=== PATIENT | male | born 1985 | race Caucasian/White ===

== ENCOUNTER 2017-03-02 14:23 | Emergency (ER) | payer OTHER ==
[~2017-03-02] VITALS: Ht 157.5 cm; Wt 44.7 kg
[~2017-03-02 14:23] MED LIST: ALBU1AER9 INH; ALL180 PO; AZIT-60 PO; BENZ5GEL TOP; CALC-452 PO; CHOL1CAP85 PO; DORN1SOL NEB; FERR1TAB62 PO; FLUT0.15 NAE; IPRASOL4 NEB; LACT1CHW PO; LORA-741 PO; MIRT30TA3 PO; MONT1TAB3 PO; MRN5 PO; MULTCAP PO; NUTRLIQ14 GT; NYSS/ PO; OMEP40CA PO; ONDA4TAB10 SL; OXGN; PANC1CAP PEG; PANC1CAP PO; PROT1POW GT; SKINCRE34 TOP; SODI3NEB2 NEB; SYMIN160 INH; TIZA4CAP PO; TOBRAMYCIN INH; TRMCR130WC TOP
[2017-03-02 14:37] VITALS: TEMP 36.8; Ht 157.5 cm; Wt 44.7 kg
[2017-03-02] MEDS ORDERED: SODIUM CHLORIDE 0.9% 1000ML 1,000 ML IV STA (14:46)
[2017-03-02] MEDS ORDERED: ONDANSETRON INJ 2 MG/ML 2 ML VIAL IV STA (14:46)
[2017-03-02] MEDS: FENTANYL CITRATE INJ 50 MCG/1 ML 2 ML VIAL IV PRN ×2 (14:58→16:28)
[2017-03-02 14:59] LABS: BASO % 0.2 %; BASO ABS # 0.03 K/uL (0-0.2); COMPLETE YES; HEMATOCRIT 37.1 % (42-52); IG% 0.3 %; LYMPH % 13.1 %; LYMPH ABS # 1.99 K/uL (1.2-3.4); MEAN CELL VOLUME 79.8 fL (80-100); MEAN CORPUSCULAR HEMOGLOBIN 25.8 pg (25-34); MEAN CORPUSCULAR HGB CONC 32.3 g/dl (32-36); MEAN PLATELET VOLUME 10.1 fL (7.4-10.4); MONO % 7.3 %; NEUT % 75.1 %; PLATELET COUNT 345 K/uL (130-400); RED BLOOD COUNT 4.65 M/uL (4.7-6.1)
[2017-03-02 15:01] LABS: ALT/SGPT 19 U/L (12-78); AST/SGOT 9 U/L (15-37); BLOOD UREA NITROGEN 16 mg/dl (7-18); BUN/CREATININE RATIO 36.3 (10-20); CALCIUM 8.7 mg/dl (8.5-10.1); CARBON DIOXIDE 33 mmol/L (21-32); CHLORIDE 104 mmol/L (98-107); CREATININE 0.45 mg/dl (0.60-1.40); GLUCOSE 97 mg/dl (70-99); POTASSIUM 3.7 mmol/L (3.5-5.1); SODIUM 142 mmol/L (136-145)
[2017-03-02 15:04] LABS: ALKALINE PHOSPHATASE 94 U/L (45-117)
[2017-03-02 15:21] LABS: URINE APPEARANCE TURBID (CLEAR); URINE BILIRUBIN NEG (NEG); URINE COLOR YELLOW; URINE EPITHELIAL CELL AUTO >30 /lpf (0-5); URINE NITRITE NEG (NEG); URINE PH 8.5 (4.5-7.5); URINE SPECIFIC GRAVITY 1.017 (1.000-1.030); UROBILINOGEN NEG (NEG)
[2017-03-02 15:36] LABS: MANUAL MICROSCOPIC REQUIRED? NO; REVIEW REQ? YES
--- NOTE | 2017-03-02 15:59 | DIAGNOSTIC IMAGING REPORT ---
CT SCAN OF THE ABDOMEN AND PELVIS WITHOUT CONTRAST CLINICAL HISTORY: left flank pain COMPARISON STUDY: 07/12/2016 TECHNIQUE: CT scan of the abdomen and pelvis was performed from the lung bases to the proximal femurs. Images are reviewed in the axial, sagittal, and coronal planes. IV contrast was not administered for this examination. CT DOSE: 248.18 mGy.cm FINDINGS: Lower chest: There are left lower lobe bronchiectatic changes. There is dilatation of the distal esophagus. There is a possible Gilmar fundoplication present. There is a right pleural effusion. There is right-sided volume loss with cardiac shift to the right. The electronic system engineer radiograph reveals possible right lower lobe collapse. Liver: The unenhanced liver is normal in size, contour, and attenuation. There is no intrahepatic biliary ductal dilatation. Gallbladder: Surgically absent Spleen: Normal in size and attenuation. Pancreas: Unremarkable. Adrenal glands: Unremarkable. Kidneys: There are bilateral nonobstructing renal calculi. There is no significant hydronephrosis. No ureteral calculi are visualized Bowel: There are no transition zones indicate bowel obstruction. A gastrostomy tube is visualized. Evaluation the bowel is limited given the lack of intravenous and oral contrast. The appendix is not visualized with certainty. There is no acute diverticulitis. Peritoneum: There is no intraperitoneal free air or abdominal ascites. Vasculature: The abdominal aorta is normal in course and caliber. Adenopathy: None. Pelvic viscera: The bladder, and pelvic viscera are unremarkable. Skeletal structures: No destructive osseous lesions are seen. IMPRESSION: 1. Lower lobe bronchiectatic changes consistent with the clinical history of cystic fibrosis 2. Right pleural effusion, and right lung volume loss with cardiac shift to the right. The electronic system engineer radiograph suggests right lower lobe collapse 3. Bilateral nephrolithiasis. No ureteral or bladder calculi identified 4. No evidence of bowel obstruction. No evidence of free air. Electronically signed by: Dex Avila M.D. 03/02/2017 3:57 PM Dictated Date/Time: 03/02/2017 3:51 PM
[2017-03-02] MEDS ORDERED: DOCU-94 PO (16:34)
[2017-03-02] MEDS ORDERED: MULTCHW22 PO (16:34)
[2017-03-02] MEDS ORDERED: ALBU18002 PO (16:34)
[2017-03-02] MEDS ORDERED: OMEP40CA41 PO (16:34)
[2017-03-02] MEDS ORDERED: ALBU18002 INH (16:34)
[2017-03-02] MEDS ORDERED: CALC500C70 PO (16:34)
[2017-03-02] MEDS ORDERED: CHOL1TAB46 PO (16:34)
[2017-03-02] MEDS ORDERED: VORI1TAB9 PO (16:34)
[2017-03-02] MEDS ORDERED: QUET1TAB30 PO (16:34)
[2017-03-02] MEDS ORDERED: PANC1CAP (16:34)
[2017-03-02] MEDS ORDERED: PANCCAP4 PO (16:34)
[2017-03-02] MEDS ORDERED: ALEN70TA4 PO (16:34)
[2017-03-02] MEDS ORDERED: OXYC1TAB3 PO (16:54)
[2017-03-02 17:13] VITALS: BP 122/75; PULSE 100; O2SAT 98
--- NOTE | 2017-03-02 17:34 | EMERGENCY ROOM VISIT NOTE ---
History Report prepared by Omer: Mimi Preciado Under the Supervision of: Neil VallejoO. First contact with patient: 14:39 Chief Complaint: FLANK PAIN Stated Complaint: BACK PAIN History of Present Illness The patient is a 31 year old male who presents to the Emergency Room with complaints of worsening left-sided flank pain for the past couple of days. His pain radiates into the right side of his back. He has been taking Tylenol for his pain at home, but this morning his pain became significantly worse. He notes some intermittent nausea, as well as dark and foul-smelling urine. The patient has a personal history of kidney stones and states that his current symptoms feel similar to his previous kidney stones. He has always been able to pass his kidney stones on his own. He has never followed-up with a urologist. The patient denies fever and vomiting. He is eating and drinking normally. The patient was brought to the ED by ambulance. He was given 50 mcg of fentanyl en route to the ED and states that helped to alleviate some of his pain. He rates his current pain as a 4/10 in severity Source of History: patient Onset: a couple of days ago Position: other (left flank) Symptom Intensity: 4/10 Quality: other (radiating) Timing: worsening Modifying Factors (Relieving): narcotics Associated Symptoms: + nausea, + urinary symptoms, No fevers, No vomiting Review of Systems See HPI for pertinent positives & negatives. A total of 10 systems reviewed and were otherwise negative. Past Medical & Surgical Medical Problems: (1) Cystic fibrosis Family History No pertinent history stated. Social History Smoking Status: Never Smoker Housing Status: lives with family Occupation Status: employed Current/Historical Medications Scheduled Alendronate Sodium (Fosamax), 70 MG PO WK Budesonide/Formoterol Fumarate (Symbicort 160/4.5 Inhaler ), 2 PUFFS INH BID Calcium/Vitamin D (Os-Min 500 Plus D), 1 TAB PO DAILY Cholecalciferol (Vitamin D3), 5,000 MG PO DAILY Docusate Sodium (Colace), 1 CAP PO BID Dornase Bob (Pulmozyme), 2.5 ML NEB BID Dronabinol (Marinol), 5 MG PO TID Ferrous Sulfate (Ferrous Sulfate), 325 MG PO BID Fexofenadine HCl (Fexofenadine HCl), 180 MG PO QPM Fluticasone Propionate (Nasal) (Flonase Allergy Relief), 2 SPRAYS MARTITA QAM Home O2 Therapy (Oxygen), 3 LITERS NA CONT Mirtazapine (Remeron), 30 MG PO HS Multiple Vitamins W/ Minerals (Aquadeks), 2 CAP PO DAILY Nutritional Supplements (Nutren 2.0), 110 ML GT UD Omeprazole (Prilosec), 40 MG PO BID Pancrelipase (Lipase-Protease- (Pertzye), 6 CAP PO TIDM Pancrelipase (Lipase-Protease- (Pertzye), 6 CAP PO TUBE FEED/UD Pancrelipase (Lipase-Protease- (Pancreaze), 3 CAP PO TID Protein (Beneprotein), 42 GM GT DAILY Sodium Chloride (Inhalant) (Sodium Chloride), 4 ML NEB BID Tizanidine (Zanaflex), 4 MG PO HS Triamcinolone Acet (Aristocort 0.1%), 1 APPLN TOP BID Voriconazole (Vfend), 1.5 TAB PO BID Scheduled PRN Albuterol Sulfate (Proair Respiclick), 2 PUFFS INH Q4 PRN for SOB/Wheezing Benzoyl Peroxide (Acne Medication 10), 1 APPLN TOP DAILY PRN for Acne Irritation Lactobacillus Rhamnosus (Gg) (Kinjal Kids), 1 CAP PO BID PRN for When On Antibiotics Ondasetron Odt (Zofran Odt), 4 MG SL Q8 PRN for Nausea Oxycodone Immediate Rel Tab (Roxicodone Ir), 1 TAB PO Q4H PRN for Severe Pain Quetiapine Fumarate (Seroquel), 12.5 MG PO Q6 PRN for Anxiety Allergies Coded Allergies: Cephalexin (Verified Allergy, Unknown, Hives, 08/01/16) Naproxen (Verified Allergy, Unknown, Stomach bleeding, 08/01/16) Tetracycline (Verified Adverse Reaction, Unknown, vomiting, 08/01/16) Physical Exam Vital Signs Date Time Temp Pulse Resp B/P (MAP) Pulse Ox O2 Delivery O2 Flow Rate FiO2 03/02/17 17:13 100 20 122/75 98 03/02/17 16:28 101 20 130/86 97 Nasal Cannula 4.0 03/02/17 15:57 103 03/02/17 15:48 104 16 117/78 98 Nasal Cannula 4.0 03/02/17 14:37 36.8 108 19 133/108 96 Nasal Cannula 4.0 Physical Exam GENERAL: Patient is awake, alert, somewhat anxious appearing and uncomfortable. EYES: The conjunctivae are clear. The pupils are round and reactive. EARS, NOSE, MOUTH AND THROAT: The nose is without any evidence of any deformity. Mucous membranes are moist tongue is midline NECK: The neck is nontender and supple. RESPIRATORY: Lung sounds were diminished throughout with scattered rhonchi, no tachypnea or conversational dyspnea. CARDIOVASCULAR: Tachycardic rate and regular rhythm noted there no murmurs rubs or gallops normal S1 normal S2 GASTROINTESTINAL: The abdomen is soft. Bowel sounds are present in all quadrants. Abdomen is nontender BACK: There was significant left CVA tenderness to percussion. No midline tenderness or or step-off noted range of motion in flexion extension as well as rotation no signs of muscle spasm noted MUSCULOSKELETAL/EXTREMITIES: There is no evidence of gross deformity full range of motion is noted in the hips and shoulders SKIN: There is no obvious evidence of any rash. There are no petechiae, pallor or cyanosis noted. NEUROLOGIC: Patient is awake alert and oriented x3 Medical Decision & Procedures ER Provider Diagnostic Interpretation: Radiology results as stated below per my review and radiologist interpretation: CT SCAN OF THE ABDOMEN AND PELVIS WITHOUT CONTRAST CLINICAL HISTORY: left flank pain COMPARISON STUDY: 07/12/2016 TECHNIQUE: CT scan of the abdomen and pelvis was performed from the lung bases to the proximal femurs. Images are reviewed in the axial, sagittal, and coronal planes. IV contrast was not administered for this examination. CT DOSE: 248.18 mGy.cm FINDINGS: Lower chest: There are left lower lobe bronchiectatic changes. There is dilatation of the distal esophagus. There is a possible Gilmar fundoplication present. There is a right pleural effusion. There is right-sided volume loss with cardiac shift to the right. The cafeteria monitor radiograph reveals possible right lower lobe collapse. Liver: The unenhanced liver is normal in size, contour, and attenuation. There is no intrahepatic biliary ductal dilatation. Gallbladder: Surgically absent Spleen: Normal in size and attenuation. Pancreas: Unremarkable. Adrenal glands: Unremarkable. Kidneys: There are bilateral nonobstructing renal calculi. There is no significant hydronephrosis. No ureteral calculi are visualized Bowel: There are no transition zones indicate bowel obstruction. A gastrostomy tube is visualized. Evaluation the bowel is limited given the lack of intravenous and oral contrast. The appendix is not visualized with certainty. There is no acute diverticulitis. Peritoneum: There is no intraperitoneal free air or abdominal ascites. Vasculature: The abdominal aorta is normal in course and caliber. Adenopathy: None. Pelvic viscera: The bladder, and pelvic viscera are unremarkable. Skeletal structures: No destructive osseous lesions are seen. IMPRESSION: 1. Lower lobe bronchiectatic changes consistent with the clinical history of cystic fibrosis 2. Right pleural effusion, and right lung volume loss with cardiac shift to the right. The cafeteria monitor radiograph suggests right lower lobe collapse 3. Bilateral nephrolithiasis. No ureteral or bladder calculi identified 4. No evidence of bowel obstruction. No evidence of free air. Electronically signed by: Dex Avila M.D. 03/02/2017 3:57 PM Dictated Date/Time: 03/02/2017 3:51 PM Laboratory Results 03/02/17 14:30 Red Blood Count 4.65, Mean Corpuscular Volume 79.8, Mean Corpuscular Hemoglobin 25.8, Mean Corpuscular Hemoglobin Concent 32.3, Mean Platelet Volume 10.1, Neutrophils (%) (Auto) 75.1, Lymphocytes (%) (Auto) 13.1, Monocytes (%) (Auto) 7.3, Eosinophils (%) (Auto) 4.0, Basophils (%) (Auto) 0.2, Neutrophils # (Auto) 11.42, Lymphocytes # (Auto) 1.99, Monocytes # (Auto) 1.11, Eosinophils # (Auto) 0.61, Basophils # (Auto) 0.03 03/02/17 14:30 Test 03/02/17 14:30 03/02/17 15:05 White Blood Count 15.20 K/uL (4.8-10.8) Red Blood Count 4.65 M/uL (4.7-6.1) Hemoglobin 12.0 g/dL (14.0-18.0) Hematocrit 37.1 % (42-52) Mean Corpuscular Volume 79.8 fL (80-100) Mean Corpuscular Hemoglobin 25.8 pg (25-34) Mean Corpuscular Hemoglobin Concent 32.3 g/dl (32-36) Platelet Count 345 K/uL (130-400) Mean Platelet Volume 10.1 fL (7.4-10.4) Neutrophils (%) (Auto) 75.1 % Lymphocytes (%) (Auto) 13.1 % Monocytes (%) (Auto) 7.3 % Eosinophils (%) (Auto) 4.0 % Basophils (%) (Auto) 0.2 % Neutrophils # (Auto) 11.42 K/uL (1.4-6.5) Lymphocytes # (Auto) 1.99 K/uL (1.2-3.4) Monocytes # (Auto) 1.11 K/uL (0.11-0.59) Eosinophils # (Auto) 0.61 K/uL (0-0.5) Basophils # (Auto) 0.03 K/uL (0-0.2) RDW Standard Deviation 47.0 fL (36.4-46.3) RDW Coefficient of Variation 16.2 % (11.5-14.5) Immature Granulocyte % (Auto) 0.3 % Immature Granulocyte # (Auto) 0.04 K/uL (0.00-0.02) Anion Gap 5.0 mmol/L (3-11) Est Creatinine Clear Calc Drug Dose 150.4 ml/min Estimated GFR () > 150.0 Estimated GFR (Non- > 150.0 BUN/Creatinine Ratio 36.3 (10-20) Calcium Level 8.7 mg/dl (8.5-10.1) Total Bilirubin 0.2 mg/dl (0.2-1) Direct Bilirubin 0.1 mg/dl (0-0.2) Aspartate Amino Transf (AST/SGOT) 9 U/L (15-37) Alanine Aminotransferase (ALT/SGPT) 19 U/L (12-78) Alkaline Phosphatase 94 U/L (45-117) Total Protein 8.1 gm/dl (6.4-8.2) Albumin 3.6 gm/dl (3.4-5.0) Lipase 35 U/L (73-393) Urine Color YELLOW Urine Appearance TURBID (CLEAR) Urine pH 8.5 (4.5-7.5) Urine Specific Cook 1.017 (1.000-1.030) Urine Protein NEG (NEG) Urine Glucose (UA) NEG (NEG) Urine Ketones NEG (NEG) Urine Occult Blood NEG (NEG) Urine Nitrite NEG (NEG) Urine Bilirubin NEG (NEG) Urine Urobilinogen NEG (NEG) Urine Leukocyte Esterase NEG (NEG) Urine WBC (Auto) 1-5 /hpf (0-5) Urine RBC (Auto) 0-4 /hpf (0-4) Urine Hyaline Casts (Auto) 5-10 /lpf (0-5) Urine Epithelial Cells (Auto) >30 /lpf (0-5) Urine Bacteria (Auto) NEG (NEG) Urine Renal Epithelial Cells /lpf (0-5) Urine Crystals AMORPHOUS SEDIMENT (NONE Laboratory results per my review. Medications Administered Medications (Trade) Dose Ordered Sig/William Route Start Time Stop Time Status Last Admin Dose Admin Fentanyl Citrate (Fentanyl Inj) 50 mcg Q20M PRN IV 03/02/17 15:00 03/02/17 18:46 DC 03/02/17 16:28 50 MCG Sodium Chloride 1,000 ml @ 999 mls/hr Q1H1M STAT IV 03/02/17 14:46 03/02/17 15:46 DC 03/02/17 14:58 999 MLS/HR Ondansetron HCl (Zofran Inj) 4 mg NOW STAT IV 03/02/17 14:46 03/02/17 14:47 DC 03/02/17 14:58 4 MG ED Course 1439: Prior to the patient's arrival in the ED I took medical command for fentanyl for the patient. Upon arrival the patient was evaluated in room B12B. A complete history and physical examination were performed. 1446: Zofran 4 mg IV, NSS 1000 ml @ 999 mls/hr IV 1500: Fentanyl 50 mcg IV - PRN 1556: I reassessed the patient at this time. He is feeling better and resting comfortably. I discussed the results and treatment plan with the patient. I answered all pertaining questions that he had. He expressed understanding and verbalized agreement The patient will be discharged home. Medical Decision Differential diagnosis: Etiologies such as renal colic, appendicitis, diverticulitis, mesenteric ischemia, aortic pathology, infections, inflammatory bowel disease, PUD, biliary pathology, UTI, as well as others were entertained. Medication Reconciliation: I attest that I have personally reviewed the patient' s current medications list. Blood pressure screening: Patient was found to have a slightly elevated blood pressure due to circumstances. I do not believe that the patient requires hypertension monitoring. The patient is a 31-year-old male who presented to the emergency department for an evaluation of flank pain and dark urine. The patient states that he's had similar episodes in the past whenever he has had kidney stones. He was given IV pain medication prior to arrival. He was treated with IV fluids IV pain medicine and IV antiemetics in the emergency department. I discussed the patient 's laboratory and radiographic studies with him. At this time he was not found to have any ureteral calculi or hydronephrosis. I do feel the patient may have had a recently passed kidney stone given the hematuria that was noted previously. He was encouraged to rest and avoid any strenuous activity. He was also encouraged to follow-up with his primary care physician as soon as possible for further management. I also discussed the patient's CT report with him which showed some atelectatic changes in the lung base. He is not have any worsening symptoms at this time but does have a history of underlying cystic fibrosis. He was encouraged to return if he develop any worsening pulmonary symptoms such as fever shortness of breath increased sputum production or if need arises. Impression Primary Impression: Kidney stone Additional Impression: Left flank pain Scribe Attestation The scribe's documentation has been prepared under my direction and personally reviewed by me in its entirety. I confirm that the note above accurately reflects all work, treatment, procedures, and medical decision making performed by me. Departure Information Dispostion Home / Self-Care Prescriptions Oxycodone Immediate Rel Tab (ROXICODONE IR) 5 Mg Tab 1 TAB PO Q4H Y for Severe Pain, #24 TAB Prov: Dominic Lucero, 03/02/17 Referrals Amador Sandy M.D. (PCP) Forms HOME CARE DOCUMENTATION FORM, IMPORTANT VISIT INFORMATION Patient Instructions Kidney Stones [place], [facility] [place] [facility] Additional Instructions Continue all medications as prescribed. Drink plenty clear liquids. Follow-up with your family tomorrow regarding the findings on CT of the chest were noted in the lungs. Return to the emergency department immediately symptoms change worsen or the need arises. Problem Qualifiers
== END 2017-03-02 15:10 | disposition home or self-care (01) ==
LOC: EDBD 14:23 → C.EDB 14:24
DX: N20.0 Calculus of kidney (principal); R10.84 Generalized abdominal pain; E84.9 Cystic fibrosis, unspecified

== ENCOUNTER 2017-03-27 15:08 | Emergency (ER) | payer OTHER ==
[~2017-03-27] VITALS: Ht 160 cm; Wt 45.5 kg
[~2017-03-27 15:08] MED LIST changes: +ALBU18002 INH; -ALBU1AER9 INH; +ALEN70TA4 PO; -AZIT-60 PO; -CALC-452 PO; +CALC500C70 PO; -CHOL1CAP85 PO; +CHOL1TAB46 PO; +DOCU-94 PO; -FERR1TAB62 PO; +FERR325T PO; -IPRASOL4 NEB; -LORA-741 PO; -MONT1TAB3 PO; -MULTCAP PO; +MULTCHW22 PO; -NYSS/ PO; -OMEP40CA PO; +OMEP40CA41 PO; +OXYC1TAB3 PO; -PANC1CAP PEG; +PANCCAP4 PO; +QUET1TAB30 PO; -SKINCRE34 TOP; -TOBRAMYCIN INH; +VORI1TAB9 PO
[2017-03-27 15:14] VITALS: TEMP 36.8; Ht 160 cm; Wt 45.5 kg
--- NOTE | 2017-03-27 15:23 | EMERGENCY ROOM VISIT NOTE ---
History Report prepared by Omer: Flavia Ojeda Under the Supervision of: Dr. Fredy Elias M.D. First contact with patient: 15:12 Chief Complaint: RESPIRATORY DISTRESS Stated Complaint: RESP. DISTRESS History of Present Illness The patient is a 32 year old male who presents to the Emergency Room with complaints of worsening shortness of breath over the last several days. The patient's mother reports that the patient has a history of cystic fibrosis and is very close to being placed on a lung transplant list. She states that the patient follows with pulmonologists in [place]. The patient's mother states that the patient has been told that if his symptoms become severe he should come to the nearest emergency department and then transferred to [facility]. The patient reports that he was recently changed from Duoneb treatments to Xopenex treatments. He states that he has been taking back to back breathing treatments since 1130 this morning. The patient states that he is typically on three liters of supplemental nasal cannula oxygen at all times, but states that today he bumped it up to five liters. He states that he is currently on Prednisone. Nursing staff reports that the patient was given 125 of Solu Medrol and 3 Duonebs en-route to the emergency department. The patient denies any fever, chills, or diarrhea. Source of History: patient, parent (mother), nursing staff Onset: last several days Position: other (global) Quality: other (shortness of breath) Timing: worsening Associated Symptoms: No fevers, No chills, No diarrhea Review of Systems All systems have been listed, reviewed, and are negative other than those previously mentioned. Please see Additional Medical History Sheet. Past Medical & Surgical Medical Problems: (1) Asthma (2) Cystic fibrosis (3) Pneumonia Surgical Problems: (1) S/P cholecystectomy (2) S/P lobectomy of lung Family History Cancer Diabetes mellitus Hypertension Kidney disease Kidney stones Social History Smoking Status: Never Smoker Smokeless Tobacco Use: No Alcohol Use: none Marital Status: single Housing Status: lives with family Occupation Status: disabled Current/Historical Medications Scheduled Alendronate Sodium (Fosamax), 70 MG PO WK Budesonide/Formoterol Fumarate (Symbicort 160/4.5 Inhaler ), 2 PUFFS INH BID Calcium/Vitamin D (Os-Min 500 Plus D), 1 TAB PO DAILY Cholecalciferol (Vitamin D3), 5,000 MG PO DAILY Dornase Bob (Pulmozyme), 2.5 ML NEB BID Dronabinol (Marinol), 5 MG PO TID Ferrous Sulfate (Ferrous Sulfate), 325 MG PO BID Fexofenadine HCl (Fexofenadine HCl), 180 MG PO QPM Fluticasone Propionate (Nasal) (Flonase Allergy Relief), 2 SPRAYS MARTITA QAM Home O2 Therapy (Oxygen), 3 LITERS NA CONT Levalbuterol (Levalbuterol HCl), 3 ML NEB QID Mirtazapine (Remeron), 30 MG PO HS Multiple Vitamins W/ Minerals (Aquadeks), 2 CAP PO DAILY Nutritional Supplements (Nutren 2.0), 110 ML GT UD Omeprazole (Prilosec), 40 MG PO BID Pancrelipase (Lipase-Protease- (Pertzye), 6 CAP PO TIDM Pancrelipase (Lipase-Protease- (Pancreaze), 3 CAP PO TID Protein (Beneprotein), 42 GM GT BID Sodium Chloride (Inhalant) (Sodium Chloride), 4 ML NEB BID Tizanidine (Zanaflex), 4 MG PO HS Triamcinolone Acet (Aristocort 0.1%), 1 APPLN TOP BID Voriconazole (Vfend), 1.5 TAB PO BID Scheduled PRN Albuterol Sulfate (Proair Respiclick), 2 PUFFS INH Q4 PRN for SOB/Wheezing Benzoyl Peroxide (Acne Medication 10), 1 APPLN TOP DAILY PRN for Acne Irritation Lactobacillus Rhamnosus (Gg) (Maurie Kids), 1 CAP PO BID PRN for When On Antibiotics Ondasetron Odt (Zofran Odt), 4 MG SL Q8 PRN for Nausea Quetiapine Fumarate (Seroquel), 12.5 MG PO Q6 PRN for Anxiety Allergies Coded Allergies: Cephalexin (Verified Allergy, Unknown, Hives, 03/27/17) SPOKE W PATIENT - HAS TOLERATED MEROPENEM IN THE PAST Naproxen (Verified Allergy, Unknown, Stomach bleeding, 03/27/17) Tetracycline (Verified Adverse Reaction, Unknown, vomiting, 03/27/17) Physical Exam Vital Signs Date Time Temp Pulse Resp B/P (MAP) Pulse Ox O2 Delivery O2 Flow Rate FiO2 03/27/17 21:33 112 25 124/72 94 Mask 6.0 03/27/17 20:20 113 23 119/70 95 Mask 6.0 03/27/17 19:22 116 23 109/69 95 Mask 6.0 03/27/17 19:00 112 24 116/68 93 Mask 6.0 03/27/17 17:43 127 24 109/63 93 Mask 10.0 03/27/17 16:45 129 25 107/66 94 10.0 03/27/17 16:00 92 Oxymask 10.0 03/27/17 15:25 90 Oxymask 10.0 03/27/17 15:19 156 03/27/17 15:14 36.8 150 30 141/86 86 Nasal Cannula 6.0 Physical Exam GENERAL: Patient awake, alert, oriented x 3. Patient follows commands. Patient does not appear toxic. Patient is adequately hydrated and well- nourished. SKIN: No erythema, pallor, cyanosis or rash HEENT: Normal head, pupils equal, reactive to light and accommodation. Neck: Without adenopathy, no neck vein distention. LUNGS:Wheezes in all navarrete, tachypneic. HEART: Tachycardic, no murmurs. ABDOMEN: Feeding tube in left mid abdomen. Soft, nontender, no peritonitis or other signs of acute abdomen. No masses, no rebound, no hepatomegaly or splenomegaly. EXTREMITIES: No signs of trauma. No pedal or pretibial edema. No calf or thigh tenderness. NEUROLOGIC: Cranial nerves II-XII within normal limits. No gross motor sensory function deficits. Medical Decision & Procedures ER Provider Diagnostic Interpretation: X ray results are stated below per my interpretation and the radiologist's interpretation. CHEST ONE VIEW PORTABLE CLINICAL HISTORY: 32 years-old Male presenting with SOB Cystic Fibrosis. TECHNIQUE: Portable upright AP view of the chest was obtained. COMPARISON: 07/12/2016. FINDINGS: Left-sided Mediport in place, likely left subclavian venous access, terminating in the superior cavoatrial junction. Surgical material noted in the expected region of the right upper lobe bronchus and bronchus intermedius. Cardiomediastinal silhouette shifted to the extensive right lung volume loss. Marked cystic change in the right lung likely with apical bullous disease. Perihilar consolidation in the right lung has significantly progressed from prior exam. Rounded lucency projecting over the cardiac silhouette may represent a right lung base bleb. Diffuse reticulonodular lung markings throughout the left lung with a mid to basilar predominance are increased from prior. Left apical lucency as on prior exam. No pneumothorax. Blunting of the right costophrenic angle may indicate small effusion or pleural thickening. Osseous structures normal. Cholecystectomy clips noted. IMPRESSION: 1. Decreased right lung aeration with increased perihilar consolidation. This may represent a combination of mucus plugging and atelectasis, although underlying infection cannot be excluded. 2. Diffuse reticulonodular lung opacities in the mid to basilar left lung also raises concern for infection. 3. Small right effusion. Electronically signed by: Amador Pérez 03/27/2017 3:39 PM Dictated Date/Time: 03/27/2017 3:32 PM Laboratory Results 03/27/17 16:55 Red Blood Count 4.14, Mean Corpuscular Volume 79.0, Mean Corpuscular Hemoglobin 25.1, Mean Corpuscular Hemoglobin Concent 31.8, Mean Platelet Volume 03/27/17 15:45 Test 03/27/17 15:45 03/27/17 16:55 Anion Gap 5.0 mmol/L (3-11) Est Creatinine Clear Calc Drug Dose 111.9 ml/min Estimated GFR () > 150.0 Estimated GFR (Non- 132.1 BUN/Creatinine Ratio 30.2 (10-20) Calcium Level 8.5 mg/dl (8.5-10.1) Total Bilirubin 0.1 mg/dl (0.2-1) Aspartate Amino Transf (AST/SGOT) 25 U/L (15-37) Alanine Aminotransferase (ALT/SGPT) 39 U/L (12-78) Alkaline Phosphatase 106 U/L (45-117) Troponin I < 0.015 ng/ml (0-0.045) Total Protein 7.7 gm/dl (6.4-8.2) Albumin 2.7 gm/dl (3.4-5.0) Globulin 5.0 gm/dl (2.5-4.0) Albumin/Globulin Ratio 0.5 (0.9-2) White Blood Count 39.22 K/uL (4.8-10.8) Red Blood Count 4.14 M/uL (4.7-6.1) Hemoglobin 10.4 g/dL (14.0-18.0) Hematocrit 32.7 % (42-52) Mean Corpuscular Volume 79.0 fL (80-100) Mean Corpuscular Hemoglobin 25.1 pg (25-34) Mean Corpuscular Hemoglobin Concent 31.8 g/dl (32-36) Platelet Count K/uL (130-400) Mean Platelet Volume fL (7.4-10.4) RDW Standard Deviation 45.6 fL (36.4-46.3) RDW Coefficient of Variation 15.7 % (11.5-14.5) Neutrophils % (Manual) 100.0 % Lymphocytes % (Manual) 0.0 % Neutrophils # (Manual) 39.22 K/uL (1.4-6.5) Total Absolute Neutrophils 39.22 K/uL (1.4-6.5) Total Absolute Lymphocytes 0.00 K/uL (1.2-3.4) Platelet Estimate INCREASED Microcytosis PRESENT Laboratory results as stated above per my review. Medications Administered Medications (Trade) Dose Ordered Sig/William Route Start Time Stop Time Status Last Admin Dose Admin Imipenem/ Cilastatin Sodium 1000 mg/Dextrose 270 ml @ 250 mls/hr NOW ONCE IV 03/27/17 19:00 03/27/17 20:04 DC 03/27/17 19:21 250 MLS/HR Sodium Chloride 1,000 ml @ 500 mls/hr Q2H STAT IV 03/27/17 19:35 03/27/17 21:34 DC 03/27/17 19:35 500 MLS/HR ECG Indication: SOB/dyspnea Rate (beats per minute): 155 Rhythm: sinus tachycardia Findings: no acute ischemic change, no ectopy Change: Repeat EKG: Sinus Tachycardia 144 beats per minute, no ectopy, no acute ischemic change ED Course 151: Past medical records reviewed. The patient was evaluated in room B12B. A complete history and physical examination was performed. 1745: I reevaluated the patient and he is resting comfortably. I updated him at this time on his exam findings. 1835: I discussed the patients case with [facility]. He states that the hospitalist service will call back to accept the patient as a transfer to their facility. 1851: I discussed the patients case with Dr. Conner, Hospitalist at [facility]. He accepted the patient as a transfer to their facility for further work up and care. 1854: I reevaluated the patient and he is resting comfortably. I discussed the exam findings with him and I discussed the treatment plan. He verbalized complete understanding and agreement. He is going to be transferred to [facility] for further evaluation and care. 1899: Ordered Imipenem/Cilastatin Sodium 1000 mg/Dextrose 270 ml @ 250 mls/hr Protocol IV. 1934: Ordered Sodium Chloride 1000 ml @ 500 mls/hr IV. Medical Decision Nurses notes reviewed. Medical history sheet reviewed. Differential diagnosis includes but is not limited to: respiratory failure, bronchitis, cystic fibrosis , pneumonia, pulmonary embolus. The patient here with respiratory distress. The patient has a history of cystic fibrosis. Multiple labs, EKG and imaging were obtained. The patient has not had fever or chills at home. Chest x-ray reveals some consolidation on the right side. In light of his history I believe he requires IV antibiotics which were preceded by blood cultures. White count was markedly elevated. Solu-Medrol was administered prior to arrival in the ambulance The patient has been followed at [facility]. I discussed care with them this evening. They have accepted him and he was transported there via ambulance. Medication Reconciliation: I attest that I have personally reviewed the patient' s current medication list. Blood pressure Screening: Patient was found to have normal blood pressure on screening and does not require follow up. Consults Time Called: 1829 Consulting Physician: Dr. Conner Hospitalist at [facility] Returned Call: 1851 I discussed the patients case with Dr. Conner, Hospitalist at [facility]. He accepted the patient as a transfer to their facility for further work up and care. Impression Primary Impression: Cystic fibrosis Additional Impression: Pneumonia Critical Care I have personally spent greater than 35 minutes of critical care time in the direct management of this patient. This includes bedside care, interpretation of diagnostic studies, and testing, discussion with consultants, patient, and family members, and other required patient management activities. This 35 minutes is in excess of all separately billable procedures. Scribe Attestation The scribe's documentation has been prepared under my direction and personally reviewed by me in its entirety. I confirm that the note above accurately reflects all work, treatment, procedures, and medical decision making performed by me. Departure Information Dispostion Transfer Acute Care Facility Referrals Amador Sandy M.D. (PCP) Problem Qualifiers
[2017-03-27 15:25] VITALS: O2SAT 90
--- NOTE | 2017-03-27 15:41 | DIAGNOSTIC IMAGING REPORT ---
CHEST ONE VIEW PORTABLE CLINICAL HISTORY: 32 years-old Male presenting with SOB Cystic Fibrosis. TECHNIQUE: Portable upright AP view of the chest was obtained. COMPARISON: 07/12/2016. FINDINGS: Left-sided Mediport in place, likely left subclavian venous access, terminating in the superior cavoatrial junction. Surgical material noted in the expected region of the right upper lobe bronchus and bronchus intermedius. Cardiomediastinal silhouette shifted to the extensive right lung volume loss. Marked cystic change in the right lung likely with apical bullous disease. Perihilar consolidation in the right lung has significantly progressed from prior exam. Rounded lucency projecting over the cardiac silhouette may represent a right lung base bleb. Diffuse reticulonodular lung markings throughout the left lung with a mid to basilar predominance are increased from prior. Left apical lucency as on prior exam. No pneumothorax. Blunting of the right costophrenic angle may indicate small effusion or pleural thickening. Osseous structures normal. Cholecystectomy clips noted. IMPRESSION: 1. Decreased right lung aeration with increased perihilar consolidation. This may represent a combination of mucus plugging and atelectasis, although underlying infection cannot be excluded. 2. Diffuse reticulonodular lung opacities in the mid to basilar left lung also raises concern for infection. 3. Small right effusion. Electronically signed by: Amador Pérez 03/27/2017 3:39 PM Dictated Date/Time: 03/27/2017 3:32 PM
[2017-03-27] MEDS ORDERED: XPNINS NEB (16:05)
[2017-03-27 16:24] LABS: ALT/SGPT 39 U/L (12-78); BLOOD UREA NITROGEN 18 mg/dl (7-18); BUN/CREATININE RATIO 30.2 (10-20); CALCIUM 8.5 mg/dl (8.5-10.1); CARBON DIOXIDE 35 mmol/L (21-32); CHLORIDE 96 mmol/L (98-107); CREATININE 0.61 mg/dl (0.60-1.40); GLUCOSE 187 mg/dl (70-99); POTASSIUM 3.9 mmol/L (3.5-5.1); SODIUM 136 mmol/L (136-145)
[2017-03-27 16:28] LABS: ALB/GLOB RATIO 0.5 (0.9-2); ALKALINE PHOSPHATASE 106 U/L (45-117); AST/SGOT 25 U/L (15-37)
[2017-03-27 18:42] LABS: HEMATOCRIT 32.7 % (42-52); MEAN CORPUSCULAR HEMOGLOBIN 25.1 pg (25-34); MEAN CORPUSCULAR HGB CONC 31.8 g/dl (32-36); RED BLOOD COUNT 4.14 M/uL (4.7-6.1); WHITE BLOOD COUNT 39.22 K/uL (4.8-10.8)
[2017-03-27 18:43] LABS: COMPLETE YES; MICROCYTOSIS PRESENT; PLT ESTIMATE INCREASED
[2017-03-27] MEDS ORDERED: IMIPENEM/CILASTATIN IV 1,000 MG in DEXTROSE 5% 250ML 250 ML IV ONE (19:00)
[2017-03-27] MEDS ORDERED: SODIUM CHLORIDE 0.9% 1000ML 1,000 ML IV STA (19:35)
[2017-03-27 21:33] VITALS: BP 124/72; PULSE 112; O2SAT 94
== END 2017-03-27 21:35 | disposition short-term general hospital (02) ==
LOC: EDBD 15:08 → C.EDB 15:09
DX: E84.0 Cystic fibrosis with pulmonary manifestations (principal); J18.9 Pneumonia, unspecified organism; J45.909 Unspecified asthma, uncomplicated; Z87.01 Personal history of pneumonia (recurrent); Z99.81 Dependence on supplemental oxygen; Z90.2 Acquired absence of lung [part of]; Z90.49 Acquired absence of other specified parts of digestive tract; Z83.3 Family history of diabetes mellitus; Z82.49 Family history of ischemic heart disease and other diseases of the circulatory system; Z84.1 Family history of disorders of kidney and ureter

== ENCOUNTER 2020-06-11 12:45 | Inpatient (IN) ==
[2020-06-11] MEDS ORDERED: KETOROLAC TROMETHAMINE 15 MG/ML VIAL IV ONE (13:01)
[2020-06-11] MEDS ORDERED: SODIUM CHLORIDE 0.9% 1000ML 1,000 ML IV ONE (13:01)
[2020-06-11] MEDS ORDERED: MoRPHine SULFATE 4 MG/ML 1 ML CARP\\VIAL IV STA (13:01)
--- NOTE | 2020-06-11 13:05 | Emergency Department Note ---
History of Present Illness General Chief complaint: Kidney Stone Stated complaint: KIDNEY STONES Time Seen by Provider: 06/11/20 12:49 Source: patient Mode of arrival: ambulatory Limitations: no limitations History of Present Illness Maximum Pain Intensity: 8 This patient is a 35-year-old male who presents to the emergency department for evaluation of left flank pain. Patient reports that his symptoms started domonique denly about 6 hours prior to arrival. He states that his pain is primarily in the left flank. He has noticed some hematuria and slight dysuria. Symptoms are consistent with prior kidney stones he has had. Patient states pain is worse with certain movements. He took Tylenol without relief. He rates his discomfort an 8/10. Patient states [facility] u[facility]. He does note some chills but has not taken his temperature. Patient has a history of cystic fibrosis and double lung transplant in 2017. He denies cough or shortness of breath. He denies nausea or vomiting. Home Medications Home Medications Medication Instructions Recorded Confirmed Type mycophenolate sodium 720 mg PO BID 10/12/18 06/11/20 History tacrolimus 5 mg PO Q12 10/12/18 06/11/20 History acetaminophen [Tylenol] 325 mg PO QID PRN 06/11/20 06/11/20 History ascorbic acid (vitamin C) [Vitamin 500 mg PO HS 06/11/20 06/11/20 History C] azithromycin 250 mg PO .MOWEFR@QAM 06/11/20 06/11/20 History fluconazole 100 mg PO QAM 06/11/20 06/11/20 History fluticasone propionate 2 spray INTRANASAL DAILY PRN 06/11/20 06/11/20 History wcdrhk-yrfmckzd-xutmlih [Zenpep] 3 cap PO .SNACKS 06/11/20 06/11/20 History kzayqa-szxhxkwv-yjxtyog [Zenpep] 6 cap PO TIDM 06/11/20 06/11/20 History metoprolol succinate 25 mg PO DAILY 06/11/20 06/11/20 History pantoprazole 40 mg PO QAM 06/11/20 06/11/20 History prednisone 5 mg PO QAM 06/11/20 06/11/20 History vitamin E (dl, acetate) 400 unit PO DAILY 06/11/20 06/11/20 History Allergies Allergy/AdvReac Type Severity Reaction Status Date / Time cephalexin Allergy Severe Hives Verified 09/20/20 15:20 tetracycline AdvReac Severe vomiting Verified 06/11/20 14:38 naproxen AdvReac Mild Stomach Verified 06/11/20 14:38 bleeding Past Med/Surg History Medical History Asthma Chronic anemia Cystic fibrosis s/p b/l lung transplant 2016 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 Exocrine pancreatic insufficiency G tube feedings OUT IN OCT 2018 WAS DUE TO MALNUTRITION FROM CYSTIC FIBROSIS GERD (gastroesophageal reflux disease) History of Clostridioides difficile colitis History of gastrostomy tube placement History of renal calculi Kidney stones Vitamin D deficiency Surgical History History of cholecystectomy History of Sandoval fundoplication Hx of lithotripsy Lung transplant status, bilateral 06-23- Family History Mother Lung cancer Sister Lung cancer Social History Smoking Status: Never smoker Second Hand Exposure: No; Hx Alcohol Use: No Hx Substance Use: No Preferred Language: Divehi Communication Ability: Effective 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: No Beliefs That Will Affect Care: None marital status: single Current Living Situation: Family current occupational status: unemployed and disabled Feels Safe at Home: Yes Review of Systems A total of 10 systems reviewed and were otherwise negative Physical Exam Vital Signs Vital Signs - 24 hr 06/11/20 12:48 06/11/20 13:51 06/11/20 14:00 Temperature 38.1 C H Temperature Source Oral Pulse Rate 89 117 H 113 H Pulse Rate from SpO2 Sensor 156 H Respiratory Rate 20 20 16 Respiratory Effort / Characteristics Non-Labored Spontaneous Respiratory Depth Normal Blood Pressure 134/80 131/83 123/71 Blood Pressure Mean 98 96 80 Pulse Oximetry 98 96 Oxygen Delivery Method Room Air Room Air Sepsis Recent Fever Within 48 Hours Yes Sepsis New/Unexplained Change in Mental Status N/A Sepsis Action Taken by Nursing No Action Required 06/11/20 14:30 06/11/20 15:31 06/11/20 16:00 Temperature Temperature Source Pulse Rate 107 H 110 H 112 H Pulse Rate from SpO2 Sensor 107 H 112 H Respiratory Rate 18 15 15 Respiratory Effort / Characteristics Respiratory Depth Blood Pressure 126/75 120/70 117/73 Blood Pressure Mean 92 78 80 Pulse Oximetry 100 95 Oxygen Delivery Method Room Air Sepsis Recent Fever Within 48 Hours Sepsis New/Unexplained Change in Mental Status Sepsis Action Taken by Nursing VITALS: Vitals are noted on the nurse's note and reviewed by myself. Febrile with temperature 38.1 C. GENERAL: This is a 35-year-old male, uncomfortable appearing, cachectic. SKIN: The skin was without rashes. EARS: External auditory canals clear, tympanic membranes pearly echavarria without erythema or effusion bilaterally. EYES: Pupils equal round and reactive to light and accommodation. MOUTH: Mucous membranes moist. Tonsils are not enlarged. Pharynx without erythema or exudate. NECK: Supple without nuchal rigidity. No lymphadenopathy. HEART: Regular rate and rhythm without murmurs gallops or rubs. LUNGS: Clear to auscultation bilaterally without wheezes, rales or rhonchi. No retractions or accessory muscle use. ABDOMEN: Positive bowel sounds x 4. Soft, nontender to palpation. Positive left CVA tenderness. EXTREMITIES: No edema of the lower extremities. NEURO: Patient was alert and oriented to person place and time. No focal neurological deficits. Course Reevaluation(s) Reevaluation #1: Findings were discussed with the patient. I recommended admi ssion to the hospital and patient was initially very hesitant about this. He initially stated that he was going to leave but eventually did agree to stay overnight. Consultations Consultation #1: Charley Flood PA-C - [facility] hospitalist Administered Medications Vancomycin HCl 750 mg/ Sodium (Chloride) 515 mls @ 200 mls/hr IV NOW ONE Stop: 06/11/20 17:25 Last Admin: 06/11/20 15:37 Dose: 200 mls/hr Documented by: [id number] Discontinued Medications Sodium Chloride (Nss 1000ml) 1,000 mls @ 999 mls/hr IV .Q1H1M ONE Stop: 06/11/20 14:01 Last Infusion: 06/11/20 14:33 Dose: 0 mls/hr Documented by: [id number] Admin: 06/11/20 13:26 Dose: 999 mls/hr Documented by: [id number] Levofloxacin/Dextrose (Levaquin/D5w) 750 mg in 150 mls @ 100 mls/hr IV NOW STA Stop: 06/11/20 16:20 Last Infusion: 06/11/20 15:37 Dose: 0 mls/hr Documented by: [id number] Admin: 06/11/20 15:09 Dose: 100 mls/hr Documented by: [id number] Sodium Chloride (Nss) 250 mls @ 999 mls/hr IV .Q16M ONE Stop: 06/11/20 15:06 Last Infusion: 06/11/20 15:30 Dose: 0 mls/hr Documented by: [id number] Admin: 06/11/20 15:09 Dose: 999 mls/hr Documented by: [id number] Piperacillin Sod/Tazobactam Sod (Zosyn) 4.5 gm in 120 mls @ 240 mls/hr IV NOW ONE Stop: 06/11/20 15:37 Last Admin: 06/11/20 15:37 Dose: 240 mls/hr Documented by: [id number] Ketorolac Tromethamine (Ketorolac Tromethamine 15 Mg/Ml Vial) 10 mg IV NOW ONE Stop: 06/11/20 13:02 Last Admin: 06/11/20 13:27 Dose: 10 mg Documented by: [id number] Morphine Sulfate (Morphine Sulfate 4 Mg/Ml 1 Ml Carp\Vial) 4 mg IV NOW STA Stop: 06/11/20 13:02 Last Admin: 06/11/20 13:27 Dose: 4 mg Documented by: [id number] Medical Decision Making Differential Diagnosis Differential diagnosis includes renal calculus, pyelonephritis, musculoskeletal pain, ruptured AAA, aortic dissection, diverticulitis, perforated viscus, bowel obstruction, biliary pathology, pancreatitis, PE, pneumonia, pneumothorax, trauma, herpes zoster, malignancy, among others. Medical Records Attestation: I reviewed the patient's medical records. Home Medications Current Medication List: was personally reviewed by me Laboratory Data Attestation: I reviewed the patient's lab results. Result diagrams: 06/11/20 13:37 06/11/20 13:37 Lab Results 06/11/20 06/11/20 06/11/20 Range/Units 13:37 13:37 13:37 WBC 5.84 (4.8-10.8) K/uL RBC 3.09 L (4.7-6.1) M/uL Hgb 8.1 L (14.0-18.0) g/dL Hct 25.9 L (42-52) % MCV 83.8 (80-100) fL MCH 26.2 (25-34) pg MCHC 31.3 L (32-36) g/dL RDW Std Deviation 51.4 H (36.4-46.3) fL RDW Coeff of Crissy 16.7 H (11.5-14.5) % Plt Count 246 (130-400) K/uL MPV 10.3 (7.4-10.4) fL Immature Gran % (Auto) 8.0 % Neut % (Auto) 68.8 % Lymph % (Auto) 6.3 % [place] % (Auto) 16.4 % Eos % (Auto) 0.5 % Baso % (Auto) 0.0 % Neut # (Auto) 4.01 (1.4-6.5) K/uL Lymph # (Auto) 0.37 L (1.2-3.4) K/uL [place] # (Auto) 0.96 H (0.11-0.59) K/uL Eos # (Auto) 0.03 (0-0.5) K/uL Baso # (Auto) 0.00 (0-0.2) K/uL Immature Gran # (Auto) 0.47 H (0.00-0.02) K/uL Ovalocytes 1+ Sodium 136 (136-145) mmol/L Potassium 4.8 (3.5-5.1) mmol/L Chloride 107 (98-107) mmol/L Carbon Dioxide 17 L (21-32) mmol/L Anion Gap 12.0 H (3-11) BUN 27 H (7-18) mg/dl Creatinine 2.24 H (0.6-1.4) mg/dl Est Cr Clr Drug Dosing 26.8 ml/min Est GFR ( Amer) 42.4 Est GFR (Non-Af Amer) 36.6 BUN/Creatinine Ratio 12.0 (10-20) Glucose 114 H (70-99) mg/dl Lactate 1.6 (0.4-2.0) mmol/L Calcium 8.0 L (8.5-10.1) mg/dl Total Bilirubin 0.3 (0.2-1) mg/dl AST 12 L (15-37) U/L ALT 17 (12-78) U/L Alkaline Phosphatase 89 (45-117) U/L Total Protein 6.8 (6.4-8.2) gm/dl Albumin 3.4 (3.4-5.0) gm/dl Globulin 3.4 (2.5-4.0) gm/dl Albumin/Globulin Ratio 1.0 (0.9-2) COVID-19 Eval Order 06/11/20 Range/Units Unknown WBC (4.8-10.8) K/uL RBC (4.7-6.1) M/uL Hgb (14.0-18.0) g/dL Hct (42-52) % MCV (80-100) fL MCH (25-34) pg MCHC (32-36) g/dL RDW Std Deviation (36.4-46.3) fL RDW Coeff of Crissy (11.5-14.5) % Plt Count (130-400) K/uL MPV (7.4-10.4) fL Immature Gran % (Auto) % Neut % (Auto) % Lymph % (Auto) % [place] % (Auto) % Eos % (Auto) % Baso % (Auto) % Neut # (Auto) (1.4-6.5) K/uL Lymph # (Auto) (1.2-3.4) K/uL [place] # (Auto) (0.11-0.59) K/uL Eos # (Auto) (0-0.5) K/uL Baso # (Auto) (0-0.2) K/uL Immature Gran # (Auto) (0.00-0.02) K/uL Ovalocytes Sodium (136-145) mmol/L Potassium (3.5-5.1) mmol/L Chloride (98-107) mmol/L Carbon Dioxide (21-32) mmol/L Anion Gap (3-11) BUN (7-18) mg/dl Creatinine (0.6-1.4) mg/dl Est Cr Clr Drug Dosing ml/min Est GFR ( Amer) Est GFR (Non-Af Amer) BUN/Creatinine Ratio (10-20) Glucose (70-99) mg/dl Lactate (0.4-2.0) mmol/L Calcium (8.5-10.1) mg/dl Total Bilirubin (0.2-1) mg/dl AST (15-37) U/L ALT (12-78) U/L Alkaline Phosphatase (45-117) U/L Total Protein (6.4-8.2) gm/dl Albumin (3.4-5.0) gm/dl Globulin (2.5-4.0) gm/dl Albumin/Globulin Ratio (0.9-2) COVID-19 Eval Order Dup asRespPanOrdered Imaging Data Attestation: I personally reviewed and interpreted this imaging study as follows: Radiologist's Impression: ABDOMEN AND PELVIS CT WITHOUT CONTRAST FINDINGS: Focal consolidation within the base of the right lower lobe. This is new from the prior study and likely represents a pneumonia. The left lung base is clear. No pneumoperitoneum. No pneumatosis. No fractures within the visualized osseous structures. Poststernotomy changes. Large hiatus hernia. Surgical clips within the lower chest and upper abdomen are again noted. Prior cholecystectomy. Multiple bilateral renal calculi. Dominant stone within the upper pole the left kidney measures 1.4 cm. No ureteral stones. No hydronephrosis. The bladder appears unremarkable. Suboptimal evaluation for bowel pathology due to the lack of intravenous and oral contrast. However, there is no definite bowel wall thickening or obstruction. Probable visualization the appendix within the right lower quadrant. No inflammatory change to suggest acute appendicitis. Moderate to large amount of well-formed stool seen within the colon. This results in mild distention of the colon. No definite bowel wall thickening or obstruction. No retroperitoneal lymphadenopathy. Normal caliber abdominal aorta. No hepatic or splenic masses. Fatty atrophy of the pancreas is again noted. IMPRESSION: 1. Focal consolidation within the base of the right lower lobe consistent with a pneumonia. 2. No definite bowel wall thickening or obstruction. 3. Moderate to large amount of well-formed stool within the colon consistent with constipation. There is also distention of the colon likely due to the constipation. XR chest 1V portable FINDINGS: Postoperative changes consistent with prior bilateral lung transplant. The left lung is essentially clear. Small focal density within the base of the right lower lobe is better appreciated on the same day abdomen and pelvis CT. The heart is normal in size. Left Port-A-Cath terminates in the distal SVC. No pleural effusions. No pneumothorax. IMPRESSION: Focal right lower lobe airspace opacity is better appreciated on the same day chest CT. This is consistent with a pneumonia. Blood Pressure Blood Pressure Findings: Normal blood pressure Blood Pressure Disposition: did not require urgent referral MDM Narrative Continuous quality assurance monitor body: Order was placed for continuous quality assurance monitor body. Patient was placed on the quality assurance monitor body. Patient was noted to be in normal sinus rhythm at an initial rate of 89 bpm. The patient is a 35-year-old male who presents today complaining of left flank pain. Patient is febrile on arrival. Labs revealed no leukocytosis. Patient is anemic with hemoglobin of 8.1 which appears to be baseline patient has acute kidney injury with a creatinine of 2.24. Patient reports he has had an elevated creatinine recently and his PCP feels it is due to recent diarrhea. CT of the abdomen/pelvis shows no kidney stone, but does show a right lower lobe pneumonia. This was confirmed with chest x-ray. Patient received 30 mL/kg of normal saline IV. Blood cultures are pending. Lactic acid was not elevated. Patient was given broad-spectrum antibiotics after consultation with the admitting hospitalist and ED pharmacist. Levaquin initially ordered, however after discussion with the patient and it was confirmed that he has received both cefepime and amoxicillin in the past without any issues. Zosyn was then ordered and Levaquin stopped. Patient also given vancomycin. COVID testing and respiratory panel were ordered. The case was discussed with the [facility] Hospitalist service, who agreed to evaluate the patient for further care. The patient was independently evaluated by Dr. Lucio, who agreed with my assessment and treatment plan. Impression & Plan Right lower lobe pneumonia, HEIDY (acute kidney injury) Discharge Plan Visit Data Chief Complaint: Kidney Stone Stated Complaint: KIDNEY STONES ED Provider: Maricruz Lucio ED Midlevel Provider: Sherri Corley Discharge Problem: Right lower lobe pneumonia, HEIDY (acute kidney injury) Forms Stand Alone Forms: My [facility] Prescriptions Prescriptions: No Action tacrolimus 5 mg capsule 5 mg PO Q12 RF: 0 mycophenolate sodium 360 mg tablet,delayed release (DR/EC) 720 mg PO BID RF: 0 fluconazole 100 mg tablet 100 mg PO QAM RF: 0 acetaminophen [Tylenol] 325 mg Tablet 325 mg PO QID PRN (Reason: Pain) RF: 0 azithromycin 250 mg tablet 250 mg PO .MOWEFR@QAM RF: 0 prednisone 5 mg Tablet 5 mg PO QAM RF: 0 ascorbic acid (vitamin C) [Vitamin C] 500 mg Tablet 500 mg PO HS RF: 0 pantoprazole 40 mg Tablet,Delayed Release (Dr/Ec) 40 mg PO QAM RF: 0 metoprolol succinate 25 mg Tablet Extended Release 24 Hr 25 mg PO DAILY RF: 0 fluticasone propionate 50 mcg/actuation spray,suspension 2 spray INTRANASAL DAILY PRN (Reason: Congestion) RF: 0 vitamin E (dl, acetate) 400 unit capsule 400 unit PO DAILY RF: 0 Zenpep 25,000-79,000- 105,000 unit capsule,delayed release(DR/EC) 6 cap PO TIDM RF: 0 Zenpep 25,000-79,000- 105,000 unit capsule,delayed release(DR/EC) 3 cap PO .SNACKS RF: 0 Discharge Problem: Right lower lobe pneumonia Qualifiers: Pneumonia type: due to unspecified organism Qualified Code(s): J18.9 - Pneumonia, unspecified organism
[2020-06-11 13:57] LABS: Hematocrit (blood only) 25.9 % (42-52); Hemoglobin 8.1 g/dL (14.0-18.0); Mean Corpuscular Hemoglobin 26.2 pg (25-34); Mean Corpuscular Hgb Conc 31.3 g/dL (32-36); Mean Corpuscular Volume 83.8 fL (80-100); Mean Platelet Volume 10.3 fL (7.4-10.4); Platelet Count 246 K/uL (130-400); RDW Coefficient of Variation 16.7 % (11.5-14.5); RDW Standard Deviation 51.4 fL (36.4-46.3); Red Blood Count 3.09 M/uL (4.7-6.1); White Blood Count 5.84 K/uL (4.8-10.8)
--- NOTE | 2020-06-11 14:15 | CT Scan Report ---
ABDOMEN AND PELVIS CT WITHOUT CONTRAST CT DOSE: 241.96 mGy.cm HISTORY: left flank pain, hx stones, fever TECHNIQUE: Multiaxial CT images of the abdomen and pelvis were performed without contrast. A dose lo wering technique was utilized adhering to the principles of ALARA. COMPARISON STUDY: Abdomen and pelvis CT 02/14/2020. FINDINGS: Focal consolidation within the base of the right lower lobe. This is new from the prior chip dy and likely represents a pneumonia. The left lung base is clear. No pneumoperitoneum. No pneumatosi s. No fractures within the visualized osseous structures. Poststernotomy changes. Large hiatus hernia . Surgical clips within the lower chest and upper abdomen are again noted. Prior cholecystectomy. Mul tiple bilateral renal calculi. Dominant stone within the upper pole the left kidney measures 1.4 cm. No ureteral stones. No hydronephrosis. The bladder appears unremarkable. Suboptimal evaluation for brandon wel pathology due to the lack of intravenous and oral contrast. However, there is no definite bowel w all thickening or obstruction. Probable visualization the appendix within the right lower quadrant. N o inflammatory change to suggest acute appendicitis. Moderate to large amount of well-formed stool se en within the colon. This results in mild distention of the colon. No definite bowel wall thickening or obstruction. No retroperitoneal lymphadenopathy. Normal caliber abdominal aorta. No hepatic or spl enic masses. Fatty atrophy of the pancreas is again noted. IMPRESSION: 1. Focal consolidation within the base of the right lower lobe consistent with a pneumonia. 2. No definite bowel wall thickening or obstruction. 3. Moderate to large amount of well-formed stool within the colon consistent with constipation. There is also distention of the colon likely due to the constipation. ACT 112: Negative or not required by law. Electronically signed by: David Weber M.D. 06/11/2020 2:14 PM
[2020-06-11 14:20] LABS: Albumin Level 3.4 gm/dl (3.4-5.0); Creatinine Clr Calc Pharmacy 26.8 ml/min; Est GFR (African American) 42.4; Est GFR (Non-African American) 36.6; Potassium 4.8 mmol/L (3.5-5.1)
[2020-06-11 14:23] LABS: Bilirubin,Total 0.3 mg/dl (0.2-1); Globulin 3.4 gm/dl (2.5-4.0); Total Protein 6.8 gm/dl (6.4-8.2)
[2020-06-11 14:36] LABS: Eosinophils # (auto) 0.03 K/uL (0-0.5); Eosinophils % (auto) 0.5 %; Immature Granulocytes # (auto) 0.47 K/uL (0.00-0.02); Lymphocytes # (auto) 0.37 K/uL (1.2-3.4); Lymphocytes % (auto) 6.3 %; Monocytes # (auto) 0.96 K/uL (0.11-0.59); Monocytes % (auto) 16.4 %; Neutrophils # (auto) 4.01 K/uL (1.4-6.5); Neutrophils % (auto) 68.8 %; Ovalocytes 1+
--- NOTE | 2020-06-11 14:39 | XRay Report ---
XR chest 1V portable HISTORY: fever, lung transplant pt COMPARISON: Chest 03/27/2017. FINDINGS: Postoperative changes consistent with prior bilateral lung transplant. The left lung is ess entially clear. Small focal density within the base of the right lower lobe is better appreciated on the same day abdomen and pelvis CT. The heart is normal in size. Left Port-A-Cath terminates in the d istal SVC. No pleural effusions. No pneumothorax. IMPRESSION: Focal right lower lobe airspace opacity is better appreciated on the same day chest CT. This is consi stent with a pneumonia. ACT 112: Negative or not required by law. Electronically signed by: David Weber M.D. 06/11/2020 2:37 PM
[2020-06-11] MEDS ORDERED: VANCOMYCIN HCL 750 MG in SODIUM CHLORIDE 0.9% 500 ML IV ONE (14:51)
[2020-06-11] MEDS ORDERED: VANCOMYCIN CONSULT ACTIVE PRN (14:51)
[2020-06-11] MEDS ORDERED: levoFLOXacin/D5W 750 MG/150 ML BAG IV STA (14:51)
[2020-06-11] MEDS ORDERED: SODIUM CHLORIDE 0.9% 250 ML IV ONE (14:51)
[2020-06-11] MEDS ORDERED: CEFEPIME 2,000 MG/20 ML VIAL IV STA (15:04)
[2020-06-11] MEDS ORDERED: PIPERACILLIN/TAZOBACTAM 4.5 GM/120 ML BAG IV ONE (15:08)
[2020-06-11] MEDS ORDERED: PIPERACILL/TAZOBAC CONSULT ACTIVE PRN (15:08)
--- NOTE | 2020-06-11 16:04 | Emergency Department Note ---
ED Visit Note I have personally seen and evaluated the patient with the PA. I agree with the diagnosis and management decisions and have been personally involved in the case. Patient was resistant to admission initially however after reviewing the complications of untreated pneumonia, acute kidney injury in a transplant patient with cystic fibrosis, he agreed to IV antibiotics and inpatient stay. Please see Sherri Corley PA-C's notes for further details of the history, physical and visit. .
[2020-06-11 16:09] LABS: Adenovirus PCR Not Detected (NotDetected); Bordetella parapertussis PCR Not Detected (NotDetected); Bordetella pertussis PCR Not Detected (NotDetected); Chlamydia pneumoniae PCR Not Detected (NotDetected); Coronavirus 229E PCR Not Detected (NotDetected); Coronavirus CoV-2 (COVID19)PCR Not Detected (NotDetected); Coronavirus HKU1 PCR Not Detected (NotDetected); Coronavirus NL63 PCR Not Detected (NotDetected); Coronavirus OC43PCR Not Detected (NotDetected); Human Metapneumovirus PCR Not Detected (NotDetected); Influenza A PCR Not Detected (NotDetected); Influenza B PCR Not Detected (NotDetected); Mycoplasma pneumoniae PCR Not Detected (NotDetected); Parainfluenza Virus 1 PCR Not Detected (NotDetected); Parainfluenza Virus 2 PCR Not Detected (NotDetected); Parainfluenza Virus 3 PCR Not Detected (NotDetected); Parainfluenza Virus 4 PCR Not Detected (NotDetected); Respiratory Syncytial VirusPCR Not Detected (NotDetected); Rhinovirus/Enterovirus PCR Not Detected (NotDetected)
--- NOTE | 2020-06-11 16:51 | History & Physical Report ---
Date of Service June 11, 2020 Assessment & Plan (1) Right lower lobe pneumonia: Patient with left flank pain upon presentation but no sign of renal stone on CT of Abd/Pelvis. He does have constipation on scan that could be contributing to his flank pain. The patient did however have RLL pneumonia noted on both CT of Abd/Pelvis and also on follow up CXR. Because the patient has history of B/L lung transplant and is chronically immunosuppressed, potential for opportunistic infections. He was started on broad spectrum abx. Patient has not been taking his prophylactic abx appropriately other than Azithromycin. COVID testing and Respiratory panel were done as well & were negative. Admit to telemetry for further monitoring and workup. Continue Zosyn/Vancomycin pending improvement of symptoms. ID Consultation placed. Consider consulting with [facility] Cardiothoracic surgery (Dr. Gurmeet Pal) pending improvement. Monitor vitals closely- O2 supplementation if needed to maintain SaO2 >92% (2) HEIDY (acute kidney injury): (3) Left flank pain: (4) History of renal calculi: Patient has had ongoing decrease in renal function since the end of March per outpatient records. Initially appeared to be secondary to diarrhea. Uncertain if this was recurrence of C Diff or not because patient never completed the testing outpatient. He was treated with PO Vancomycin at the time. Creatinine has not returned to baseline. Patient admits to poor PO intake of water- drinks only soda. Nephro consultation Renal US NSS 125 cc/hr x 24 hr Repeat BMP in AM Waiting on Urine studies. Avoid NSAIDs (5) Constipation: Constipation noted on CT of abd/pelvis. Could be contributing to flank pain as well. Miralax PRN. Consider enema if needed. (6) Cystic fibrosis: (7) Lung transplant status, bilateral: (8) Asthma: Patient with history of CF and b/l lung transplant. Continue antirejection meds. Monitor labs. Consider consultation with [facility] if needed. 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 Will hold insulin at this time (10) Chronic anemia: Patient is supposed to be on Ferrous sulfate 325 mg BID, but does not take this. Will recheck iron studies in the AM Anemia is stable compared to outpatient. (11) History of Clostridioides difficile colitis: While on IV abx, monitor for recurrent symptoms of C Diff. Test if needed. (12) Exocrine pancreatic insufficiency: Continue ZenPep while inpatient. 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 He also has history of nephrolithiasis, so he thought that he may have another kidney stone. Upon further evaluation, patient was found to be febrile, tachycardic, and CT of the Abd/Pelvis did not show renal stone, but it did show RLL Pneumonia. CXR confirmed RLL pneumonia. Patient is chronically immunosuppressed on tacrolimus and prednisone. He currently has a mild cough. No further abdominal pain. He had chills this morning. Labs upon presentation revealed: Hgb 8.1 stable from baseline Creatinine 2.2. Patient has had ongoing/worsening renal function since the end of March/beginning of April per outpatient records Creatinine trend has been: 03/29/20- 1.4 04/17/20- 1.9 05/02/20- 3.1 06/09/20- 1.8 He had touched base with his [facility] Cardiothoracic surgeon about diarrhea in April which is likely reason for HEIDY at that time. He was started on PO Vancomycin at the time due to history of C Diff. Patient never completed stool sample as recommended. Per notes, diarrhea improved some on Vanco. Patient admits that he does not drink any water. He drinks only soda at home. His diarrhea subsided about 2 days ago. He stopped his PO Vancomycin about 2 weeks ago. Of note, patient was recently placed on Amoxicillin for prophylaxis of dental surgery. He is scheduled to have his teeth extracted. He has listed Keflex allergy but tolerates Amoxicillin. Patient is also supposed to be taking Acyclovir, Vitamin C, Calcium+D, Vitmain D 50,000 Units, Slow-Mag, Ferrous Sulfate 325 mg BID, Bactrim MWF, and Vitmain E but he does not routinely take these medications, though he "knows he should". He was started on IV Zosyn & Vancomycin in the ED. Blood cultures are pending. Urine samples pending. COVID and respiratory panel negative. Allergies Allergy/AdvReac Type Severity Reaction Status Date / Time cephalexin Allergy Severe Hives Verified 06/11/20 15:20 tetracycline AdvReac Severe vomiting Verified 06/11/20 14:38 naproxen AdvReac Mild Stomach Verified 06/11/20 14:38 bleeding Home Medications Home Medications Medication Instructions Recorded Confirmed Type mycophenolate sodium 720 mg PO BID 10/12/18 06/11/20 History tacrolimus 5 mg PO Q12 10/12/18 06/11/20 History acetaminophen [Tylenol] 325 mg PO QID PRN 06/11/20 06/11/20 History azithromycin 250 mg PO .MOWEFR@QAM 06/11/20 06/11/20 History fluconazole 100 mg PO QAM 06/11/20 06/11/20 History fluticasone propionate 2 spray INTRANASAL DAILY PRN 06/11/20 06/11/20 History olrpaw-yfuigukx-hdeahyn [Zenpep] 3 cap PO .SNACKS 06/11/20 06/11/20 History dmgogb-igmvtwom-iziapap [Zenpep] 6 cap PO TIDM 06/11/20 06/11/20 History metoprolol succinate 25 mg PO DAILY 06/11/20 06/11/20 History pantoprazole 40 mg PO QAM 06/11/20 06/11/20 History prednisone 5 mg PO QAM 06/11/20 06/11/20 History testosterone cypionate 200 mg IM USEASDIRECTD 06/11/20 06/11/20 History Past Med/Surg History Medical History (Updated 06/11/20 @ 16:56 by Charley Flood PA-C) Abdominal pain Asthma Biliary sludge determined by ultrasound Chronic anemia Cystic fibrosis s/p b/l lung transplant 2017 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 Encounter for pre-operative examination Exocrine pancreatic insufficiency G tube feedings OUT IN OCT 2018 WAS DUE TO MALNUTRITION FROM CYSTIC FIBROSIS GERD (gastroesophageal reflux disease) History of Clostridioides difficile colitis History of gastrostomy tube placement History of renal calculi Kidney stones Vitamin D deficiency Surgical History History of cholecystectomy History of Sandoval fundoplication Hx of lithotripsy Lung transplant status, bilateral 10-2-17 Family History Mother Lung cancer Sister Lung cancer Social History Smoking Status: Never smoker Second Hand Exposure: No; Do You Dip or Chew Tobacco: No; Tobacco Cessation Education Requested by Patient: No Hx Alcohol Use: No Hx Substance Use: No Preferred Language: Tuvaluan Communication Ability: Effective Hand Picker Required: No Beliefs That Will Affect Care: None marital status: single Current Living Situation: Parent and Family current occupational status: unemployed and disabled Other Information That Helps Us Care for You: No Feels Safe at Home: Yes Safety Concerns: Feels Safe At This Time Review of Systems Review of Systems: All systems reviewed & are unremarkable except as noted in HPI & below Physical Exam Constitutional: + thin; no acute distress, not ill appearing and + not appropriately hydrated Eyes: PERRL, conjunctivae normal, anicteric sclerae ENMT: external ear and nose normal, oropharynx normal Neck: trachea midline, no thyromegaly Respiratory: + cough; no respiratory distress, no labored breathing and does not use accessory muscles Auscultation: + crackles (RLL) and + rhonchi Cardiovascular: Rate/Rhythm: + tachycardic Heart Sounds: no gallop and no murmur Extremities: no edema Gastrointestinal (Abdomen): normal bowel sounds, soft, nontender, no hepatosplenomegaly Musculoskeletal: Head/Neck/Chest: normocephalic and head atraumatic Skin: no rashes, warm and dry Psychiatric: A+Ox3, euthymic affect Results & Data Results & Data ([facility]) Vital Signs (Past 12 Hours) Vital Signs Temp Pulse Resp BP Pulse Ox 06/11/20 16:30 120 H 21 129/75 100 06/11/20 16:00 112 H 15 117/73 06/11/20 15:31 110 H 15 120/70 95 06/11/20 14:30 107 H 18 126/75 100 06/11/20 14:00 113 H 16 123/71 96 06/11/20 13:51 117 H 20 131/83 06/11/20 12:48 38.1 C H 89 20 134/80 98 Laboratory Results Laboratory Results - last 24 hr 06/11/20 06/11/20 06/11/20 13:37 13:37 13:37 WBC 5.84 RBC 3.09 L Hgb 8.1 L Hct 25.9 L MCV 83.8 MCH 26.2 MCHC 31.3 L RDW Std Deviation 51.4 H RDW Coeff of Crissy 16.7 H Plt Count 246 MPV 10.3 Immature Gran % (Auto) 8.0 Neut % (Auto) 68.8 Lymph % (Auto) 6.3 Grimes % (Auto) 16.4 Eos % (Auto) 0.5 Baso % (Auto) 0.0 Neut # (Auto) 4.01 Lymph # (Auto) 0.37 L Grimes # (Auto) 0.96 H Eos # (Auto) 0.03 Baso # (Auto) 0.00 Immature Gran # (Auto) 0.47 H Ovalocytes 1+ Sodium 136 Potassium 4.8 Chloride 107 Carbon Dioxide 17 L Anion Gap 12.0 H BUN 27 H Creatinine 2.24 H Est Cr Clr Drug Dosing 26.8 Est GFR ( Amer) 42.4 Est GFR (Non-Af Amer) 36.6 BUN/Creatinine Ratio 12.0 Glucose 114 H Lactate 1.6 Calcium 8.0 L Total Bilirubin 0.3 AST 12 L ALT 17 Alkaline Phosphatase 89 Total Protein 6.8 Albumin 3.4 Globulin 3.4 Albumin/Globulin Ratio 1.0 Adenovirus (PCR) B. pertussis DNA (PCR) B.parapertussis DNA PCR C. pneumoniae DNA (PCR) Coronavirus OC43 (PCR) Coronavirus HKU1 (PCR) Coronavirus 229E (PCR) COVID-19 Eval Order COVID-19 PCR Coronavirus NL63 (PCR) Human Metapneumovir PCR Influenza Type A (PCR) Influenza Type B (PCR) M. pneumoniae (PCR) Parainfluenza 1 (PCR) Parainfluenza 2 (PCR) Parainfluenza 3 (PCR) Parainfluenza 4 (PCR) RSV (PCR) Entero/Rhino (PCR) 06/11/20 06/11/20 15:00 Unknown WBC RBC Hgb Hct MCV MCH MCHC RDW Std Deviation RDW Coeff of Crissy Plt Count MPV Immature Gran % (Auto) Neut % (Auto) Lymph % (Auto) Grimes % (Auto) Eos % (Auto) Baso % (Auto) Neut # (Auto) Lymph # (Auto) Grimes # (Auto) Eos # (Auto) Baso # (Auto) Immature Gran # (Auto) Ovalocytes Sodium Potassium Chloride Carbon Dioxide Anion Gap BUN Creatinine Est Cr Clr Drug Dosing Est GFR ( Amer) Est GFR (Non-Af Amer) BUN/Creatinine Ratio Glucose Lactate Calcium Total Bilirubin AST ALT Alkaline Phosphatase Total Protein Albumin Globulin Albumin/Globulin Ratio Adenovirus (PCR) Not Detected B. pertussis DNA (PCR) Not Detected B.parapertussis DNA PCR Not Detected C. pneumoniae DNA (PCR) Not Detected Coronavirus OC43 (PCR) Not Detected Coronavirus HKU1 (PCR) Not Detected Coronavirus 229E (PCR) Not Detected COVID-19 Eval Order Dup asRespPanOrdered COVID-19 PCR Not Detected Coronavirus NL63 (PCR) Not Detected Human Metapneumovir PCR Not Detected Influenza Type A (PCR) Not Detected Influenza Type B (PCR) Not Detected M. pneumoniae (PCR) Not Detected Parainfluenza 1 (PCR) Not Detected Parainfluenza 2 (PCR) Not Detected Parainfluenza 3 (PCR) Not Detected Parainfluenza 4 (PCR) Not Detected RSV (PCR) Not Detected Entero/Rhino (PCR) Not Detected Diagnostic Findings CT Abd/Pelvis: IMPRESSION: 1. Focal consolidation within the base of the right lower lobe consistent with a pneumonia. 2. No definite bowel wall thickening or obstruction. 3. Moderate to large amount of well-formed stool within the colon consistent with constipation. There is also distention of the colon likely due to the constipation. CXR: IMPRESSION: Focal right lower lobe airspace opacity is better appreciated on the same day chest CT. This is consistent with a pneumonia. Code Status & VTE Plan VTE Prophylaxis Plan VTE Prophylaxis will be ordered: Yes Supervising Physician Co-Signing Physician Notes I saw this patient with the physician legal assistant, I participated in the history, physical, review of systems, and physical exam. I reviewed the medications with the patient and the physician legal assistant and helped reconcile the medications. I helped take a detailed family and social history as well. I formulated the assessment and plan personally with the physician legal assistant and went over it with the patient. Physical Exam Gen-AAO x 3, NAD, Afebrile, cachectic Head-NCAT, EOMI, PERRLA, Anicteric Sclera, No Posterior Pharyngeal Erythema Neck-Supple, No JVD, No Thyromegaly, No Masses, No LAD, No Bruits Lungs-R Basilar Rales, No Rhonchi, No Wheezing, No Crepitus Chest-No S4, +S1, +S2, No S3, No Murmurs, No Rubs, No Gallops, No Ectopy Abdomen-Soft, Bowel Sounds Present, Non Tender, Non Distended, No Hepatomegaly, No Splenomegaly, No Palpable Masses, No Rebound, No Rigidity, No Guarding Musculoskeletal-Full Range of Motion Bilaterally, No CVAT Extremities-No Cyanosis, No Clubbing, No Edema Nuero-Cranial Nerves II-XII grossly intact, Motor WNL, DTRs WNL, Strength WNL, Non Focal Psych-Normal Mood (1) Right lower lobe pneumonia Pneumonia type: due to unspecified organism Qualified Code(s): J18.9 - Pneumonia, unspecified organism
[2020-06-11] MEDS ORDERED: ACETAMINOPHEN 325 MG TAB PO PRN (17:26)
[2020-06-11] MEDS ORDERED: POLYETHYLENE (MIRALAX) 17 GM PACK PO PRN (17:26)
[2020-06-11 17:50] LABS: Magnesium 1.3 mg/dl (1.8-2.4); Phosphorus 3.1 mg/dl (2.5-4.9)
--- NOTE | 2020-06-11 18:23 | Pharmacy Report ---
Pharmacy Abx Dose Short Note - Date of Service June 11, 2020 - Assessment & Plan Assessment 35 year old M receiving VANCOMYCIN/ZOSYN for treatment of PNEUMONIA IN THE SETTING OF BILATERAL LUNG TRANSPLANT ON IMMUNOSUPPRESSIVES SECONDARY TO CYSTIC FIBROSIS Day # 1 of antimicrobial therapy. Plan Vancomycin * VANCOMYCIN 750 MG IV (18 MG/KG) X 1 GIVEN IN ER * DUE TO KIDNEY FUNCTION, ORDERED RANDOM LEVEL FOR TOMORROW AM ZOSYN * ZOSYN 4.5 GM IV X 1 THEN 4.5 GM IV Q8 HOURS * HIGHER DOSE CHOSEN DUE TO HISTORY OF CYSTIC FIBROSIS Pharmacy will continue to follow and will adjust dose/frequency as necessary. Thank you.
[2020-06-11] MEDS: SODIUM CHLORIDE 0.9% 1000ML 1,000 ML IV SCH (18:33)
[2020-06-11] MEDS: MAGNESIUM SULFATE / D5W 1 GM/100 ML BAG IV SCH ×2 (19:00→21:46)
[2020-06-11] MEDS ORDERED: LIPASE/PROTEASE/AMYLASE PO PRN (19:30)
[2020-06-11] MEDS: PIPERACILLIN/TAZOBACTAM 4.5 GM in DEXTROSE 5% 100 ML IV SCH (19:34)
[2020-06-11 19:55] LABS: Appearance Urine Clear (Clear); Bacteria Urine Automated Negative (Negative); Bilirubin Urine Negative (Negative); Blood Urine 1+ (Negative); Color Urine Yellow; Epithelial Cell Urine Auto >30 /lpf (0-5); Glucose Urine UA Negative (Negative); Ketones Urine Negative (Negative); Leukocyte Esterase Urine Trace (Negative); Nitrite Urine Negative (Negative); Protein Urine Negative (Negative); RBC Urine Automated 0-4 /hpf (0-4); Specific Gravity Urine 1.012 (1.000-1.030); Urobilinogen Urine Negative (Negative)
[2020-06-11] MEDS: MYCOPHENOLATE SODIUM 180 MG TAB PO SCH (21:21)
[2020-06-11] MEDS: TACROLIMUS 1 MG CAP PO SCH (21:21)
[2020-06-11] MEDS: HEPARIN SOD 5,000 UNIT/0.5 ML VIAL SQ SCH (21:22)
[2020-06-11] MEDS: MAGNESIUM OXIDE 400 MG TAB PO SCH (21:46)
[2020-06-12] MEDS: PIPERACILLIN/TAZOBACTAM 4.5 GM in DEXTROSE 5% 100 ML IV SCH ×2 (03:20→11:06)
[2020-06-12 06:21] LABS: Hematocrit (blood only) 23.9 % (42-52); Hemoglobin 7.5 g/dL (14.0-18.0); Mean Corpuscular Hgb Conc 31.4 g/dL (32-36); Mean Corpuscular Volume 82.7 fL (80-100); Mean Platelet Volume 11.1 fL (7.4-10.4); Platelet Count 199 K/uL (130-400); RDW Coefficient of Variation 16.9 % (11.5-14.5); RDW Standard Deviation 51.9 fL (36.4-46.3); Red Blood Count 2.89 M/uL (4.7-6.1); White Blood Count 6.39 K/uL (4.8-10.8)
[2020-06-12] MEDS: SODIUM CHLORIDE 0.9% 1000ML 1,000 ML IV SCH ×2 (06:28→09:44)
[2020-06-12 06:40] LABS: Basophils # (auto) 0.01 K/uL (0-0.2); Basophils % (auto) 0.2 %; Echinocytes 1+; Eosinophils # (auto) 0.07 K/uL (0-0.5); Eosinophils % (auto) 1.1 %; Immature Granulocytes # (auto) 0.46 K/uL (0.00-0.02); Immature Granulocytes % (auto) 7.2 %; Lymphocytes # (auto) 0.93 K/uL (1.2-3.4); Lymphocytes % (auto) 14.6 %; Monocytes # (auto) 1.06 K/uL (0.11-0.59); Monocytes % (auto) 16.6 %; Neutrophils # (auto) 3.86 K/uL (1.4-6.5); Neutrophils % (auto) 60.3 %; Ovalocytes 1+
[2020-06-12 06:48] LABS: Estimated Average Glucose 114 mg/dl; Hemoglobin A1C 5.6 % (4.5-5.6)
[2020-06-12 06:54] LABS: BUN Creatinine Ratio 13.1 (10-20); Calcium 7.2 mg/dl (8.5-10.1); Creatinine Clr Calc Pharmacy 34.8 ml/min; Est GFR (African American) 54.2; Est GFR (Non-African American) 46.8; Magnesium 1.9 mg/dl (1.8-2.4); Potassium 4.8 mmol/L (3.5-5.1)
[2020-06-12 06:59] LABS: Ferritin 51.9 ng/ml (8-388)
[2020-06-12] MEDS ORDERED: VANCOMYCIN HCL 750 MG in SODIUM CHLORIDE 0.9% 250 ML IV STA (07:17)
[2020-06-12] MEDS ORDERED: LIPASE/PROTEASE/AMYLASE PO SCH (08:00)
[2020-06-12] MEDS: predniSONE 5 MG TAB PO SCH (08:30)
[2020-06-12] MEDS: MAGNESIUM OXIDE 400 MG TAB PO SCH ×2 (08:30→20:54)
[2020-06-12] MEDS: HEPARIN SOD 5,000 UNIT/0.5 ML VIAL SQ SCH ×2 (08:30→20:55)
[2020-06-12] MEDS: TACROLIMUS 1 MG CAP PO SCH ×2 (08:30→20:54)
[2020-06-12] MEDS: FLUCONAZOLE 100 MG TAB PO SCH (08:30)
[2020-06-12] MEDS: PANTOprazole 40 MG TAB PO SCH (08:31)
[2020-06-12] MEDS: MYCOPHENOLATE SODIUM 180 MG TAB PO SCH ×2 (08:31→20:54)
[2020-06-12] MEDS: LIPASE/PROTEASE/AMYLASE PO SCH ×3 (08:33→16:10)
--- NOTE | 2020-06-12 08:56 | Ultrasound Report ---
US duplex renal artery CLINICAL HISTORY: Acute renal insufficiency. Possible renal artery stenosis. COMPARISON STUDY: Noncontrast CT scan dated 06/11/2020 FINDINGS: The peak systolic velocity within the aorta is 192 cm/s. The peak systolic velocity within the right renal artery was 89 cm/s. The peak systolic velocity within the left renal artery was 96 cm/s. Both renal veins were patent. There are bilateral echogenic shadowing foci consistent with calculi. IMPRESSION: 1. No evidence of renal artery stenosis 2. Bilateral nephrolithiasis ACT 112: Negative or not required by law. Electronically signed by: Dex Avila M.D. 06/12/2020 8:55 AM
[2020-06-12] MEDS ORDERED: AZITHROMYCIN 250 MG TAB PO SCH (09:00)
[2020-06-12] MEDS ORDERED: METOPROLOL SUCC 25MG EXT REL TAB PO SCH (09:00)
[2020-06-12] MEDS: LACTATED RINGER'S 1,000 ML IV SCH ×2 (10:33→18:46)
--- NOTE | 2020-06-12 10:33 | Nephrology Consultation ---
Date of Consultation June 12, 2020 Assessment & Plan (1) HEIDY (acute kidney injury): Patient with acute kidney injury likely due to ischemic ATN in setting of pneumonia and calcineurin inhibitor toxicity. Patient also just recovering from diarrhea for the past 1 month. His electrolytes are stable. He does have metabolic acidosis. Management of ATN is supportive. No indication for dialysis. -will change fluids to Ringer's lactate at 125 mL/hour. Stop normal saline. -will hold the metoprolol. We can always resume if systolic blood pressures above 140. -monitor renal function with daily BMP. -avoid contrast unless life saving. (2) Right lower lobe pneumonia: Patient is on vancomycin and Zosyn per primary team. In monitor vancomy juan levels and avoid supratherapeutic levels above 25 which can be nephrotoxic. (3) Lung transplant status, bilateral: Continue Prograf 5 mg twice daily, CellCept and prednisone. Target Prograf level transplant note in December 2019 was 10-12. -will check Prograf level in the morning although the results take a while to come back. (4) History of renal calculi: Patient found have bilateral renal stones with the largest measuring 1.4 cm on the left side. Patient will need the outpatient renal workup for stone e tiology and management. No hydronephrosis which is good. History of Present Illness Reason for Consultation: Acute kidney injury Requesting Physician: Bonita Marks MD Attending Physician: Bonita Marks MD History of Present Illness This is a 35-year-old male with history of renal stones and cystic fibrosis status post double lung transplant in June 2017 at [facility] on Prograf, CellCept and prednisone who was admitted on 06/11/2020 with the left flank pain found have right lower lobe pneumonia. Patient now has CKD stage 3 with baseline creatinine around 1.4 since 2018 but creatinine has fluctuated a lot and most recently in April peaked at 3.1 and in May had improved to 1.8. Patient has also been having diarrhea for about a month. Was treated with the p.o. vancomycin. Diarrhea only subsided few days ago. On admission he had a creatinine of 2.2 and has improved to 1.8 today. He does not drink a lot of water as he should. No urinary symptoms. He has history of renal stones but no hematuria lately. He denied NSAID use. CT abdomen showed right lower lobe pneumonia, left renal stone the largest measuring 1.4 cm and other smaller stones on the right side as well. No hydronephrosis. Patient feels well denies shortness of breath no fever today. No vomiting or diarrhea. He is eating and drinking well. Blood pressures on the lower side. Allergies Allergy/AdvReac Type Severity Reaction Status Date / Time cephalexin Allergy Severe Hives Verified 06/11/20 15:20 tetracycline AdvReac Severe vomiting Verified 06/11/20 14:38 naproxen AdvReac Mild Stomach Verified 06/11/20 14:38 bleeding Home Medications Home Medications Medication Instructions Recorded Confirmed Type mycophenolate sodium 720 mg PO BID 10/12/18 06/11/20 History tacrolimus 5 mg PO Q12 10/12/18 06/11/20 History acetaminophen [Tylenol] 325 mg PO QID PRN 06/11/20 06/11/20 History azithromycin 250 mg PO .MOWEFR@QAM 06/11/20 06/11/20 History fluconazole 100 mg PO QAM 06/11/20 06/11/20 History fluticasone propionate 2 spray INTRANASAL DAILY PRN 06/11/20 06/11/20 History ebttry-fjhrsili-nlyrvux [Zenpep] 3 cap PO .SNACKS 06/11/20 06/11/20 History vcbyfm-jwtgosqk-blerrie [Zenpep] 6 cap PO TIDM 06/11/20 06/11/20 History metoprolol succinate 25 mg PO DAILY 06/11/20 06/11/20 History pantoprazole 40 mg PO QAM 06/11/20 06/11/20 History prednisone 5 mg PO QAM 06/11/20 06/11/20 History testosterone cypionate 200 mg IM USEASDIRECTD 06/11/20 06/11/20 History Patient History Medical History (Updated 06/11/20 @ 16:56 by Charley Flood PA-C) Abdominal pain Asthma Biliary sludge determined by ultrasound Chronic anemia Cystic fibrosis s/p b/l lung transplant 2016 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 Encounter for pre-operative examination Exocrine pancreatic insufficiency G tube feedings OUT IN OCT 2018 WAS DUE TO MALNUTRITION FROM CYSTIC FIBROSIS GERD (gastroesophageal reflux disease) History of Clostridioides difficile colitis History of gastrostomy tube placement History of renal calculi Kidney stones Vitamin D deficiency Surgical History History of cholecystectomy History of Sandoval fundoplication Hx of lithotripsy Lung transplant status, bilateral 10--17 Family History Mother Lung cancer Sister Lung cancer Social History Smoking Status: Never smoker Second Hand Exposure: No; Do You Dip or Chew Tobacco: No; Tobacco Cessation Education Requested by Patient: No Hx Alcohol Use: No Hx Substance Use: No Preferred Language: Azeri Communication Ability: Effective Relationship Specialist Required: No Beliefs That Will Affect Care: None marital status: single Current Living Situation: Parent and Family current occupational status: unemployed and disabled Other Information That Helps Us Care for You: No Feels Safe at Home: Yes Safety Concerns: Feels Safe At This Time Assistive Devices: None Review of Systems Review of Systems: All systems reviewed & are unremarkable except as noted in HPI & below Physical Exam Physical Exam: General exam: Appears comfortable, no acute distress HEENT: Pupils are equal and reactive to light Neck: No JVD, neck is supple trachea is midline Respiratory system: Clear breath sounds bilaterally. Gastrointestinal: Abdomen is soft, non distended, non tender, bowel sounds are present CVS: Regular rate and rhythm. No murmurs, rubs or gallops Musculoskeletal: No joint or muscle tenderness Extremities: Non tender, no edema, peripheral pulses are present Neuro: Oriented, no tremors, no focal neurological deficits Skin: No rashes Results & Data ([facility]) Vital Signs (Past 12 Hours) Vital Signs Temp Pulse Pulse Resp BP Pulse Ox 06/12/20 07:30 36.6 C 85 18 93/60 L 100 06/12/20 04:13 36.6 C 88 18 92/54 L 98 06/11/20 23:18 37.4 C 93 H 20 114/62 98 06/11/20 23:02 96 H Laboratory Results 06/12/20 05:56 06/11/20 06/11/20 06/11/20 13:37 13:37 13:37 WBC 5.84 RBC 3.09 L MCV 83.8 MCH 26.2 MCHC 31.3 L RDW Std Deviation 51.4 H RDW Coeff of Crissy 16.7 H Plt Count 246 MPV 10.3 Phosphorus 3.1 Albumin 3.4 06/12/20 05:56 WBC 6.39 RBC 2.89 L MCV 82.7 MCH 26.0 MCHC 31.4 L RDW Std Deviation 51.9 H RDW Coeff of Crissy 16.9 H Plt Count 199 MPV 11.1 H Phosphorus Albumin (1) Right lower lobe pneumonia Pneumonia type: due to unspecified organism Qualified Code(s): J18.9 - Pneumonia, unspecified organism
--- NOTE | 2020-06-12 11:08 | Pharmacy Report ---
Pharmacy Abx Dose Short Note - Date of Service June 12, 2020 - Assessment & Plan Assessment * 35 year old M receiving Zosyn and vancomycin for treatment of RLL PNA. Continues on home azithromycin and fluconazole for prophylaxis. PMH significant for CF s/p b/l lung txp in 2017 and therefore on immunosuppressive therapy * HEIDY noted with SCr up to 2.24 mg/dL on admission, now trending down to 1.83 mg/dL. Baseline ~1.0 mg/dL Vancomycin * Target trough 15-20 mcg/mL - higher end of range likely desired * Vancomycin 750 mg IV x1 received in ED produced a subtherapeutic level of 11.3 mcg/mL which was obtained ~14 hours after the dose. Clearance may be improving given trend down in renal function. * Will repeat same dose and obtain a random level ~12 hours later * Will continue to dose by level given significant change in renal function Plan * Vancomycin 750 mg IV x1 * Random level today @ 1999 * Obtain MRSA nasal swab Pharmacy will continue to follow and will adjust dose/frequency as necessary. Thank you.
--- NOTE | 2020-06-12 11:49 | Hospitalist Progress Note ---
Date of Service June 12, 2020 Assessment & Plan (1) Right lower lobe pneumonia: Patient with left flank pain and noted to have 1.4 cm left upper pole renal stone on CT of Abd/Pelvis CT scan of the abdomen and pelvis also showed p right lower lobe infiltration and there is documented in chest x-ray as well Because the patient has history of B/L lung transplant and is chronically immunosuppressed, potential for opportunistic infections. He was started on broad spectrum abx. Patient has not been taking his prophylactic abx appropriately other than Azithromycin. He supposed to be taking Bactrim and azithromycin COVID testing and Respiratory panel were done as well & were negative. Continue Zosyn/Vancomycin pending improvement of symptoms. ID Consultation placed. He has been feeling much better and denies any abdominal pain and/or chest pain Case discussed with Dr. Pal at [facility] (#[phone]) and will decide about antibiotics and how long that has to be continued ID consult has been placed (2) HEIDY (acute kidney injury): Likely secondary to ischemic ATN in the setting of pneumonia and drug toxicity Complicated by dehydration secondary to recent ongoing diarrhea Appreciate nephrology input and recommendation Has been getting LR infusion and the creatinine has been improving (3) Left flank pain: Could be secondary to 1.4 cm left upper pole renal stone No ureteric stone and no hydronephrosis (4) History of renal calculi: Patient has had ongoing decrease in renal function since the end of March per outpatient records. Initially appeared to be secondary to diarrhea. Uncertain if this was recurrence of C Diff or not because patient never completed the testing outpatient. He was treated with PO Vancomycin at the time. Creatinine has not returned to baseline. Patient admits to poor PO intake of water- drinks only soda. Nephro consultation Renal US-no evidence of renal artery stenosis but ultrasound did show bilateral nephrolithiasis NSS 125 cc/hr x 24 hr has been changed to LR Repeat BMP in AM Waiting on Urine studies. Avoid NSAIDs (5) Constipation: Constipation noted on CT of abd/pelvis. Could be contributing to flank pain as well. Miralax PRN. Consider enema if needed. (6) Cystic fibrosis: (7) Lung transplant status, bilateral: (8) Asthma: Patient with history of CF and b/l lung transplant. Continue antirejection meds. Monitor labs. Consider consultation with [facility], [place], operated by [facility] if needed. 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 Will hold insulin at this time (10) Chronic anemia: Patient is supposed to be on Ferrous sulfate 325 mg BID, but does not take this. Will recheck iron studies in the AM Anemia is stable compared to outpatient. (11) History of Clostridioides difficile colitis: While on IV abx, monitor for recurrent symptoms of C Diff. Test if needed. (12) Exocrine pancreatic insufficiency: Continue ZenPep while inpatient. (13) DVT prophylaxis: Heparin Q12h due to HEIDY Admission and Anticipated Discharge Date Admission Date: June 11, 2020 Subjective 06/12/2020 The patient was seen and examined in telemetry unit 35-year-old male status post bilateral lung transplant on immunosuppressive medications was intubated asymptomatic right lower lobe infiltration He presented to ER with left flank pain He has been feeling lot better today and denies any abdominal pain No cough and/or shortness of breath at rest Review of Systems Review of Systems: All systems reviewed and are unremarkable except as noted below Constitutional: + weakness and + anorexia Respiratory: + cough; no dyspnea Physical Exam Physical Exam: Lying in bed comfortably Constitutional: + ill appearing and + thin; no acute distress Eyes: PERRL, conjunctivae normal, anicteric sclerae ENMT: external ear and nose normal, oropharynx normal Neck: trachea midline, no thyromegaly Respiratory: no respiratory distress Auscultation: + diminished lung sounds (Right base with minimal crackles) Cardiovascular: Rate/Rhythm: regular rate and regular rhythm Heart Sounds: no murmur Gastrointestinal (Abdomen): Inspection/Auscultation: abdomen normal to inspection and normal bowel sounds; abdomen not distended Percussion/Palpat ion: abdomen soft; abdomen nontender Musculoskeletal: No acute arthritis involving any joints Neurologic: moves all extremities; no focal motor deficits Alert, awake and oriented x3 Lymphatic: no cervical or axillary lymphadenopathy Results & Data Results & Data ([facility]) Vital Signs (Past 12 Hours) Vital Signs Temp Pulse Resp BP Pulse Ox 06/12/20 07:30 36.6 C 85 18 93/60 L 100 06/12/20 04:13 36.6 C 88 18 92/54 L 98 Laboratory Results Short CBC 06/11/20 06/12/20 Range/Units 13:37 05:56 WBC 5.84 6.39 (4.8-10.8) K/uL Hgb 8.1 L 7.5 L (14.0-18.0) g/dL Hct 25.9 L 23.9 L (42-52) % Plt Count 246 199 (130-400) K/uL BMP 06/11/20 06/12/20 13:37 05:56 Sodium 136 140 Potassium 4.8 4.8 Chloride 107 112 H Carbon Dioxide 17 L 19 L BUN 27 H 24 H Creatinine 2.24 H 1.83 H D Glucose 114 H 96 Calcium 8.0 L 7.2 L Liver Function 06/11/20 Range/Units 13:37 Total Bilirubin 0.3 (0.2-1) mg/dl AST 12 L (15-37) U/L ALT 17 (12-78) U/L Alkaline Phosphatase 89 (45-117) U/L Albumin 3.4 (3.4-5.0) gm/dl Urine 06/11/20 Range/Units 19:40 Urine Color Yellow Urine Appearance Clear (Clear) Urine pH 5.0 (4.5-7.5) Ur Specific Mead 1.012 (1.000-1.030) Urine Protein Negative (Negative) Urine Glucose (UA) Negative (Negative) Medications Administered Current Inpatient Medications Acetaminophen (Acetaminophen 325 Mg Tab) 650 mg PO Q4H PRN PRN Reason: Pain or Fever Stop: 07/11/20 17:25 Last Admin: 06/12/20 08:38 Dose: 650 mg Documented by: Lipase/Protease/Amylase (Lipase/Protease/Amylase) 3 ea PO DAILY PRN PRN Reason: SNACKS Stop: 07/11/20 19:29 Lipase/Protease/Amylase (Lipase/Protease/Amylase) 6 ea PO TIDM [facility] Stop: 07/12/20 07:59 Last Admin: 06/12/20 11:06 Dose: 6 ea Documented by: Azithromycin (Azithromycin 250 Mg Tab) 250 mg PO MoWeFr@0900 [facility] Stop: 07/12/20 08:59 Last Admin: 06/12/20 08:30 Dose: 250 mg Documented by: Fluconazole (Fluconazole 100 Mg Tab) 100 mg PO QAM [facility] Stop: 07/12/20 08:59 Last Admin: 06/12/20 08:30 Dose: 100 mg Documented by: Heparin Sodium (Porcine) (Heparin Sod 5,000 Unit/0.5 Ml Vial) 5,000 units SQ Q12 [facility] Stop: 07/11/20 20:59 Last Admin: 06/12/20 08:30 Dose: 5,000 units Documented by: Piperacillin Sod/Tazobactam (Sod 4.5 gm/ Dextrose) 120 mls @ 30 mls/hr IV Q8H [facility]; Protocol Stop: 06/18/20 19:59 Last Admin: 06/12/20 11:06 Dose: 30 mls/hr Documented by: Lactated Ringer's (Lr) 1,000 mls @ 125 mls/hr IV .Q8H [facility] Stop: 07/12/20 10:29 Last Admin: 06/12/20 10:33 Dose: 125 mls/hr Documented by: Magnesium Oxide (Magnesium Oxide 400 Mg Tab) 400 mg PO BID [facility] Stop: 07/11/20 20:59 Last Admin: 06/12/20 08:30 Dose: 400 mg Documented by: Miscellaneous Information (Vancomycin Consult Active) 1 ea N/A UD PRN PRN Reason: Consult Stop: 07/11/20 14:50 Miscellaneous Information (Piperacill/Tazobac Consult Active) 1 ea N/A UD PRN PRN Reason: Consult Stop: 07/11/20 15:07 Mycophenolate Sodium (Mycophenolate Sodium 180 Mg Tab) 720 mg PO BID [facility] Stop: 07/11/20 20:59 Last Admin: 06/12/20 08:31 Dose: 720 mg Documented by: Pantoprazole Sodium (Pantoprazole 40 Mg Tab) 40 mg PO QAM [facility] Stop: 07/12/20 08:59 Last Admin: 06/12/20 08:31 Dose: 40 mg Documented by: Polyethylene Glycol (Polyethylene (Miralax) 17 Gm Pack) 17 gm PO DAILY PRN PRN Reason: Constipation Stop: 07/11/20 17:25 Prednisone (Prednisone 5 Mg Tab) 5 mg PO QAM [facility] Stop: 07/12/20 08:59 Last Admin: 06/12/20 08:30 Dose: 5 mg Documented by: Tacrolimus (Tacrolimus 1 Mg Cap) 5 mg PO Q12 [facility] Stop: 07/11/20 20:59 Last Admin: 06/12/20 08:30 Dose: 5 mg Documented by: (1) Right lower lobe pneumonia Pneumonia type: due to unspecified organism Qualified Code(s): J18.9 - Pneumonia, unspecified organism
[2020-06-12] MEDS ORDERED: CEFEPIME CONSULT ACTIVE PRN (13:22)
[2020-06-12] MEDS: CEFEPIME 2,000 MG in SYRINGE 0 ML IV SCH (19:47)
[2020-06-12] MEDS ORDERED: VANCOMYCIN HCL 750 MG in SODIUM CHLORIDE 0.9% 250 ML IV SCH (22:00)
--- NOTE | 2020-06-12 22:18 | Pharmacy Report ---
Pharmacy Abx Dose Short Note - Date of Service June 12, 2020 - Assessment & Plan Assessment 35 year old M receiving IV Vancomycin and Cefepime for treatment of RLL pneumonia Day # 2 of antimicrobial therapy. * Last Vancomycin 750mg was given earlier this AM at 0829 - estimate this dose incr' Vancomycin level by ~24.52 mg/dL * Last Vancomycin level was 11.3 mg/dL on 06/12 @ 0556 * Estimate last dose produced a "peak" level ~35.82 mg/dL * Using patient specific levels, calculated Ke ~0.081/hr with estimated half- life ~8.5 hrs - patient is clearing Vancomycin more rapidly than anticipated based on renal function, which is improving. sCr was 2.24 mg/dL upon admi ssion, now 1.83 mg/dL. Anticipate renal function will continue to improve. * Of note, MRSA nasal swab was negative Plan Vancomycin * Trough level of 15.9 mcg/mL is therapeutic, within the lower end of therapeutic range. * Given above calculated pharmacokinetics, will initiate maintenance regimen of Vancomycin 750 mg (~18 mg/kg) IV every 12 hours * Goal trough level for pneumonia : 15 to 20 mcg/mL * Trough level ordered for: 06/13/20 @ 2130 (prior to 3rd dose and therefore not reflective of steady state, but would like to assess dosing regimen early) Pharmacy will continue to follow and will adjust dose/frequency as necessary. Thank you.
[2020-06-13] MEDS: LACTATED RINGER'S 1,000 ML IV SCH ×2 (02:09→10:42)
[2020-06-13 06:27] LABS: Hematocrit (blood only) 23.4 % (42-52); Hemoglobin 7.4 g/dL (14.0-18.0); Mean Corpuscular Hemoglobin 26.3 pg (25-34); Mean Corpuscular Hgb Conc 31.6 g/dL (32-36); Mean Corpuscular Volume 83.3 fL (80-100); Mean Platelet Volume 10.4 fL (7.4-10.4); Platelet Count 217 K/uL (130-400); RDW Coefficient of Variation 17.3 % (11.5-14.5); RDW Standard Deviation 53.3 fL (36.4-46.3); Red Blood Count 2.81 M/uL (4.7-6.1); White Blood Count 8.39 K/uL (4.8-10.8)
[2020-06-13 07:01] LABS: BUN Creatinine Ratio 14.7 (10-20); Calcium 7.6 mg/dl (8.5-10.1); Creatinine Clr Calc Pharmacy 49.7 ml/min; Est GFR (African American) 74.9; Est GFR (Non-African American) 64.6; Phosphorus 2.6 mg/dl (2.5-4.9); Potassium 4.3 mmol/L (3.5-5.1)
[2020-06-13 07:15] LABS: Basophils # (auto) 0.01 K/uL (0-0.2); Basophils % (auto) 0.1 %; Echinocytes 1+; Eosinophils # (auto) 0.33 K/uL (0-0.5); Eosinophils % (auto) 3.9 %; Immature Granulocytes # (auto) 0.58 K/uL (0.00-0.02); Immature Granulocytes % (auto) 6.9 %; Lymphocytes # (auto) 1.15 K/uL (1.2-3.4); Lymphocytes % (auto) 13.7 %; Monocytes # (auto) 1.14 K/uL (0.11-0.59); Monocytes % (auto) 13.6 %; Neutrophils # (auto) 5.18 K/uL (1.4-6.5); Neutrophils % (auto) 61.8 %
[2020-06-13] MEDS: LIPASE/PROTEASE/AMYLASE PO SCH ×3 (07:39→11:46)
[2020-06-13] MEDS: CEFEPIME 2,000 MG in SYRINGE 0 ML IV SCH (07:39)
[2020-06-13] MEDS: MYCOPHENOLATE SODIUM 180 MG TAB PO SCH (09:52)
[2020-06-13] MEDS: FLUCONAZOLE 100 MG TAB PO SCH (09:52)
[2020-06-13] MEDS: TACROLIMUS 1 MG CAP PO SCH (09:53)
[2020-06-13] MEDS: PANTOprazole 40 MG TAB PO SCH (09:53)
[2020-06-13] MEDS: predniSONE 5 MG TAB PO SCH (09:53)
[2020-06-13] MEDS: MAGNESIUM OXIDE 400 MG TAB PO SCH (09:53)
[2020-06-13] MEDS: HEPARIN SOD 5,000 UNIT/0.5 ML VIAL SQ SCH (09:54)
--- NOTE | 2020-06-13 10:22 | Nephrology Progress Note ---
Date of Service June 13, 2020 Assessment & Plan (1) BEN (acute kidney injury): Patient with acute kidney injury likely due to ischemic ATN in setting of pneumonia and calcineurin inhibitor toxicity. Patient also just recovering from diarrhea for the past 1 month. His electrolytes are stable. He does have metabolic acidosis. Management of ATN is supportive. No indication for dialy sis. -will continue Ringer's lactate at 125 mL/hour. Fluid can be stopped later before patient goes home. -will continue to hold the metoprolol. This can be resumed as an outpatient. -patient will need a repeat BMP on Friday. BMP to be forwarded to PCP and myself.. Nephrology follow-up in 1-2 weeks for Ben and the renal stones. Discuss case with Dr. Marks (2) Right lower lobe pneumonia: Patient is on vancomycin and Zosyn per primary team. Patient will be discharged on oral antibiotics (3) Lung transplant status, bilateral: Continue Prograf 5 mg twice daily, CellCept and prednisone. Target Prograf level transplant note in December 2019 was 10-12. -will follow up with the transplant center (4) History of renal calculi: Patient found have bilateral renal stones with the largest measuring 1.4 cm on the left side. Patient will need the outpatient renal workup for stone etiology and management. No hydronephrosis which is good. Admission and Anticipated Discharge Date Admission Date: June 11, 2020 Subjective He feels better this morning. He is making lots of urine. No shortness of breath. Creatinine has improved to 1.4 this morning. Review of Systems Review of Systems: All systems reviewed & are unremarkable except as noted in HPI & below Physical Exam Physical Exam: General exam: Appears comfortable, no acute distress HEENT: Pupils are equal and reactive to light Neck: No JVD, neck is supple trachea is midline Respiratory system: Clear breath sounds bilaterally. Gastrointestinal: Abdomen is soft, non distended, non tender, bowel sounds are present CVS: Regular rate and rhythm. No murmurs, rubs or gallops Musculoskeletal: No joint or muscle tenderness Extremities: Non tender, no edema, peripheral pulses are present Neuro: Oriented, no tremors, no focal neurological deficits Skin: No rashes Results & Data ([facility]) Vital Signs (Past 12 Hours) Vital Signs Temp Pulse Pulse Resp BP Pulse Ox 06/13/20 07:53 36.8 C 60 18 110/69 97 06/13/20 04:16 36.6 C 69 18 105/62 99 06/13/20 00:08 84 06/12/20 23:52 36.6 C 84 18 117/70 99 Laboratory Results 06/13/20 06:15 06/13/20 06/13/20 06:15 06:15 WBC 8.39 RBC 2.81 L MCV 83.3 MCH 26.3 MCHC 31.6 L RDW Std Deviation 53.3 H RDW Coeff of Crissy 17.3 H Plt Count 217 MPV 10.4 Phosphorus 2.6 (1) Right lower lobe pneumonia Pneumonia type: due to unspecified organism Qualified Code(s): J18.9 - Pneumonia, unspecified organism
[2020-06-13] MEDS ORDERED: levoFLOXacin 500 MG TAB PO SCH (11:00)
--- NOTE | 2020-06-13 11:59 | Hospitalist Progress Note ---
Date of Service June 13, 2020 Assessment & Plan (1) Right lower lobe pneumonia: Patient with left flank pain and noted to have 1.4 cm left upper pole renal stone on CT of Abd/Pelvis CT scan of the abdomen and pelvis also showed p right lower lobe infiltration and there is documented in chest x-ray as well Because the patient has history of B/L lung transplant and is chronically immunosuppressed, potential for opportunistic infections. He was started on broad spectrum abx. Patient has not been taking his prophylactic abx appropriately other than Azithromycin. He supposed to be taking Bactrim and azithromycin COVID testing and Respiratory panel were done as well & were negative. Continue Zosyn/Vancomycin pending improvement of symptoms. ID Consultation placed. He has been feeling much better and denies any abdominal pain and/or chest pain Case discussed with Dr. Pal at [facility] (#[phone]) and will decide about antibiotics and how long that has to be continued ID consult has been placed-appreciate input and recommendation Will discontinue current antibiotics and put him on oral Levaquin for 7 more days He was strongly advised to keep follow-up appointment with his transplant surgeon in [facility] He does not want to see his primary care physician for now (2) HEIDY (acute kidney injury): Likely secondary to ischemic ATN in the setting of pneumonia and drug toxicity Complicated by dehydration secondary to recent ongoing diarrhea Appreciate nephrology input and recommendation Has been getting LR infusion and the creatinine has been improving Reverted to normal Was advised to drink plenty of fluid (3) Left flank pain: Could be secondary to 1.4 cm left upper pole renal stone No ureteric stone and no hydronephrosis (4) History of renal calculi: Patient has had ongoing decrease in renal function since the end of March per outpatient records. Initially appeared to be secondary to diarrhea. Uncertain if this was recurrence of C Diff or not because patient never completed the testing outpatient. He was treated with PO Vancomycin at the time. Creatinine has not returned to baseline. Patient admits to poor PO intake of water- drinks only soda. Nephro consultation Renal US-no evidence of renal artery stenosis but ultrasound did show bilateral nephrolithiasis NSS 125 cc/hr x 24 hr has been changed to LR Repeat BMP in AM Waiting on Urine studies. Avoid NSAID-advised more fluid (5) Constipation: Constipation noted on CT of abd/pelvis. Could be contributing to flank pain as well. Miralax PRN. Consider enema if needed. (6) Cystic fibrosis: (7) Lung transplant status, bilateral: (8) Asthma: Patient with history of CF and b/l lung transplant. Continue antirejection meds. Monitor labs. Consider consultation with [facility] if needed. 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 Will hold insulin at this time (10) Chronic anemia: Patient is supposed to be on Ferrous sulfate 325 mg BID, but does not take this. Will recheck iron studies in the AM Anemia is stable compared to outpatient. (11) History of Clostridioides difficile colitis: While on IV abx, monitor for recurrent symptoms of C Diff. Test if needed. (12) Exocrine pancreatic insufficiency: Continue ZenPep while inpatient. (13) DVT prophylaxis: Heparin Q12h due to HEIDY Admission and Anticipated Discharge Date Admission Date: June 11, 2020 Anticipated date of discharge: 06/13/20 Subjective 06/12/2020 The patient was seen and examined in telemetry unit 35-year-old male status post bilateral lung transplant on immunosuppressive medications was intubated asymptomatic right lower lobe infiltration He presented to ER with left flank pain He has been feeling lot better today and denies any abdominal pain No cough and/or shortness of breath at rest 06/13/2020 The patient was seen and examined in telemetry unit He has been doing much better today and denies any shortness of breath, chest pain, palpitation No fever no chills and he has been passing urine adequately Review of Systems Review of Systems: All systems reviewed and are unremarkable except as noted below Constitutional: + weakness and + anorexia Respiratory: + cough; no dyspnea Physical Exam Physical Exam: Lying in bed comfortably Constitutional: + thin (BMI 19.2/underweight); no acute distress and not ill appearing Eyes: PERRL, conjunctivae normal, anicteric sclerae ENMT: external ear and nose normal, oropharynx normal Neck: trachea midline, no thyromegaly Respiratory: no respiratory distress Auscultation: + diminished lung sounds (Right base with minimal crackles) Cardiovascular: Rate/Rhythm: regular rate and regular rhythm Heart Sounds: no murmur Gastrointestinal (Abdomen): Inspection/Auscultation: abdomen normal to inspection and normal bowel sounds; abdomen not distended Percussion/Palpation: abdomen soft; abdomen nontender Musculoskeletal: No acute arthritis involving any joints Neurologic: moves all extremities; no focal motor deficits Lymphatic: no cervical or axillary lymphadenopathy Results & Data Results & Data ([facility]) Vital Signs (Past 12 Hours) Vital Signs Temp Pulse Pulse Resp BP Pulse Ox 06/13/20 07:53 36.8 C 60 18 110/69 97 06/13/20 04:16 36.6 C 69 18 105/62 99 06/13/20 00:08 84 06/12/20 23:52 36.6 C 84 18 117/70 99 Laboratory Results Short CBC 06/13/20 Range/Units 06:15 WBC 8.39 (4.8-10.8) K/uL Hgb 7.4 L (14.0-18.0) g/dL Hct 23.4 L (42-52) % Plt Count 217 (130-400) K/uL BMP 06/13/20 06:15 Sodium 140 Potassium 4.3 Chloride 113 H Carbon Dioxide 20 L BUN 21 H Creatinine 1.40 D Glucose 93 Calcium 7.6 L Medications Administered Current Inpatient Medications Acetaminophen (Acetaminophen 325 Mg Tab) 650 mg PO Q4H PRN PRN Reason: Pain or Fever Stop: 07/11/20 17:25 Last Admin: 06/12/20 08:38 Dose: 650 mg Documented by: Lipase/Protease/Amylase (Lipase/Protease/Amylase) 3 ea PO DAILY PRN PRN Reason: SNACKS Stop: 07/11/20 19:29 Lipase/Protease/Amylase (Lipase/Protease/Amylase) 6 ea PO TIDM [facility] Stop: 07/12/20 07:59 Last Admin: 06/13/20 11:46 Dose: 6 ea Documented by: Azithromycin (Azithromycin 250 Mg Tab) 250 mg PO MoWeFr@0900 [facility] Stop: 07/12/20 08:59 Last Admin: 06/12/20 08:30 Dose: 250 mg Documented by: Fluconazole (Fluconazole 100 Mg Tab) 100 mg PO QAM [facility] Stop: 07/12/20 08:59 Last Admin: 06/13/20 09:52 Dose: 100 mg Documented by: Heparin Sodium (Porcine) (Heparin Sod 5,000 Unit/0.5 Ml Vial) 5,000 units SQ Q12 [facility] Stop: 07/11/20 20:59 Last Admin: 06/13/20 09:54 Dose: Not Given Documented by: Lactated Ringer's (Lr) 1,000 mls @ 125 mls/hr IV .Q8H [facility] Stop: 07/12/20 10:29 Last Admin: 06/13/20 10:42 Dose: 125 mls/hr Documented by: Levofloxacin (Levofloxacin 500 Mg Tab) 500 mg PO DAILY@1100 [facility] Stop: 06/20/20 10:59 Last Admin: 06/13/20 10:55 Dose: 500 mg Documented by: Magnesium Oxide (Magnesium Oxide 400 Mg Tab) 400 mg PO BID [facility] Stop: 07/11/20 20:59 Last Admin: 06/13/20 09:53 Dose: 400 mg Documented by: Miscellaneous Information (Cefepime Consult Active) 1 ea N/A UD PRN PRN Reason: Consult Stop: 07/12/20 13:21 Mycophenolate Sodium (Mycophenolate Sodium 180 Mg Tab) 720 mg PO BID [facility] Stop: 07/11/20 20:59 Last Admin: 06/13/20 09:52 Dose: 720 mg Documented by: Pantoprazole Sodium (Pantoprazole 40 Mg Tab) 40 mg PO QAM [facility] Stop: 07/12/20 08:59 Last Admin: 06/13/20 09:53 Dose: 40 mg Documented by: Polyethylene Glycol (Polyethylene (Miralax) 17 Gm Pack) 17 gm PO DAILY PRN PRN Reason: Constipation Stop: 07/11/20 17:25 Prednisone (Prednisone 5 Mg Tab) 5 mg PO QAM [facility] Stop: 07/12/20 08:59 Last Admin: 06/13/20 09:53 Dose: 5 mg Documented by: Tacrolimus (Tacrolimus 1 Mg Cap) 5 mg PO Q12 [facility] Stop: 07/11/20 20:59 Last Admin: 06/13/20 09:53 Dose: 5 mg Documented by: (1) Right lower lobe pneumonia Pneumonia type: due to unspecified organism Qualified Code(s): J18.9 - Pneumonia, unspecified organism
[2020-06-13] MEDS ORDERED: levoFLOXacin 250 MG TABLET PO ONE (13:53)
--- NOTE | 2020-06-13 17:22 | Discharge Summary ---
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 He also has history of nephrolithiasis, so he thought that he may have another kidney stone. Upon further evaluation, patient was found to be febrile, tachycardic, and CT of the Abd/Pelvis did not show renal stone, but it did show RLL Pneumonia. CXR conf irmed RLL pneumonia. Patient is chronically immunosuppressed on tacrolimus and prednisone. He currently has a mild cough. No further abdominal pain. He had chills this morning. Labs upon presentation revealed: Hgb 8.1 stable from baseline Creatinine 2.2. Patient has had ongoing/worsening renal function since the end of March/beginning of April per outpatient records Creatinine trend has been: 03/29/20- 1.4 04/17/20- 1.9 05/02/20- 3.1 06/09/20- 1.8 He had touched base with his [facility] Cardiothoracic surgeon about diarrhea in April which is likely reason for HEIDY at that time. He was started on PO V ancomycin at the time due to history of C Diff. Patient never completed stool sample as recommended. Per notes, diarrhea improved some on Vanco. Patient admits that he does not drink any water. He drinks only soda at home. His diarrhea subsided about 2 days ago. He stopped his PO Vancomycin about 2 weeks ago. Of note, patient was recently placed on Amoxicillin for prophylaxis of dental surgery. He is scheduled to have his teeth extracted. He has listed Keflex allergy but tolerates Amoxicillin. Patient is also supposed to be taking Acyclovir, Vitamin C, Calcium+D, Vitmain D 50,000 Units, Slow-Mag, Ferrous Sulfate 325 mg BID, Bactrim MWF, and Vitmain E but he does not routinely take these medications, though he "knows he should". He was started on IV Zosyn & Vancomycin in the ED. Blood cultures are pending. Urine samples pending. COVID and respiratory panel negative. Admission Exam Per Admitting Provider Constitutional: + thin; no acute distress, not ill appearing and + not appropriately hydrated Eyes: PERRL, conjunctivae normal, anicteric sclerae ENMT: external ear and nose normal, oropharynx normal Neck: trachea midline, no thyromegaly Respiratory: + cough; no respiratory distress, no labored breathing and does not use accessory muscles Auscultation: + crackles (RLL) and + rhonchi Cardiovascular: Rate/Rhythm: + tachycardic Heart Sounds: no gallop and no murmur Extremities: no edema Gastrointestinal (Abdomen): normal bowel sounds, soft, nontender, no hepatosplenomegaly Musculoskeletal: Head/Neck/Chest: normocephalic and head atraumatic Skin: no rashes, warm and dry Psychiatric: A+Ox3, euthymic affect Principal Diagnosis Right lower lobe pneumonia, status post bilateral lung transplant, acute kidney injury-resolved, nephrolithiasis Discharge Exam Constitutional + thin (BMI 19.2/underweight); no acute distress and not ill appearing Eyes PERRL, conjunctivae normal, anicteric sclerae ENMT external ear and nose normal, oropharynx normal Neck trachea midline, no thyromegaly Respiratory no respiratory distress Auscultation: + diminished lung sounds (Right base with minimal crackles) Cardiovascular Rate/Rhythm: regular rate and regular rhythm Heart Sounds: no murmur Gastrointestinal (Abdomen) Inspection/Auscultation: abdomen normal to inspection and normal bowel sounds; abdomen not distended Percussion/Palpation: abdomen soft; abdomen nontender Neurologic moves all extremities; no focal motor deficits Lymphatic no cervical or axillary lymphadenopathy Discharge Data Allergies Allergy/AdvReac Type Severity Reaction Status Date / Time cephalexin Allergy Severe Hives Verified 06/11/20 15:20 tetracycline AdvReac Severe vomiting Verified 06/11/20 14:38 naproxen AdvReac Mild Stomach Verified 06/11/20 14:38 bleeding Consultations 06/11/20 15:05 ED Decision to Admit Stat 06/11/20 17:26 Consult Case Management - Discharge Planning Routine Consult Infectious Diseases Routine Consult Nephrology Routine Ordered Studies 06/11/20 13:01 CT abd pelvis wo con Stat 06/12/20 08:00 US duplex renal artery Routine Hospital Course (1) Right lower lobe pneumonia: Patient with left flank pain and noted to have 1.4 cm left upper pole renal stone on CT of Abd/Pelvis CT scan of the abdomen and pelvis also showed p right lower lobe infiltration and there is documented in chest x-ray as well Because the patient has history of B/L lung transplant and is chronically immunosuppressed, potential for opportunistic infections. He was started on broad spectrum abx. Patient has not been taking his prophylactic abx appropriately other than Azithromycin. He supposed to be taking Bactrim and azithromycin COVID testing and Respiratory panel were done as well & were negative. Continue Zosyn/Vancomycin pending improvement of symptoms. ID Consultation placed. He has been feeling much better and denies any abdominal pain and/or chest pain Case discussed with Dr. Pal at [facility] (#[phone]) and will decide about antibiotics and how long that has to be continued ID consult has been placed-appreciate input and recommendation Will discontinue current antibiotics and put him on oral Levaquin for 7 more days He was strongly advised to keep follow-up appointment with his transplant surgeon in [facility] He does not want to see his primary care physician for now (2) HEIDY (acute kidney injury): Likely secondary to ischemic ATN in the setting of pneumonia and drug toxicity Complicated by dehydration secondary to recent ongoing diarrhea Appreciate nephrology input and recommendation Has been getting LR infusion and the creatinine has been improving Reverted to normal Was advised to drink plenty of fluid (3) Left flank pain: Could be secondary to 1.4 cm left upper pole renal stone No ureteric stone and no hydronephrosis (4) History of renal calculi: Patient has had ongoing decrease in renal function since the end of March per outpatient records. Initially appeared to be secondary to diarrhea. Uncertain if this was recurrence of C Diff or not because patient never completed the testing outpatient. He was treated with PO Vancomycin at the time. Creatinine has not returned to baseline. Patient admits to poor PO intake of water- drinks only soda. Nephro consultation Renal US-no evidence of renal artery stenosis but ultrasound did show bilateral nephrolithiasis NSS 125 cc/hr x 24 hr has been changed to LR Repeat BMP in AM Waiting on Urine studies. Avoid NSAID-advised more fluid (5) Constipation: Constipation noted on CT of abd/pelvis. Could be contributing to flank pain as well. Miralax PRN. Consider enema if needed. (6) Cystic fibrosis: (7) Lung transplant status, bilateral: (8) Asthma: Patient with history of CF and b/l lung transplant. Continue antirejection meds. Monitor labs. Consider consultation with [facility] if needed. 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 Will hold insulin at this time (10) Chronic anemia: Patient is supposed to be on Ferrous sulfate 325 mg BID, but does not take this. Will recheck iron studies in the AM Anemia is stable compared to outpatient. (11) History of Clostridioides difficile colitis: While on IV abx, monitor for recurrent symptoms of C Diff. Test if needed. (12) Exocrine pancreatic insufficiency: Continue ZenPep while inpatient. (13) DVT prophylaxis: Heparin Q12h due to HEIDY Total Time Total Time Spent Total Time Spent (In Minutes): 40 minutes Total Time Includes: Examination of the Patient, Discharge Planning, Medication Reconciliation and Communication With Other Providers Discharge Plan Discharge Items Patient Disposition: Home - Self-Care Reason For Visit: RLL PNEUMONIA Discharge Diagnosis: Right lower lobe pneumonia, status post bilateral lung transplant, acute kidney injury-resolved, nephrolithiasis Condition on Discharge: Good Activity: Resume your previous activity Non-emergency contact: Primary Care Provider Call non-emergency contact if: you have any medication questions and your symptoms worsen Follow-up/Referrals: Amador Sandy MD [Primary Care Provider] - 06/19/20 10:00 am (Date & Time 06/19/2020 10:00 AM Provider Amador Sandy MD Department [facility] ) Diet: Regular Ambulatory Orders: Complete Blood Count with Diff (Routine) Timeframe: 1 Week Location: Determined by Patient Ordered By: Bonita Marks Comprehensive Metabolic Panel (Routine) Timeframe: 1 Week Location: Determined by Patient Ordered By: Bonita Marks Reference [facility] Test 1 (Routine) Timeframe: 1 Week Location: None Selected Ordered By: Bonita Marks Addtl Attending Provider Instructions: Please take precaution to avoid falls Advised to have the blood test as recommended by his transplant physician Strongly advised to keep appointment with his transplant doctor at [facility] Pending Studies at Discharge: No Stand-Alone Forms: My DashThis, Smoking Cessation Medications and DC Order Prescriptions: New Lactinex 1 million cell tablet,chewable 1 tab PO BID Qty: 30 RF: 0 levofloxacin 750 mg tablet 750 mg PO DAILY 7 Days Qty: 7 RF: 0 Continued tacrolimus 5 mg capsule 5 mg PO Q12 RF: 0 mycophenolate sodium 360 mg tablet,delayed release (DR/EC) 720 mg PO BID RF: 0 fluconazole 100 mg tablet 100 mg PO QAM RF: 0 acetaminophen [Tylenol] 325 mg Tablet 325 mg PO QID PRN (Reason: Pain) RF: 0 azithromycin 250 mg tablet 250 mg PO .MOWEFR@QAM RF: 0 prednisone 5 mg Tablet 5 mg PO QAM RF: 0 pantoprazole 40 mg Tablet,Delayed Release (Dr/Ec) 40 mg PO QAM RF: 0 metoprolol succinate 25 mg Tablet Extended Release 24 Hr 25 mg PO DAILY RF: 0 fluticasone propionate 50 mcg/actuation spray,suspension 2 spray INTRANASAL DAILY PRN (Reason: Congestion) RF: 0 Zenpep 25,000-79,000- 105,000 unit capsule,delayed release(DR/EC) 6 cap PO TIDM RF: 0 Zenpep 25,000-79,000- 105,000 unit capsule,delayed release(DR/EC) 3 cap PO .SNACKS RF: 0 testosterone cypionate 200 mg/mL oil 200 mg IM [id number] RF: 0 Discharge Orders: Discharge Order (Routine); Ordered 06/13/20 Ordered By: Bonita Aguero/Other Patient Handouts: When You Have Pneumonia Admission Data Admit Date/Time: 06/11/20 15:26 Attending Provider: Bonita Marks Admit Provider: Doug Hunt Primary Care Provider: Amador Sandy Other Providers: Doug Hunt ; Dar Morrison ; John Giron ; Costa Soni I. ; Juan J Lyle II ; Lauren Farley ; Carson Farris ; Kiarra Unger Other Interventions: Discharge Summary Assessment (RN) Last Done: 06/13/20 13:30
[2020-06-13] MEDS ORDERED: VANCOMYCIN TROUGH ONE (21:30)
--- NOTE | 2020-06-14 14:12 | Electrocardiogram Report ---
Test Reason : Blood Pressure : / mmHG Vent. Rate : 081 BPM Atrial Rate : 081 BPM P-R Int : 120 ms QRS Dur : 088 ms QT Int : 356 ms P-R-T Axes : 041 051 079 degrees QTc Int : 413 ms Poor data quality, interpretation may be adversely affected Sinus rhythm with frequent Premature atrial complexes Nonspecific T wave abnormality Abnormal ECG When compared with ECG of 27-MAR-2017 19:31, Borderline criteria for Lateral infarct are no longer Present Non-specific change in ST segment in Anterior leads Nonspecific T wave abnormality now evident in Anterior leads Confirmed by Juan Morris ([id number]) on 06/14/2020 2:11:54 PM Referred By: REFERRED SELF Confirmed By:Juan Morris
== END 2020-06-13 14:33 | disposition home or self-care (01) | DRG 177 ==
LOC: ED 12:45 → SUATTDRO 15:26 → 2E 15:26

== ENCOUNTER 2020-09-19 16:52 | Inpatient (IN) ==
[2020-09-19 17:35] LABS: Basophils # (auto) 0.02 K/uL (0-0.2); Basophils % (auto) 0.4 %; Eosinophils # (auto) 0.12 K/uL (0-0.5); Eosinophils % (auto) 2.6 %; Hematocrit (blood only) 35.8 % (42-52); Hemoglobin 11.7 g/dL (14.0-18.0); Immature Granulocytes # (auto) 0.03 K/uL (0.00-0.02); Immature Granulocytes % (auto) 0.7 %; Lymphocytes # (auto) 1.36 K/uL (1.2-3.4); Lymphocytes % (auto) 29.7 %; Mean Corpuscular Hemoglobin 27.1 pg (25-34); Mean Corpuscular Hgb Conc 32.7 g/dL (32-36); Mean Corpuscular Volume 82.9 fL (80-100); Mean Platelet Volume 10.2 fL (7.4-10.4); Monocytes # (auto) 0.54 K/uL (0.11-0.59); Monocytes % (auto) 11.8 %; Neutrophils # (auto) 2.51 K/uL (1.4-6.5); Neutrophils % (auto) 54.8 %; Platelet Count 247 K/uL (130-400); RDW Coefficient of Variation 15.2 % (11.5-14.5); Red Blood Count 4.32 M/uL (4.7-6.1); White Blood Count 4.58 K/uL (4.8-10.8)
[2020-09-19 17:51] LABS: Albumin Level 4.9 gm/dl (3.4-5.0); Calcium 7.6 mg/dl (8.5-10.1); Creatinine Clr Calc Pharmacy 20.2 ml/min; Est GFR (African American) 29.8; Est GFR (Non-African American) 25.7; Potassium 2.7 mmol/L (3.5-5.1)
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
--- NOTE | 2020-09-19 17:52 | XRay Report ---
XR chest 1V portable CLINICAL HISTORY: lung transplant ATYPICAL CHEST PAIN COMPARISON STUDY: 06/11/2020 FINDINGS: Postsurgical changes are present. There are multiple bilateral surgical clips present. Ther e is a left-sided A-Port catheter. There is a calcified granuloma within the left mid to upper lung z one. There is no acute parenchymal consolidation. There is no failure. There are no pleural effusions .[There is been interval resolution of the previously identified right lower lobe pneumonia. IMPRESSION: 1. Postsurgical changes 2. No active disease in the chest. ACT 112: Negative or not required by law. Electronically signed by: Dex Avila M.D. 09/19/2020 5:51 PM
[2020-09-19 17:57] LABS: Acetaminophen < 2 ug/ml (10-30); Salicylate < 1.7 mg/dl (2.8-20)
[2020-09-19 18:02] LABS: Albumin Globulin Ratio 1.6 (0.9-2); Bilirubin,Total 0.3 mg/dl (0.2-1); Globulin 3.1 gm/dl (2.5-4.0); Thyroid Stimulating Hormone 0.795 uIu/ml (0.300-4.500)
[2020-09-19 18:19] LABS: Appearance Urine Clear (Clear); Bacteria Urine Automated Negative (Negative); Bilirubin Urine Negative (Negative); Blood Urine 1+ (Negative); Color Urine Yellow; Epithelial Cell Urine Auto >30 /lpf (0-5); Glucose Urine UA Negative (Negative); Ketones Urine Negative (Negative); Leukocyte Esterase Urine Negative (Negative); Nitrite Urine Negative (Negative); Protein Urine 1+ (Negative); Specific Gravity Urine 1.019 (1.000-1.030); Urobilinogen Urine Negative (Negative)
[2020-09-19] MEDS ORDERED: SODIUM CHLORIDE 0.9% 1000ML 500 ML IV ONE (18:20)
[2020-09-19] MEDS ORDERED: POTASSIUM CHLORIDE CRTAB 20 MEQ TABCR PO STA (18:20)
[2020-09-19] MEDS ORDERED: SODIUM CHLORIDE 0.9% 1000ML 1,000 ML IV SCH (18:30)
[2020-09-19 18:32] LABS: Amphetamines+Metham, Urine Pos (Neg); Barbiturates, Urine Neg (Neg); Benzodiazepine, Urine Neg (Neg); Cocaine, Urine Neg (Neg); MDMA (Ecstacy), Urine Neg (Neg); Methadone, Urine Neg (Neg); Opiate, Urine Neg (Neg); Phencyclidine, Urine Neg (Neg)
[2020-09-19] MEDS ORDERED: LORazepam 1 MG TAB SL STA ×2 (19:15→19:58)
[2020-09-19] MEDS ORDERED: FLUTICASONE PROPIONATE NA SPR 16 GM BTL PRN (22:12)
[2020-09-19] MEDS ORDERED: PANCREAZE (LIPASE 10,500U) CAP PO PRN (22:12)
[2020-09-19] MEDS ORDERED: ACETAMINOPHEN 325 MG TAB PO PRN ×2 (22:12)
[2020-09-19] MEDS ORDERED: NITROGLYCERIN SL 0.4 MG/TAB TAB SL PRN (22:12)
[2020-09-19] MEDS ORDERED: MYCOPHENOLATE SODIUM 180 MG TAB PO ONE (22:45)
[2020-09-19] MEDS ORDERED: POTASSIUM CHLORIDE CRTAB 20 MEQ TABCR PO ONE (22:45)
[2020-09-19] MEDS ORDERED: LORazepam 0.5 MG/1 ML VIAL IV STA (22:51)
[2020-09-19] MEDS: NSS + 20MEQ KCL 20 MEQ/1,000 ML BAG IV SCH (23:10)
[2020-09-19] MEDS: TACROLIMUS 1 MG CAP PO SCH (23:11)
[2020-09-20] MEDS ORDERED: LORazepam 0.5 MG/1 ML VIAL IV STA (00:45)
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
[2020-09-20] MEDS ORDERED: LORazepam 1.5 MG/3 ML VIAL IV STA (03:19)
[2020-09-20 05:58] LABS: Basophils # (auto) 0.02 K/uL (0-0.2); Basophils % (auto) 0.5 %; Eosinophils # (auto) 0.18 K/uL (0-0.5); Eosinophils % (auto) 4.2 %; Hematocrit (blood only) 28.8 % (42-52); Hemoglobin 9.3 g/dL (14.0-18.0); Immature Granulocytes # (auto) 0.08 K/uL (0.00-0.02); Immature Granulocytes % (auto) 1.9 %; Lymphocytes # (auto) 1.52 K/uL (1.2-3.4); Lymphocytes % (auto) 35.7 %; Mean Corpuscular Hemoglobin 26.7 pg (25-34); Mean Corpuscular Hgb Conc 32.3 g/dL (32-36); Mean Corpuscular Volume 82.8 fL (80-100); Mean Platelet Volume 10.3 fL (7.4-10.4); Monocytes # (auto) 0.46 K/uL (0.11-0.59); Monocytes % (auto) 10.8 %; Neutrophils % (auto) 46.9 %; Platelet Count 203 K/uL (130-400); RDW Coefficient of Variation 15.3 % (11.5-14.5); RDW Standard Deviation 46.4 fL (36.4-46.3); Red Blood Count 3.48 M/uL (4.7-6.1); White Blood Count 4.26 K/uL (4.8-10.8)
[2020-09-20 06:28] LABS: BUN Creatinine Ratio 11.8 (10-20); Blood Urea Nitrogen 25 mg/dl (7-18); Calcium 6.7 mg/dl (8.5-10.1); Carbon Dioxide 26 mmol/L (21-32); Chloride 112 mmol/L (98-107); Est GFR (African American) 46.1; Est GFR (Non-African American) 39.8; Glucose 91 mg/dl (70-99); Magnesium 1.3 mg/dl (1.8-2.4); Potassium 4.2 mmol/L (3.5-5.1)
[2020-09-20 06:30] LABS: Troponin I < 0.015 ng/ml (0-0.045)
[2020-09-20 06:32] LABS: Sodium 144 mmol/L (136-145)
[2020-09-20] MEDS: NSS + 20MEQ KCL 20 MEQ/1,000 ML BAG IV SCH (07:41)
[2020-09-20] MEDS: TACROLIMUS 1 MG CAP PO SCH (07:44)
[2020-09-20] MEDS: PANCREAZE (LIPASE 10,500U) CAP PO SCH ×3 (07:44→17:45)
[2020-09-20] MEDS: ADVANCED PROBIOTIC 1250 MG CAPSULE PO SCH (07:44)
[2020-09-20] MEDS: METOPROLOL SUCC 25MG EXT REL TAB PO SCH (07:45)
[2020-09-20] MEDS: predniSONE 5 MG TAB PO SCH (07:45)
[2020-09-20] MEDS: PANTOprazole 40 MG TAB PO SCH (07:45)
[2020-09-20] MEDS: MYCOPHENOLATE SODIUM 180 MG TAB PO SCH ×2 (07:47→20:34)
[2020-09-20] MEDS ORDERED: AZITHROMYCIN 250 MG TAB PO SCH (09:00)
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
[2020-09-20] MEDS: LACTATED RINGER'S 1,000 ML IV SCH ×2 (10:40→19:21)
[2020-09-20] MEDS ORDERED: Nursing to Pharmacy Communication SCH (10:45)
[2020-09-20] MEDS: LORazepam 1 MG/2 ML VIAL IV PRN ×2 (11:20→16:35)
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
--- NOTE | 2020-09-20 14:37 | Electrocardiogram Report ---
Test Reason : Blood Pressure : / mmHG Vent. Rate : 068 BPM Atrial Rate : 068 BPM P-R Int : 126 ms QRS Dur : 098 ms QT Int : 454 ms P-R-T Axes : 058 047 083 degrees QTc Int : 482 ms Poor data quality, interpretation may be adversely affected Normal sinus rhythm Incomplete right bundle branch block Prolonged QT Abnormal ECG When compared with ECG of 21-JUN-2020 11:27, Incomplete right bundle branch block is now Present ST now depressed in Anterior leads T wave inversion now evident in Anterolateral leads Confirmed by Bijan Maguire ([id number]) on 09/20/2020 2:37:15 PM Referred By: REFERRED SELF Confirmed By:Rock Maguire
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
[2020-09-21] MEDS: LACTATED RINGER'S 1,000 ML IV SCH ×2 (03:26→09:42)
[2020-09-21 05:58] LABS: BUN Creatinine Ratio 14.9 (10-20); Calcium 7.4 mg/dl (8.5-10.1); Creatinine Clr Calc Pharmacy 43.4 ml/min; Est GFR (African American) 69.5; Est GFR (Non-African American) 59.9
[2020-09-21 07:01] LABS: Estimated Average Glucose 114 mg/dl; Hemoglobin A1C 5.6 % (4.5-5.6)
[2020-09-21] MEDS: METOPROLOL SUCC 25MG EXT REL TAB PO SCH (08:02)
[2020-09-21] MEDS: predniSONE 5 MG TAB PO SCH (08:02)
[2020-09-21] MEDS: MYCOPHENOLATE SODIUM 180 MG TAB PO SCH (08:02)
[2020-09-21] MEDS: PANTOprazole 40 MG TAB PO SCH (08:02)
[2020-09-21] MEDS: ADVANCED PROBIOTIC 1250 MG CAPSULE PO SCH (08:02)
[2020-09-21] MEDS: PANCREAZE (LIPASE 10,500U) CAP PO SCH ×2 (08:02→11:36)
[2020-09-21] MEDS: LORazepam 1 MG/2 ML VIAL IV PRN ×2 (09:41→15:33)
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
[2020-09-22 02:32] LABS: Amphetamine Urine, Confirm 787 ng/mL (<250); Marijuana Quant, GCMS Urine 34 ng/mL (<5); Methamphetamine, Ur Confirm 8430 ng/mL (<250)
--- NOTE | 2020-09-27 10:25 | Coding Query ---
CODING QUERY To promote full compliance with coding requirements relating to patient care, provider participation is requested in all cases of nursing services manager uncertainty. Please assist us with the question(s) below: Coding Question(s): The H&P has the following documentation in an addendum, " Addendum: On the floor patient is very restless though he was answering questions. His drug screen was positive for marijuana and amphetamines. He agrees to taking many drugs. Says he takes in pill form and also snorts them Could not tell when was the last time he took drugs. Most likely withdrawing from drugs After few doses of iv Ativan patient is sleeping comfortably.Close monitor", and there is documentation of polysubstance abuse on the Psychiatric Consultation. There is no further mention of the possible withdrawal. Please specify below, in your clinical opinion. ( ) Abuse of marijuana and amphetamines most likely with withdrawal ( x ) Abuse of marijuana and amphetamines with No withdrawal ( ) NO drug abuse and No withdrawal ( ) Other: Please Specify Physician's Response(s): Thank you Jana Wick Principal Diagnosis: "that condition established after study, to be chiefly responsible for occasioning the admission of the patient to the hospital for care." Co-Existing Principal Diagnosis: "when two or more diagnoses equally meet the criteria for principal diagnosis as determined by the circumstances of admission, diagnostic work up, and/or therapy provided, and the Alphabetic Index, Tabular List, or another coding guideline does not provide sequencing direction, any one of the diagnoses may be sequenced first." "When the physician has documented what appears to be a current diagnosis in the body of the record, but has not included the diagnosis in the final diagnostic statement, the physician should be asked whether the diagnosis should be added." (Source Coding Clinic 2 QTR90. p3-4) FLETCHER
== END 2020-09-21 17:25 | DRG 683 ==
LOC: ED 16:52 → 2N 20:21

== ENCOUNTER 2020-09-21 14:50 | Inpatient (IN) ==
[2020-09-21] MEDS ORDERED: BISMUTH SUBSALICYLATE LIQD 236 ML PO PRN (17:47)
[2020-09-21] MEDS ORDERED: SODIUM CHLORIDE 0.65% NA SOLN 45 ML (OCEAN) PRN (17:47)
[2020-09-21] MEDS ORDERED: MAGNESIUM HYDROXIDE SUSP 30 ML UDC PO PRN (17:47)
[2020-09-21] MEDS ORDERED: FLUTICASONE PROPIONATE NA SPR 16 GM BTL PRN (17:48)
[2020-09-21] MEDS ORDERED: PATIENT'S HEIGHT AND/OR WEIGHT NEEDED SCH (18:15)
[2020-09-21] MEDS: hydrOXYzine HCl 25 MG TAB PO PRN (19:20)
[2020-09-21] MEDS ORDERED: PANCREAZE (LIPASE 16,800U) CAP PO PRN (19:30)
[2020-09-21] MEDS: MYCOPHENOLATE SODIUM 180 MG TAB PO SCH (21:00)
[2020-09-21] MEDS: TACROLIMUS 1 MG CAP PO SCH (21:02)
[2020-09-22] MEDS ORDERED: PANCREAZE (LIPASE 16,800U) CAP PO SCH (09:00)
[2020-09-22] MEDS: FLUCONAZOLE 100 MG TAB PO SCH (10:24)
[2020-09-22] MEDS: MYCOPHENOLATE SODIUM 180 MG TAB PO SCH ×2 (10:24→20:51)
[2020-09-22] MEDS: ADVANCED PROBIOTIC 1250 MG CAPSULE PO SCH (10:26)
[2020-09-22] MEDS: predniSONE 5 MG TAB PO SCH (10:26)
[2020-09-22] MEDS: TACROLIMUS 1 MG CAP PO SCH ×2 (10:26→20:52)
[2020-09-22] MEDS: PANTOprazole 40 MG TAB PO SCH (10:27)
[2020-09-22] MEDS: METOPROLOL SUCC 25MG EXT REL TAB PO SCH (10:27)
[2020-09-22] MEDS: AZITHROMYCIN 250 MG TAB PO SCH (10:27)
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
[2020-09-22] MEDS ORDERED: cloNIDine HCL 0.1 MG TAB PO SCH (12:00)
[2020-09-22] MEDS: PANCREAZE (LIPASE 16,800U) CAP PO SCH ×2 (12:42→17:11)
[2020-09-22] MEDS: hydrOXYzine HCl 25 MG TAB PO PRN ×2 (13:39→20:52)
[2020-09-22] MEDS: cloNIDine HCL 0.1 MG TAB PO SCH ×3 (14:22→19:54)
[2020-09-23] MEDS: ALUMINUM/MAGNESIUM SUSP 30 ML UDC PO PRN (01:19)
[2020-09-23] MEDS: hydrOXYzine HCl 25 MG TAB PO PRN ×6 (05:51→23:23)
[2020-09-23] MEDS: cloNIDine HCL 0.1 MG TAB PO SCH ×4 (07:21→19:51)
[2020-09-23] MEDS: predniSONE 5 MG TAB PO SCH (10:02)
[2020-09-23] MEDS: METOPROLOL SUCC 25MG EXT REL TAB PO SCH (10:03)
[2020-09-23] MEDS: TACROLIMUS 1 MG CAP PO SCH ×2 (10:03→20:51)
[2020-09-23] MEDS: PANTOprazole 40 MG TAB PO SCH (10:03)
[2020-09-23] MEDS: FLUCONAZOLE 100 MG TAB PO SCH (10:03)
[2020-09-23] MEDS: PANCREAZE (LIPASE 16,800U) CAP PO SCH ×3 (10:05→17:19)
[2020-09-23] MEDS: MYCOPHENOLATE SODIUM 180 MG TAB PO SCH ×2 (10:05→20:50)
[2020-09-23] MEDS: ADVANCED PROBIOTIC 1250 MG CAPSULE PO SCH (10:06)
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
[2020-09-23] MEDS: ACETAMINOPHEN 325 MG TAB PO PRN (17:25)
--- NOTE | 2020-09-23 19:30 | XRay Report ---
SINGLE VIEW CHEST CLINICAL HISTORY: Choking incident. FINDINGS: An AP, portable, upright chest radiograph is compared to study dated 09/19/2020. A left sub clavian central venous infusion port is unchanged in position. There are midline sternotomy wires. Nu merous surgical clips project over the chest. A hiatal hernia is noted. The heart is top normal for p rojection. The pulmonary vasculature is noncongested. There is mild bibasilar scarring/atelectasis. N o airspace consolidation or pleural effusion is identified. No pneumothorax is seen. The skeletal str uctures appear osteopenic. The bony thorax is grossly intact. IMPRESSION: No acute cardiopulmonary abnormality. ACT 112: Negative or not required by law. Electronically signed by: Walter Ga M.D. 09/23/2020 7:29 PM
[2020-09-23] MEDS: MIRTAZAPINE TAB 15 MG TAB PO SCH (20:52)
[2020-09-24] MEDS: hydrOXYzine HCl 25 MG TAB PO PRN ×2 (00:08→04:26)
[2020-09-24] MEDS: ACETAMINOPHEN 325 MG TAB PO PRN ×3 (00:10→15:57)
[2020-09-24] MEDS: cloNIDine HCL 0.1 MG TAB PO SCH ×5 (00:36→20:39)
[2020-09-24] MEDS ORDERED: cloNIDine HCL 0.1 MG TAB PO ONE (06:04)
[2020-09-24] MEDS: FLUCONAZOLE 100 MG TAB PO SCH (09:57)
[2020-09-24] MEDS: predniSONE 5 MG TAB PO SCH (09:58)
[2020-09-24] MEDS: PANCREAZE (LIPASE 16,800U) CAP PO SCH ×3 (09:58→17:03)
[2020-09-24] MEDS: ADVANCED PROBIOTIC 1250 MG CAPSULE PO SCH (09:58)
[2020-09-24] MEDS: MYCOPHENOLATE SODIUM 180 MG TAB PO SCH ×2 (09:58→20:39)
[2020-09-24] MEDS: TACROLIMUS 1 MG CAP PO SCH ×2 (09:58→20:40)
[2020-09-24] MEDS: METOPROLOL SUCC 25MG EXT REL TAB PO SCH (10:00)
[2020-09-24] MEDS: PANTOprazole 40 MG TAB PO SCH (10:01)
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
[2020-09-24] MEDS: busPIRone 5 MG TAB PO PRN ×2 (13:15→16:50)
[2020-09-24] MEDS: MIRTAZAPINE TAB 15 MG TAB PO SCH (20:41)
[2020-09-24] MEDS: traZODone HCL 50 MG TAB PO PRN (23:04)
[2020-09-25] MEDS: busPIRone 5 MG TAB PO PRN ×4 (00:41→23:04)
[2020-09-25] MEDS: MYCOPHENOLATE SODIUM 180 MG TAB PO SCH ×2 (08:59→20:07)
[2020-09-25] MEDS: predniSONE 5 MG TAB PO SCH (09:01)
[2020-09-25] MEDS: PANTOprazole 40 MG TAB PO SCH (09:01)
[2020-09-25] MEDS: FLUCONAZOLE 100 MG TAB PO SCH (09:01)
[2020-09-25] MEDS: TACROLIMUS 1 MG CAP PO SCH ×2 (09:01→20:08)
[2020-09-25] MEDS: METOPROLOL SUCC 25MG EXT REL TAB PO SCH (09:01)
[2020-09-25] MEDS: AZITHROMYCIN 250 MG TAB PO SCH (09:01)
[2020-09-25] MEDS: PANCREAZE (LIPASE 16,800U) CAP PO SCH ×3 (09:02→20:06)
[2020-09-25] MEDS: ADVANCED PROBIOTIC 1250 MG CAPSULE PO SCH (09:02)
[2020-09-25] MEDS: cloNIDine HCL 0.1 MG TAB PO SCH ×3 (09:03→20:07)
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
[2020-09-25] MEDS: ALUMINUM/MAGNESIUM SUSP 30 ML UDC PO PRN (12:13)
[2020-09-25] MEDS: ACETAMINOPHEN 325 MG TAB PO PRN ×2 (12:59→23:39)
[2020-09-25 19:39] VITALS: TEMP 98.2
[2020-09-25 20:15] VITALS: O2SAT 100
[2020-09-25] MEDS: MIRTAZAPINE TAB 15 MG TAB PO SCH (20:36)
[2020-09-25] MEDS: traZODone HCL 50 MG TAB PO PRN (22:26)
[2020-09-26] MEDS: busPIRone 5 MG TAB PO PRN ×3 (00:14→09:58)
[2020-09-26] MEDS: cloNIDine HCL 0.1 MG TAB PO SCH (08:09)
[2020-09-26] MEDS: FLUCONAZOLE 100 MG TAB PO SCH (08:10)
[2020-09-26] MEDS: predniSONE 5 MG TAB PO SCH (08:12)
[2020-09-26] MEDS: MYCOPHENOLATE SODIUM 180 MG TAB PO SCH (08:12)
[2020-09-26] MEDS: PANTOprazole 40 MG TAB PO SCH (08:13)
[2020-09-26] MEDS: TACROLIMUS 1 MG CAP PO SCH (08:13)
[2020-09-26] MEDS: ADVANCED PROBIOTIC 1250 MG CAPSULE PO SCH (08:13)
[2020-09-26] MEDS: ACETAMINOPHEN 325 MG TAB PO PRN (08:14)
[2020-09-26] MEDS: METOPROLOL SUCC 25MG EXT REL TAB PO SCH (08:14)
[2020-09-26] MEDS: PANCREAZE (LIPASE 16,800U) CAP PO SCH (09:13)
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
[2020-09-26 09:59] VITALS: BP 157/91; PULSE 66
== END 2020-09-26 11:06 | disposition home or self-care (01) | DRG 881 ==
LOC: 3S 17:38

== ENCOUNTER 2021-04-05 13:16 | Inpatient (IN) ==
[2021-04-05] MEDS ORDERED: SODIUM CHLORIDE 0.9% 1000ML 1,000 ML IV STA (13:44)
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
--- NOTE | 2021-04-05 14:48 | CT Scan Report ---
CT OF THE ABDOMEN AND PELVIS WITHOUT CONTRAST CLINICAL HISTORY: Elevated creatine, ureteral stent. COMPARISON STUDY: CT of the abdomen and pelvis June 11, 2020. KUB April 04, 2021. TECHNIQUE: Axial images of the abdomen and pelvis were obtained without IV contrast. Images were revi ewed in the axial, sagittal, and coronal planes. Automated exposure control was utilized for the chip dy. A dose lowering technique was utilized adhering to the principles of ALARA. FINDINGS: Imaged portions of the lower chest demonstrate a hiatal hernia. There may be a previous Nis sen fundoplication. Left ureteral stent is appropriately positioned. There is mild left hydronephrosi s. There is infiltration adjacent to the left renal pelvis and left ureter. Several tiny distal left ureteral calculi/fragments measure up to 2 mm. A few small calculi within the lower pole of the left kidney measure up to 2 mm. A 7 mm distal right ureteral calculus results in moderate right hydrourete ronephrosis. Punctate calculus within lower pole the right kidney is noted. Water attenuation 1.4 cm lesion within the midpole of the right kidney is suboptimally assessed on this unenhanced exam but fa vors a cyst. The liver, spleen, adrenal glands are unremarkable on this unenhanced exam. There is mar ked fatty atrophy of the pancreas. There is no evidence for a bowel obstruction. No ascites is presen t. There is no lymphadenopathy. The appendix is not visualized but there is no right lower quadrant i nflammation. No acute fracture or suspicious lesion is identified within the visualized skeletal stru ctures. IMPRESSION: 1. 7 mm distal right ureteral calculus which results in moderate right hydroureteronephrosis. 2. Appropriately positioned left ureteral stent. Mild left hydronephrosis. Several punctate distal le ft ureteral calculi/fragments which measure up to 2 mm. 3. A few small calculi within lower pole of the left kidney. Punctate right renal calculus. ACT 112: Negative or not required by law. Electronically signed by: Vinod Winters M.D. 04/05/2021 2:47 PM
[2021-04-05 14:57] LABS: Basophils # (auto) 0.02 K/uL (0-0.2); Basophils % (auto) 0.2 %; Eosinophils # (auto) 0.27 K/uL (0-0.5); Eosinophils % (auto) 2.8 %; Hematocrit (blood only) 30.5 % (42-52); Hemoglobin 10.2 g/dL (14.0-18.0); Immature Granulocytes # (auto) 0.04 K/uL (0.00-0.02); Immature Granulocytes % (auto) 0.4 %; Lymphocytes # (auto) 2.14 K/uL (1.2-3.4); Lymphocytes % (auto) 22.6 %; Mean Corpuscular Hemoglobin 27.5 pg (25-34); Mean Corpuscular Hgb Conc 33.4 g/dL (32-36); Mean Corpuscular Volume 82.2 fL (80-100); Mean Platelet Volume 9.9 fL (7.4-10.4); Monocytes # (auto) 0.74 K/uL (0.11-0.59); Monocytes % (auto) 7.8 %; Neutrophils # (auto) 6.28 K/uL (1.4-6.5); Neutrophils % (auto) 66.2 %; Platelet Count 301 K/uL (130-400); RDW Coefficient of Variation 14.7 % (11.5-14.5); RDW Standard Deviation 43.8 fL (36.4-46.3); Red Blood Count 3.71 M/uL (4.7-6.1); White Blood Count 9.49 K/uL (4.8-10.8)
--- NOTE | 2021-04-05 14:58 | XRay Report ---
XR chest 1V portable HISTORY: 36 years-old Male h/o double lung transplant acute shortness of breath COMPARISON: CT abdomen and pelvis of same day, chest radiograph 12/19/2020 TECHNIQUE: Portable AP view of the chest FINDINGS: Chronic postoperative changes of the chest with numerous surgical clips. The cardiac mediastinal and hilar silhouettes are unchanged. Linear medial left lung base opacity suggestive of scarring/atelecta sis. There is no pneumothorax, pleural effusion, airspace consolidation or overt pulmonary edema. Res olution of the wedge-shaped opacity of the right lung base seen on the study from 12/19/2020. Left sub clavian Ihhtiu-m-Qlkn catheter distal tip projects over the superior cavoatrial junction. The bones o f the chest appear grossly intact. Hiatal hernia. Partially imaged left ureteral stent. Cholecystecto my. IMPRESSION: 1. No acute process. 2. Chronic findings as above. ACT 112: Negative or not required by law. The above report was generated using voice recognition software. It may contain grammatical, syntax o r spelling errors. Electronically signed by: Junior Franco M.D. 04/05/2021 2:57 PM
[2021-04-05 15:14] LABS: INR 1.1 (0.9-1.1); Prothrombin Time 11.5 Seconds (9.0-12.0)
[2021-04-05 15:29] LABS: Alanine Aminotransferase 14 U/L (12-78); Albumin Globulin Ratio 1.1 (0.9-2); Albumin Level 3.6 gm/dl (3.4-5.0); Alkaline Phosphatase 95 U/L (45-117); Aspartate Aminotransferase < 3 U/L (15-37); BUN Creatinine Ratio 7.8 (10-20); Bilirubin,Total 0.2 mg/dl (0.2-1); Blood Urea Nitrogen 38 mg/dl (7-18); Calcium 8.1 mg/dl (8.5-10.1); Carbon Dioxide 14 mmol/L (21-32); Chloride 116 mmol/L (98-107); Creatinine Clr Calc Pharmacy 14.3 ml/min; Est GFR (African American) 16.3 ml/min; Globulin 3.3 gm/dl (2.5-4.0); Glucose 111 mg/dl (70-99); Lipase 24 U/L (73-393); Potassium 4.7 mmol/L (3.5-5.1); Sodium 139 mmol/L (136-145); Total Protein 6.9 gm/dl (6.4-8.2); Troponin I < 0.015 ng/ml (0-0.045)
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
--- NOTE | 2021-04-05 16:52 | Electrocardiogram Report ---
Test Reason : Blood Pressure : / mmHG Vent. Rate : 071 BPM Atrial Rate : 071 BPM P-R Int : 130 ms QRS Dur : 094 ms QT Int : 400 ms P-R-T Axes : 024 058 076 degrees QTc Int : 434 ms Normal sinus rhythm Normal ECG When compared with ECG of 19-DEC-2020 19:17, T wave inversion no longer evident in Anterior leads Confirmed by Bijan Maguire ([id number]) on 04/05/2021 4:52:02 PM Referred By: REFERRED SELF Confirmed By:Rock Maguire
[2021-04-05] MEDS ORDERED: MoRPHine SULFATE 2 MG/ML CARP IV STA (17:47)
[2021-04-05] MEDS ORDERED: hydrOXYzine HCl 25 MG TAB PO PRN (19:59)
[2021-04-05] MEDS: SODIUM CHLORIDE 0.9% 1000ML 1,000 ML IV SCH (20:09)
[2021-04-05 20:27] LABS: BUN Creatinine Ratio 8.1 (10-20); Calcium 8.2 mg/dl (8.5-10.1); Creatinine Clr Calc Pharmacy 15.5 ml/min; Est GFR (African American) 17.8 ml/min; Est GFR (Non-African American) 15.4 ml/min; Potassium 4.8 mmol/L (3.5-5.1)
[2021-04-05] MEDS ORDERED: PANCREAZE (LIPASE 10,500U) CAP PO PRN (20:29)
[2021-04-05] MEDS ORDERED: TACROLIMUS 1 MG CAP PO SCH (21:00)
--- NOTE | 2021-04-05 21:17 | Communication Note ---
Date of Service: April 05, 2021 This is a 36-year-old male who was admitted secondary to rising creatinine and an obstructing right-sided kidney stone along with right-sided hydronephrosis. At time of admission patient was noted to have a normal white blood cell count. Patient sodium and potassium were also noted to be normal. He was noted to have an elevated creatinine of 4.92. Patient has had repeat labs which reveal his sodium and potassium remain normal. There is been a slight improvement of his creatinine to 4.5. Visited with the patient at bedside and he denies any fevers, rigors, shakes, chills. He also denies any dysuria. Patient says he has not voided since 9:00 AM this morning. He does note that he only had a few bites of cereal for breakfast and has not had anything else to eat or drink all day. He has had intravenous fluids running at 100 cc/h he estimates for approximately 6 to 8 hours. At the time of visit the patient said he did have the urge to void. He was able to void approximately 350 cc. This was his urine output for the past 12 hours which averages out to about 30 cc/h. I discussed with Dr. Mas the on-call urologist and for the present time the plan will continue as follows: Patient will be allowed to eat up until midnight at which time he will be made n.p.o. after midnight Continue IV fluid for hydration We will continue to record patient's urine output. The next time patient has to void I have instructed him to inform his nurse so a clean-catch urine specimen can be obtained for urinalysis and culture Patient is tentatively scheduled for cystoscopy tomorrow I have informed the patient and his RN that if he does not have any urine output or if he develops any fevers, rigors, shakes, or chills or worsening flank pain the urology service is to be notified as more urgent cystoscopy may need to be considered
[2021-04-05] MEDS: METOPROLOL SUCC 25MG EXT REL TAB PO SCH (21:34)
[2021-04-05] MEDS: FERROUS SULFATE 325 MG TAB PO SCH (21:34)
[2021-04-05] MEDS: TAMSULOSIN HCL 0.4 MG CAP PO SCH (21:34)
[2021-04-05] MEDS: TACROLIMUS 1 MG CAP PO SCH (21:35)
[2021-04-05] MEDS: MYCOPHENOLATE SODIUM 180 MG TAB PO SCH (21:35)
[2021-04-05] MEDS: MoRPHine SULFATE 2 MG/ML CARP IV PRN (22:54)
[2021-04-06 01:41] LABS: Appearance Urine Clear (Clear); Bacteria Urine Automated Negative (Negative); Bilirubin Urine Negative (Negative); Blood Urine 3+ (Negative); Color Urine Yellow; Glucose Urine UA Negative (Negative); Ketones Urine Negative (Negative); Leukocyte Esterase Urine Trace (Negative); Nitrite Urine Negative (Negative); Protein Urine 1+ (Negative); RBC Urine Automated >30 /hpf (0-4); Specific Gravity Urine 1.007 (1.000-1.030); Urobilinogen Urine Negative (Negative); pH Urine 5.5 (4.5-7.5)
[2021-04-06] MEDS: MoRPHine SULFATE 2 MG/ML CARP IV PRN ×3 (04:57→22:51)
[2021-04-06] MEDS: SODIUM CHLORIDE 0.9% 1000ML 1,000 ML IV SCH (05:37)
[2021-04-06 06:33] LABS: Hematocrit (blood only) 27.4 % (42-52); Hemoglobin 9.3 g/dL (14.0-18.0); Mean Corpuscular Hemoglobin 27.8 pg (25-34); Mean Corpuscular Hgb Conc 33.9 g/dL (32-36); Mean Corpuscular Volume 81.8 fL (80-100); Mean Platelet Volume 9.8 fL (7.4-10.4); Platelet Count 277 K/uL (130-400); RDW Coefficient of Variation 14.8 % (11.5-14.5); RDW Standard Deviation 44.1 fL (36.4-46.3); Red Blood Count 3.35 M/uL (4.7-6.1); White Blood Count 10.57 K/uL (4.8-10.8)
[2021-04-06 07:02] LABS: BUN Creatinine Ratio 8.2 (10-20); Calcium 7.5 mg/dl (8.5-10.1); Creatinine Clr Calc Pharmacy 17.3 ml/min; Est GFR (African American) 20.5 ml/min; Est GFR (Non-African American) 17.7 ml/min; Potassium 4.6 mmol/L (3.5-5.1)
--- NOTE | 2021-04-06 08:13 | Urology Progress Note ---
Date of Service April 06, 2021 Assessment & Plan (1) Calculus of distal right ureter: (2) Hydronephrosis of right kidney: (3) HEIDY (acute kidney injury): Plan: 36yo M admitted with HEIDY and obstructing 7mm distal right ureteral stone with hydronephrosis - Afebrile, VSS, non-toxic appearing. - Labs reviewed, Wbc remains stable and creatinine 4.06 (4.92 on admission). - Urinalysis yesterday not suggestive of infection. - Voiding without difficulty with good urine output. - Plan of care reviewed with Dr. Her. - Given his HEIDY in the context of an obstructing 7mm distal right ureteral stone with hydronephrosis, will proceed with OR for cystoscopy and possible bilateral ureteral stent placement depending on findings. Risks and benefits to be reviewed with patient by Dr. Her. OR notified. Preoperative CXR and EKG in chart. Will cover with antibiotics preoperatively. - Keep NPO. - Strain all urine. - Expected clinical course reviewed with patient, he is agreeable to plan and all questions were answered. ATTENDING NOTE: Patient independently assessed and interviewed. Examined. Risks and benefits discussed at length for procedure. These include bleeding, infection, injury to surrounding tissues or organs, and risks associated with anesthesia. Patient states understanding and agrees to proceed. Will sign consent and proceed. Plan to proceed Cystoscopy with possible bilateral stent and stone treatment. Admission and Anticipated Discharge Date Admission Date: April 05, 2021 Subjective Pt examined at bedside this AM. Awake, resting in bed on arrival. He reports intermittent right flank pain and nausea, managing with IV medication. No fevers or chills. No vomiting. Voiding without difficulty. Urine output overnight -1200ml He denies hematuria and dysuria. Has been NPO since midnight for procedure later today. Review of Systems Constitutional: as per Subjective / HPI Gastrointestinal: as per Subjective / HPI Genitourinary: + as per Subjective / HPI Physical Exam Constitutional: cooperative; no acute distress Respiratory: normal respiratory effort; no labored breathing and no audible wheezes Gastrointestinal (Abdomen): Inspection/Auscultation: abdomen normal to ins pection Musculoskeletal: Head/Neck/Chest: normocephalic Skin: No visible rashes or lesions. Neurologic: awake Psychiatric: Orientation: alert, oriented x 3 and cooperative Genitourinary: + CVA tenderness (Mild right-sided tenderness) Results & Data ([facility]) Vital Signs (Past 12 Hours) Vital Signs Temp Pulse Pulse Resp BP BP Pulse Ox 04/06/21 07:46 72 04/06/21 03:42 36.6 C 72 18 118/75 98 04/06/21 00:02 36.6 C 83 18 132/83 99 04/05/21 22:22 77 04/05/21 20:41 72 PG Care Time/CCT Total # of Minutes Spent Total Time Spent with Patient: Total time spent is greater than 50% in coordination of care (as documented) at patient's floor/unit and/or counseling patient: Coding Level of Care Code 84069 Subseq Hosp Care Lvl 2 Diagnoses Calculus of distal right ureter N20.1 Hydronephrosis of right kidney N13.30 HEIDY (acute kidney injury) N17.9
[2021-04-06] MEDS: PANCREAZE (LIPASE 10,500U) CAP PO SCH ×3 (08:38→19:32)
[2021-04-06] MEDS: TACROLIMUS 1 MG CAP PO SCH ×2 (08:39→20:09)
[2021-04-06] MEDS: CALCIUM 600MG + VIT D 400 IU TAB PO SCH (08:39)
[2021-04-06] MEDS: FERROUS SULFATE 325 MG TAB PO SCH ×2 (08:39→20:07)
[2021-04-06] MEDS: MYCOPHENOLATE SODIUM 180 MG TAB PO SCH ×2 (08:39→20:09)
[2021-04-06] MEDS: predniSONE 5 MG TAB PO SCH (08:39)
[2021-04-06] MEDS: METOPROLOL SUCC 25MG EXT REL TAB PO SCH ×2 (08:39→20:08)
[2021-04-06] MEDS ORDERED: STAT IV STA (10:16)
[2021-04-06] MEDS: SODIUM BICARBONATE 8.4% 75 MEQ in SODIUM CHLORIDE 0.45 % 1,000 ML IV SCH ×2 (10:41→22:52)
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
[2021-04-06] MEDS ORDERED: MIDAZOLAM HCL 1 MG/ML 2ML VIAL ONE (13:14)
[2021-04-06] MEDS ORDERED: ONDANSETRON INJ 2 MG/ML 2 ML VIAL IV PRN (13:14)
[2021-04-06] MEDS ORDERED: ATROPINE SULFATE 0.1 MG/ML 10ML SYR IV PRN (13:14)
[2021-04-06] MEDS ORDERED: fentaNYL citrate 100 MCG/2 ML VIAL ONE (13:14)
[2021-04-06] MEDS ORDERED: CEFEPIME 500 MG in SYRINGE 0 ML IV ONE (13:30)
[2021-04-06] MEDS ORDERED: ONDANSETRON INJ 2 MG/ML 2 ML VIAL ONE (13:42)
[2021-04-06] MEDS ORDERED: LIDOCAINE 2% 2 ML VIAL/AMP(20MG/ML) INFIL ONE (13:42)
[2021-04-06] MEDS ORDERED: DEXAMETHASONE SOD INJ 4 MG/ML VIAL ONE (13:42)
[2021-04-06] MEDS ORDERED: PROPOFOL IV EMULSION 10 MG/ML 20 ML VIAL IV ONE (13:42)
[2021-04-06] MEDS ORDERED: DIATRIZOATE MEGLUMINE 30% 100ML VIAL INSTIL ONE (13:55)
--- NOTE | 2021-04-06 14:11 | Operative Report ---
PG Post Operative Report Pre & Post Diagnosis Operation Date: 04/06/21 11:00 Pre-Op Diagnosis: (1) Calculus of distal right ureter (2) Hydronephrosis of right kidney (3) Acute Kidney Injury Post-Op Diagnosis: (1) Calculus of distal right ureter (2) Hydronephrosis of right kidney (3) Acute Kidney Injury I identified the patient and participated in the time-out.: Yes Procedure Operation Date: 04/06/21 11:00 Actual Procedures 1. Cystoscopy and meatal dilation 2. Left Retrograde Pyelogram, Left Stent Exchange 3. Right Ureteroscopy, Laser Lithotripsy, Stone Basket Retrieval, Retrograde Pyelogram, Right Stent Insertion, urine aspiration - Joel Her DO Surgeon Joel Her, II, DO Administrator Of Home Health None Estimated Blood Loss 1 Findings Consistent with Post-Op Diagnosis Stone destroyed to dust and small fragments and larger fragments removed. Large amount of debris drained once stone was fractured. Urine collected and sent for culture. Left stent with severe encrustation. Exchanged. Specimens Stone Fragments Right ureter Urine Right ureter for culture. Drains 6 Fr x 24 bilateral Anesthesia Type General Complications none Disposition Disposition: Recovery Room Indications Patient with bothersome stones. Risks and benefits discussed at length. Description of Procedure Patient was consented and brought back to the operating room. Patient was placed under anesthesia in the supine position and moved to the dorsal lithotomy position. Patient was prepped and draped in the regular sterile fashion. A time out was completed. The meatus was dilated due to narrowing/stricture. A 30degree Cystoscope was placed into the bladder and the entire bladder was examined. The UO's were identified. The left stent was found to be severely encrusted. The stent was grasped and removed. A retrograde pyelogram was completed. Hydronephrosis was noted. A wire was placed. A 6 x 24 fr stent was then placed. It was confirmed with fluoroscopy. The right UO was cannulized with a catheter and a retrograde pyelogram was completed. A wire was then placed. The Rigid ureteroscope was taken into the ureter. The stone was identified. A laser fiber was selected and the stones were pulverized to dust and small fragments. Larger fragments were grasped and removed and sent for analysis. A large amount of debris and cloudy appearing urine was found draining after the stone was treated. Urine was collected in order to send culture. The entire area was once again examined. No residual large fragments or areas of concern were noted. The scope was slowly removed with the wire left in place. Contrast was placed through the scope for a pyelogram to assist in stent placement. The entire ureter was examined as the scope was slowly removed. No obstructions or other areas of concern were noted. With the wire in place, a 6 Fr Double J stent was placed. It was confirmed with fluoroscopy. With the stent in place, the bladder was emptied. Debris and fragments were irrigated out of the bladder. The scope was removed. A 20 Fr Rodriguez was placed. Good drainage was appreciated. The patient was cleaned, aroused from anesthesia, and transferred to the pacu in stable condition having tolerated the procedure well with no complications. I was present and participated in all aspects of the procedure. The patient will be monitored in the PACU until transferred. Can try rodriguez removal in next 1-2 days. Keep scheduled procedure in 2 weeks but change to bilateral stent removal. Will await culture from right ureteral urine. I attest to the content of the Intraoperative Record and any orders documented therein. Any exceptions are noted below.
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
[2021-04-06] MEDS: fentaNYL citrate 100 MCG/2 ML VIAL IV PRN ×4 (14:26→14:41)
[2021-04-06] MEDS ORDERED: CEFEPIME CONSULT ACTIVE SCH (14:36)
--- NOTE | 2021-04-06 14:43 | Fluoroscopy Report ---
FL retrograde includes kub CLINICAL HISTORY: Retrograde study with laser lithotripsy and stent placement COMPARISON STUDY: KUB dated 04/04/2021 FLUOROSCOPY TIME: 9 7 seconds. NUMBER OF FLUOROSCOPIC IMAGES: FINDINGS: An intraoperative fluoroscopic spot images are provided for interpretation. These demonstra te bilateral retrograde catheterization with placement of bilateral nephroureteral stents. There is m ild dilatation of both renal collecting systems. IMPRESSION: Fluoroscopic spot images obtained during a retrograde study with bilateral nephrouretera l stent placement ACT 112: Negative or not required by law. Electronically signed by: Dex Avila M.D. 04/06/2021 2:42 PM
--- NOTE | 2021-04-06 14:55 | Anesthesiology Progress Note ---
Date of Service April 06, 2021 Anesthesia Post Procedure Vital Signs Vital Signs: Temp Pulse Pulse Pulse Resp BP BP 04/06/21 14:45 36.7 C 70 17 114/77 04/06/21 14:35 69 20 120/76 04/06/21 14:25 68 18 114/78 04/06/21 14:17 36.3 C L 68 16 115/71 04/06/21 13:15 36.7 C 68 20 125/84 04/06/21 11:17 36.3 C L 63 20 104/62 04/06/21 08:07 36.5 C 71 18 96/58 L 04/06/21 07:46 72 04/06/21 03:42 36.6 C 72 18 04/06/21 00:02 36.6 C 83 18 132/83 04/05/21 22:22 77 04/05/21 20:41 72 04/05/21 20:00 36.7 C 78 18 137/79 04/05/21 19:34 71 16 130/75 04/05/21 17:30 70 18 04/05/21 15:32 20 04/05/21 15:30 71 19 130/88 04/05/21 15:20 67 18 04/05/21 15:10 69 14 04/05/21 15:00 70 14 BP Pulse Ox 04/06/21 14:45 100 04/06/21 14:35 95 04/06/21 14:25 100 04/06/21 14:17 100 04/06/21 13:15 100 04/06/21 11:17 98 04/06/21 08:07 97 04/06/21 07:46 04/06/21 03:42 118/75 98 04/06/21 00:02 99 04/05/21 22:22 04/05/21 20:41 04/05/21 20:00 94 04/05/21 19:34 98 04/05/21 17:30 122/88 98 04/05/21 15:32 126/78 99 04/05/21 15:30 04/05/21 15:20 04/05/21 15:10 04/05/21 15:00 Pain Intensity Right Flank: Pain Intensity: 3 Transfer of Care Handoff Completed per policy Notes Mental Status: alert / awake / arousable Patient Amnestic to Procedure: Yes Nausea / Vomiting: adequately controlled Pain: adequately controlled Airway Patency, RR, SpO2: stable & adequate BP & HR: stable & adequate Hydration State: stable & adequate Anesthetic Complications: no major complications apparent
--- NOTE | 2021-04-06 17:54 | Hospitalist Progress Note ---
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 Per NALLELY Soni's notes: CT abd/pelvis with 7 mm distal right ureteral calculus which results in moderate right hydroureteronephrosis. Appropriately positioned left ureteral stent. Mild left hydro. Several punctate distal left ureteral calculi/fragments Well known to urology service, follows with Dr. Her - plan for OR in AM with Dr. Her for R ureteral stent placement but Dr. Mas manufacturing automation engineer should patient require sooner intervention Instructed to call urology service urgently if patient develops fever >101F, intractable pain or nausea, as this will necessitate urgent surgical inte rvention Afebrile, non toxic appearance in ER Repeat BMP pending for 1899 Keep NPO, strain urine, gentle IV fluids --Creatinine slightly improved from 4.9-4.0 Patient for urologic intervention today possible stent Continue pain control --Cefepime IV started Continue IV fluids (3) HEIDY (acute kidney injury): Plan: Per NALLELY Soni's notes: Cr elevated at 4.92 (baseline high 1s) in setting of obstructing renal calculus and dehydration Urology consulted, planning intervention either later this evening or in AM Gentle fluids --Nephrology service consulted --Management per above (4) Cystic fibrosis: (5) S/P lung transplant: Plan: S/p lung transplant in 2017 - follows closely with Dr. 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 Seen sitting up in bed, nondistressed, comfortable Still has right lower back pain, no problems voiding, no hematuria Denies fevers or chills, headache, dizziness, chest pain, shortness of breath No other symptoms Review of Systems Review of Systems: All noted negative except for above Physical Exam Physical Exam: General- oriented x 3, not in distress, speaks in sentences with no effort or accessory muscle use Eyes- anicteric Neck- no JVD Lungs- clear breath sounds bilaterally, no rales/wheezes Heart- normal rate, regular rhythm; no murmurs Abdomen- normal bowel sounds, nondistended, soft, mild right CVA tenderness Extremities- no pretibial edema, no calf tenderness Neuro- alert, oriented x 3; no gross focal neurologic deficits Skin- warm & dry Results & Data Results & Data ([facility]) Vital Signs (Past 12 Hours) Vital Signs Temp Pulse Pulse Pulse Resp BP Pulse Ox 04/06/21 17:33 36.4 C L 75 20 122/75 100 04/06/21 17:22 71 04/06/21 16:24 36.5 C 75 16 129/79 04/06/21 15:54 36.2 C L 66 18 117/76 100 04/06/21 14:55 36.7 C 67 12 117/67 100 04/06/21 14:45 36.7 C 70 17 114/77 100 04/06/21 14:35 69 20 120/76 95 04/06/21 14:25 68 18 114/78 100 04/06/21 14:17 36.3 C L 68 16 115/71 100 04/06/21 13:15 36.7 C 68 20 125/84 100 04/06/21 11:17 36.3 C L 63 20 104/62 98 04/06/21 08:07 36.5 C 71 18 96/58 L 97 04/06/21 07:46 72 all noted and reviewed including below
[2021-04-06] MEDS: TAMSULOSIN HCL 0.4 MG CAP PO SCH (20:08)
--- NOTE | 2021-04-07 01:10 | Urology Progress Note ---
Date of Service April 07, 2021 Assessment & Plan (1) Calculus of distal right ureter: Plan: s/p emergent intervention - given immunosuppressed status, continued antibiotic coverage is appropriate - plan for voiding trial on Friday - he prefers to stay in house until this occurs - now has b/l stents - arrangements have been made for stent removal as an outpt Admission and Anticipated Discharge Date Admission Date: April 05, 2021 Subjective s/p meatal dilation, cysto, left stent exchange, and right URS with stone treatment and stent placement rodriguez catheter in place now appropriate levels of discomfort uncomfortable with the catheter and stents, but tolerating them Cr still pending this AM Physical Exam Constitutional: well developed and well nourished urine clearing appropriately Respiratory: no respiratory distress Cardiovascular: Extremities: no pedal edema Gastrointestinal (Abdomen): Inspection/Auscultation: abdomen normal to inspection Results & Data ([facility]) Vital Signs (Past 12 Hours) Vital Signs Temp Pulse Pulse Pulse Resp BP Pulse Ox 04/06/21 22:58 36.5 C 83 18 114/70 99 04/06/21 22:19 88 04/06/21 19:25 36.6 C 90 18 107/66 99 04/06/21 18:21 36.7 C 78 20 116/74 100 04/06/21 17:33 36.4 C L 75 20 122/75 100 04/06/21 17:22 71 04/06/21 16:24 36.5 C 75 16 129/79 04/06/21 15:54 36.2 C L 66 18 117/76 100 04/06/21 14:55 36.7 C 67 12 117/67 100 04/06/21 14:45 36.7 C 70 17 114/77 100 04/06/21 14:35 69 20 120/76 95 04/06/21 14:25 68 18 114/78 100 04/06/21 14:17 36.3 C L 68 16 115/71 100 04/06/21 13:15 36.7 C 68 20 125/84 100 PG Care Time/CCT Total # of Minutes Spent Total Time Spent with Patient: Total time spent is greater than 50% in coordination of care (as documented) at patient's floor/unit and/or counseling patient: Coding Level of Care Code 54090 Subseq Hosp Care Lvl 3 Diagnoses Calculus of distal right ureter N20.1
[2021-04-07 07:20] LABS: Hematocrit (blood only) 27.6 % (42-52); Hemoglobin 9.1 g/dL (14.0-18.0); Mean Corpuscular Hemoglobin 26.9 pg (25-34); Mean Corpuscular Volume 81.7 fL (80-100); Mean Platelet Volume 9.7 fL (7.4-10.4); Platelet Count 284 K/uL (130-400); RDW Coefficient of Variation 14.6 % (11.5-14.5); RDW Standard Deviation 43.6 fL (36.4-46.3); Red Blood Count 3.38 M/uL (4.7-6.1)
[2021-04-07] MEDS: ONDANSETRON INJ 2 MG/ML 2 ML VIAL IV PRN ×2 (07:44→11:55)
[2021-04-07] MEDS: MoRPHine SULFATE 2 MG/ML CARP IV PRN ×2 (07:49→17:59)
[2021-04-07 07:59] LABS: BUN Creatinine Ratio 10.2 (10-20); Calcium 7.4 mg/dl (8.5-10.1); Creatinine Clr Calc Pharmacy 22.6 ml/min; Est GFR (African American) 27.1 ml/min; Est GFR (Non-African American) 23.4 ml/min; Potassium 4.4 mmol/L (3.5-5.1)
[2021-04-07] MEDS: TACROLIMUS 1 MG CAP PO SCH ×2 (09:00→20:58)
[2021-04-07] MEDS: PANCREAZE (LIPASE 10,500U) CAP PO SCH ×3 (09:00→17:56)
[2021-04-07] MEDS: METOPROLOL SUCC 25MG EXT REL TAB PO SCH ×2 (09:00→20:59)
[2021-04-07] MEDS: CALCIUM 600MG + VIT D 400 IU TAB PO SCH (09:00)
[2021-04-07] MEDS: FERROUS SULFATE 325 MG TAB PO SCH ×2 (09:00→20:58)
[2021-04-07] MEDS: CHOLECALCIFEROL 1,000 UNITS 25 MCG TAB PO SCH (09:00)
[2021-04-07] MEDS: MYCOPHENOLATE SODIUM 180 MG TAB PO SCH ×2 (09:00→20:57)
[2021-04-07] MEDS: SODIUM BICARBONATE 8.4% 75 MEQ in SODIUM CHLORIDE 0.45 % 1,000 ML IV SCH ×2 (09:40→19:39)
--- NOTE | 2021-04-07 12:44 | Hospitalist Progress Note ---
Date of Service April 07, 2021 Assessment & Plan (1) Hydronephrosis: (2) Right ureteral calculus: Plan: This is a 36-year-old male with history of cystic fibrosis status post bilateral lung transplant in 2017, nephrolithiasis status post left ureteral stent 2 months ago, pancreatic enzyme insufficiency, anxiety and other medical problems as below who presents due to abnormal lab work and was found to have obstructing ureteral calculus and acute kidney injury. Per NALLELY Soni's notes: CT abd/pelvis with 7 mm distal right ureteral calculus which results in moderate right hydroureteronephrosis. Appropriately positioned left ureteral stent. Mild left hydro. Several punctate distal left ureteral calculi/fragments Well known to urology service, follows with Dr. Her - plan for OR in AM with Dr. Her for R ureteral stent placement but Dr. Mas electrical high tension tester should patient require sooner intervention Instructed to call urology service urgently if patient develops fever >101F, intractable pain or nausea, as this will necessitate urgent surgical inte rvention Afebrile, non toxic appearance in ER Repeat BMP pending for 1900 Keep NPO, strain urine, gentle IV fluids --April 06, 2021: S/p meatal dilation, cysto, left stent exchange, and right URS with stone treatment and stent placement by Dr. Joel Her --Creatinine is improving, 4.9, 4.0, 3.2 --UrineContinue sodium bicarbonate dripContinue sodium bicarbonate drip culture: Pending Continue cefepime IV Continue sodium bicarbonate drip --Flag Decorator service on board, appreciate the recommendations (3) HEIDY (acute kidney injury): Plan: Acute kidney injury on CKD stage III secondary to obstructive uropathy Per NALLELY Soni's notes: Cr elevated at 4.92 (baseline high 1s) in setting of obstructing renal calculus and dehydration Urology consulted, planning intervention either later this evening or in AM Gentle fluids --Nephrology service consulted --Management per above (4) Cystic fibrosis: (5) S/P lung transplant: Plan: S/p lung transplant in 2017 - follows closely with Dr. 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 Seen sleeping, but easily awakened Not in distress, but does admit to having nausea, patient just received IV Zofran Denies abdominal pain, fevers or chills, headache, dizziness, chest pain, shortness of breath Right-sided pain improving, well managed No other symptoms Review of Systems Review of Systems: All noted and negative, except for above Physical Exam Physical Exam: General- oriented x 3, not in distress, speaks in sentences with no effort or accessory muscle use Eyes- anicteric Neck- no JVD Lungs- clear breath sounds bilaterally, no wheezing, no crackles, no rhonchi Heart- normal rate, regular rhythm; no murmurs Abdomen- normal bowel sounds, nondistended, soft, very mild CVA tenderness, right side Extremities- no pretibial edema, no calf tenderness Neuro- alert, oriented x 3; no gross focal neurologic deficits Skin- warm & dry Results & Data Results & Data ([facility]) Vital Signs (Past 12 Hours) Vital Signs Temp Pulse Pulse Resp BP Pulse Ox 04/07/21 12:14 36.2 C L 65 20 140/72 96 04/07/21 08:15 36.4 C L 61 18 117/74 99 04/07/21 07:33 64 04/07/21 04:17 36.7 C 64 18 110/69 100 all noted and reviewed including below
--- NOTE | 2021-04-07 12:53 | Nephrology Progress Note ---
Date of Service April 07, 2021 Assessment & Plan Admission and Anticipated Discharge Date Admission Date: April 05, 2021 Subjective Has Some nausea and not eating well. Some pain at the tip of penis., PHYSICAL EXAMINATION: GENERAL: Young white male who appears to be somewhat chronically ill. He is awake, alert, oriented x3. HEENT: Mucous membranes moist. NECK: Supple. No jugular venous distention. CHEST: Bilateral occasional crackles at the bases. CARDIOVASCULAR: S1 and S2, regular. ABDOMEN: Soft, nontender. Costovertebral angle tenderness noted on the right side. EXTREMITIES: Show no edema. PSYCHIATRIC: Flat affect, spoke very little but followed the command. LABORATORY TEST: Improving creat now. ASSESSMENT AND PLAN: A 36-year-old male with extensive medical problems including cystic fibrosis, status post bilateral lung transplant and recurrent kidney stone problem admitted with acute renal failure and right-sided hydronephrosis with ureteral obstruction from a kidney stone. He has a longstanding history of recurrent kidney stone as well as multiple surgical interventions. Acute renal failure: At this time, this is predominantly related with kidney stone/Hydronephrosis both kidneys with some volume component. Continue IV hydration given ongoing nausea. Even at baseline, it appears the patient has some degree of chronic kidney disease with his extensive medical problem list. I expect the renal function to get somewhat better in the coming days, especially after urological intervention later today. We will continue to follow. At this point, please do laboratories once daily. Results & Data ([facility]) Vital Signs (Past 12 Hours) Vital Signs Temp Pulse Pulse Resp BP Pulse Ox 04/07/21 12:14 36.2 C L 65 20 140/72 96 04/07/21 08:15 36.4 C L 61 18 117/74 99 04/07/21 07:33 64 04/07/21 04:17 36.7 C 64 18 110/69 100
[2021-04-07] MEDS ORDERED: CEFEPIME 1,000 MG in SYRINGE 0 ML IV SCH (14:00)
[2021-04-07] MEDS ORDERED: CEFEPIME 2,000 MG in SYRINGE 0 ML IV SCH (14:00)
[2021-04-07] MEDS: predniSONE 5 MG TAB PO SCH (14:59)
[2021-04-07] MEDS: PANTOprazole 40 MG TAB PO SCH (16:57)
[2021-04-07] MEDS: TAMSULOSIN HCL 0.4 MG CAP PO SCH (20:58)
[2021-04-08] MEDS: MoRPHine SULFATE 2 MG/ML CARP IV PRN ×2 (01:57→21:29)
[2021-04-08] MEDS: SODIUM BICARBONATE 8.4% 75 MEQ in SODIUM CHLORIDE 0.45 % 1,000 ML IV SCH (06:00)
[2021-04-08] MEDS: ONDANSETRON INJ 2 MG/ML 2 ML VIAL IV PRN (08:20)
[2021-04-08] MEDS ORDERED: PROMETHAZINE HCL 12.5 MG in SODIUM CHLORIDE 0.9% 50 ML IV PRN (08:49)
--- NOTE | 2021-04-08 08:59 | Urology Progress Note ---
Date of Service April 08, 2021 Assessment & Plan (1) Calculus of distal right ureter: Plan: b/l ureteral stents plus rodriguez - offered voiding trial today, he would like to keep the catheter one more day - nausea is his biggest complaint - may simply be related to the stents/cath - plan for VT tomorrow AM, outpt removal of stents as previously scheduled - Cr improving (2) Hydronephrosis: Admission and Anticipated Discharge Date Admission Date: April 05, 2021 Subjective continues to complain of pain and nausea not interested in rodriguez removal today does not feel he is ready for d/c home at this stage Physical Exam Constitutional: well developed and well nourished Respiratory: no respiratory distress Cardiovascular: Extremities: no pedal edema Gastrointestinal (Abdomen): Inspection/Auscultation: abdomen normal to inspection Results & Data ([facility]) Vital Signs (Past 12 Hours) Vital Signs Temp Pulse Pulse Resp BP Pulse Ox 04/08/21 08:03 36.7 C 65 18 121/74 99 04/08/21 02:55 36.8 C 63 17 120/73 98 04/08/21 01:47 69 04/07/21 22:47 36.8 C 73 18 128/77 100 PG Care Time/CCT Total # of Minutes Spent Total Time Spent with Patient: Total time spent is greater than 50% in coordination of care (as documented) at patient's floor/unit and/or counseling patient: Coding Level of Care Code 67397 Subseq Hosp Care Lvl 2 Diagnoses Calculus of distal right ureter N20.1 Hydronephrosis N13.30
[2021-04-08] MEDS: PANCREAZE (LIPASE 10,500U) CAP PO SCH ×3 (09:01→16:30)
[2021-04-08 09:25] LABS: Basophils # (auto) 0.01 K/uL (0-0.2); Basophils % (auto) 0.1 %; Eosinophils # (auto) 0.19 K/uL (0-0.5); Eosinophils % (auto) 2.7 %; Hematocrit (blood only) 26.9 % (42-52); Hemoglobin 8.7 g/dL (14.0-18.0); Immature Granulocytes # (auto) 0.03 K/uL (0.00-0.02); Immature Granulocytes % (auto) 0.4 %; Lymphocytes # (auto) 1.74 K/uL (1.2-3.4); Lymphocytes % (auto) 24.4 %; Mean Corpuscular Hemoglobin 27.1 pg (25-34); Mean Corpuscular Hgb Conc 32.3 g/dL (32-36); Mean Corpuscular Volume 83.8 fL (80-100); Mean Platelet Volume 9.6 fL (7.4-10.4); Monocytes # (auto) 0.54 K/uL (0.11-0.59); Monocytes % (auto) 7.6 %; Neutrophils # (auto) 4.63 K/uL (1.4-6.5); Neutrophils % (auto) 64.8 %; Platelet Count 273 K/uL (130-400); RDW Coefficient of Variation 14.6 % (11.5-14.5); RDW Standard Deviation 45.2 fL (36.4-46.3); Red Blood Count 3.21 M/uL (4.7-6.1); White Blood Count 7.14 K/uL (4.8-10.8)
[2021-04-08 09:41] LABS: BUN Creatinine Ratio 11.2 (10-20); Calcium 7.1 mg/dl (8.5-10.1); Creatinine Clr Calc Pharmacy 31.9 ml/min; Est GFR (African American) 41.9 ml/min; Est GFR (Non-African American) 36.2 ml/min
[2021-04-08] MEDS: CALCIUM 600MG + VIT D 400 IU TAB PO SCH (09:45)
[2021-04-08] MEDS: FERROUS SULFATE 325 MG TAB PO SCH ×2 (09:45→21:11)
[2021-04-08] MEDS: MYCOPHENOLATE SODIUM 180 MG TAB PO SCH ×2 (09:45→21:13)
[2021-04-08] MEDS: predniSONE 5 MG TAB PO SCH (09:45)
[2021-04-08] MEDS: METOPROLOL SUCC 25MG EXT REL TAB PO SCH ×2 (09:45→21:12)
[2021-04-08] MEDS: CHOLECALCIFEROL 1,000 UNITS 25 MCG TAB PO SCH (09:45)
[2021-04-08] MEDS: TACROLIMUS 1 MG CAP PO SCH ×2 (09:45→21:15)
[2021-04-08] MEDS: PANTOprazole 40 MG TAB PO SCH (09:46)
[2021-04-08] MEDS: CEFEPIME 2,000 MG in SYRINGE 0 ML IV SCH ×2 (10:18→22:49)
--- NOTE | 2021-04-08 13:44 | Nephrology Progress Note ---
Date of Service April 08, 2021 Assessment & Plan Admission and Anticipated Discharge Date Admission Date: April 05, 2021 Subjective Has Some nausea and not eating well. Some pain at the tip of penis. PHYSICAL EXAMINATION: GENERAL: Young white male who appears to be somewhat chronically ill. He is awake, alert, oriented x3. HEENT: Mucous membranes moist. NECK: Supple. No jugular venous distention. CHEST: Bilateral occasional crackles at the bases. CARDIOVASCULAR: S1 and S2, regular. ABDOMEN: Soft, nontender. Costovertebral angle tenderness noted on the right side. EXTREMITIES: Show no edema. PSYCHIATRIC: Flat affect, spoke very little but followed the command. LABORATORY TEST: Improving creat now. ASSESSMENT AND PLAN: A 36-year-old male with extensive medical problems including cystic fibrosis, status post bilateral lung transplant and recurrent kidney stone problem admitted with acute renal failure and right-sided hydronephrosis with ureteral obstruction from a kidney stone. He has a longstanding history of recurrent kidney stone as well as multiple surgical interventions. Acute renal failure: At this time, this is predominantly related with kidney stone/Hydronephrosis both kidneys with some volume component. Continue IV hydration given ongoing nausea. Even at baseline, it appears the patient has some degree of chronic kidney disease with his extensive medical problem list. I expect the renal function to get somewhat better in the coming days. We will continue to follow. At this point, please do laboratories once daily. voiding trial tomorrow. Continue the Transplant Meds as it is--same dose Results & Data ([facility]) Vital Signs (Past 12 Hours) Vital Signs Temp Pulse Pulse Resp BP Pulse Ox 04/08/21 12:00 36.4 C L 69 18 115/74 99 04/08/21 08:03 36.7 C 65 18 121/74 99 04/08/21 02:55 36.8 C 63 17 120/73 98 04/08/21 01:47 69
[2021-04-08] MEDS: oxyCODONE/ACETAMINOPHEN 5mg/325mg TAB PO PRN (16:19)
[2021-04-08] MEDS: SODIUM CHLORIDE 0.9% 1000ML 1,000 ML IV SCH (16:38)
--- NOTE | 2021-04-08 16:57 | Hospitalist Progress Note ---
Date of Service April 08, 2021 Assessment & Plan (1) Hydronephrosis: (2) Right ureteral calculus: Plan: This is a 36-year-old male with history of cystic fibrosis status post bilateral lung transplant in 2017, nephrolithiasis status post left ureteral stent 2 months ago, pancreatic enzyme insufficiency, anxiety and other medical problems as below who presents due to abnormal lab work and was found to have obstructing ureteral calculus and acute kidney injury. Per NALLELY Soni's notes: CT abd/pelvis with 7 mm distal right ureteral calculus which results in moderate right hydroureteronephrosis. Appropriately positioned left ureteral stent. Mild left hydro. Several punctate distal left ureteral calculi/fragments Well known to urology service, follows with Dr. Her - plan for OR in AM with Dr. Her for R ureteral stent placement but Dr. Mas telephone order clerk should patient require sooner intervention Instructed to call urology service urgently if patient develops fever >101F, intractable pain or nausea, as this will necessitate urgent surgical inte rvention Afebrile, non toxic appearance in ER Repeat BMP pending for 190 Keep NPO, strain urine, gentle IV fluids --April 06, 2021: S/p meatal dilation, cysto, left stent exchange, and right URS with stone treatment and stent placement by Dr. Joel Her --Creatinine is improving, 4.9, 4.0, 3.2, 2.2 --Bicarb 25, DC bicarb drip --Urine culture: Negative DC cefepime IV --Marketing Reporting Analyst service on board, appreciate the recommendations (3) HEIDY (acute kidney injury): Plan: Acute kidney injury on CKD stage III secondary to obstructive uropathy Per NALLELY Soni's notes: Cr elevated at 4.92 (baseline high 1s) in setting of obstructing renal calculus and dehydration Urology consulted, planning intervention either later this evening or in AM Gentle fluids --Nephrology service consulted --Management per above (4) Cystic fibrosis: (5) S/P lung transplant: Plan: S/p lung transplant in 2017 - follows closely with Dr. 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 Seen sleeping in bed, comfortable, easily awakened Positive nausea this morning, no chills, shortness of breath, chest pain, headache Phenergan seems to be helping with the nausea No other symptoms Review of Systems Review of Systems: All noted, negative except for above Physical Exam Physical Exam: General- oriented x 3, not in distress, speaks in sentences with no effort or accessory muscle use Eyes- anicteric Neck- no JVD Lungs- clear breath sounds bilaterally, no crackles, no wheezing bilaterally Heart- normal rate, regular rhythm; no murmurs Abdomen- normal bowel sounds, nondistended, soft, nontender Extremities- no pretibial edema, no calf tenderness Neuro- alert, oriented x 3; no gross focal neurologic deficits Skin- warm & dry Results & Data Results & Data ([facility]) Vital Signs (Past 12 Hours) Vital Signs Temp Pulse Resp BP Pulse Ox 04/08/21 12:00 36.4 C L 69 18 115/74 99 04/08/21 08:03 36.7 C 65 18 121/74 99 all noted and reviewed including below
[2021-04-08] MEDS: TAMSULOSIN HCL 0.4 MG CAP PO SCH (21:14)
[2021-04-09] MEDS: SODIUM CHLORIDE 0.9% 1000ML 1,000 ML IV SCH (02:25)
[2021-04-09] MEDS: PANCREAZE (LIPASE 10,500U) CAP PO SCH ×2 (07:47→11:42)
[2021-04-09] MEDS: CALCIUM 600MG + VIT D 400 IU TAB PO SCH (07:49)
[2021-04-09] MEDS: CHOLECALCIFEROL 1,000 UNITS 25 MCG TAB PO SCH (07:49)
[2021-04-09] MEDS: FERROUS SULFATE 325 MG TAB PO SCH (07:50)
[2021-04-09] MEDS: MYCOPHENOLATE SODIUM 180 MG TAB PO SCH (07:51)
[2021-04-09] MEDS: METOPROLOL SUCC 25MG EXT REL TAB PO SCH (07:51)
[2021-04-09] MEDS: PANTOprazole 40 MG TAB PO SCH (07:52)
[2021-04-09] MEDS: TACROLIMUS 1 MG CAP PO SCH (07:53)
[2021-04-09] MEDS: predniSONE 5 MG TAB PO SCH (07:53)
[2021-04-09] MEDS: oxyCODONE/ACETAMINOPHEN 5mg/325mg TAB PO PRN (08:04)
[2021-04-09 08:12] LABS: Basophils # (auto) 0.01 K/uL (0-0.2); Basophils % (auto) 0.1 %; Eosinophils # (auto) 0.22 K/uL (0-0.5); Eosinophils % (auto) 2.5 %; Hematocrit (blood only) 27.6 % (42-52); Hemoglobin 8.9 g/dL (14.0-18.0); Immature Granulocytes # (auto) 0.04 K/uL (0.00-0.02); Immature Granulocytes % (auto) 0.5 %; Lymphocytes # (auto) 2.36 K/uL (1.2-3.4); Lymphocytes % (auto) 27.1 %; Mean Corpuscular Hgb Conc 32.2 g/dL (32-36); Mean Corpuscular Volume 83.6 fL (80-100); Mean Platelet Volume 9.8 fL (7.4-10.4); Monocytes # (auto) 0.73 K/uL (0.11-0.59); Monocytes % (auto) 8.4 %; Neutrophils # (auto) 5.34 K/uL (1.4-6.5); Neutrophils % (auto) 61.4 %; Platelet Count 255 K/uL (130-400); RDW Coefficient of Variation 14.5 % (11.5-14.5); RDW Standard Deviation 44.4 fL (36.4-46.3)
[2021-04-09 08:44] LABS: Calcium 6.7 mg/dl (8.5-10.1); Creatinine Clr Calc Pharmacy 40.5 ml/min; Est GFR (African American) 53.5 ml/min; Est GFR (Non-African American) 46.1 ml/min; Potassium 4.3 mmol/L (3.5-5.1)
--- NOTE | 2021-04-09 09:33 | Urology Progress Note ---
Date of Service April 09, 2021 Assessment & Plan (1) Calculus of distal right ureter: (2) S/P ureteral stent placement: Plan: 36 yo M POD #3 s/p Cystoscopy, Left Retrograde Pyelogram, Left Stent Exchange, Right Ureteroscopy, Laser Lithotripsy, Stone Basket Retrieval, Retrograde Pyelogram, Right Stent Insertion. - Plan of care reviewed with Dr. Her, urologist mason liner. - Cr improving. - Plan for Linda catheter removal this morning for voiding trial. - Urine aspirate from ureter showed no growth. - Recommend transition to short course of PO antibiotics upon discharge. - Recommend home with Tamsulosin, prn Pyridium and prn pain management when medically stable. - Expected clinical course reviewed, all questions answered. - Patient will continue with plan for stent removal on 04/16. - Will arrange outpatient follow-up with our service. Thank you for allowing us to participate in the acute care of Mr. Watkins. Please reconsult us with additional questions, concerns or changes in patient status. Admission and Anticipated Discharge Date Admission Date: April 05, 2021 Subjective Patient resting in bed, easily awakened. No acute issues overnight. No flank pain or abdominal pain. Nausea improved today. No vomiting. Tolerating diet. Notes some discomfort from catheter. He is ready to have it removed. Linda intact, patent and draining clear yellow with scant blood tinged sediment. No fever or chills. Chart review: Afebrile, creatinine 1.84, WBC 8.70, Hgb 8.9. Urine culture from ureter shows no growth. No additional concerns today. Review of Systems Constitutional: as per Subjective / HPI Gastrointestinal: as per Subjective / HPI Genitourinary: + as per Subjective / HPI Physical Exam Constitutional: + thin; no acute distress Respiratory: normal respiratory effort and able to speak in complete sentences; no respiratory distress and no labored breathing Cardiovascular: Extremities: no pedal edema Gastrointestinal (Abdomen): Inspection/Auscultation: abdomen normal to inspection; abdomen not distended Musculoskeletal: Head/Neck/Chest: normocephalic and head atraumatic Skin: no rashes, warm and dry Neurologic: moves all extremities and awake Psychiatric: Orientation: alert and oriented x 3 Genitourinary: Linda intact, patent and draining clear yellow urine with scant blood-timged sediment Results & Data ([facility]) Vital Signs (Past 12 Hours) Vital Signs Temp Pulse Pulse Resp BP Pulse Ox 04/09/21 09:17 72 04/09/21 07:50 36.4 C L 73 18 115/73 99 04/09/21 04:49 83 04/09/21 02:57 36.7 C 69 18 103/62 98 04/09/21 01:17 84 04/08/21 22:51 37.3 C 80 18 105/68 100 PG Care Time/CCT Total # of Minutes Spent Total Time Spent with Patient: Total time spent is greater than 50% in coordination of care (as documented) at patient's floor/unit and/or counseling patient: Coding Level of Care Code 40340 Subseq Hosp Care Lvl 2 Diagnoses Calculus of distal right ureter N20.1 S/P ureteral stent placement Z96.0
[2021-04-09] MEDS: CEFEPIME 2,000 MG in SYRINGE 0 ML IV SCH (09:50)
--- NOTE | 2021-04-09 11:51 | Nephrology Progress Note ---
Date of Service April 09, 2021 Assessment & Plan Admission and Anticipated Discharge Date Admission Date: April 05, 2021 Subjective No Symptoms now. Linda out PHYSICAL EXAMINATION: GENERAL: Young white male who appears to be somewhat chronically ill. He is awake, alert, oriented x3. HEENT: Mucous membranes moist. NECK: Supple. No jugular venous distention. CHEST: Bilateral occasional crackles at the bases. CARDIOVASCULAR: S1 and S2, regular. ABDOMEN: Soft, nontender. Costovertebral angle tenderness noted on the right side. EXTREMITIES: Show no edema. PSYCHIATRIC: Flat affect, spoke very little but followed the command. LABORATORY TEST: Improving creat now. ASSESSMENT AND PLAN: A 36-year-old male with extensive medical problems including cystic fibrosis, status post bilateral lung transplant and recurrent kidney stone problem admitted with acute renal failure and right-sided hydronephrosis with ureteral obstruction from a kidney stone. He has a longstanding history of recurrent kidney stone as well as multiple surgical interventions. Acute renal failure: At this time, this is predominantly related with kidney stone/Hydronephrosis both kidneys with some volume component. Continue IV hydration given ongoing nausea. Even at baseline, it appears the patient has some degree of chronic kidney disease with his extensive medical problem list. I expect the renal function to get somewhat better in the coming days. Can be discharged after voiding trial. . voiding trial tomorrow. Continue the Transplant Meds as it is--same dose Results & Data ([facility]) Vital Signs (Past 12 Hours) Vital Signs Temp Pulse Pulse Resp BP Pulse Ox 04/09/21 11:10 36.8 C 67 18 121/73 94 04/09/21 09:17 72 04/09/21 07:50 36.4 C L 73 18 115/73 99 04/09/21 04:49 83 04/09/21 02:57 36.7 C 69 18 103/62 98 04/09/21 01:17 84
--- NOTE | 2021-04-09 18:16 | Hospitalist Progress Note ---
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 Per NALLELY Soni's notes: CT abd/pelvis with 7 mm distal right ureteral calculus which results in moderate right hydroureteronephrosis. Appropriately positioned left ureteral stent. Mild left hydro. Several punctate distal left ureteral calculi/fragments Well known to urology service, follows with Dr. Her - plan for OR in AM with Dr. Her for R ureteral stent placement but Dr. Mas nurse transitional should patient require sooner intervention Instructed to call urology service urgently if patient develops fever >101F, intractable pain or nausea, as this will necessitate urgent surgical inte rvention Afebrile, non toxic appearance in ER Repeat BMP pending for 1900 Keep NPO, strain urine, gentle IV fluids --April 06, 2021: S/p meatal dilation, cysto, left stent exchange, and right URS with stone treatment and stent placement by Dr. Joel Her --Was also given bicarb drip per nephrology service recommendations --Creatinineimproved daily, 4.9, 4.0, 3.2, 2.2, 1.6 (baseline is 1.4) --Urine culture: Negative Received cefepime IV x3 days --Discharge plan: Ciprofloxacin 500 mg twice daily x7 days Percocet as needed for pain, PDMP queried, no issues Continue tamsulosin Follow-up with Dr. Her on Friday for stent removal Follow-up with PCP this coming Friday, April 13, 2021 for recheck, please repeat BMP to reevaluate renal function (3) HEIDY (acute kidney injury): Plan: Acute kidney injury on CKD stage III secondary to obstructive uropathy Resolved Per NALLELY Soni's notes: Cr elevated at 4.92 (baseline high 1s) in setting of obstructing renal calculus and dehydration --Nephrology service consulted --Management per above (4) Cystic fibrosis: (5) S/P lung transplant: Plan: S/p lung transplant in 2017 - follows closely with Dr. Pal,warp dresser from 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: Plan: Diet controlled (8) Exocrine pancreatic insufficiency: Plan: Continue Zenpep with snacks, meals DVT Ppx: SCDs Code status: FULL PCP: Du Dispo: Discharge to home, follow-up per above plan of care discussed with patient in detail and at length all questions answered He is understanding, agreeable, comfortable with the plan of care Plan: Anticipate discharge to home medically stable plan of care discussed with patient in detail and at length all questions answered He is understanding, agreeable, comfortable with the plan of care Admission and Anticipated Discharge Date Admission Date: April 05, 2021 Subjective Follow-up for right ureteral stone, etc. Sit up in bed, comfortable, in good spirits Denies back pain or abdominal pain No problems with urination No fevers or chills No shortness of breath, headache, nausea vomiting No other symptoms States that he is ready and would like to be discharged today Review of Systems Review of Systems: All noted are negative except for above Physical Exam Physical Exam: General- oriented x 3, not in distress, speaks in sentences with no effort or accessory muscle use Eyes- anicteric Neck- no JVD Lungs- clear breath sounds bilaterally, no rales/wheezes Heart- normal rate, regular rhythm; no murmurs Abdomen- normal bowel sounds, nondistended, soft, no CVA tenderness Extremities- no pretibial edema, no calf tenderness Neuro- alert, oriented x 3; no gross focal neurologic deficits Skin- warm & dry Results & Data Results & Data ([facility]) Vital Signs (Past 12 Hours) Vital Signs Temp Pulse Pulse Pulse Resp BP BP 04/09/21 15:52 36.6 C 67 82 18 131/77 115/75 04/09/21 15:25 36.6 C 82 18 131/77 04/09/21 11:10 36.8 C 67 18 121/73 04/09/21 09:17 72 04/09/21 07:50 36.4 C L 73 18 115/73 Pulse Ox 04/09/21 15:52 100 04/09/21 15:25 100 04/09/21 11:10 94 04/09/21 09:17 04/09/21 07:50 99 all noted and reviewed including below
--- NOTE | 2021-04-09 19:21 | Discharge Summary ---
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 Was notified by Dr. 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 Patient with history of left ureteral stent placement [address] Her of [facility] urology. Patient symptoms improved at that point but recently has noted presence of more blood in urine as well as some dysuria. Noticed some right-sided flank pain and back pain earlier today as well. Denies any fever or chills. No lightheadedness, visual changes, chest pain, shortness of breath, nausea, vomiting or abdominal pain. Does endorse recent gastroenteritis over March weekend and has not felt his appetite returned since. Admittedly drinking less fluids as well. Diarrhea has improved but still having loose stool. Taking all medications as scheduled. Admission Exam Per Admitting Provider General Appearance: WD/WN, vitals as above, NAD, sitting up in bed, pleasant, conversing easily Head: normocephalic, atraumatic Eyes: normal inspection, PERRL, conjunctivae normal, anicteric sclerae ENT: external ear and nose normal, oropharynx normal Neck: normal visual inspection, trachea midline, no thyromegaly Respiratory: normal respiratory effort, lungs clear to auscultation, no wheeze, rales, rhonchi. No accessory muscle use Cardiovascular: regular rate, rhythm, no murmur, normal peripheral pulses, no BLE edema. Vessels: no JVD Chest: normal inspection of chest Abdomen/GI: normal bowel sounds, soft, nontender, no hepatosplenomegaly : R CVA TTP extending to R flank Extremities/Musculoskeletal: no cyanosis or clubbing, extremities motor strength 5/5 Neurologic: PERRL, EOMI, accommodation nl, no face palsy, no dysarthria, CN's II-XI intact bilaterally and moves all extremities Psychiatric: A+Ox3, euthymic affect Skin: no rashes, normal color, warm/dry Principal Diagnosis Right-sided ureteral stone, status post stent placement Discharge Exam General- oriented x 3, not in distress, speaks in sentences with no effort or accessory muscle use Eyes- anicteric Neck- no JVD Lungs- clear breath sounds bilaterally, no rales/wheezes Heart- normal rate, regular rhythm; no murmurs Abdomen- normal bowel sounds, nondistended, soft, no CVA tenderness Extremities- no pretibial edema, no calf tenderness Neuro- alert, oriented x 3; no gross focal neurologic deficits Skin- warm & dry Discharge Data Allergies Allergy/AdvReac Type Severity Reaction Status Date / Time cephalexin Allergy Severe Hives Verified 04/05/21 14:50 tetracycline AdvReac Severe vomiting Verified 04/05/21 14:50 naproxen AdvReac Mild Stomach Verified 04/05/21 14:50 bleeding Consultations 04/05/21 15:53 ED Decision to Admit Stat 04/05/21 19:59 Consult Urology Routine 04/06/21 09:24 Consult Nephrology Routine Procedures Performed Operation Date: 04/06/21 11:00 Actual Procedures p Cystoscopy, Left Retrograde Pyelogram, Left Stent Exchange, Right Ureteroscopy, Laser Lithotripsy, Stone Basket Retrieval, Retrograde Pyelogram, Right Stent Insertion(Bilateral) - Joel Her, Ordered Studies 04/05/21 13:44 CT abd pelvis wo con Stat COMPARISON STUDY: CT of the abdomen and pelvis June 11, 2020. KUB April 04, 2021. TECHNIQUE: Axial images of the abdomen and pelvis were obtained without IV contrast. Images were reviewed in the axial, sagittal, and coronal planes. Automated exposure control was utilized for the study. A dose lowering technique was utilized adhering to the principles of ALARA. FINDINGS: Imaged portions of the lower chest demonstrate a hiatal hernia. There may be a previous Sandoval fundoplication. Left ureteral stent is appropriately positioned. There is mild left hydronephrosis. There is infiltration adjacent to the left renal pelvis and left ureter. Several tiny distal left ureteral calculi/fragments measure up to 2 mm. A few small calculi within the lower pole of the left kidney measure up to 2 mm. A 7 mm distal right ureteral calculus results in moderate right hydroureteronephrosis. Punctate calculus within lower pole the right kidney is noted. Water attenuation 1.4 cm lesion within the midpole of the right kidney is suboptimally assessed on this unenhanced exam but favors a cyst. The liver, spleen, adrenal glands are unremarkable on this unenhanced exam. There is marked fatty atrophy of the pancreas. There is no evidence for a bowel obstruction. No ascites is present. There is no lymphadenopathy. The appendix is not visualized but there is no right lower quadrant inflammation. No acute fracture or suspicious lesion is identified within the visualized skeletal structures. IMPRESSION: 1. 7 mm distal right ureteral calculus which results in moderate right hydroureteronephrosis. 2. Appropriately positioned left ureteral stent. Mild left hydronephrosis. Several punctate distal left ureteral calculi/fragments which measure up to 2 mm. 3. A few small calculi within lower pole of the left kidney. Punctate right renal calculus. 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 Per NALLELY Soni's notes: CT abd/pelvis with 7 mm distal right ureteral calculus which results in moderate right hydroureteronephrosis. Appropriately positioned left ureteral stent. Mild left hydro. Several punctate distal left ureteral calculi/fragments Well known to urology service, follows with Dr. Her - elaina for OR in AM with Dr. Her for R ureteral stent placement but Dr. Mas webmethods consultant should patient require sooner intervention Instructed to call urology service urgently if patient develops fever >101F, intractable pain or nausea, as this will necessitate urgent surgical intervention Afebrile, non toxic appearance in ER Repeat BMP pending for 1899 Keep NPO, strain urine, gentle IV fluids --April 06, 2021: S/p meatal dilation, cysto, left stent exchange, and right URS with stone treatment and stent placement by Dr. Joel Her --Was also given bicarb drip per nephrology service recommendations --Creatinineimproved daily, 4.9, 4.0, 3.2, 2.2, 1.6 (baseline is 1.4) --Urine culture: Negative Received cefepime IV x3 days --Discharge plan: Ciprofloxacin 500 mg twice daily x7 days Percocet as needed for pain, PDMP queried, no issues Continue tamsulosin Follow-up with Dr. Her on Friday for stent removal Follow-up with PCP this coming Friday, April 13, 2021 for recheck, please repeat BMP to reevaluate renal function (3) HEIDY (acute kidney injury): Acute kidney injury on CKD stage III secondary to obstructive uropathy Resolved Per NALLELY Soni's notes: Cr elevated at 4.92 (baseline high 1s) in setting of obstructing renal calculus and dehydration --Nephrology service consulted --Management per above (4) Cystic fibrosis: (5) S/P lung transplant: S/p lung transplant in 2017 - follows closely with Dr. 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: Diet controlled (8) Exocrine pancreatic insufficiency: Continue Zenpep with snacks, meals DVT Ppx: SCDs Code status: FULL PCP: Du Dispo: Discharge to home, follow-up per above plan of care discussed with patient in detail and at length all questions answered He is understanding, agreeable, comfortable with the plan of care Anticipate discharge to home medically stable plan of care discussed with patient in detail and at length all questions answered He is understanding, agreeable, comfortable with the plan of care Total Time Total Time Spent Total Time Spent (In Minutes): 45 minutes Discharge Plan Discharge Items Patient Disposition: Home - Self-Care Reason For Visit: OBSTRUCTING URETERAL STONE, HEIDY Discharge Diagnosis: Right ureteral stone, status post stent placement Activity: Resume your previous activity Driving/Machine Use: No driving while taking Percocet Non-emergency contact: Primary Care Provider and Urologist Call non-emergency contact if: you have any medication questions, your symptoms worsen, your pain is not controlled, your pain is worsening, your pain is unusual for you, your pain is concerning for you and you have a fever Follow-up/Referrals: Joel Her DO [Physician] - Amador Sandy MD [Primary Care Provider] - (Date & Time 04/13/2021 11:00 AM Provider Raysa Singh MD Department [facility] ) Diet: Regular Addtl Attending Provider Instructions: Please refer to your new medication list and follow instructions carefully. Your new medications include: Ciprofloxacin- antibiotic for urinary tract infection prevention Tamsulosin- to facilitate passage of stone Percocet- as needed for bladder pain Follow-up with [facility] primary care physician Dr. Li Singh on Fri04/13/21 at 11:00am at [facility]. Follow-up with urologist Dr. Joel Her in 1 week as scheduled. Pending Studies at Discharge: No Stand-Alone Forms: [facility], Opioid Pain Management, Smoking Cessation Medications and DC Order Prescriptions: New oxycodone-acetaminophen [Percocet] 5-325 mg Tablet 1 tab PO Q12H PRN (Reason: pain) Qty: 14 RF: 0 ciprofloxacin HCl 500 mg tablet 500 mg PO BID Qty: 14 RF: 0 tamsulosin 0.4 mg capsule 0.4 mg PO DAILY Qty: 10 RF: 0 Continued prednisone 5 mg Tablet 5 mg PO QAM RF: 0 pantoprazole [Protonix] 40 mg Tablet,Delayed Release (Dr/Ec) 40 mg PO QAM RF: 0 metoprolol succinate 25 mg Tablet Extended Release 24 Hr 25 mg PO BID RF: 0 Zenpep 25,000-79,000- 105,000 unit capsule,delayed release(DR/EC) 6 cap PO TIDM RF: 0 Zenpep 25,000-79,000- 105,000 unit capsule,delayed release(DR/EC) 3 cap PO .PRIOR TO SNACKS RF: 0 tacrolimus [Prograf] 5 mg capsule 5 mg PO BID RF: 0 hydroxyzine HCl 25 mg Tablet 25 mg PO Q6H PRN (Reason: Anxiety) RF: 0 tacrolimus 1 mg capsule 4 mg PO BID RF: 0 mycophenolate sodium [Myfortic] 360 mg Tablet,Delayed Release (Dr/Ec) 720 mg PO BID RF: 0 tamsulosin 0.4 mg capsule 0.4 mg PO HS Qty: 30 RF: 0 calcium carbonate-vitamin D3 600 mg(1,500mg) -200 unit Tablet 1 tab PO DAILY RF: 0 ferrous sulfate 325 mg (65 mg iron) Tablet 325 mg PO BID RF: 0 cholecalciferol (vitamin D3) [Vitamin D3] 125 mcg (5,000 unit) Tablet 125 mcg PO DAILY RF: 0 Discharge Orders: Discharge Order (Routine); Ordered 04/09/21 Ordered By: Sarkis Hudson Admission Data Admit Date/Time: 04/05/21 16:06 Attending Provider: Sarkis Hudson Admit Provider: Sarkis Hudson Primary Care Provider: Amador Sandy Other Providers: Sarkis Hudson ; Juan Mas ; Earle Theodore Other Interventions: Discharge Summary Assessment (RN) Last Done: 04/09/21 15:52
[2021-04-13 03:18] LABS: Component 2 DNR; Source RIGHT URETERAL STONE
== END 2021-04-09 16:53 | disposition home or self-care (01) | DRG 660 ==
LOC: ED 13:16 → 2N 16:06

== ENCOUNTER 2021-12-27 08:46 | Inpatient (IN) ==
[2021-12-27] MEDS ORDERED: SODIUM CHLORIDE 0.9% 1000ML 1,000 ML IV SCH (09:15)
[2021-12-27 09:43] LABS: Basophils # (auto) 0.02 K/uL (0-0.2); Basophils % (auto) 0.2 %; Eosinophils # (auto) 0.15 K/uL (0-0.5); Eosinophils % (auto) 1.7 %; Hematocrit (blood only) 40.5 % (42-52); Hemoglobin 13.6 g/dL (14.0-18.0); Immature Granulocytes # (auto) 0.03 K/uL (0.00-0.02); Immature Granulocytes % (auto) 0.3 %; Lymphocytes # (auto) 1.89 K/uL (1.2-3.4); Lymphocytes % (auto) 21.3 %; Mean Corpuscular Hemoglobin 28.9 pg (25-34); Mean Corpuscular Hgb Conc 33.6 g/dL (32-36); Mean Platelet Volume 10.6 fL (7.4-10.4); Monocytes # (auto) 0.62 K/uL (0.11-0.59); Neutrophils # (auto) 6.16 K/uL (1.4-6.5); Neutrophils % (auto) 69.5 %; Platelet Count 198 K/uL (130-400); RDW Coefficient of Variation 14.3 % (11.5-14.5); RDW Standard Deviation 44.5 fL (36.4-46.3); Red Blood Count 4.71 M/uL (4.7-6.1); White Blood Count 8.87 K/uL (4.8-10.8)
--- NOTE | 2021-12-27 09:45 | XRay Report ---
XR chest 1V portable CLINICAL HISTORY: weakness COMPARISON STUDY: Chest CT June 03, 2021 chest radiograph December 23, 2021. FINDINGS: Left subclavian [id number] is in noted as well as postoperative findings from double abiodun g transplant. There is no pneumothorax or pleural effusion. There is no evidence for pulmonary edema. Cardiac size is normal. Minimal left midlung opacity shown on prior exam has improved. IMPRESSION: 1. Interval improvement in mild left midlung opacity since chest radiograph of December 23, 2021. 2. Otherwise, no significant change in appearance of the chest. ACT 112: Negative or not required by law. Electronically signed by: Vinod Winters M.D. 12/27/2021 9:44 AM
[2021-12-27 10:11] LABS: Albumin Globulin Ratio 1.2 (0.9-2); Albumin Level 3.6 gm/dl (3.4-5.0); BUN Creatinine Ratio 6.9 (10-20); Bilirubin,Total 0.3 mg/dl (0.2-1.0); Calcium 8.1 mg/dl (8.5-10.1); Creatinine Clr Calc Pharmacy 26.6 ml/min; Est GFR (Non-African American) 30.2 ml/min; Globulin 3.1 gm/dl (2.5-4.0); Potassium 4.1 mmol/L (3.5-5.1); Total Protein 6.7 gm/dl (6.0-8.3)
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
--- NOTE | 2021-12-27 10:21 | Electrocardiogram Report ---
Test Reason : Blood Pressure : / mmHG Vent. Rate : 070 BPM Atrial Rate : 070 BPM P-R Int : 132 ms QRS Dur : 096 ms QT Int : 444 ms P-R-T Axes : 062 055 081 degrees QTc Int : 479 ms Normal sinus rhythm Diffuse Nonspecific T wave abnormality Abnormal ECG When compared with ECG of 23-DEC-2021 13:35, No significant change was found Confirmed by Homar Rodriguez ([id number]) on 12/27/2021 10:21:09 AM Referred By: REFERRED SELF Confirmed By:Homar Rodriguez
[2021-12-27] MEDS ORDERED: FOSFOMYCIN TROMETHAMINE 3 GM PACKET PO SCH (10:30)
[2021-12-27] MEDS ORDERED: fentaNYL citrate 100 MCG/2 ML VIAL IV ONE (10:45)
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
[2021-12-27] MEDS ORDERED: ONDANSETRON INJ 2 MG/ML 2 ML VIAL IV STA (11:49)
[2021-12-27] MEDS ORDERED: hydrOXYzine HCl 25 MG TAB PO PRN (12:01)
--- NOTE | 2021-12-27 12:08 | CT Scan Report ---
CT OF THE ABDOMEN AND PELVIS WITHOUT CONTRAST CLINICAL HISTORY: Acute kidney injury, right back pain, hx nephrolithiasis COMPARISON STUDY: CT of the abdomen and pelvis April 05, 2021. TECHNIQUE: Axial images of the abdomen and pelvis were obtained without IV contrast. Images were revi ewed in the axial, sagittal, and coronal planes. Automated exposure control was utilized for the chip dy. A dose lowering technique was utilized adhering to the principles of ALARA. FINDINGS: No significant abnormality identified within visualized portions of the transplanted lungs. A moderate sized hiatal hernia is noted. This was shown on prior exam. No pneumatosis, free air or p ortal venous gas is present. There is no hydronephrosis. Punctate left renal calculus is present. No ureteral calculi are present. A 1.1 cm hypodense lesion within the midpole the right kidney is subopt imally assessed on this unenhanced exam but likely reflects a cyst. Focal fat along the falciform lig ament is noted. There is no biliary ductal dilatation status post cholecystectomy. Fatty replacement of the pancreas is noted. The spleen and adrenal glands are unremarkable. No evidence for a bowel obs truction. The appendix is not visualized but there is no right lower quadrant inflammation. No enlarg ed abdominal or pelvic lymph nodes are present. Mild compression fracture of the superior endplate of L1 is unchanged since CT of April 05, 2021. No acute lumbar spine fracture is present. IMPRESSION: 1. Punctate left renal calculus. No ureteral calculi or hydronephrosis. 2. No acute process within the abdomen or pelvis on unenhanced exam. 3. No bowel obstruction. 4. No acute lumbar spine fracture. No change in a mild L1 compression deformity since prior CT. ACT 112: Negative or not required by law. Electronically signed by: Vinod Winters M.D. 12/27/2021 12:06 PM
[2021-12-27] MEDS: MAGNESIUM SULFATE / D5W 1 GM/100 ML BAG IV SCH ×2 (12:47→14:20)
[2021-12-27] MEDS: MoRPHine SULFATE 2 MG/ML CARP IV PRN ×2 (15:11→19:46)
[2021-12-27] MEDS ORDERED: ALBUTEROL 0.083% NEBU SOLN 3 ML VIAL NEB PRN (16:44)
[2021-12-27] MEDS: SODIUM CHLORIDE 0.9% 1000ML 1,000 ML IV SCH (17:20)
[2021-12-27] MEDS ORDERED: ERTAPENEM SODIUM 500 MG in SYRINGE 0 ML IV SCH (17:30)
[2021-12-27] MEDS: ONDANSETRON INJ 2 MG/ML 2 ML VIAL IV PRN (17:32)
[2021-12-27] MEDS ORDERED: METOCLOPRAMIDE HCL INJ 5 MG/ML 2 ML VIAL IV STA (20:09)
[2021-12-27 20:34] LABS: Appearance Urine Clear (Clear); Bacteria Urine Automated Negative (Negative); Bilirubin Urine Negative (Negative); Blood Urine Negative (Negative); Color Urine Yellow; Epithelial Cell Urine Auto >30 /lpf (0-5); Glucose Urine UA Negative (Negative); Ketones Urine Trace (Negative); Leukocyte Esterase Urine Negative (Negative); Nitrite Urine Negative (Negative); Protein Urine Trace (Negative); RBC Urine Automated 0-4 /hpf (0-4); Specific Gravity Urine 1.018 (1.000-1.030); Urobilinogen Urine Negative (Negative)
[2021-12-27] MEDS: TACROLIMUS 1 MG CAP PO SCH (20:35)
[2021-12-27] MEDS: MELATONIN 3 MG TAB PO SCH (20:35)
[2021-12-27] MEDS: MONTELUKAST SODIUM 10 MG TABLET PO SCH (20:36)
[2021-12-27] MEDS: MYCOPHENOLATE SODIUM 180 MG TAB PO SCH (20:36)
[2021-12-28] MEDS: ONDANSETRON INJ 2 MG/ML 2 ML VIAL IV PRN ×3 (00:12→16:45)
[2021-12-28] MEDS: MoRPHine SULFATE 2 MG/ML CARP IV PRN ×2 (00:17→08:56)
[2021-12-28] MEDS: SODIUM CHLORIDE 0.9% 1000ML 1,000 ML IV SCH ×3 (03:31→21:57)
[2021-12-28] MEDS: PROMETHAZINE HCL 6.25 MG in SODIUM CHLORIDE 0.9% 50 ML IV PRN ×3 (05:43→21:08)
[2021-12-28 07:57] LABS: Basophils # (auto) 0.01 K/uL (0-0.2); Basophils % (auto) 0.1 %; Eosinophils # (auto) 0.14 K/uL (0-0.5); Eosinophils % (auto) 1.4 %; Hematocrit (blood only) 41.3 % (42-52); Hemoglobin 13.9 g/dL (14.0-18.0); Immature Granulocytes # (auto) 0.05 K/uL (0.00-0.02); Immature Granulocytes % (auto) 0.5 %; Mean Corpuscular Hemoglobin 28.9 pg (25-34); Mean Corpuscular Hgb Conc 33.7 g/dL (32-36); Mean Corpuscular Volume 85.9 fL (80-100); Mean Platelet Volume 10.8 fL (7.4-10.4); Monocytes # (auto) 0.66 K/uL (0.11-0.59); Monocytes % (auto) 6.6 %; Neutrophils # (auto) 7.03 K/uL (1.4-6.5); Neutrophils % (auto) 70.4 %; Platelet Count 219 K/uL (130-400); RDW Coefficient of Variation 14.1 % (11.5-14.5); RDW Standard Deviation 44.1 fL (36.4-46.3); Red Blood Count 4.81 M/uL (4.7-6.1); White Blood Count 9.99 K/uL (4.8-10.8)
[2021-12-28 08:19] LABS: BUN Creatinine Ratio 8.6 (10-20); Calcium 7.5 mg/dl (8.5-10.1); Creatinine Clr Calc Pharmacy 32.8 ml/min; Est GFR (African American) 45.8 ml/min; Est GFR (Non-African American) 39.5 ml/min; Magnesium 1.9 mg/dl (1.7-2.4); Potassium 4.1 mmol/L (3.5-5.1)
[2021-12-28] MEDS: ENOXAPARIN INJ 30 MG/0.3 ML SYR SQ SCH (08:53)
[2021-12-28] MEDS: CALCIUM 600MG + VIT D 400 IU TAB PO SCH (08:58)
[2021-12-28] MEDS: CHOLECALCIFEROL 5,000 UNITS 125 MCG TAB PO SCH (08:58)
[2021-12-28] MEDS: MYCOPHENOLATE SODIUM 180 MG TAB PO SCH ×2 (08:58→21:52)
[2021-12-28] MEDS: predniSONE 5 MG TAB PO SCH (08:58)
[2021-12-28] MEDS: ESCITALOPRAM OXALATE 20 MG TAB PO SCH (08:58)
[2021-12-28] MEDS: PANTOprazole 40 MG TAB PO SCH (08:59)
[2021-12-28] MEDS: TACROLIMUS 1 MG CAP PO SCH ×2 (09:32→21:51)
[2021-12-28 10:44] LABS: Estimated Average Glucose 117 mg/dl; Hemoglobin A1C 5.7 % (4.5-5.6)
[2021-12-28] MEDS ORDERED: ERTAPENEM SODIUM 1,000 MG in SYRINGE 0 ML IV SCH (12:30)
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
[2021-12-28] MEDS ORDERED: ACETAMINOPHEN 1000 MG/100 ML IV IV PRN (15:28)
[2021-12-28] MEDS: oxyCODONE/ACETAMINOPHEN 5mg/325mg TAB PO PRN ×2 (15:42→21:50)
--- NOTE | 2021-12-28 15:53 | Hospitalist Progress Note ---
Date of Service December 28, 2021 Assessment & Plan (1) HEIDY (acute kidney injury): Plan: Acute Kidney Injury Likely Prerenal -CT ABD:Punctate left renal calculus. No ureteral calculi or hydronephrosis. No acute process within the abdomen or pelvis on unenhanced exam. No bowel obstruction. No acute lumbar spine fracture. No change in a mild L1 compression deformity since prior CT. -Cr: 2.6>2.0 Continue IV fluids Monitor renal function Avoid Nephrotoxic agents as able Appreciate Nephrology Input Hyponatremia Likely due to poor oral intake Sodium Levels: 131>>130 On IV fluids Monitor (2) UTI (urinary tract infection): Plan: Suspected Acute pyelonephritis Urine Culture: ESBL E coli on 12/23/21 Received Cipro, Fosfomycin prior to admission Continue Ertapenem day #2 (3) Pneumonia: Plan: Clinically improving Continue Ertapenem (4) 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: Plan: HbA1C: 5.7 Monitor (5) GERD (gastroesophageal reflux disease): Plan: Continue Pantoprazole (6) S/P lung transplant: Plan: Continue Tacrolimus, CellCept (7) Exocrine pancreatic insufficiency: Plan: Continue supplements (8) Chronic anemia: (9) Depressed mood: (10) Anxiety: (11) Asthma: Plan: No signs of Exacerbation (12) Cystic fibrosis: Plan: Code Status: Full Code DVT Px: Lovenox SQ Admission and Anticipated Discharge Date Admission Date: December 27, 2021 Subjective Patient is seen and examined at bedside States having nausea, vomiting Also reports right flank pain Poor appetite Offers no other complaints Review of Systems Review of Systems: All systems reviewed & are unremarkable except as noted in Subjective Physical Exam Physical Exam: Physical Exam: Vitals signs as noted above General Appearance:Thin, frail, no apparent distress Head: normocephalic, Atraumatic Eyes: normal inspection, EOMI Neck: supple, Trachea midline Respiratory/Chest: Normal breath sounds, CTA Cardiovascular: S1, S2, No murmur Abdomen/GI:Soft, Non tender, Bowel sounds present Extremities/Musculoskeletal:normal inspection, no edema Neurologic/Psych:AAOX3, grossly no focal neurological deficits Skin: normal color, warm Results & Data Results & Data ([facility]) Vital Signs (Past 12 Hours) Vital Signs Temp Pulse Resp BP Pulse Ox 12/28/21 15:25 36.7 C 76 16 125/72 95 12/28/21 07:57 36.7 C 76 16 122/71 95 Laboratory Results Short CBC 12/28/21 Range/Units 07:29 WBC 9.99 (4.8-10.8) K/uL Hgb 13.9 L (14.0-18.0) g/dL Hct 41.3 L (42-52) % Plt Count 219 (130-400) K/uL BMP 12/28/21 07:29 Sodium 130 L Potassium 4.1 Chloride 107 Carbon Dioxide 16 L BUN 18 Creatinine 2.09 H D Glucose 97 Calcium 7.5 L Urine 12/27/21 Range/Units 20:20 Urine Color Yellow Urine Appearance Clear (Clear) Urine pH 5.0 (4.5-7.5) Ur Specific [place] 1.018 (1.000-1.030) Urine Protein Trace H (Negative) Urine Glucose (UA) Negative (Negative) (1) Pneumonia Laterality: left Lung location: unspecified part of lung Pneumonia type: due to unspecified organism Qualified Code(s): J18.9 - Pneumonia, unspecified organism
[2021-12-28] MEDS: ERTAPENEM SODIUM 1,000 MG in SYRINGE 0 ML IV SCH (16:43)
[2021-12-28] MEDS: MONTELUKAST SODIUM 10 MG TABLET PO SCH (21:51)
[2021-12-28] MEDS: MELATONIN 3 MG TAB PO SCH (21:52)
[2021-12-29] MEDS ORDERED: HEPARIN 100 UNIT/ML 5ML FLUSH FLUSH PRN (01:04)
[2021-12-29] MEDS: MoRPHine SULFATE 2 MG/ML CARP IV PRN ×2 (07:43→20:21)
[2021-12-29 08:28] LABS: BUN Creatinine Ratio 12.1 (10-20); Calcium 7.5 mg/dl (8.5-10.1); Est GFR (African American) 51.4 ml/min; Est GFR (Non-African American) 44.4 ml/min; Magnesium 1.7 mg/dl (1.7-2.4); Potassium 4.5 mmol/L (3.5-5.1)
[2021-12-29] MEDS: CALCIUM 600MG + VIT D 400 IU TAB PO SCH (08:57)
[2021-12-29] MEDS: predniSONE 5 MG TAB PO SCH (08:57)
[2021-12-29] MEDS: PANTOprazole 40 MG TAB PO SCH (08:57)
[2021-12-29] MEDS: CHOLECALCIFEROL 5,000 UNITS 125 MCG TAB PO SCH (08:57)
[2021-12-29] MEDS: ESCITALOPRAM OXALATE 20 MG TAB PO SCH (08:58)
[2021-12-29] MEDS: MYCOPHENOLATE SODIUM 180 MG TAB PO SCH ×2 (08:58→20:32)
[2021-12-29] MEDS: TACROLIMUS 1 MG CAP PO SCH ×2 (08:58→20:33)
[2021-12-29] MEDS: ENOXAPARIN INJ 30 MG/0.3 ML SYR SQ SCH (08:59)
[2021-12-29] MEDS: ONDANSETRON INJ 2 MG/ML 2 ML VIAL IV PRN (11:20)
[2021-12-29] MEDS: oxyCODONE/ACETAMINOPHEN 5mg/325mg TAB PO PRN (15:06)
--- NOTE | 2021-12-29 15:29 | Hospitalist Progress Note ---
Date of Service December 29, 2021 Assessment & Plan (1) HEIDY (acute kidney injury): Plan: Acute Kidney Injury Likely Prerenal -CT ABD:Punctate left renal calculus. No ureteral calculi or hydronephrosis. No acute process within the abdomen or pelvis on unenhanced exam. No bowel obstruction. No acute lumbar spine fracture. No change in a mild L1 compression deformity since prior CT. -Cr: 2.6>2.0>1.9 Monitor renal function Avoid Nephrotoxic agents as able Appreciate Nephrology Input Continue IV fluids Advance diet as tolerated Hyponatremia Likely due to poor oral intake Sodium Levels: 131>>130 On IV fluids Monitor (2) UTI (urinary tract infection): Plan: Suspected Acute pyelonephritis Urine Culture: ESBL E coli on 12/23/21 Received Cipro, Fosfomycin prior to admission Continue Ertapenem day #3 (3) Pneumonia: Plan: Clinically improving Continue Ertapenem (4) 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: Plan: HbA1C: 5.7 Monitor (5) GERD (gastroesophageal reflux disease): Plan: Continue Pantoprazole (6) S/P lung transplant: Plan: Continue Tacrolimus, CellCept (7) Exocrine pancreatic insufficiency: Plan: Continue supplements (8) Chronic anemia: (9) Depressed mood: (10) Anxiety: (11) Asthma: Plan: No signs of Exacerbation (12) Cystic fibrosis: Plan: Code Status: Full Code DVT Px: Lovenox SQ Admission and Anticipated Discharge Date Admission Date: December 27, 2021 Subjective Patient is seen and examined at bedside Has nausea but no vomiting today Renal function slowly improving Prefers to continue clear liquid diet Right flank pain improving Denies chest pain, dyspnea, dizziness Review of Systems Review of Systems: All systems reviewed & are unremarkable except as noted in Subjective Physical Exam Physical Exam: Physical Exam: Vitals signs as noted above General Appearance:Thin, frail, no apparent distress Head: normocephalic, Atraumatic Eyes: normal inspection, EOMI Neck: supple, Trachea midline Respiratory/Chest: Normal breath sounds, CTA Cardiovascular: S1, S2, No murmur Abdomen/GI:Soft, Non tender, Bowel sounds present Extremities/Musculoskeletal:normal inspection, no edema Neurologic/Psych:AAOX3, grossly no focal neurological deficits Skin: normal color, warm Results & Data Results & Data ([facility]) Vital Signs (Past 12 Hours) Vital Signs Temp Pulse Resp BP Pulse Ox 04/09/22 15:20 36.3 C L 77 18 143/86 H 96 12/29/21 07:29 36.7 C 77 18 121/70 93 Laboratory Results BMP 12/29/21 07:43 Sodium 130 L Potassium 4.5 Chloride 107 Carbon Dioxide 15 L BUN 23 Creatinine 1.90 H Glucose 92 Calcium 7.5 L (1) Pneumonia Laterality: left Lung location: unspecified part of lung Pneumonia type: due to unspecified organism Qualified Code(s): J18.9 - Pneumonia, unspecified organism
[2021-12-29] MEDS: ERTAPENEM SODIUM 1,000 MG in SYRINGE 0 ML IV SCH (17:20)
[2021-12-29] MEDS: MONTELUKAST SODIUM 10 MG TABLET PO SCH (20:32)
[2021-12-29] MEDS: MELATONIN 3 MG TAB PO SCH (20:32)
[2021-12-30] MEDS: oxyCODONE/ACETAMINOPHEN 5mg/325mg TAB PO PRN ×3 (00:41→21:04)
[2021-12-30 07:55] LABS: Hematocrit (blood only) 38.4 % (42-52); Mean Corpuscular Hemoglobin 28.7 pg (25-34); Mean Corpuscular Hgb Conc 33.9 g/dL (32-36); Mean Corpuscular Volume 84.8 fL (80-100); Mean Platelet Volume 10.4 fL (7.4-10.4); Platelet Count 228 K/uL (130-400); RDW Coefficient of Variation 14.1 % (11.5-14.5); RDW Standard Deviation 43.8 fL (36.4-46.3); Red Blood Count 4.53 M/uL (4.7-6.1); White Blood Count 8.44 K/uL (4.8-10.8)
[2021-12-30 08:12] LABS: BUN Creatinine Ratio 15.6 (10-20); Est GFR (African American) 54.9 ml/min; Est GFR (Non-African American) 47.4 ml/min; Potassium 4.3 mmol/L (3.5-5.1)
[2021-12-30] MEDS: CHOLECALCIFEROL 5,000 UNITS 125 MCG TAB PO SCH (08:59)
[2021-12-30] MEDS: MYCOPHENOLATE SODIUM 180 MG TAB PO SCH ×2 (08:59→20:57)
[2021-12-30] MEDS: ESCITALOPRAM OXALATE 20 MG TAB PO SCH (08:59)
[2021-12-30] MEDS: PANTOprazole 40 MG TAB PO SCH (08:59)
[2021-12-30] MEDS: predniSONE 5 MG TAB PO SCH (08:59)
[2021-12-30] MEDS: CALCIUM 600MG + VIT D 400 IU TAB PO SCH (08:59)
[2021-12-30] MEDS: TACROLIMUS 1 MG CAP PO SCH ×2 (08:59→20:57)
[2021-12-30] MEDS: ENOXAPARIN INJ 30 MG/0.3 ML SYR SQ SCH (09:00)
[2021-12-30] MEDS: MoRPHine SULFATE 2 MG/ML CARP IV PRN (09:05)
--- NOTE | 2021-12-30 10:39 | Nephrology Progress Note ---
Date of Service December 30, 2021 Assessment & Plan Admission and Anticipated Discharge Date Admission Date: December 27, 2021 Subjective S---No new issues. Does not like to talk. PHYSICAL EXAMINATION: GENERAL: Thin white male who is not in any respiratory distress. He did not open his eyes for me. He appears awake and alert. HEENT: Mucous membrane is moist. CHEST: Bilaterally clear to auscultation. CARDIOVASCULAR: S1 and S2 regular. ABDOMEN: Soft, nontender. EXTREMITIES: Show no edema. Moving all 4 extremities. LABORATORY TEST: na 130. Creat 1.8 ASSESSMENT AND PLAN: A 36-year-old male who has cystic fibrosis and is status post lung transplant, on immunosuppressive regimen, now admitted with ESBL UTI/Pyelonephritis and HEIDY. 1. Acute renal failure: At baseline, he appears to have near normal kidney function, although he has had numerous episodes of acute renal failure related with infection, sepsis as well as hydronephrosis with kidney stone. At this point, he did have a creatinine, which peaked at 2.6, but fortunately creatinine is already coming down with the use of IV fluid. I will continue with IV fluid for the time being. He does not appear to be in any major volume overload or volume deficit. Sodium is somewhat low, likely a reflection of poor oral intake of food for the last few days. I will continue with the normal saline for the time being and encourage intake of oral food, especially high protein food. No further workup is needed for acute renal failure as it seems to be getting better on its own. Continue Current Transplant meds same as before. 2. ESBL urine--On ertapenem. h/o Recurrent kidney stone but no major one now. Results & Data ([facility]) Vital Signs (Past 12 Hours) Vital Signs Temp Pulse Resp BP Pulse Ox 12/30/21 07:36 36.5 C 67 16 123/68 96 12/29/21 22:51 36.6 C 67 18 124/72 96
[2021-12-30] MEDS: SODIUM CHLORIDE 0.9% 1000ML 1,000 ML IV SCH ×2 (11:07→17:50)
[2021-12-30] MEDS ORDERED: Nursing to Pharmacy Communication SCH (13:00)
--- NOTE | 2021-12-30 16:16 | Hospitalist Progress Note ---
Date of Service December 30, 2021 Assessment & Plan (1) HEIDY (acute kidney injury): Plan: Acute Kidney Injury Likely Prerenal -CT ABD:Punctate left renal calculus. No ureteral calculi or hydronephrosis. No acute process within the abdomen or pelvis on unenhanced exam. No bowel obstruction. No acute lumbar spine fracture. No change in a mild L1 compression deformity since prior CT. -Cr: 2.6>2.0>1.9> 1.8 Monitor renal function Avoid Nephrotoxic agents as able Appreciate Nephrology Input Continue IV fluids Advance to full liquid diet today Hyponatremia Likely due to poor oral intake Chronic Hyponatremia as per patient Sodium Levels: 131>>130 On IV fluids Monitor (2) UTI (urinary tract infection): Plan: Suspected Acute pyelonephritis Urine Culture: ESBL E coli on 12/23/21 Received Cipro, Fosfomycin prior to admission Continue Ertapenem day #4 (3) Pneumonia: Plan: Clinically improving Continue Ertapenem (4) 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: Plan: HbA1C: 5.7 Monitor (5) GERD (gastroesophageal reflux disease): Plan: Continue Pantoprazole (6) S/P lung transplant: Plan: Continue Tacrolimus, CellCept (7) Exocrine pancreatic insufficiency: Plan: Continue supplements (8) Chronic anemia: (9) Depressed mood: (10) Anxiety: (11) Asthma: Plan: No signs of Exacerbation (12) Cystic fibrosis: Plan: Code Status: Full Code DVT Px: Lovenox SQ Admission and Anticipated Discharge Date Admission Date: December 27, 2021 Subjective Patient is seen and examined at bedside States feeling better today Less nausea today Reports chronic right flank pain Denies chest pain, dyspnea, dizziness, vomiting Review of Systems Review of Systems: All systems reviewed & are unremarkable except as noted in Subjective Physical Exam Physical Exam: Physical Exam: Vitals signs as noted above General Appearance:Thin, frail, no apparent distress Head: normocephalic, Atraumatic Eyes: normal inspection, EOMI Neck: supple, Trachea midline Respiratory/Chest: Normal breath sounds, CTA Cardiovascular: S1, S2, No murmur Abdomen/GI:Soft, Non tender, Bowel sounds present Extremities/Musculoskeletal:normal inspection, no edema Neurologic/Psych:AAOX3, grossly no focal neurological deficits Skin: normal color, warm Results & Data Results & Data ([facility]) Vital Signs (Past 12 Hours) Vital Signs Temp Pulse Resp BP Pulse Ox 12/30/21 15:18 36.3 C L 74 18 149/85 H 98 12/30/21 07:36 36.5 C 67 16 123/68 96 Laboratory Results Short CBC 12/30/21 Range/Units 07:29 WBC 8.44 (4.8-10.8) K/uL Hgb 13.0 L (14.0-18.0) g/dL Hct 38.4 L (42-52) % Plt Count 228 (130-400) K/uL BMP 12/30/21 07:29 Sodium 130 L Potassium 4.3 Chloride 106 Carbon Dioxide 18 L BUN 28 H Creatinine 1.80 H Glucose 95 Calcium 8.0 L (1) Pneumonia Laterality: left Lung location: unspecified part of lung Pneumonia type: due to unspecified organism Qualified Code(s): J18.9 - Pneumonia, unspecified organism
[2021-12-30] MEDS: ERTAPENEM SODIUM 1,000 MG in SYRINGE 0 ML IV SCH (16:39)
[2021-12-30] MEDS: MELATONIN 3 MG TAB PO SCH (20:56)
[2021-12-30] MEDS: MONTELUKAST SODIUM 10 MG TABLET PO SCH (20:56)
[2021-12-31] MEDS: SODIUM CHLORIDE 0.9% 1000ML 1,000 ML IV SCH (01:19)
[2021-12-31] MEDS: ENOXAPARIN INJ 30 MG/0.3 ML SYR SQ SCH (08:19)
[2021-12-31] MEDS: PANTOprazole 40 MG TAB PO SCH (08:22)
[2021-12-31] MEDS: CHOLECALCIFEROL 5,000 UNITS 125 MCG TAB PO SCH (08:22)
[2021-12-31] MEDS: oxyCODONE/ACETAMINOPHEN 5mg/325mg TAB PO PRN ×2 (08:22→16:02)
[2021-12-31] MEDS: CALCIUM 600MG + VIT D 400 IU TAB PO SCH (08:22)
[2021-12-31] MEDS: MYCOPHENOLATE SODIUM 180 MG TAB PO SCH ×2 (08:22→20:45)
[2021-12-31] MEDS: ESCITALOPRAM OXALATE 20 MG TAB PO SCH (08:22)
[2021-12-31] MEDS: TACROLIMUS 1 MG CAP PO SCH ×2 (08:22→20:45)
[2021-12-31] MEDS: predniSONE 5 MG TAB PO SCH (08:22)
[2021-12-31 08:42] LABS: BUN Creatinine Ratio 16.6 (10-20); Calcium 7.8 mg/dl (8.5-10.1); Creatinine Clr Calc Pharmacy 43.6 ml/min; Est GFR (African American) 64.8 ml/min; Est GFR (Non-African American) 55.9 ml/min; Magnesium 1.5 mg/dl (1.7-2.4); Potassium 4.2 mmol/L (3.5-5.1)
[2021-12-31] MEDS ORDERED: MAGNESIUM SULFATE / D5W 1 GM/100 ML BAG IV ONE (09:30)
[2021-12-31] MEDS: MoRPHine SULFATE 2 MG/ML CARP IV PRN ×2 (12:21→20:44)
--- NOTE | 2021-12-31 15:53 | Hospitalist Progress Note ---
Date of Service December 31, 2021 Assessment & Plan (1) HEIDY (acute kidney injury): Plan: Acute Kidney Injury Likely Prerenal -CT ABD:Punctate left renal calculus. No ureteral calculi or hydronephrosis. No acute process within the abdomen or pelvis on unenhanced exam. No bowel obstruction. No acute lumbar spine fracture. No change in a mild L1 compression deformity since prior CT. -Cr: 2.6>2.0>1.9> 1.8>1.5 Monitor renal function Avoid Nephrotoxic agents as able Appreciate Nephrology Input Received IV fluids Advanced to regular diet today Hyponatremia Likely due to poor oral intake Chronic Hyponatremia as per patient Sodium Levels: 131>>130>134 Received IV fluids Monitor (2) UTI (urinary tract infection): Plan: Suspected Acute pyelonephritis Urine Culture: ESBL E coli on 12/23/21 Received Cipro, Fosfomycin prior to admission Continue Ertapenem day #5 (3) Pneumonia: Plan: Clinically improving Continue Ertapenem (4) 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: Plan: HbA1C: 5.7 Monitor (5) GERD (gastroesophageal reflux disease): Plan: Continue Pantoprazole (6) S/P lung transplant: Plan: Continue Tacrolimus, CellCept (7) Exocrine pancreatic insufficiency: Plan: Continue supplements (8) Chronic anemia: (9) Depressed mood: (10) Anxiety: (11) Asthma: Plan: No signs of Exacerbation (12) Cystic fibrosis: Plan: Code Status: Full Code DVT Px: Lovenox SQ Admission and Anticipated Discharge Date Admission Date: December 27, 2021 Subjective Patient is seen and examined at bedside Doing well today No new complaints Renal function improving Nausea much improved Reports chronic right flank pain Denies chest pain, dyspnea, dizziness, vomiting Review of Systems Review of Systems: All systems reviewed & are unremarkable except as noted in Subjective Physical Exam Physical Exam: Physical Exam: Vitals signs as noted above General Appearance:Thin, frail, no apparent distress Head: normocephalic, Atraumatic Eyes: normal inspection, EOMI Neck: supple, Trachea midline Respiratory/Chest: Normal breath sounds, CTA Cardiovascular: S1, S2, No murmur Abdomen/GI:Soft, Non tender, Bowel sounds present Extremities/Musculoskeletal:normal inspection, no edema Neurologic/Psych:AAOX3, grossly no focal neurological deficits Skin: normal color, warm Results & Data Results & Data ([place]) Vital Signs (Past 12 Hours) Vital Signs Temp Pulse Resp BP Pulse Ox 12/31/21 15:04 36.7 C 69 16 145/86 H 95 12/31/21 08:05 69 16 118/63 96 Laboratory Results [facility] 12/31/21 07:43 Sodium 134 L Potassium 4.2 Chloride 108 H Carbon Dioxide 21 BUN 26 H Creatinine 1.57 H Glucose 96 Calcium 7.8 L (1) Pneumonia Laterality: left Lung location: unspecified part of lung Pneumonia type: due to unspecified organism Qualified Code(s): J18.9 - Pneumonia, unspecified organism
[2021-12-31] MEDS: ERTAPENEM SODIUM 1,000 MG in SYRINGE 0 ML IV SCH (17:18)
[2021-12-31] MEDS: MELATONIN 3 MG TAB PO SCH (20:46)
[2021-12-31] MEDS: MONTELUKAST SODIUM 10 MG TABLET PO SCH (20:46)
--- NOTE | 2021-12-31 21:05 | Nephrology Progress Note ---
Date of Service December 31, 2021 Assessment & Plan (1) HEIDY (acute kidney injury): Plan: At baseline, he appears to have near normal kidney function (though w/ his minimal muscle mass creatinine may look better than actual renal function); has also had numerous episodes of acute renal failure related with infection, sepsis as well as hydronephrosis with kidney stone. for this admission his creatinine peaked at 2.6, but fortunately continues to improve w/ IV fluid (now stopped). He does not appear to be in any major volume overload or volume deficit > now should tolerate maintaining po intake Sodium is minimally low but ok, likely a reflection of poor oral intake > cont to encourage intake of food, especially high protein food. other chemistries ok No further workup is needed for acute renal failure as it seems to be getting better on its own. (2) S/P lung transplant: Plan: >>>his tacro dose is exceptionally high > would recommend verifying w/ his txplt center if not already done -for now cont current txplt meds (3) UTI (urinary tract infection): Plan: On ertapenem. h/o Recurrent kidney stone but no major one now. (4) Bilateral nephrolithiasis: Plan: recommend OP metabolic w/u for this w/ nephro; fluid intake targets discussed > minimum 2L/day Admission and Anticipated Discharge Date Admission Date: December 27, 2021 Subjective seen on rounds at 1700 today; no c/o; tolerating advance to full liquid diet; denies voiding concerns; no n/v; no sob Review of Systems Review of Systems: All systems reviewed & are unremarkable except as noted in Subjective Physical Exam Constitutional: well developed, + thin, + frail appearing and cooperative Eyes: EOM intact bilaterally ENMT: Ears: no external ear abnormality Nose: no external nose abnormality Mouth: + dry oral mucous membranes Neck: no nuchal rigidity Respiratory: normal respiratory effort Auscultation: + diminished lung sounds, + crackles and + bronchovesicular breath sounds Cardiovascular: Rate/Rhythm: regular rate and regular rhythm Extremities: no edema Gastrointestinal (Abdomen): Inspection/Auscultation: normal bowel sounds Percussion/Palpation: abdomen soft; abdomen nontender Musculoskeletal: Extremities: strength 5/5 throughout Skin: no rashes, warm and dry Neurologic: wilson, fluent speech, no tremor Psychiatric: Orientation: oriented x 3 Results & Data ([facility]) Vital Signs (Past 12 Hours) Vital Signs Temp Pulse Resp BP Pulse Ox 12/31/21 15:04 36.7 C 69 16 145/86 H 95 Laboratory Results 12/30/21 07:29 12/31/21 07:43
[2022-01-01 07:03] LABS: BUN Creatinine Ratio 15.4 (10-20); Calcium 8.3 mg/dl (8.5-10.1); Est GFR (Non-African American) 59.5 ml/min; Magnesium 1.6 mg/dl (1.7-2.4); Potassium 3.7 mmol/L (3.5-5.1)
[2022-01-01] MEDS: oxyCODONE/ACETAMINOPHEN 5mg/325mg TAB PO PRN ×2 (07:56→17:36)
[2022-01-01] MEDS: TACROLIMUS 1 MG CAP PO SCH ×2 (07:57→21:31)
[2022-01-01] MEDS: MYCOPHENOLATE SODIUM 180 MG TAB PO SCH ×2 (07:58→21:30)
[2022-01-01] MEDS: CHOLECALCIFEROL 5,000 UNITS 125 MCG TAB PO SCH (07:58)
[2022-01-01] MEDS: predniSONE 5 MG TAB PO SCH (07:58)
[2022-01-01] MEDS: PANTOprazole 40 MG TAB PO SCH (07:58)
[2022-01-01] MEDS: ESCITALOPRAM OXALATE 20 MG TAB PO SCH (07:58)
[2022-01-01] MEDS: ENOXAPARIN INJ 30 MG/0.3 ML SYR SQ SCH (07:58)
[2022-01-01] MEDS: CALCIUM 600MG + VIT D 400 IU TAB PO SCH (07:58)
[2022-01-01] MEDS: MAGNESIUM CHLORIDE 64MG DELAYED REL TAB PO SCH ×2 (10:32→21:30)
[2022-01-01] MEDS: MoRPHine SULFATE 2 MG/ML CARP IV PRN ×2 (12:39→21:33)
--- NOTE | 2022-01-01 13:45 | Nephrology Progress Note ---
Date of Service January 01, 2022 Assessment & Plan (1) HEIDY (acute kidney injury): Plan: improving HEIDY. Baseline creatinine mid ones, though w/ his minimal muscle mass creatinine may look better than actual renal function; has also had numerous episodes of acute renal failure related with infection, sepsis as well as hydronephrosis with kidney stone. for this admission his creatinine peaked at 2.6, but fortunately continues to improve w/ IV fluid (now stopped). He does not appear to be in any major volume overload or volume deficit > now should tolerate maintaining po intake Sodium is minimally low but ok, likely a reflection of poor oral intake > cont to encourage intake of food, especially high protein food. other chemistries ok No further workup is needed for acute renal failure as it seems to be getting better on its own. Will sign off NEPHRO DISCHARGE RECS -hospital discharge follow up appt with me in [place] about 4-6 wks after d/c for metabolic w/u of stone disease -minimum of 2L fluid intake daily recommended, avoiding sugary beverages (2) S/P lung transplant: Plan: >>>his tacro dose is exceptionally high > verified w/ pt and txplt center [facility] [place] r -for now cont current txplt meds (3) UTI (urinary tract infection): Plan: On ertapenem. h/o Recurrent kidney stone but no major one now. (4) Bilateral nephrolithiasis: Plan: recommend OP metabolic w/u for this w/ nephro; fluid intake targets discussed > minimum 2L/day Admission and Anticipated Discharge Date Admission Date: December 27, 2021 Subjective no interval events; still struggling to take po reliably he tells me; denies n/v. Review of Systems Review of Systems: All systems reviewed & are unremarkable except as noted in Subjective Physical Exam Constitutional: well developed, + thin, + frail appearing and cooperative Eyes: EOM intact bilaterally ENMT: Ears: no external ear abnormality Nose: no external nose abnormality Mouth: + dry oral mucous membranes Neck: no nuchal rigidity Respiratory: normal respiratory effort Auscultation: + diminished lung sounds, + crackles and + bronchovesicular breath sounds Cardiovascular: Rate/Rhythm: regular rate and regular rhythm Extremities: no edema Gastrointestinal (Abdomen): Inspection/Auscultation: normal bowel sounds Percussion/Palpation: abdomen soft; abdomen nontender Musculoskeletal: Extremities: strength 5/5 throughout Skin: no rashes, warm and dry Neurologic: wilson, fluent speech, no tremor Psychiatric: Orientation: oriented x 3 Results & Data ([facility]) Vital Signs (Past 12 Hours) Vital Signs Temp Pulse Resp BP Pulse Ox 01/01/22 07:43 36.7 C 70 16 136/77 97 Laboratory Results 12/30/21 07:29 01/01/22 05:25
--- NOTE | 2022-01-01 15:46 | Hospitalist Progress Note ---
Date of Service January 01, 2022 Assessment & Plan (1) HEIDY (acute kidney injury): Plan: Acute Kidney Injury Likely Prerenal -CT ABD:Punctate left renal calculus. No ureteral calculi or hydronephrosis. No acute process within the abdomen or pelvis on unenhanced exam. No bowel obstruction. No acute lumbar spine fracture. No change in a mild L1 compression deformity since prior CT. 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: Plan: HbA1C: 5.7 Monitor (5) GERD (gastroesophageal reflux disease): Plan: Continue Pantoprazole (6) S/P lung transplant: Plan: Continue Tacrolimus, CellCept (7) Exocrine pancreatic insufficiency: Plan: Continue supplements (8) Chronic anemia: (9) Depressed mood: (10) Anxiety: (11) Asthma: Plan: No signs of Exacerbation (12) Cystic fibrosis: Plan: Code Status: Full Code DVT Px: Lovenox SQ Admission and Anticipated Discharge Date Admission Date: December 27, 2021 Subjective Patient is seen and examined at bedside States feeling tired Discussed with Nephrology today Renal function continues to improve Nausea resolved Reports chronic right flank pain--unchanged Denies chest pain, dyspnea, dizziness, vomiting Review of Systems Review of Systems: All systems reviewed & are unremarkable except as noted in Subjective Physical Exam Physical Exam: Physical Exam: Vitals signs as noted above General Appearance:Thin, frail, no apparent distress Head: normocephalic, Atraumatic Eyes: normal inspection, EOMI Neck: supple, Trachea midline Respiratory/Chest: Normal breath sounds, CTA Cardiovascular: S1, S2, No murmur Abdomen/GI:Soft, Non tender, Bowel sounds present Extremities/Musculoskeletal:normal inspection, no edema Neurologic/Psych:AAOX3, grossly no focal neurological deficits Skin: normal color, warm Results & Data Results & Data ([facility]) Vital Signs (Past 12 Hours) Vital Signs Temp Pulse Resp BP BP Pulse Ox 01/01/22 15:25 36.6 C 70 16 128/85 94 01/01/22 07:43 36.7 C 70 16 136/77 97 Laboratory Results [facility] 01/01/22 05:25 Sodium 134 L Potassium 3.7 Chloride 106 Carbon Dioxide 22 BUN 23 Creatinine 1.49 H Glucose 167 H Calcium 8.3 L (1) Pneumonia Laterality: left Lung location: unspecified part of lung Pneumonia type: due to unspecified organism Qualified Code(s): J18.9 - Pneumonia, unspecified organism
[2022-01-01] MEDS: ERTAPENEM SODIUM 1,000 MG in SYRINGE 0 ML IV SCH (17:36)
[2022-01-01] MEDS: MELATONIN 3 MG TAB PO SCH (21:30)
[2022-01-01] MEDS: MONTELUKAST SODIUM 10 MG TABLET PO SCH (21:31)
[2022-01-02 06:28] LABS: Hematocrit (blood only) 37.1 % (42-52); Hemoglobin 12.7 g/dL (14.0-18.0); Mean Corpuscular Hemoglobin 28.6 pg (25-34); Mean Corpuscular Hgb Conc 34.2 g/dL (32-36); Mean Corpuscular Volume 83.6 fL (80-100); Mean Platelet Volume 10.1 fL (7.4-10.4); Platelet Count 239 K/uL (130-400); RDW Coefficient of Variation 14.1 % (11.5-14.5); RDW Standard Deviation 43.4 fL (36.4-46.3); Red Blood Count 4.44 M/uL (4.7-6.1); White Blood Count 9.48 K/uL (4.8-10.8)
[2022-01-02 07:00] LABS: BUN Creatinine Ratio 12.3 (10-20); Calcium 8.4 mg/dl (8.5-10.1); Creatinine Clr Calc Pharmacy 44.2 ml/min; Est GFR (African American) 65.8 ml/min; Est GFR (Non-African American) 56.8 ml/min; Magnesium 1.4 mg/dl (1.7-2.4); Potassium 3.9 mmol/L (3.5-5.1)
[2022-01-02] MEDS: ENOXAPARIN INJ 30 MG/0.3 ML SYR SQ SCH (08:40)
[2022-01-02] MEDS: MAGNESIUM CHLORIDE 64MG DELAYED REL TAB PO SCH ×2 (08:41→21:00)
[2022-01-02] MEDS: MYCOPHENOLATE SODIUM 180 MG TAB PO SCH ×2 (08:41→21:00)
[2022-01-02] MEDS: predniSONE 5 MG TAB PO SCH (08:41)
[2022-01-02] MEDS: TACROLIMUS 1 MG CAP PO SCH ×2 (08:41→21:01)
[2022-01-02] MEDS: PANTOprazole 40 MG TAB PO SCH (08:41)
[2022-01-02] MEDS: oxyCODONE/ACETAMINOPHEN 5mg/325mg TAB PO PRN ×3 (08:41→22:31)
[2022-01-02] MEDS: CHOLECALCIFEROL 5,000 UNITS 125 MCG TAB PO SCH (08:42)
[2022-01-02] MEDS: CALCIUM 600MG + VIT D 400 IU TAB PO SCH (08:42)
[2022-01-02] MEDS: ESCITALOPRAM OXALATE 20 MG TAB PO SCH (08:42)
--- NOTE | 2022-01-02 13:56 | Hospitalist Progress Note ---
Date of Service January 02, 2022 Assessment & Plan (1) HEIDY (acute kidney injury): Plan: Acute Kidney Injury Likely Prerenal -CT ABD:Punctate left renal calculus. No ureteral calculi or hydronephrosis. No acute process within the abdomen or pelvis on unenhanced exam. No bowel obstruction. No acute lumbar spine fracture. No change in a mild L1 compression deformity since prior CT. -Cr: 2.6>2.0>1.9> 1.8>1.5>1.4>1.55 (Per nephrology, baseline is mid 1s) Monitor renal function Avoid Nephrotoxic agents as able Appreciate Nephrology Input Received IV fluids Continue diet Encourage increased oral fluid intake Avoid sugary beverages. 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 Reports feeling better today but does not yet ready to go home Reports weakness, slowly improving. No nausea today. No abdominal pain today. Prosecution of right flank pain. Denies chest pain, shortness of breath No cough today. Denied dysuria, frequency or hematuria Physical Exam Constitutional: + well hydrated; no acute distress Eyes: PERRL, conjunctivae normal, anicteric sclerae ENMT: external ear and nose normal, oropharynx normal Respiratory: normal respiratory effort, lungs clear to auscultation Cardiovascular: Rate/Rhythm: regular rate and regular rhythm S1 S2 Gastrointestinal (Abdomen): normal bowel sounds, soft, nontender, no hepatosplenomegaly Musculoskeletal: no cyanosis or clubbing, extremities motor strength 5/5 Neurologic: PERRL, EOMI, accommodation nl, no face palsy, no dysarthria Psychiatric: A+Ox3, euthymic affect Results & Data Results & Data ([facility]) Vital Signs (Past 12 Hours) Vital Signs Temp Pulse Resp BP Pulse Ox 01/02/22 07:34 36.5 C 66 16 128/81 95 Laboratory Results Abnormal lab results 01/02/22 01/02/22 Range/Units 06:06 06:06 RBC 4.44 L (4.7-6.1) M/uL Hgb 12.7 L (14.0-18.0) g/dL Hct 37.1 L (42-52) % Sodium 135 L (136-145) mmol/L Creatinine 1.55 H (0.6-1.4) mg/dl Glucose 100 H (70-99(Fasting)) mg/dl Calcium 8.4 L (8.5-10.1) mg/dl Magnesium 1.4 L (1.7-2.4) mg/dl (1) Pneumonia Laterality: left Lung location: unspecified part of lung Pneumonia type: due to unspecified organism Qualified Code(s): J18.9 - Pneumonia, unspecified organism
[2022-01-02] MEDS: ERTAPENEM SODIUM 1,000 MG in SYRINGE 0 ML IV SCH (16:41)
[2022-01-02] MEDS ORDERED: POLYETHYLENE (MIRALAX) 17 GM PACK PO PRN (17:57)
[2022-01-02] MEDS: DOCUSATE SODIUM/SENNA 50/8.6MG TAB PO SCH (18:30)
[2022-01-02] MEDS: MELATONIN 3 MG TAB PO SCH (20:59)
[2022-01-02] MEDS: MONTELUKAST SODIUM 10 MG TABLET PO SCH (21:00)
[2022-01-03 07:53] LABS: Hematocrit (blood only) 38.4 % (42-52); Hemoglobin 13.1 g/dL (14.0-18.0); Mean Corpuscular Hemoglobin 28.3 pg (25-34); Mean Corpuscular Hgb Conc 34.1 g/dL (32-36); Mean Corpuscular Volume 82.9 fL (80-100); Mean Platelet Volume 10.2 fL (7.4-10.4); Platelet Count 236 K/uL (130-400); RDW Standard Deviation 42.4 fL (36.4-46.3); Red Blood Count 4.63 M/uL (4.7-6.1); White Blood Count 9.89 K/uL (4.8-10.8)
[2022-01-03] MEDS: oxyCODONE/ACETAMINOPHEN 5mg/325mg TAB PO PRN ×3 (07:59→21:04)
[2022-01-03 08:19] LABS: BUN Creatinine Ratio 11.4 (10-20); Calcium 8.7 mg/dl (8.5-10.1); Creatinine Clr Calc Pharmacy 43.3 ml/min; Est GFR (African American) 64.3 ml/min; Est GFR (Non-African American) 55.5 ml/min
[2022-01-03] MEDS: CHOLECALCIFEROL 5,000 UNITS 125 MCG TAB PO SCH (09:25)
[2022-01-03] MEDS: MAGNESIUM CHLORIDE 64MG DELAYED REL TAB PO SCH ×2 (09:25→21:05)
[2022-01-03] MEDS: CALCIUM 600MG + VIT D 400 IU TAB PO SCH (09:25)
[2022-01-03] MEDS: MYCOPHENOLATE SODIUM 180 MG TAB PO SCH ×2 (09:25→21:06)
[2022-01-03] MEDS: ESCITALOPRAM OXALATE 20 MG TAB PO SCH (09:25)
[2022-01-03] MEDS: DOCUSATE SODIUM/SENNA 50/8.6MG TAB PO SCH (09:25)
[2022-01-03] MEDS: predniSONE 5 MG TAB PO SCH (09:26)
[2022-01-03] MEDS: ENOXAPARIN INJ 30 MG/0.3 ML SYR SQ SCH ×2 (09:27→09:30)
[2022-01-03] MEDS: TACROLIMUS 1 MG CAP PO SCH ×2 (09:27→21:06)
[2022-01-03] MEDS: PANTOprazole 40 MG TAB PO SCH (09:27)
--- NOTE | 2022-01-03 10:19 | Hospitalist Progress Note ---
Date of Service January 03, 2022 Assessment & Plan (1) HEIDY (acute kidney injury): Plan: Acute Kidney Injury Likely Prerenal -CT ABD:Punctate left renal calculus. No ureteral calculi or hydronephrosis. No acute process within the abdomen or pelvis on unenhanced exam. No bowel obstruction. No acute lumbar spine fracture. No change in a mild L1 compression deformity since prior CT. -Cr: 2.6>2.0>1.9> 1.8>1.5>1.4>1.55 (Per nephrology, baseline is mid 1s) Monitor renal function Avoid Nephrotoxic agents as able Appreciate Nephrology Input Received IV fluids Continue diet Encourage increased oral fluid intake Avoid sugary beverages. 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 Reports feeling better day by day Reports weakness, slowly improving. Denies nausea, abd pain Denies chest pain, shortness of breath Reports mild cough occasionally today Denied dysuria, frequency or hematuria Physical Exam Constitutional: + well hydrated; no acute distress Eyes: PERRL, conjunctivae normal, anicteric sclerae ENMT: external ear and nose normal, oropharynx normal Respiratory: normal respiratory effort, lungs clear to auscultation Cardiovascular: Rate/Rhythm: regular rate and regular rhythm S1 S2 Gastrointestinal (Abdomen): normal bowel sounds, soft, nontender, no hepatosplenomegaly Musculoskeletal: no cyanosis or clubbing, extremities motor strength 5/5 Neurologic: PERRL, EOMI, accommodation nl, no face palsy, no dysarthria Psychiatric: A+Ox3, euthymic affect Results & Data Results & Data ([facility]) Vital Signs (Past 12 Hours) Vital Signs Temp Pulse Resp BP BP Pulse Ox 01/03/22 08:19 36.3 C L 61 18 143/90 H 97 01/03/22 00:27 36.4 C L 62 18 134/84 94 Laboratory Results Abnormal lab results 01/03/22 01/03/22 Range/Units 07:23 07:23 RBC 4.63 L (4.7-6.1) M/uL Hgb 13.1 L (14.0-18.0) g/dL Hct 38.4 L (42-52) % Sodium 135 L (136-145) mmol/L Creatinine 1.58 H (0.6-1.4) mg/dl Glucose 111 H (70-99(Fasting)) mg/dl (1) Pneumonia Laterality: left Lung location: unspecified part of lung Pneumonia type: due to unspecified organism Qualified Code(s): J18.9 - Pneumonia, unspecified organism
[2022-01-03] MEDS: ERTAPENEM SODIUM 1,000 MG in SYRINGE 0 ML IV SCH (16:47)
[2022-01-03] MEDS: MELATONIN 3 MG TAB PO SCH (21:05)
[2022-01-03] MEDS: MONTELUKAST SODIUM 10 MG TABLET PO SCH (21:05)
[2022-01-04] MEDS: oxyCODONE/ACETAMINOPHEN 5mg/325mg TAB PO PRN ×2 (07:32→14:27)
[2022-01-04] MEDS: ESCITALOPRAM OXALATE 20 MG TAB PO SCH (09:57)
[2022-01-04] MEDS: MAGNESIUM CHLORIDE 64MG DELAYED REL TAB PO SCH (09:58)
[2022-01-04] MEDS: MYCOPHENOLATE SODIUM 180 MG TAB PO SCH (09:58)
[2022-01-04] MEDS: CALCIUM 600MG + VIT D 400 IU TAB PO SCH (09:58)
[2022-01-04] MEDS: predniSONE 5 MG TAB PO SCH (09:58)
[2022-01-04] MEDS: CHOLECALCIFEROL 5,000 UNITS 125 MCG TAB PO SCH (09:58)
[2022-01-04] MEDS: DOCUSATE SODIUM/SENNA 50/8.6MG TAB PO SCH (09:58)
[2022-01-04] MEDS: TACROLIMUS 1 MG CAP PO SCH (09:58)
[2022-01-04] MEDS: PANTOprazole 40 MG TAB PO SCH (09:58)
[2022-01-04] MEDS: ENOXAPARIN INJ 30 MG/0.3 ML SYR SQ SCH (09:59)
--- NOTE | 2022-01-04 13:36 | Discharge Summary ---
Date of Service January 04, 2022 Admission HPI Per Admitting Provider This is a 36 y/o male with a PMH of cystic fibrosis s/p bilateral lung transplant in 2017, now on chronic immunosuppression, nephrolithiasis with hx of multiple ureteral stents and hydronephrosis, asthma, GERD, depression, and exocrine pancreatic insufficiency who presents to the ED today with worsening N/V. Pt was seen in the ED on 12/23 with cough and respiratory symptoms - diagnosed with pneumonia and started on two week course of Cipro. Urine culture also collected that day and came back with E. coli ESBL - fosfomycin was called in which pt reports that he picked up and took two days ago. The respiratory sy mptoms have been improving but pt has noted worsening nausea and dry heaves over the past two days, but especially last night. His appetite has been decreased with minimal oral intake. He has also noted throbbing pain in his right back, similar to prior episodes of nephrolithiasis. He was scheduled for an outpatient CT on Friday but canceled it because of not feeling well. He has noted some urinary urgency but only urinating small amounts. Has not yet urinated today. Denies chest pain, shortness of breath, fevers, chills, diarrhea, hematochezia, hematuria, dysuria, or peripheral edema. Pt follows with Dr. Her for urology with most recent visit two weeks ago. Admission Exam Per Admitting Provider Constitutional: + thin; no acute distress Eyes: + anicteric sclerae ENMT: external ear and nose normal, oropharynx normal Neck: trachea midline Respiratory: no respiratory distress and no labored breathing Auscultation: + wheezes (faint bilaterally); no rales and no rhonchi Cardiovascular: Rate/Rhythm: regular rate and regular rhythm Vessels: dorsalis pedis pulses present and radial pulses present Extremities: no edema Gastrointestinal (Abdomen): Inspection/Auscultation: normal bowel sounds; abdomen not distended Percussion/Palpation: abdomen soft Musculoskeletal: Head/Neck/Chest: normocephalic, head atraumatic and neck supple Skin: no jaundice Neurologic: moves all extremities; no focal motor deficits Psychiatric: Orientation: alert and oriented x 3 Principal Diagnosis Acute kidney injury ESBL E. coli Urinary tract infection Discharge Exam Constitutional + well hydrated; no acute distress Eyes PERRL, conjunctivae normal, anicteric sclerae ENMT external ear and nose normal, oropharynx normal Respiratory normal respiratory effort, lungs clear to auscultation Cardiovascular Rate/Rhythm: regular rate and regular rhythm S1 S2 Gastrointestinal (Abdomen) normal bowel sounds, soft, nontender, no hepatosplenomegaly Musculoskeletal no cyanosis or clubbing, extremities motor strength 5/5 Neurologic PERRL, EOMI, accommodation nl, no face palsy, no dysarthria Psychiatric A+Ox3, euthymic affect Discharge Data Allergies Allergy/AdvReac Type Severity Reaction Status Date / Time cephalexin Allergy Severe Hives Verified 12/27/21 09:40 tetracycline AdvReac Severe vomiting Verified 12/27/21 09:40 naproxen AdvReac Mild Stomach Verified 12/27/21 09:40 bleeding midazolam [From Versed] AdvReac Unknown "SLOW TO Verified 12/27/21 09:40 WAKE UP" Consultations 12/27/21 10:42 ED Decision to Admit Stat 12/27/21 16:44 Consult Nephrology Routine Ordered Studies 12/27/21 11:08 CT abd pelvis wo con Stat No significant abnormality identified within visualized portions of the transplanted lungs. A moderate sized hiatal hernia is noted. This was shown on prior exam. No pneumatosis, free air or portal venous gas is present. There is no hydronephrosis. Punctate left renal calculus is present. No ureteral calculi are present. A 1.1 cm hypodense lesion within the midpole the right kidney is suboptimally assessed on this unenhanced exam but likely reflects a cyst. Focal fat along the falciform ligament is noted. There is no biliary ductal dilatation status post cholecystectomy. Fatty replacement of the pancreas is noted. The spleen and adrenal glands are unremarkable. No evidence for a bowel obstruction. The appendix is not visualized but there is no right lower quadrant inflammation. No enlarged abdominal or pelvic lymph nodes are present. Mild compression fracture of the superior endplate of L1 is unchanged since CT of April 05, 2021. No acute lumbar spine fracture is present. IMPRESSION: 1. Punctate left renal calculus. No ureteral calculi or hydronephrosis. 2. No acute process within the abdomen or pelvis on unenhanced exam. 3. No bowel obstruction. 4. No acute lumbar spine fracture. No change in a mild L1 compression deformity since prior CT. Hospital Course (1) HEIDY (acute kidney injury): Patient had recent pneumonia, presented with worsening nausea, heaves, poor appetite and oral intake Found to have HEIDY Also grew ESBL E.coli on UTI Acute Kidney Injury Likely Prerenal Hyponatremia. -CT ABD:Punctate left renal calculus. No ureteral calculi or hydronephrosis. No acute process within the abdomen or pelvis on unenhanced exam. No bowel obstruction. No acute lumbar spine fracture. No change in a mild L1 compression deformity since prior CT. -Cr: 2.6>2.0>1.9> 1.8>1.5>1.4>1.55 ( baseline is mid 1s) Got some IVF Was comanaged with the continuous improvement lead Encourage increased oral fluid intake Avoid sugary beverages. 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: HbA1C: 5.7 (5) GERD (gastroesophageal reflux disease): Continue Pantoprazole (6) S/P lung transplant: Continue Tacrolimus, CellCept (7) Exocrine pancreatic insufficiency: Continue supplements (8) Chronic anemia: (9) Depressed mood: (10) Anxiety: (11) Asthma: No signs of Exacerbation (12) Cystic fibrosis: Total Time Total Time Spent Total Time Spent (In Minutes): 45 Total Time Includes: Examination of the Patient, Discharge Planning and Medication Reconciliation Discharge Plan Discharge Items Patient Disposition: Home - Self-Care Reason For Visit: Worsening nausea Discharge Diagnosis: Acute kidney injury ESBL E. coli Urinary tract infection Activity: Resume your previous activity Non-emergency contact: Primary Care Provider Call non-emergency contact if: you have any medication questions and your symptoms worsen Follow-up/Referrals: Amador Sandy MD [Primary Care Provider] - (Date & Time 01/08/2022 2:40 PM Provider Amador Sandy MD Department [facility] ) Diet: Regular Addtl Attending Provider Instructions: Mr Watkins. You came to the hospital complaining of nausea and dry heaves that are worsening. You were evaluated and managed for urinary tract infection and acute kidney injury. You completed treatment for these. It is important that you improve your food and fluid intake. Take at least 2L of fluid per day. Avoid sugary drinks. Please continue your medications and follow up with your Primary Doctor Pending Studies at Discharge: No Stand-Alone Forms: My [facility], Smoking Cessation Medications and DC Order Prescriptions: Continued prednisone 5 mg Tablet 5 mg PO QAM RF: 0 pantoprazole [Protonix] 40 mg Tablet,Delayed Release (Dr/Ec) 40 mg PO QAM RF: 0 Zenpep 25,000-79,000- 105,000 unit capsule,delayed release(DR/EC) 6 cap PO TIDM RF: 0 Zenpep 25,000-79,000- 105,000 unit capsule,delayed release(DR/EC) 3 cap PO .PRIOR TO SNACKS RF: 0 tacrolimus [Prograf] 5 mg capsule 10 mg PO BID RF: 0 hydroxyzine HCl 25 mg Tablet 25 mg PO Q6H PRN (Reason: Anxiety) RF: 0 acetaminophen [Tylenol Extra Strength] 500 mg Tablet 1,000 mg PO Q6H PRN (Reason: Pain) RF: 0 montelukast 10 mg Tablet 10 mg PO HS RF: 0 escitalopram oxalate 20 mg tablet 20 mg PO DAILY RF: 0 mycophenolate sodium [Myfortic] 360 mg Tablet,Delayed Release (Dr/Ec) 720 mg PO BID RF: 0 calcium carbonate-vitamin D3 600 mg(1,500mg) -200 unit Tablet 1 tab PO QAM RF: 0 ferrous sulfate 325 mg (65 mg iron) Tablet 325 mg PO DAILY RF: 0 cholecalciferol (vitamin D3) [Vitamin D3] 125 mcg (5,000 unit) Tablet 125 mcg PO QAM RF: 0 Discontinued ciprofloxacin HCl 750 mg tablet 750 mg PO BID 14 Days Qty: 28 RF: 0 Discharge Orders: Discharge Order (Routine); Ordered 01/04/22 Ordered By: Katie Aguero/Other Patient Handouts: Anatomy of the Male Urinary Tract, Healthy Kidneys, Exercise to Help Your Kidneys, How Your Kidneys Work Admission Data Admit Date/Time: 12/27/21 10:57 Attending Provider: Katie Marie I. Admit Provider: Niles Ramirez Primary Care Provider: Amador Sandy Other Providers: Niles Ramirez ; Emigdio Mercer Other Interventions: Discharge Summary Assessment (RN) Last Done: 01/04/22 14:38
[2022-01-04] MEDS: ERTAPENEM SODIUM 1,000 MG in SYRINGE 0 ML IV SCH (14:27)
== END 2022-01-04 16:05 | disposition home or self-care (01) | DRG 682 ==
LOC: ED 08:46 → 3W 10:57 → SUATTDRO 10:57 → 3W 16:32

== ENCOUNTER 2022-09-02 13:34 | Inpatient (IN) ==
[2022-09-02] MEDS ORDERED: LORazepam 1 MG TAB PO STA (14:44)
[2022-09-02] MEDS ORDERED: ONDANSETRON INJ 2 MG/ML 2 ML VIAL IV STA (14:44)
[2022-09-02] MEDS ORDERED: CEFEPIME 2,000 MG/20 ML VIAL IV STA (14:44)
[2022-09-02] MEDS ORDERED: SODIUM CHLORIDE 0.9% 1000ML 500 ML IV SCH (14:45)
--- NOTE | 2022-09-02 14:56 | Emergency Department Note ---
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 scarring/atelectasis. No pneumothorax is seen. The bony thorax is grossly intact. Supine and erect abdominal radiographs are correlated with abdominal CT dated 12/27/2021. There is a nonobstructed abdominal bowel gas pattern. No evidence of intraperitoneal free air is seen. Mild fecal retention is present throughout the colon. There are no abnormal abdominal calcifications. The lumbosacral spine and bony pelvis appear intact. Cholecystectomy clips are seen in the right upper quadrant. IMPRESSION: 1. Postsurgical change as above with no active disease in the chest. 2. Nonobstructed abdominal bowel gas pattern. ACT 112: Negative or not required by law. Electronically signed by: Walter Ga M.D. 09/02/2022 4:28 PM Discharge Plan Visit Data Chief Complaint: Nausea ED Provider: Walter Ferguson Discharge Problem: SOB (shortness of breath), Influenza A, Immunocompromised, Acute hyponatremia, Hypomagnesemia, Hypocalcemia Patient Disposition: Admitted As Inpatient Condition: Fair Discharge Instructions Interventions: ED Discharge Assessment Last Done: 09/02/22 22:05
[2022-09-02 15:35] LABS: Basophils # (auto) 0.02 K/uL (0-0.2); Basophils % (auto) 0.1 %; Hematocrit (blood only) 34.6 % (40.1-51.0); Hemoglobin 12.7 g/dl (14.0-18.0); Immature Granulocytes # (auto) 0.19 K/uL (0.00-0.02); Lymphocytes # (auto) 1.75 K/uL (1.2-3.4); Lymphocytes % (auto) 8.9 %; Mean Corpuscular Hemoglobin 30.9 pg (25.0-34.0); Mean Corpuscular Hgb Conc 36.7 g/dL (32.0-36.0); Mean Corpuscular Volume 84.2 fL (80.0-100.0); Mean Platelet Volume 10.3 fL (9.4-12.4); Monocytes % (auto) 4.6 %; Neutrophils # (auto) 16.86 K/uL (1.4-6.5); Neutrophils % (auto) 85.4 %; Platelet Count 175 K/uL (130-400); RDW Coefficient of Variation 12.6 % (11.5-14.5); RDW Standard Deviation 38.3 fL (36.4-46.3); Red Blood Count 4.11 M/uL (4.63-6.08); White Blood Count 19.72 K/ul (4.8-10.8)
[2022-09-02 15:37] LABS: Acetaminophen 13 ug/ml (10-30); Salicylate < 3.0 mg/dl (3.0-30)
[2022-09-02 16:22] LABS: Adenovirus PCR Not Detected (NotDetected); Bordetella parapertussis PCR Not Detected (NotDetected); Bordetella pertussis PCR Not Detected (NotDetected); Chlamydia pneumoniae PCR Not Detected (NotDetected); Coronavirus 229E PCR Not Detected (NotDetected); Coronavirus CoV-2 (COVID19)PCR Not Detected (NotDetected); Coronavirus HKU1 PCR Not Detected (NotDetected); Coronavirus NL63 PCR Not Detected (NotDetected); Coronavirus OC43PCR Not Detected (NotDetected); Human Metapneumovirus PCR Not Detected (NotDetected); Influenza B PCR Not Detected (NotDetected); Mycoplasma pneumoniae PCR Not Detected (NotDetected); Parainfluenza Virus 1 PCR Not Detected (NotDetected); Parainfluenza Virus 2 PCR Not Detected (NotDetected); Parainfluenza Virus 3 PCR Not Detected (NotDetected); Parainfluenza Virus 4 PCR Not Detected (NotDetected); Respiratory Syncytial VirusPCR Not Detected (NotDetected); Rhinovirus/Enterovirus PCR Not Detected (NotDetected)
--- NOTE | 2022-09-02 16:30 | XRay Report ---
PA CHEST WITH ABDOMINAL SERIES CLINICAL HISTORY: Nausea and vomiting. History of lung transplant. FINDINGS: A PA chest radiograph is compared to study dated 06/05/2022 and correlated with chest CT dated 06/03/20. A left subclavian central venous infusion port is unchanged in position. The patient is status po st midline sternotomy. Surgical clips are seen throughout the mediastinum. Surgical clips also projec t over the apices. The cardiomediastinal silhouette is unremarkable. The lungs and pleural spaces are clear noting mild bibasilar scarring/atelectasis. No pneumothorax is seen. The bony thorax is grossl y intact. Supine and erect abdominal radiographs are correlated with abdominal CT dated 12/27/2021. There is a no nobstructed abdominal bowel gas pattern. No evidence of intraperitoneal free air is seen. Mild fecal retention is present throughout the colon. There are no abnormal abdominal calcifications. The lumbos acral spine and bony pelvis appear intact. Cholecystectomy clips are seen in the right upper quadrant . IMPRESSION: 1. Postsurgical change as above with no active disease in the chest. 2. Nonobstructed abdominal bowel gas pattern. ACT 112: Negative or not required by law. Electronically signed by: Walter Ga M.D. 09/02/2022 4:28 PM
[2022-09-02] MEDS ORDERED: ACETAMINOPHEN 500 MG TAB PO STA (16:37)
[2022-09-02 16:38] LABS: Influenza A (H3) PCR DETECTED (NotDetected)
[2022-09-02 16:40] LABS: Troponin I High Sensitivity 8.9 pg/ml (0-20)
[2022-09-02 16:42] LABS: Albumin Level 2.7 gm/dl (3.4-5.0); BUN Creatinine Ratio 12.1 (10-20); Bilirubin Direct 0.2 mg/dl (0-0.2); Bilirubin,Total 0.6 mg/dl (0.2-1.0); Calcium 7.2 mg/dl (8.5-10.1); Creatinine Clr Calc Pharmacy 33.4 ml/min; Est GFR (African American) 53.8 ml/min; Est GFR (Non-African American) 46.4 ml/min; Total Protein 5.6 gm/dl (6.0-8.3)
[2022-09-02] MEDS ORDERED: CALCIUM GLUCONATE 1,000 MG/60 ML BAG IV STA (16:56)
[2022-09-02] MEDS ORDERED: OSELTAMIVIR PHOSPHATE 75 MG CAP PO STA (16:56)
[2022-09-02] MEDS ORDERED: SODIUM CHLORIDE 0.9% 1000ML 500 ML IV ONE (16:57)
[2022-09-02] MEDS ORDERED: MAGNESIUM SULFATE / D5W 1 GM/100 ML BAG IV STA (17:12)
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
[2022-09-02] MEDS ORDERED: ONDANSETRON INJ 2 MG/ML 2 ML VIAL IV PRN (19:15)
[2022-09-02 20:20] LABS: BUN Creatinine Ratio 12.6 (10-20); Calcium 7.4 mg/dl (8.5-10.1); Creatinine Clr Calc Pharmacy 33.2 ml/min; Est GFR (African American) 53.4 ml/min; Est GFR (Non-African American) 46.1 ml/min; Potassium 4.6 mmol/L (3.5-5.1)
[2022-09-02 22:16] LABS: Appearance Urine Cloudy (Clear); Bacteria Urine Automated 1+ (Negative); Bilirubin Urine Negative (Negative); Blood Urine Negative (Negative); Color Urine Yellow; Epithelial Cell Urine Auto >30 /lpf (0-5); Glucose Urine UA Negative (Negative); Ketones Urine 1+ (Negative); Leukocyte Esterase Urine 1+ (Negative); Nitrite Urine Positive (Negative); Protein Urine Negative (Negative); RBC Urine Automated 0-4 /hpf (0-4); Specific Gravity Urine 1.019 (1.000-1.030); Urobilinogen Urine Negative (Negative); WBC Urine Automated >30 /hpf (0-5)
[2022-09-02] MEDS ORDERED: SODIUM CHLORIDE 0.9% 1000ML 1,000 ML IV ONE (22:22)
[2022-09-02] MEDS ORDERED: POLYETHYLENE (MIRALAX) 17 GM PACK PO PRN (22:22)
[2022-09-02] MEDS: oxyCODONE HCL IR 5 MG TAB (IMMEDIATE RELEASE) PO PRN (22:44)
[2022-09-02] MEDS: LORazepam 0.5 MG TAB PO PRN (22:44)
[2022-09-02 22:57] LABS: Amphetamines+Metham, Urine Neg (Neg); Barbiturates, Urine Neg (Neg); Benzodiazepine, Urine Neg (Neg); Cocaine, Urine Neg (Neg); MDMA (Ecstacy), Urine Neg (Neg); Methadone, Urine Neg (Neg); Opiate, Urine Neg (Neg); Phencyclidine, Urine Neg (Neg)
[2022-09-02] MEDS: ERTAPENEM SODIUM 1,000 MG in SYRINGE 0 ML IV SCH (23:29)
[2022-09-02] MEDS: MAGNESIUM SULFATE / D5W 1 GM/100 ML BAG IV SCH (23:38)
[2022-09-03] MEDS: HEPARIN SOD 5,000 UNIT/0.5 ML VIAL SQ SCH ×3 (00:26→22:00)
[2022-09-03] MEDS: ARIPIprazole 1 MG/ML ORAL SOLN 150 ML BTL PO SCH ×2 (00:26→22:00)
[2022-09-03] MEDS: MYCOPHENOLATE SODIUM 180 MG TAB PO SCH ×3 (00:27→22:01)
[2022-09-03] MEDS: TACROLIMUS 1 MG CAP PO SCH ×3 (00:27→22:01)
[2022-09-03] MEDS: MONTELUKAST SODIUM 10 MG TABLET PO SCH ×2 (00:27→22:01)
[2022-09-03] MEDS: PROMETHAZINE HCL 6.25 MG in SODIUM CHLORIDE 0.9% 50 ML IV PRN ×2 (00:32→16:00)
[2022-09-03] MEDS: MAGNESIUM SULFATE / D5W 1 GM/100 ML BAG IV SCH ×2 (01:35→03:35)
[2022-09-03] MEDS ORDERED: PROCHLORPERAZINE 5 MG in SYRINGE 4 ML IV ONE (05:15)
[2022-09-03 07:01] LABS: Basophils # (auto) 0.02 K/uL (0-0.2); Basophils % (auto) 0.2 %; Eosinophils # (auto) 0.01 K/uL (0-0.50); Eosinophils % (auto) 0.1 %; Hematocrit (blood only) 33.9 % (40.1-51.0); Immature Granulocytes # (auto) 0.15 K/uL (0.00-0.02); Immature Granulocytes % (auto) 1.2 %; Lymphocytes # (auto) 2.32 K/uL (1.2-3.4); Lymphocytes % (auto) 18.9 %; Mean Corpuscular Hemoglobin 30.7 pg (25.0-34.0); Mean Corpuscular Hgb Conc 35.4 g/dL (32.0-36.0); Mean Corpuscular Volume 86.7 fL (80.0-100.0); Mean Platelet Volume 10.7 fL (9.4-12.4); Monocytes # (auto) 0.67 K/uL (0.24-0.82); Monocytes % (auto) 5.5 %; Neutrophils # (auto) 9.12 K/uL (1.4-6.5); Neutrophils % (auto) 74.1 %; Platelet Count 198 K/uL (130-400); RDW Coefficient of Variation 12.7 % (11.5-14.5); Red Blood Count 3.91 M/uL (4.63-6.08); White Blood Count 12.29 K/ul (4.8-10.8)
[2022-09-03 07:26] LABS: BUN Creatinine Ratio 13.9 (10-20); Calcium 6.9 mg/dl (8.5-10.1); Est GFR (African American) 57.2 ml/min; Est GFR (Non-African American) 49.3 ml/min; Magnesium 2.6 mg/dl (1.7-2.4); Potassium 4.2 mmol/L (3.5-5.1)
--- NOTE | 2022-09-03 07:57 | Electrocardiogram Report ---
Test Reason : Blood Pressure : / mmHG Vent. Rate : 061 BPM Atrial Rate : 061 BPM P-R Int : 110 ms QRS Dur : 082 ms QT Int : 454 ms P-R-T Axes : -26 071 092 degrees QTc Int : 457 ms Poor data quality, interpretation may be adversely affected Sinus rhythm with short NJ Diffuse Minor Nonspecific T wave abnormality Abnormal ECG When compared with ECG of 27-DEC-2021 09:40, No significant change was found Confirmed by Homar Rodriguez ([id number]) on 09/03/2022 7:57:39 AM Referred By: REFERRED SELF Confirmed By:Homar Rodriguez
[2022-09-03 07:58] LABS: Estimated Average Glucose 114 mg/dl; Hemoglobin A1C 5.6 % (4.5-5.6)
[2022-09-03] MEDS ORDERED: ESCITALOPRAM OXALATE 20 MG TAB PO SCH (09:00)
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
[2022-09-03] MEDS: PANCREAZE (LIPASE 10,500U) CAP PO SCH ×3 (10:18→16:00)
[2022-09-03] MEDS: PANTOprazole 40 MG TAB PO SCH (10:18)
[2022-09-03] MEDS: predniSONE 5 MG TAB PO SCH (10:19)
[2022-09-03] MEDS: LORazepam 0.5 MG TAB PO PRN ×2 (10:22→16:09)
[2022-09-03] MEDS: OSELTAMIVIR PHOSPHATE SUSP 30 MG/5 ML UDP PO SCH ×2 (10:22→22:01)
--- NOTE | 2022-09-03 12:43 | Hospitalist Progress Note ---
Date of Service September 03, 2022 Assessment & Plan (1) Influenza A: Plan: Present on admission nausea, vomiting and worsening cough with greenish expectoration since 2 days duration. CXR/ABD X ray:Postsurgical change as above with no active disease in the chest. Nonobstructed abdominal bowel gas pattern. Biofire on admission positive for influenza A He was started on Tamiflu, will continue to complete 5 days course Will advance diet as tolerated Saturating well on room air Continue monitor closely Acute on chronic hyponatremia Sodium levels 122 on presentation Likely dehydration secondary to nausea and vomiting Continue gentle IVF Na 126 today nephrology on board Continue monitor BMP HEIDY on CKD stage III Metabolic acidosis Baseline creatinine ~1s Likely prerenal Creatinine 1.8 on admission Continue IVF Avoid nephrotoxic agents as able Creatinine 1.7 today Nephrology on board Continue monitor BMP Leukocytosis Immunocompromise state On chronic prednisone WBC on admission 19K, then improved to 12K Urine cx pending Blood cx did not collect on admission Normal lactate and procalcitonin levels Continue abx with Ertapenem for now Will d/c IV ertapenem if urine cx negative Hypomagnesemia Mg on admission 1 Mg normalized today 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 Last HbA1c 5.7 Stable GERD Continue Pantoprazole H/O Cystic Fibrosis S/P lung transplant: Continue Tacrolimus, CellCept Exocrine pancreatic insufficiency: Continue supplements Mood disorder Continue home medications next Severe protein calorie malnutrition BMI 17 Counseling to increase protein/calories intake DVT Px: Heparin SQ Code Status Full Code Admission and Anticipated Discharge Date Admission Date: September 02, 2022 Subjective Pt was seen and examined Lying in bed with no acute distress Pt said that he feels tired Denies any chest pain, palpitation, dizziness and SOB Review of Systems Review of Systems: All systems reviewed & are unremarkable except as noted in Subjective Physical Exam Physical Exam: General- No acute distress Head- atraumatic Eyes- PERRL, EOMI, ENT- oropharynx clear Neck- supple, no JVD Lungs- clear to auscultation Heart- regular rhythm; no murmur Abdomen- normal bowel sounds, soft, nontender Extremities- no calf tenderness Neuro- alert, oriented x 3; PERRL, EOMI; no facial palsy; no dysarthria Skin- warm & dry Results & Data Results & Data ([facility]) Vital Signs (Past 12 Hours) Vital Signs Temp Pulse Resp BP Pulse Ox O2 Del Method 09/03/22 10:30 36.6 C 60 18 133/93 96 Room Air 09/03/22 08:18 36.6 C 59 L 20 145/60 H 98 Room Air 09/03/22 02:55 36.5 C 58 L 15 121/71 96 Room Air
[2022-09-03 12:52] LABS: BUN Creatinine Ratio 14.2 (10-20); Calcium 7.1 mg/dl (8.5-10.1); Creatinine Clr Calc Pharmacy 38.4 ml/min; Est GFR (African American) 61.9 ml/min; Est GFR (Non-African American) 53.4 ml/min; Magnesium 2.4 mg/dl (1.7-2.4)
--- NOTE | 2022-09-03 13:21 | Communication Note ---
Date of Service: September 03, [address] by Dr. Cespedes with reason as "patient request". Psych liason met with patient this morning and he noted he recently stopped his escitalopram and his mood has improved since this change, still takes abilify and follows with Gerry MONTESINOS at [facility] for psychiatry. He is not interested in talking to me today, said he'll reconsider tomorrow so will re-attempt consult then. A/P: Will discontinue ordered escitalopram as he recently stopped this and it could potentiate hyponatremia. Agree with Vistaril and ativan prn as ordered to help with anxiety.
[2022-09-03] MEDS: SODIUM CHLORIDE 0.9% 1000ML 1,000 ML IV SCH (19:28)
[2022-09-03] MEDS: oxyCODONE HCL IR 5 MG TAB (IMMEDIATE RELEASE) PO PRN (19:32)
[2022-09-03] MEDS: ERTAPENEM SODIUM 1,000 MG in SYRINGE 0 ML IV SCH (22:02)
[2022-09-04] MEDS: oxyCODONE HCL IR 5 MG TAB (IMMEDIATE RELEASE) PO PRN ×3 (01:42→19:33)
[2022-09-04] MEDS: LORazepam 0.5 MG TAB PO PRN ×2 (04:09→22:15)
[2022-09-04 06:36] LABS: Basophils # (auto) 0.02 K/uL (0-0.2); Basophils % (auto) 0.2 %; Eosinophils # (auto) 0.02 K/uL (0-0.50); Eosinophils % (auto) 0.2 %; Hematocrit (blood only) 32.3 % (40.1-51.0); Hemoglobin 11.3 g/dl (14.0-18.0); Immature Granulocytes # (auto) 0.17 K/uL (0.00-0.02); Immature Granulocytes % (auto) 1.5 %; Lymphocytes # (auto) 2.67 K/uL (1.2-3.4); Mean Corpuscular Hemoglobin 30.5 pg (25.0-34.0); Mean Corpuscular Volume 87.3 fL (80.0-100.0); Mean Platelet Volume 10.3 fL (9.4-12.4); Monocytes # (auto) 0.72 K/uL (0.24-0.82); Monocytes % (auto) 6.5 %; Neutrophils # (auto) 7.51 K/uL (1.4-6.5); Neutrophils % (auto) 67.6 %; Platelet Count 230 K/uL (130-400); RDW Standard Deviation 41.3 fL (36.4-46.3); White Blood Count 11.11 K/ul (4.8-10.8)
[2022-09-04 07:07] LABS: BUN Creatinine Ratio 14.8 (10-20); Calcium 6.5 mg/dl (8.5-10.1); Creatinine Clr Calc Pharmacy 41.5 ml/min; Est GFR (African American) 68.5 ml/min; Est GFR (Non-African American) 59.1 ml/min; Potassium 3.8 mmol/L (3.5-5.1)
[2022-09-04] MEDS: PANCREAZE (LIPASE 10,500U) CAP PO SCH ×3 (07:42→16:48)
[2022-09-04] MEDS: SODIUM CHLORIDE 0.9% 1000ML 1,000 ML IV SCH (07:47)
[2022-09-04] MEDS: TACROLIMUS 1 MG CAP PO SCH ×2 (08:25→22:13)
[2022-09-04] MEDS: PANTOprazole 40 MG TAB PO SCH ×2 (08:26→10:04)
[2022-09-04] MEDS: predniSONE 5 MG TAB PO SCH (08:26)
[2022-09-04] MEDS: HEPARIN SOD 5,000 UNIT/0.5 ML VIAL SQ SCH ×2 (08:27→22:12)
[2022-09-04] MEDS: OSELTAMIVIR PHOSPHATE SUSP 30 MG/5 ML UDP PO SCH ×2 (08:31→22:13)
[2022-09-04] MEDS: MYCOPHENOLATE SODIUM 180 MG TAB PO SCH ×2 (10:05→22:13)
--- NOTE | 2022-09-04 11:13 | Nephrology Progress Note ---
Date of Service September 04, 2022 Assessment & Plan (1) Electrolyte and fluid disorder: Plan: Admitted 09/02 1500 w/ sNa 122, mag 1.0, calcium 7.2, albumin 2.7. This AM sNa 131, mag 2.0, Ca 6.5. Hypovolemic hypotonic hyponatremia > goal sNa is wnl tomorrow am -changed NS to 1/2 NS w/ 75 mEq/L sodium bicarb and 20 mEq/L K at 80 ml/hr -maintain eukalemia -recent stopping of escitalopram is not driving improvement in low Na; would not avoid this psych med moving forward on this account alone Hypocalcemia and hypomagnesemia w/ labile values since admission calcium further dropping again today and D stores low, PTH inappropriately low; mag dropping as well but still wnl today -resume D3 5000 units/day > may need calcitriol ultimately but start here -resume calcium supplements but higher dose > oscal 1250 mg bid w/ 500 mg elemental Ca/tab -started mag - ox 400 mg/daily >>trying to balance pt already poor po w/ need for these supplements >>recommend dog behaviorist/nutrition consult +/- calorie count re malnutrition if pt agrees (2) CKD (chronic kidney disease) stage 3, GFR 30-59 ml/min: Plan: renal function at baseline and likely worse than eGFR suggests given his malnurition >avoid IV contrast and other nephrotoxins >recommend OP nephro f/u Admission and Anticipated Discharge Date Admission Date: September 02, 2022 Subjective psych c/s per pt request but then pt declined to see yesterday > to reattempt today. remains tired, denies worse cough or sob Review of Systems Review of Systems: All systems reviewed & are unremarkable except as noted in Subjective Physical Exam Constitutional: well developed, well nourished, + cachectic and + frail appearing; no acute distress and + uncooperative Eyes: EOM intact bilaterally ENMT: Ears: no external ear abnormality Nose: no external nose abnormality Mouth: + dry oral mucous membranes Neck: no nuchal rigidity Respiratory: normal respiratory effort Auscultation: + diminished lung sounds Cardiovascular: Rate/Rhythm: regular rate and regular rhythm Extremities: no edema Gastrointestinal (Abdomen): Inspection/Auscultation: normal bowel sounds Percussion/Palpation: abdomen soft; abdomen nontender Musculoskeletal: Extremities: strength 5/5 throughout Skin: no rashes, warm and dry Psychiatric: Orientation: oriented x 3 Affect: + irritable affect Results & Data ([facility]) Vital Signs (Past 12 Hours) Vital Signs Temp Pulse Pulse Resp BP BP Pulse Ox 09/04/22 08:09 36.5 C 67 18 115/73 99 09/04/22 02:55 36.7 C 76 15 135/84 95 09/04/22 00:04 72 09/03/22 23:08 37.0 C 86 16 122/78 93 O2 Del Method 09/04/22 08:09 Room Air 09/04/22 02:55 Room Air 09/04/22 00:04 09/03/22 23:08 Room Air Laboratory Results 09/04/22 05:52 09/04/22 05:52
[2022-09-04] MEDS: CHOLECALCIFEROL 5,000 UNITS 125 MCG TAB PO SCH (11:40)
[2022-09-04] MEDS: CALCIUM CARBONATE 1250MG TAB PO SCH ×2 (11:40→22:12)
[2022-09-04] MEDS: [UNRECOGNIZED DRUG - OTHER] IV SCH (12:33)
[2022-09-04] MEDS: POTASSIUM CHLORIDE IV SCH (12:33)
[2022-09-04] MEDS: SODIUM BICARBONATE IV SCH (12:33)
[2022-09-04] MEDS: MAGNESIUM OXIDE 400 MG TAB PO SCH (12:33)
--- NOTE | 2022-09-04 15:29 | Communication Note ---
Date of Service: September 04, 2022 Multiple attempts made by psych kylie and myself to connect with patient for telemedicine call and unable to connect. Will re-attempt tomorrow to see if he is interested in talking with me.
--- NOTE | 2022-09-04 16:14 | Hospitalist Progress Note ---
Date of Service September 04, 2022 Assessment & Plan (1) Influenza A: Plan: Present on admission nausea, vomiting and worsening cough with greenish expectoration since 2 days duration. CXR/ABD X ray:Postsurgical change as above with no active disease in the chest. Nonobstructed abdominal bowel gas pattern. Biofire on admission positive for influenza A He was started on Tamiflu, Continue to complete 5 days course Advance diet as tolerated Saturating well on room air Continue monitor closely Acute on chronic hyponatremia Sodium levels 122 on presentation Likely dehydration secondary to nausea and vomiting Continue gentle IVF Na 131 today nephrology on board Continue monitor BMP HEIDY on CKD stage III Metabolic acidosis Baseline creatinine ~1s Likely prerenal Creatinine 1.8 on admission Continue IVF Avoid nephrotoxic agents as able Creatinine 1.49 today Nephrology on board Continue monitor BMP Leukocytosis Immunocompromise state On chronic prednisone WBC on admission 19K, then improved to 11K today Urine cx grew Ecoli Blood cx did not collect on admission Normal lactate and procalcitonin levels Continue abx with Ertapenem for now Will follow urine sensitivity Hypomagnesemia Mg on admission 1 Mg normalized resoved 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 Blake Pt was supposed to take Mycophenolate 720mg BID ( that was started back in November) But due to the positive influenza, the transplant team recommended to decrease the mycophenolate to 360mg BID for now Pt will need to follow with transplant team in 7-10 days to adjust the Mycophenolate Exocrine pancreatic insufficiency: Continue supplements Mood disorder Continue home medications next Severe protein calorie malnutrition BMI 17 Counseling to increase protein/calories intake DVT Px: Heparin SQ Code Status Full Code Admission and Anticipated Discharge Date Admission Date: September 02, 2022 Subjective Pt was seen and examined for follow up Lying in bed with no acute distress Pt said that he feels ok Pt was concerned about mycophenolate dose. He said that he takes 360mg BID, but med rec showed 720mg BID I called his transplant team this morning to verify the mycophenolate dose Alexa the nurse from transpant confirmed with Dr. Blake Pt was supposed to take Mycophenolate 720mg BID. But due to the positive influenza, the transplant team recommended to decrease the mycophenolate to 360mg BID for now Pt will need to follow with transplant team in 7-10 days Denies any chest pain, palpitation, dizziness and SOB Review of Systems Review of Systems: All systems reviewed & are unremarkable except as noted in Subjective Physical Exam Physical Exam: General- No acute distress Head- atraumatic Eyes- PERRL, EOMI, ENT- oropharynx clear Neck- supple, no JVD Lungs- clear to auscultation Heart- regular rhythm; no murmur Abdomen- normal bowel sounds, soft, nontender Extremities- no calf tenderness Neuro- alert, oriented x 3; PERRL, EOMI; no facial palsy; no dysarthria Skin- warm & dry Results & Data Results & Data ([facility]) Vital Signs (Past 12 Hours) Vital Signs Temp Pulse Resp BP BP Pulse Ox O2 Del Method 09/04/22 15:04 36.6 C 72 20 132/88 95 Room Air 09/04/22 08:09 36.5 C 67 18 115/73 99 Room Air
[2022-09-04] MEDS: ARIPIprazole 1 MG/ML ORAL SOLN 150 ML BTL PO SCH (22:12)
[2022-09-04] MEDS: MONTELUKAST SODIUM 10 MG TABLET PO SCH (22:13)
[2022-09-05] MEDS: SODIUM BICARBONATE IV SCH (02:30)
[2022-09-05] MEDS: POTASSIUM CHLORIDE IV SCH (02:30)
[2022-09-05] MEDS: [UNRECOGNIZED DRUG - OTHER] IV SCH (02:30)
[2022-09-05 06:15] LABS: Basophils # (auto) 0.03 K/uL (0-0.2); Basophils % (auto) 0.3 %; Eosinophils # (auto) 0.07 K/uL (0-0.50); Eosinophils % (auto) 0.6 %; Hematocrit (blood only) 35.3 % (40.1-51.0); Hemoglobin 12.3 g/dl (14.0-18.0); Immature Granulocytes # (auto) 0.15 K/uL (0.00-0.02); Immature Granulocytes % (auto) 1.3 %; Lymphocytes # (auto) 3.41 K/uL (1.2-3.4); Lymphocytes % (auto) 30.5 %; Mean Corpuscular Hemoglobin 30.7 pg (25.0-34.0); Mean Corpuscular Hgb Conc 34.8 g/dL (32.0-36.0); Mean Platelet Volume 10.2 fL (9.4-12.4); Monocytes % (auto) 6.3 %; Neutrophils # (auto) 6.82 K/uL (1.4-6.5); Platelet Count 246 K/uL (130-400); RDW Coefficient of Variation 13.1 % (11.5-14.5); RDW Standard Deviation 42.2 fL (36.4-46.3); Red Blood Count 4.01 M/uL (4.63-6.08); White Blood Count 11.18 K/ul (4.8-10.8)
[2022-09-05 06:43] LABS: BUN Creatinine Ratio 14.1 (10-20); Calcium 6.7 mg/dl (8.5-10.1); Est GFR (African American) 82.3 ml/min; Magnesium 1.9 mg/dl (1.7-2.4); Phosphorus 2.5 mg/dl (2.5-4.9); Potassium 4.2 mmol/L (3.5-5.1)
[2022-09-05] MEDS: PROMETHAZINE HCL 6.25 MG in SODIUM CHLORIDE 0.9% 50 ML IV PRN ×2 (07:42→15:11)
[2022-09-05] MEDS: oxyCODONE HCL IR 5 MG TAB (IMMEDIATE RELEASE) PO PRN ×2 (07:42→19:35)
[2022-09-05 08:06] LABS: Marijuana Quant, GCMS Urine 161 ng/mL (<5)
[2022-09-05] MEDS: PANTOprazole 40 MG TAB PO SCH (08:20)
[2022-09-05] MEDS: TACROLIMUS 1 MG CAP PO SCH ×2 (08:20→19:36)
[2022-09-05] MEDS: MYCOPHENOLATE SODIUM 180 MG TAB PO SCH ×2 (08:21→19:36)
[2022-09-05] MEDS: hydrOXYzine HCl 25 MG TAB PO PRN (08:21)
[2022-09-05] MEDS: CHOLECALCIFEROL 5,000 UNITS 125 MCG TAB PO SCH (08:23)
[2022-09-05] MEDS: MAGNESIUM OXIDE 400 MG TAB PO SCH (08:23)
[2022-09-05] MEDS: predniSONE 5 MG TAB PO SCH (08:24)
[2022-09-05] MEDS: PANCREAZE (LIPASE 10,500U) CAP PO SCH ×3 (08:25→16:53)
[2022-09-05] MEDS: HEPARIN SOD 5,000 UNIT/0.5 ML VIAL SQ SCH ×2 (08:25→19:44)
--- NOTE | 2022-09-05 09:43 | Nephrology Progress Note ---
Date of Service September 05, 2022 Assessment & Plan (1) Electrolyte and fluid disorder: Plan: Admitted 09/02 1500 w/ sNa 122, mag 1.0, calcium 7.2, albumin 2.7. This AM sNa 131, mag 1.9, Ca 6.7 and 1.5 L positive past 24 hrs Hypovolemic hypotonic hyponatremia > goal sNa is wnl tomorrow am -will stop IVF -maintain eukalemia -recent stopping of escitalopram is not driving improvement in low Na; would not avoid this psych med moving forward on this account alone Hypocalcemia and hypomagnesemia w/ labile values since admission calcium running high 6's (IVF will have held these down some) and D stores low, PTH inappropriately low; mag further dropping as well but still wnl today -cont D3 5000 units/day > may need calcitriol ultimately but start here -cont higher dose calcium supplements > oscal 1250 mg bid w/ 500 mg elemental Ca/tab -cont po mag - ox 400 mg/daily >>trying to balance pt already poor po intake w/ need for these supplements >>recommend bus dispatcher interstate/nutrition consult +/- calorie count re malnutrition if pt agrees (2) CKD (chronic kidney disease) stage 3, GFR 30-59 ml/min: Plan: renal function at baseline and likely worse than eGFR suggests given his malnurition; continue to suspect he has CKD 3 even if eGFR normalizes w/ hydration b/c of his BMI 18 >avoid IV contrast and other nephrotoxins >recommend OP nephro f/u Admission and Anticipated Discharge Date Admission Date: September 02, 2022 Subjective no interval events but pt declining psych c/s; no worsening breathing or pain. still poor po; not willing to give much ROS Review of Systems Review of Systems: All systems reviewed & are unremarkable except as noted in Subjective Physical Exam Constitutional: well developed, well nourished, + cachectic, + frail appearing and cooperative (on limited basis); no acute distress Eyes: EOM intact bilaterally ENMT: Ears: no external ear abnormality Nose: no external nose abnormality Mouth: + dry oral mucous membranes (frequent hiccups) Neck: no nuchal rigidity Respiratory: normal respiratory effort Auscultation: + diminished lung sounds Cardiovascular: Rate/Rhythm: regular rate and regular rhythm Extremities: no edema Gastrointestinal (Abdomen): Inspection/Auscultation: normal bowel sounds Percussion/Palpation: abdomen soft; abdomen nontender Musculoskeletal: Extremities: strength 5/5 throughout Skin: no rashes, warm and dry Psychiatric: Orientation: oriented x 3 Affect: + irritable affect Results & Data ([facility]) Vital Signs (Past 12 Hours) Vital Signs Temp Pulse Pulse Resp BP BP Pulse Ox 09/05/22 08:00 09/05/22 07:24 36.4 C L 79 16 131/91 96 09/05/22 02:41 36.4 C L 64 18 133/87 97 09/04/22 23:52 36.5 C 76 20 142/93 H 97 09/04/22 22:58 62 O2 Del Method 09/05/22 08:00 Room Air 09/05/22 07:24 Room Air 09/05/22 02:41 Room Air 09/04/22 23:52 Room Air 09/04/22 22:58 Laboratory Results 09/05/22 05:47 09/05/22 05:47
[2022-09-05] MEDS: CALCIUM CARBONATE 1250MG TAB PO SCH ×2 (09:47→19:44)
[2022-09-05] MEDS: ERTAPENEM SODIUM 1,000 MG in SYRINGE 0 ML IV SCH (09:47)
[2022-09-05] MEDS: OSELTAMIVIR PHOSPHATE SUSP 30 MG/5 ML UDP PO SCH ×2 (09:47→19:35)
--- NOTE | 2022-09-05 11:50 | Communication Note ---
Date of Service: September 05, 2022 Psych liason spoke with patient last night and he requested call back today around 12pm. 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
[2022-09-05] MEDS: LORazepam 0.5 MG TAB PO PRN (12:41)
--- NOTE | 2022-09-05 12:51 | Hospitalist Progress Note ---
Date of Service September 05, 2022 Assessment & Plan (1) Influenza A: Plan: Present on admission nausea, vomiting and worsening cough with greenish expectoration since 2 days duration. CXR/ABD X ray:Postsurgical change as above with no active disease in the chest. Nonobstructed abdominal bowel gas pattern. Biofire on admission positive for influenza A Will complete 5 days course of Tamiflu Saturating well on room air Continue monitor closely Acute on chronic hyponatremia Sodium levels 122 on presentation Likely dehydration secondary to nausea and vomiting Continue gentle IVF Na 131 today nephrology on board Continue monitor BMP HEIDY on CKD stage III Metabolic acidosis Baseline creatinine ~1s Likely prerenal Creatinine 1.8 on admission Continue IVF Avoid nephrotoxic agents as able Creatinine 1.49 today Nephrology on board Continue monitor BMP Leukocytosis Immunocompromise state On chronic prednisone WBC on admission 19K, then improved to 11K today Urine cx grew Ecoli Blood cx did not collect on admission Normal lactate and procalcitonin levels Continue abx with Ertapenem for now Will follow urine sensitivity Hypomagnesemia Mg on admission 1 Mg normalized resoved 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 Blake Pt was supposed to take Mycophenolate 720mg BID ( that was started back in November) But due to the positive influenza, the transplant team recommended to decrease the mycophenolate to 360mg BID for now Pt will need to follow with transplant team in 7-10 days to adjust the Mycophenolate Exocrine pancreatic insufficiency: Continue supplements Mood disorder Anxiety PT refused to see psych he said that he is anxiety under control and he is not having any suicidal thought escitalopram was discontinued by him, will not resume on discharge Will need outpatient follow up with psych Severe protein calorie malnutrition BMI 17 Counseling to increase protein/calories intake DVT Px: Heparin SQ Code Status Full Code Admission and Anticipated Discharge Date Admission Date: September 02, 2022 Subjective Pt was seen and examined for follow up Lying in bed with no acute distress He said that he had a good night This morning he was feeling nauseated He continues to have a poor appetite Denies any chest pain, palpitation, dizziness and SOB Review of Systems Review of Systems: All systems reviewed & are unremarkable except as noted in Subjective Physical Exam Physical Exam: General- No acute distress Head- atraumatic Eyes- PERRL, EOMI, ENT- oropharynx clear Neck- supple, no JVD Lungs- clear to auscultation Heart- regular rhythm; no murmur Abdomen- normal bowel sounds, soft, nontender Extremities- no calf tenderness Neuro- alert, oriented x 3; PERRL, EOMI; no facial palsy; no dysarthria Skin- warm & dry Results & Data Results & Data ([place]) Vital Signs (Past 12 Hours) Vital Signs Temp Pulse Resp BP BP Pulse Ox O2 Del Method 09/05/22 11:05 36.3 C L 58 L 16 136/96 97 Room Air 09/05/22 08:00 Room Air 09/05/22 07:24 36.4 C L 79 16 131/91 96 Room Air 09/05/22 02:41 36.4 C L 64 18 133/87 97 Room Air
[2022-09-05] MEDS: MONTELUKAST SODIUM 10 MG TABLET PO SCH (19:35)
[2022-09-05] MEDS: HEPARIN 100 UNIT/ML 5ML FLUSH FLUSH PRN (19:35)
[2022-09-05] MEDS: ARIPIprazole 1 MG/ML ORAL SOLN 150 ML BTL PO SCH (19:35)
[2022-09-05] MEDS ORDERED: PANCREAZE (LIPASE 10,500U) CAP PO ONE (21:00)
[2022-09-06] MEDS: oxyCODONE HCL IR 5 MG TAB (IMMEDIATE RELEASE) PO PRN ×2 (05:09→20:51)
[2022-09-06] MEDS: hydrOXYzine HCl 25 MG TAB PO PRN ×2 (05:10→20:51)
[2022-09-06 06:41] LABS: Hematocrit (blood only) 35.3 % (40.1-51.0); Hemoglobin 12.1 g/dl (14.0-18.0); Mean Corpuscular Hemoglobin 30.4 pg (25.0-34.0); Mean Corpuscular Hgb Conc 34.3 g/dL (32.0-36.0); Mean Corpuscular Volume 88.7 fL (80.0-100.0); Mean Platelet Volume 10.1 fL (9.4-12.4); Platelet Count 245 K/uL (130-400); RDW Coefficient of Variation 13.1 % (11.5-14.5); RDW Standard Deviation 42.2 fL (36.4-46.3); Red Blood Count 3.98 M/uL (4.63-6.08); White Blood Count 9.67 K/ul (4.8-10.8)
[2022-09-06 07:12] LABS: BUN Creatinine Ratio 12.8 (10-20); Calcium 6.7 mg/dl (8.5-10.1); Creatinine Clr Calc Pharmacy 53.2 ml/min; Est GFR (African American) 91.8 ml/min; Est GFR (Non-African American) 79.2 ml/min; Potassium 4.1 mmol/L (3.5-5.1)
[2022-09-06] MEDS: ACETAMINOPHEN 325 MG TAB PO PRN (08:21)
[2022-09-06] MEDS: CALCIUM CARBONATE 1250MG TAB PO SCH ×2 (08:21→20:53)
[2022-09-06] MEDS: ERTAPENEM SODIUM 1,000 MG in SYRINGE 0 ML IV SCH (08:21)
[2022-09-06] MEDS: HEPARIN SOD 5,000 UNIT/0.5 ML VIAL SQ SCH ×2 (08:22→20:54)
[2022-09-06] MEDS: PANCREAZE (LIPASE 10,500U) CAP PO SCH ×3 (08:22→16:56)
[2022-09-06] MEDS: predniSONE 5 MG TAB PO SCH (08:23)
[2022-09-06] MEDS: MYCOPHENOLATE SODIUM 180 MG TAB PO SCH ×2 (08:23→20:53)
[2022-09-06] MEDS: LORazepam 0.5 MG TAB PO PRN (08:24)
[2022-09-06] MEDS: TACROLIMUS 1 MG CAP PO SCH ×2 (08:24→20:54)
[2022-09-06] MEDS: OSELTAMIVIR PHOSPHATE SUSP 30 MG/5 ML UDP PO SCH ×2 (08:24→20:52)
[2022-09-06] MEDS: PANTOprazole 40 MG TAB PO SCH (08:25)
[2022-09-06] MEDS: CHOLECALCIFEROL 5,000 UNITS 125 MCG TAB PO SCH (08:25)
[2022-09-06] MEDS: MAGNESIUM OXIDE 400 MG TAB PO SCH (08:25)
--- NOTE | 2022-09-06 16:17 | Hospitalist Progress Note ---
Date of Service September 06, 2022 Assessment & Plan (1) Influenza A: Plan: Present on admission nausea, vomiting and worsening cough with greenish expectoration since 2 days duration. CXR/ABD X ray:Postsurgical change as above with no active disease in the chest. Nonobstructed abdominal bowel gas pattern. Biofire on admission positive for influenza A Will complete 5 days course of Tamiflu Saturating well on room air Continue monitor closely Acute on chronic hyponatremia Sodium levels 122 on presentation Likely dehydration secondary to nausea and vomiting Continue gentle IVF Na 132 today nephrology on board Continue monitor BMP HEIDY on CKD stage III Metabolic acidosis Baseline creatinine ~1s Likely prerenal Creatinine 1.8 on admission Continue IVF Avoid nephrotoxic agents as able Creatinine 1.49 today Nephrology on board Continue monitor BMP ESBL UTI Leukocytosis Immunocompromise state On chronic prednisone WBC on admission 19K, then improved to 11K today Urine cx grew ESBL Blood cx did not collect on admission Normal lactate and procalcitonin levels Continue abx with Ertapenem for now Denies any urinary symptoms Hypomagnesemia Mg on admission 1 Mg normalized resolved Weakness PT/OT eval fall precaution 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 Blake Pt was supposed to take Mycophenolate 720mg BID ( that was started back in November) But due to the positive influenza, the transplant team recommended to decrease the mycophenolate to 360mg BID for now Pt will need to follow with transplant team in 7-10 days to adjust the Mycophenolate Exocrine pancreatic insufficiency: Continue supplements Mood disorder Anxiety PT refused to see psych he said that he is anxiety under control and he is not having any suicidal thought escitalopram was discontinued by him, will not resume on discharge Will need outpatient follow up with psych Severe protein calorie malnutrition BMI 17 Counseling to increase protein/calories intake DVT Px: Heparin SQ Code Status Full Code Admission and Anticipated Discharge Date Admission Date: September 02, 2022 Subjective Pt was seen and examined for follow up Sitting in chair with no acute distress Pt said that he had feels weak He was getting ready to walk with his family member in the hallway he said that his appetite is poor Denies any chest pain, palpitation, dizziness and SOB Review of Systems Review of Systems: All systems reviewed & are unremarkable except as noted in Subjective Physical Exam Physical Exam: General- No acute distress Head- atraumatic Eyes- PERRL, EOMI, ENT- oropharynx clear Neck- supple, no JVD Lungs- clear to auscultation Heart- regular rhythm; no murmur Abdomen- normal bowel sounds, soft, nontender Extremities- no calf tenderness Neuro- alert, oriented x 3; PERRL, EOMI; no facial palsy; no dysarthria Skin- warm & dry Results & Data Results & Data ([facility]) Vital Signs (Past 12 Hours) Vital Signs Temp Pulse Resp BP Pulse Ox O2 Del Method 09/06/22 12:00 36.8 C 88 16 124/60 97 Room Air 09/06/22 08:00 Room Air 09/06/22 08:00 36.8 C 70 16 114/80 97 Room Air
--- NOTE | 2022-09-06 18:04 | Nephrology Progress Note ---
Date of Service September 06, 2022 Assessment & Plan (1) Electrolyte and fluid disorder: Plan: Admitted 09/02 1500 w/ sNa 122, mag 1.0, calcium 7.2, albumin 2.7. This AM sNa 132, Ca 6.7 Hypovolemic hypotonic hyponatremia > goal sNa is wnl tomorrow am -will stop IVF > he is taking po -maintain eukalemia -recent stopping of escitalopram is not driving improvement in low Na; would not avoid this psych med moving forward on this account alone Hypocalcemia and hypomagnesemia w/ labile values since admission calcium running high 6's (IVF will have held these down some) and D stores low, PTH inappropriately low; mag further dropping as well but still wnl today -cont D3 5000 units/day > may need calcitriol ultimately but start here -cont higher dose calcium supplements > oscal 1250 mg bid w/ 500 mg elemental Ca/tab -cont po mag - ox 400 mg/daily >>trying to balance pt already poor po intake w/ need for these supplements >>recommend criminalist/nutrition consult +/- calorie count re malnutrition if pt agrees (2) CKD (chronic kidney disease) stage 3, GFR 30-59 ml/min: Plan: renal function at baseline and likely worse than eGFR suggests given his malnurition; continue to suspect he has CKD 3 even if eGFR normalizes w/ hydration b/c of his BMI 18 >avoid IV contrast and other nephrotoxins >recommend OP nephro f/u -check PVR as no clear cause fo rrecurrent ESBL E coli UTI NEPHRO D/C RECOMMENDATIONS -[place] [facility] [place] [facility] 3-4 wks after d/c -bmp and magnesium and uacm default to culture weekly to be ordered by nephro nurse x 3 >continue supplements for mag, D, Ca after d/c Admission and Anticipated Discharge Date Admission Date: September 02, 2022 Subjective no interval events. taking po; no N; wondering where ESBL E coli from Review of Systems Review of Systems: All systems reviewed & are unremarkable except as noted in Subjective Physical Exam Constitutional: well developed and + cachectic; no acute distress Eyes: EOM intact bilaterally ENMT: Ears: no external ear abnormality Nose: no external nose abnormality Mouth: + dry oral mucous membranes Neck: no nuchal rigidity Respiratory: normal respiratory effort Auscultation: + diminished lung soun ds Cardiovascular: Rate/Rhythm: regular rate and regular rhythm Extremities: no edema Gastrointestinal (Abdomen): Inspection/Auscultation: normal bowel sounds Percussion/Palpation: abdomen soft; abdomen nontender Musculoskeletal: Extremities: strength 5/5 throughout Skin: no rashes, warm and dry Neurologic: wilson, fluent speech, no tremor Psychiatric: Orientation: oriented x 3 Insight: good insight Judgement: good judgement Results & Data ([facility]) Vital Signs (Past 12 Hours) Vital Signs Temp Pulse Resp BP Pulse Ox O2 Del Method 09/06/22 16:02 37.0 C 67 16 115/64 97 Room Air 09/06/22 12:00 36.8 C 88 16 124/60 97 Room Air 09/06/22 08:00 Room Air 09/06/22 08:00 36.8 C 70 16 114/80 97 Room Air Laboratory Results 09/06/22 06:12 09/06/22 06:12
[2022-09-06] MEDS: HEPARIN 100 UNIT/ML 5ML FLUSH FLUSH PRN (20:52)
[2022-09-06] MEDS: MONTELUKAST SODIUM 10 MG TABLET PO SCH (20:53)
[2022-09-06] MEDS: ARIPIprazole 1 MG/ML ORAL SOLN 150 ML BTL PO SCH (20:53)
[2022-09-07] MEDS: ACETAMINOPHEN 325 MG TAB PO PRN (01:45)
[2022-09-07] MEDS: oxyCODONE HCL IR 5 MG TAB (IMMEDIATE RELEASE) PO PRN ×2 (06:16→21:45)
[2022-09-07 07:58] LABS: Calcium 7.1 mg/dl (8.5-10.1); Creatinine Clr Calc Pharmacy 51.8 ml/min; Est GFR (African American) 86.4 ml/min; Est GFR (Non-African American) 74.5 ml/min; Magnesium 1.6 mg/dl (1.7-2.4); Potassium 4.6 mmol/L (3.5-5.1)
[2022-09-07] MEDS: hydrOXYzine HCl 25 MG TAB PO PRN ×2 (08:29→21:46)
[2022-09-07] MEDS: TACROLIMUS 1 MG CAP PO SCH ×2 (08:30→21:45)
[2022-09-07] MEDS: CALCIUM CARBONATE 1250MG TAB PO SCH ×2 (08:30→21:43)
[2022-09-07] MEDS: predniSONE 5 MG TAB PO SCH (08:30)
[2022-09-07] MEDS: MYCOPHENOLATE SODIUM 180 MG TAB PO SCH ×2 (08:30→21:44)
[2022-09-07] MEDS: CHOLECALCIFEROL 5,000 UNITS 125 MCG TAB PO SCH (08:31)
[2022-09-07] MEDS: ERTAPENEM SODIUM 1,000 MG in SYRINGE 0 ML IV SCH (08:31)
[2022-09-07] MEDS: OSELTAMIVIR PHOSPHATE SUSP 30 MG/5 ML UDP PO SCH ×2 (08:31→21:45)
[2022-09-07] MEDS: MAGNESIUM OXIDE 400 MG TAB PO SCH (08:31)
[2022-09-07] MEDS: PANTOprazole 40 MG TAB PO SCH (08:31)
[2022-09-07] MEDS: PANCREAZE (LIPASE 10,500U) CAP PO SCH ×3 (08:32→17:12)
[2022-09-07] MEDS: HEPARIN SOD 5,000 UNIT/0.5 ML VIAL SQ SCH ×2 (08:32→21:44)
[2022-09-07] MEDS: MAGNESIUM SULFATE / D5W 1 GM/100 ML BAG IV SCH ×2 (10:21→12:25)
[2022-09-07] MEDS: LORazepam 0.5 MG TAB PO PRN (10:32)
--- NOTE | 2022-09-07 18:15 | Hospitalist Progress Note ---
Date of Service September 07, 2022 Assessment & Plan (1) Influenza A: Plan: Present on admission nausea, vomiting and worsening cough with greenish expectoration since 2 days duration. CXR/ABD X ray:Postsurgical change as above with no active disease in the chest. Nonobstructed abdominal bowel gas pattern. Biofire on admission positive for influenza A Will complete 5 days course of Tamiflu Saturating well on room air Continue monitor closely Acute on chronic hyponatremia Sodium levels 122 on presentation Likely dehydration secondary to nausea and vomiting Continue gentle IVF Na 131 today nephrology on board Continue monitor BMP HEIDY on CKD stage III Metabolic acidosis Baseline creatinine ~1s Likely prerenal Creatinine 1.8 on admission Continue IVF Avoid nephrotoxic agents as able Creatinine 1.49 today Nephrology on board Continue monitor BMP ESBL UTI Leukocytosis Immunocompromise state On chronic prednisone WBC on admission 19K, then improved to 11K today Urine cx grew ESBL Blood cx did not collect on admission Normal lactate and procalcitonin levels Continue abx with Ertapenem for now Denies any urinary symptoms Hypomagnesemia Mg 1.6 today Mg replaced Continue monitor Weakness PT/OT eval fall precaution 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 Blake Pt was supposed to take Mycophenolate 720mg BID ( that was started back in November) But due to the positive influenza, the transplant team recommended to decrease the mycophenolate to 360mg BID for now Pt will need to follow with transplant team in 7-10 days to adjust the Mycophenolate Exocrine pancreatic insufficiency: Continue supplements Mood disorder Anxiety PT refused to see psych he said that he is anxiety under control and he is not having any suicidal thought escitalopram was discontinued by him, will not resume on discharge Will need outpatient follow up with psych Severe protein calorie malnutrition BMI 17 Counseling to increase protein/calories intake DVT Px: Heparin SQ Code Status Full Code Admission and Anticipated Discharge Date Admission Date: September 02, 2022 Subjective Pt was seen and examined for follow up Sitting in chair with no acute distress Pt said that he strength he is getting better He said that he has been using the walker to walk around Denies any chest pain, palpitation, dizziness and SOB Review of Systems Review of Systems: All systems reviewed & are unremarkable except as noted in Subjective Physical Exam Physical Exam: General- No acute distress Head- atraumatic Eyes- PERRL, EOMI, ENT- oropharynx clear Neck- supple, no JVD Lungs- clear to auscultation Heart- regular rhythm; no murmur Abdomen- normal bowel sounds, soft, nontender Extremities- no calf tenderness Neuro- alert, oriented x 3; PERRL, EOMI; no facial palsy; no dysarthria Skin- warm & dry Results & Data Results & Data ([facility]) Vital Signs (Past 12 Hours) Vital Signs Temp Pulse Resp BP Pulse Ox O2 Del Method 09/07/22 16:40 36.7 C 62 18 124/75 97 Room Air 09/07/22 12:08 36.5 C 75 17 110/78 96 Room Air 09/07/22 08:34 36.6 C 61 17 135/89 95 Room Air
[2022-09-07] MEDS: ARIPIprazole 1 MG/ML ORAL SOLN 150 ML BTL PO SCH (21:43)
[2022-09-07] MEDS: MONTELUKAST SODIUM 10 MG TABLET PO SCH (21:44)
[2022-09-07] MEDS: HEPARIN 100 UNIT/ML 5ML FLUSH FLUSH PRN (21:47)
[2022-09-08] MEDS: TACROLIMUS 1 MG CAP PO SCH (07:51)
[2022-09-08] MEDS: hydrOXYzine HCl 25 MG TAB PO PRN (07:51)
[2022-09-08] MEDS: MAGNESIUM OXIDE 400 MG TAB PO SCH (07:51)
[2022-09-08] MEDS: CHOLECALCIFEROL 5,000 UNITS 125 MCG TAB PO SCH (07:52)
[2022-09-08] MEDS: MYCOPHENOLATE SODIUM 180 MG TAB PO SCH (07:52)
[2022-09-08] MEDS: predniSONE 5 MG TAB PO SCH (07:52)
[2022-09-08] MEDS: PANTOprazole 40 MG TAB PO SCH (07:52)
[2022-09-08] MEDS: CALCIUM CARBONATE 1250MG TAB PO SCH (07:53)
[2022-09-08] MEDS: PANCREAZE (LIPASE 10,500U) CAP PO SCH ×2 (07:53→12:12)
[2022-09-08] MEDS: ERTAPENEM SODIUM 1,000 MG in SYRINGE 0 ML IV SCH (07:56)
[2022-09-08] MEDS: HEPARIN SOD 5,000 UNIT/0.5 ML VIAL SQ SCH (07:56)
[2022-09-08] MEDS: LORazepam 0.5 MG TAB PO PRN (07:56)
[2022-09-08] MEDS: oxyCODONE HCL IR 5 MG TAB (IMMEDIATE RELEASE) PO PRN (07:56)
[2022-09-08 08:32] LABS: BUN Creatinine Ratio 14.4 (10-20); Calcium 7.6 mg/dl (8.5-10.1); Creatinine Clr Calc Pharmacy 53.9 ml/min; Est GFR (African American) 90.8 ml/min; Est GFR (Non-African American) 78.4 ml/min; Magnesium 1.9 mg/dl (1.7-2.4); Potassium 4.8 mmol/L (3.5-5.1)
[2022-09-08] MEDS: HEPARIN 100 UNIT/ML 5ML FLUSH FLUSH PRN (09:15)
--- NOTE | 2022-09-08 13:24 | Discharge Summary ---
Date of Service September 08, 2022 Admission HPI Per Admitting Provider Patient is a 36-year-old male with history of cystic fibrosis S/P bilateral lung transplant in 2017, chronic immunosuppression therapy, nephrolithiasis, S/P multiple ureteral stents hydronephrosis, asthma, GERD, depression, exocrine Pancreatic insufficiency, CKD III, COVID, severe protein calorie malnutrition, anxiety disorder and other medical problems presents with history of nausea, vomiting, fever associated with cough with greenish expectoration since 2 days duration. Also states having generalized abdominal discomfort secondary to dry heaving. He admits to have sick contact--his nephew who was diagnosed to have COVID 2 weeks ago. Denies any history of chest pain, dyspnea, dizziness, pedal edema, wheezing, hemoptysis, fall, headache, change in vision, blood in stools, diarrhea, dysuria, hematuria. Admission Exam Per Admitting Provider Vitals signs as noted above General Appearance:Thin, frail, mild distress due to nausea, chronic ill appearing Head: normocephalic, Atraumatic Eyes: normal inspection, EOMI Neck: supple, Trachea midline Respiratory/Chest: Coarse breath sounds Cardiovascular: S1, S2, No murmur Abdomen/GI:Soft, Non tender, Bowel sounds present Extremities/Musculoskeletal:normal inspection, no edema Neurologic/Psych:AAOX3, grossly no focal neurological deficits Skin: normal color, warm Principal Diagnosis Influenza A Acute on chronic hyponatremia HEIDY on CKD stage III Metabolic acidosis ESBL UTI Leukocytosis Hypomagnesemia Weakness 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 GERD H/O Cystic Fibrosis S/P lung transplant Exocrine pancreatic insufficiency: Mood disorder Anxiety Discharge Exam General- No acute distress Head- atraumatic Eyes- PERRL, EOMI, ENT- oropharynx clear Neck- supple, no JVD Lungs- clear to auscultation Heart- regular rhythm; no murmur Abdomen- normal bowel sounds, soft, nontender Extremities- no calf tenderness Neuro- alert, oriented x 3; PERRL, EOMI; no facial palsy; no dysarthria Skin- warm & dry Discharge Data Allergies Allergy/AdvReac Type Severity Reaction Status Date / Time cephalexin Allergy Severe Hives Verified 09/02/22 20:46 tetracycline AdvReac Severe vomiting Verified 09/02/22 20:46 naproxen AdvReac Mild Stomach Verified 09/02/22 20:46 bleeding midazolam [From Versed] AdvReac Unknown "SLOW TO Verified 09/02/22 20:46 WAKE UP" Consultations 09/02/22 17:48 ED Decision to Admit Stat 09/02/22 22:22 Consult Nephrology Routine Ordered Studies Laboratory Results WBC 9.67 K/ul (4.8-10.8) 09/06/22 06:12 RBC 3.98 M/uL (4.63-6.08) L 09/06/22 06:12 Hgb 12.1 g/dl (14.0-18.0) L 09/06/22 06:12 Hct 35.3 % (40.1-51.0) L 09/06/22 06:12 MCV 88.7 fL (80.0-100.0) 09/06/22 06:12 MCH 30.4 pg (25.0-34.0) 09/06/22 06:12 MCHC 34.3 g/dL (32.0-36.0) 09/06/22 06:12 RDW Std Deviation 42.2 fL (36.4-46.3) 09/06/22 06:12 RDW Coeff of Crissy 13.1 % (11.5-14.5) 09/06/22 06:12 Plt Count 245 K/uL (130-400) 09/06/22 06:12 MPV 10.1 fL (9.4-12.4) 09/06/22 06:12 Immature Gran % (Auto) 1.3 % 09/05/22 05:47 Neut % (Auto) 61.0 % 09/05/22 05:47 Lymph % (Auto) 30.5 % 09/05/22 05:47 [place] % (Auto) 6.3 % 09/05/22 05:47 Eos % (Auto) 0.6 % 09/05/22 05:47 Baso % (Auto) 0.3 % 09/05/22 05:47 Neut # (Auto) 6.82 K/uL (1.4-6.5) H 09/05/22 05:47 Lymph # (Auto) 3.41 K/uL (1.2-3.4) H 09/05/22 05:47 [place] # (Auto) 0.70 K/uL (0.24-0.82) 09/05/22 05:47 Eos # (Auto) 0.07 K/uL (0-0.50) 09/05/22 05:47 Baso # (Auto) 0.03 K/uL (0-0.2) 09/05/22 05:47 Immature Gran # (Auto) 0.15 K/uL (0.00-0.02) H 09/05/22 05:47 Sodium 132 mmol/L (136-145) L 09/08/22 07:49 Potassium 4.8 mmol/L (3.5-5.1) 09/08/22 07:49 Chloride 102 mmol/L (98-107) 09/08/22 07:49 Carbon Dioxide 29 mmol/L (21-32) 09/08/22 07:49 Anion Gap 1 (3-11) L 09/08/22 07:49 BUN 17 mg/dl (6-23) 09/08/22 07:49 Creatinine 1.18 mg/dl (0.6-1.4) 09/08/22 07:49 Est Cr Clr Drug Dosing 53.9 ml/min 09/08/22 07:49 Est GFR ( Amer) 90.8 ml/min 09/08/22 07:49 Est GFR (Non-Af Amer) 78.4 ml/min 09/08/22 07:49 BUN/Creatinine Ratio 14.4 (10-20) 09/08/22 07:49 Glucose 99 mg/dl (70-99(Fasting)) 09/08/22 07:49 Estimat Average Glucose 114 mg/dl 09/03/22 06:37 Hemoglobin A1c 5.6 % (4.5-5.6) 09/03/22 06:37 Osmolality 269 mOsm/kg (280-300) L 09/02/22 19:14 Lactate 1.4 mmol/L (0.4-2.0) 09/02/22 15:19 Calcium 7.6 mg/dl (8.5-10.1) L 09/08/22 07:49 Phosphorus 2.5 mg/dl (2.5-4.9) 09/05/22 05:47 Magnesium 1.9 mg/dl (1.7-2.4) 09/08/22 07:49 Total Bilirubin 0.6 mg/dl (0.2-1.0) 09/02/22 14:40 Direct Bilirubin 0.2 mg/dl (0-0.2) 09/02/22 14:40 AST 34 U/L (13-39) 09/02/22 14:40 ALT 21 U/L (7-52) 09/02/22 14:40 Alkaline Phosphatase 275 U/L (34-104) H 09/02/22 14:40 Troponin I High Sens 8.9 pg/ml (0-20) 09/02/22 14:40 Total Protein 5.6 gm/dl (6.0-8.3) L 09/02/22 14:40 Albumin 2.7 gm/dl (3.4-5.0) L 09/02/22 14:40 25-OH Vitamin D Total 7.1 ng/ml (30-100) L 09/03/22 11:37 Procalcitonin 0.40 ng/ml (0-0.5) 09/02/22 14:44 TSH 1.358 uIu/ml (0.300-4.500) 09/02/22 14:40 PTH Intact 47.5 pg/ml (12.0-88.0) 09/03/22 11:37 Urine Color Yellow 09/02/22 21:39 Urine Appearance Cloudy (Clear) A 09/02/22 21:39 Urine pH 5.0 (4.5-7.5) 09/02/22 21:39 Ur Specific [place] 1.019 (1.000-1.030) 09/02/22 21:39 Urine Protein Negative (Negative) 09/02/22 21:39 Urine Glucose (UA) Negative (Negative) 09/02/22 21:39 Urine Ketones 1+ (Negative) H 09/02/22 21:39 Urine Blood Negative (Negative) 09/02/22 21:39 Urine Nitrite Positive (Negative) A 09/02/22 21:39 Urine Bilirubin Negative (Negative) 09/02/22 21:39 Urine Urobilinogen Negative (Negative) 09/02/22 21:39 Ur Leukocyte Esterase 1+ (Negative) H 09/02/22 21:39 Urine WBC (Auto) >30 /hpf (0-5) H 09/02/22 21:39 Urine RBC (Auto) 0-4 /hpf (0-4) 09/02/22 21:39 U Hyaline Cast (Auto) 5-10 /lpf (0-5) H 09/02/22 21:39 U Epithel Cells (Auto) >30 /lpf (0-5) H 09/02/22 21:39 Urine Bacteria (Auto) 1+ (Negative) H 09/02/22 21:39 Urine Osmolality 311 mOsm/kg (500-800) L 09/02/22 21:39 Ur Random Sodium 11 mmol/L 09/02/22 21:39 Salicylates < 3.0 mg/dl (3.0-30) L 09/02/22 14:40 Urine Opiates Screen Neg (Neg) 09/02/22 21:39 Ur Methadone, Qual Neg (Neg) 09/02/22 21:39 Acetaminophen 13 ug/ml (10-30) 09/02/22 14:40 Urine Barbiturates Neg (Neg) 09/02/22 21:39 Ur Phencyclidine (PCP) Neg (Neg) 09/02/22 21:39 U Amphetamin/Meth Scrn Neg (Neg) 09/02/22 21:39 MDMA (Ecstasy) Screen Neg (Neg) 09/02/22 21:39 U Benzodiazepines Scrn Neg (Neg) 09/02/22 21:39 Ur Cocaine Metabolite Neg (Neg) 09/02/22 21:39 U Marijuana (THC) Screen Pos (Neg) H 09/02/22 21:39 U Marijuana THC Carboxy 161 ng/mL (<5) H 09/02/22 21:39 Drug Screen Comment SEE NOTE 09/02/22 21:39 Ethyl Alcohol mg/dL < 10.0 mg/dl (<10.0) 09/02/22 14:40 Adenovirus (PCR) Not Detected (NotDetected) 09/02/22 15:12 B. pertussis DNA (PCR) Not Detected (NotDetected) 09/02/22 15:12 B.parapertussis DNA PCR Not Detected (NotDetected) 09/02/22 15:12 C. pneumoniae DNA (PCR) Not Detected (NotDetected) 09/02/22 15:12 Coronavirus OC43 (PCR) Not Detected (NotDetected) 09/02/22 15:12 Coronavirus HKU1 (PCR) Not Detected (NotDetected) 09/02/22 15:12 Coronavirus 229E (PCR) Not Detected (NotDetected) 09/02/22 15:12 SARS-CoV-2 (PCR) Not Detected (NotDetected) 09/02/22 15:12 Coronavirus NL63 (PCR) Not Detected (NotDetected) 09/02/22 15:12 Human Metapneumovir PCR Not Detected (NotDetected) 09/02/22 15:12 Influenza A (H3) PCR DETECTED (NotDetected) A* 09/02/22 15:12 Influenza Type B (PCR) Not Detected (NotDetected) 09/02/22 15:12 M. pneumoniae (PCR) Not Detected (NotDetected) 09/02/22 15:12 Parainfluenza 1 (PCR) Not Detected (NotDetected) 09/02/22 15:12 Parainfluenza 2 (PCR) Not Detected (NotDetected) 09/02/22 15:12 Parainfluenza 3 (PCR) Not Detected (NotDetected) 09/02/22 15:12 Parainfluenza 4 (PCR) Not Detected (NotDetected) 09/02/22 15:12 RSV (PCR) Not Detected (NotDetected) 09/02/22 15:12 Entero/Rhino (PCR) Not Detected (NotDetected) 09/02/22 15:12 Impressions Chest/Abdomen X-ray 09/02/22 14:56 PA CHEST WITH ABDOMINAL SERIES CLINICAL HISTORY: Nausea and vomiting. History of lung transplant. FINDINGS: A PA chest radiograph is compared to study dated 06/05/2022 and correlated with chest CT dated 06/03/2021. A left subclavian central venous infusion port is unchanged in position. The patient is status post midline sternotomy. Surgical clips are seen throughout the mediastinum. Surgical clips also project over the apices. The cardiomediastinal silhouette is unremarkable. The lungs and pleural spaces are clear noting mild bibasilar scarring/atelectasis. No pneumothorax is seen. The bony thorax is grossly intact. Supine and erect abdominal radiographs are correlated with abdominal CT dated 12/27/2021. There is a nonobstructed abdominal bowel gas pattern. No evidence of intraperitoneal free air is seen. Mild fecal retention is present throughout the colon. There are no abnormal abdominal calcifications. The lumbosacral spine and bony pelvis appear intact. Cholecystectomy clips are seen in the right upper quadrant. IMPRESSION: 1. Postsurgical change as above with no active disease in the chest. 2. Nonobstructed abdominal bowel gas pattern. ACT 112: Negative or not required by law. Electronically signed by: Walter Ga M.D. 09/02/2022 4:28 PM Hospital Course (1) Influenza A: Present on admission nausea, vomiting and worsening cough with greenish expectoration since 2 days duration. CXR/ABD X ray:Postsurgical change as above with no active disease in the chest. Nonobstructed abdominal bowel gas pattern. Biofire on admission positive for influenza A Completed 5 days course of Tamiflu Saturating well on room air Continue monitor closely Acute on chronic hyponatremia Sodium levels 122 on presentation Likely dehydration secondary to nausea and vomiting Continue gentle IVF Na 132 today nephrology on board Continue monitor BMP HEIDY on CKD stage III Metabolic acidosis Baseline creatinine ~1s Likely prerenal Creatinine 1.8 on admission Continue IVF Avoid nephrotoxic agents as able Creatinine 1.1 today Nephrology on board Continue monitor BMP ESBL UTI Leukocytosis Immunocompromise state On chronic prednisone WBC on admission 19K, then normalized Urine cx grew ESBL Blood cx did not collect on admission Normal lactate and procalcitonin levels Completed 7 days course of Ertapenem today Denies any urinary symptoms Hypomagnesemia Mg 1.9 today Mg replaced Continue monitor Weakness PT/OT eval fall precaution 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 Blake Pt was supposed to take Mycophenolate 720mg BID ( that was started back in November) But due to the positive influenza, the transplant team recommended to decrease the mycophenolate to 360mg BID for now Pt will need to follow with transplant team in 7-10 days to adjust the Mycophenolate Exocrine pancreatic insufficiency: Continue supplements Mood disorder Anxiety PT refused to see psych he said that he is anxiety under control and he is not having any suicidal thought escitalopram was discontinued by him, will not resume on discharge Will need outpatient follow up with psych Severe protein calorie malnutrition BMI 17 Counseling to increase protein/calories intake DVT Px: Heparin SQ Code Status Full Code Total Time Total Time Spent Total Time Spent (In Minutes): 35 minutes Discharge Plan Discharge Items Patient Disposition: Home - Self-Care Reason For Visit: INFLUENZA Discharge Diagnosis: Influenza A Acute on chronic hyponatremia HEIDY on CKD stage III Metabolic acidosis ESBL UTI Leukocytosis Hypomagnesemia Weakness 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 GERD H/O Cystic Fibrosis S/P lung transplant Exocrine pancreatic insufficiency: Mood disorder Anxiety Condition on Discharge: Fair Activity: Resume your previous activity Non-emergency contact: Primary Care Provider and Adult Basic Education Teacher Call non-emergency contact if: you have any medication questions Follow-up/Referrals: Amador Sandy MD [Primary Care Provider] - 09/13/22 10:40 am (Date & Time 09/13/2022 10:40 Ross Sandy [facility] ) Diet: Regular Addtl Attending Provider Instructions: Follow up with your primary care provider 09/13/2022 10:40 [facility] Follow up with nephrology in 3 to 4 weeks (Please call to schedule for the appointment ) Check BMP and magnesium level weekly for 3 weeks Follow up with your transplant team within 1 week Continue Mycophenolate 360mg twice a day for now as per transplant team ( They will adjust the dose of mycophenolate at the next follow up appointment) Fall precaution Seek medical attention if your symptoms worsening Pending Studies at Discharge: No Stand-Alone Forms: [facility], Smoking Cessation Medications and DC Order Prescriptions: New calcium carbonate-vitamin D3 [Os-Min 500 + D3] 500 mg-15 mcg (600 unit) Tablet 1,250 mg PO BID 30 Days Qty: 150 0RF magnesium oxide 400 mg (241.3 mg magnesium) Tablet 400 mg PO QAM 30 Days Qty: 30 0RF Continued prednisone 5 mg Tablet 5 mg PO QAM pantoprazole [Protonix] 40 mg Tablet,Delayed Release (Dr/Ec) 40 mg PO QAM Zenpep 25,000-79,000- 105,000 unit capsule,delayed release(DR/EC) 6 cap PO TIDM Rx Instructions: Take 6 capsule 1/2 hour before meals Zenpep 25,000-79,000- 105,000 unit capsule,delayed release(DR/EC) 3 cap PO .PRIOR TO SNACKS Rx Instructions: Take 3 capsules 1/2 hour before snacks tacrolimus [Prograf] 5 mg capsule 10 mg PO BID Rx Instructions: TOTAL DOSE 9 MG--TAKES WITH 4 MG CAP. hydroxyzine HCl 25 mg Tablet 25 mg PO Q6H PRN (Reason: Anxiety) montelukast 10 mg Tablet 10 mg PO HS escitalopram oxalate 20 mg tablet 20 mg PO DAILY mycophenolate sodium [Myfortic] 360 mg Tablet,Delayed Release (Dr/Ec) 720 mg PO BID ferrous sulfate 325 mg (65 mg iron) Tablet 325 mg PO DAILY cholecalciferol (vitamin D3) [Vitamin D3] 125 mcg (5,000 unit) Tablet 125 mcg PO QAM aripiprazole 2 mg tablet 2 mg PO HS Discontinued calcium carbonate-vitamin D3 600 mg(1,500mg) -200 unit Tablet 1 tab PO QAM Discharge Orders: Discharge Order (Routine); Ordered 09/08/22 Ordered By: Mirian aRsheed Admission Data Admit Date/Time: 09/02/22 20:21 Attending Provider: Mirian Rasheed Admit Provider: Emigdio Mercer Primary Care Provider: Amador Sandy Other Providers: Emigdio Mercer Other Interventions: Discharge Summary Assessment (RN) Last Done: 09/08/22 14:13
--- NOTE | 2022-09-18 07:25 | Coding Query ---
CODING QUERY To promote full compliance with coding requirements relating to patient care, provider participation is requested in all cases of parts fabricator uncertainty. Please assist us with the question(s) below: Please clarify the meaning of HEIDY. HEIDY is not a valid abbreviation. Thank you. ( ) Acute Kidney Injury ( ) Acute Kidney Insufficiency ( ) Other (Specify):__Acute Kidney Injury on CKD 3 Principal Diagnosis: "that condition established after study, to be chiefly responsible for occasioning the admission of the patient to the hospital for care." Co-Existing Principal Diagnosis: "when two or more diagnoses equally meet the criteria for principal diagnosis as determined by the circumstances of admission, diagnostic work up, and/or therapy provided, and the Alphabetic Index, Tabular List, or another coding guideline does not provide sequencing direction, any one of the diagnoses may be sequenced first." "When the physician has documented what appears to be a current diagnosis in the body of the record, but has not included the diagnosis in the final diagnostic statement, the physician should be asked whether the diagnosis should be added." (Source Coding [facility] 2 QTR90. p3-4) FLETCHER
== END 2022-09-08 16:35 | disposition home or self-care (01) | DRG 865 ==
LOC: ED 13:34 → SUATTDRO 20:21 → 2E 20:21

== ENCOUNTER 2022-09-15 17:13 | Observation (INO) ==
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
--- NOTE | 2022-09-15 18:43 | XRay Report ---
KUB HISTORY: Generalized abdominal pain. COMPARISON: Chest and abdominal series 09/02/2022. FINDINGS: Moderate well-formed stool seen throughout the majority the colon. No dilated loops of radha l to suggest an obstruction. Prior cholecystectomy. No renal calculi. No ureteral calculi. No pneumo peritoneum or pneumatosis. IMPRESSION: 1. No evidence for a bowel obstruction. 2. Moderate fecal retention. ACT 112: Negative or not required by law. Electronically signed by: David Weber M.D. 09/15/2022 6:42 PM
[2022-09-15] MEDS ORDERED: fentaNYL citrate 100 MCG/2 ML VIAL IV PRN (19:44)
[2022-09-15] MEDS ORDERED: SODIUM CHLORIDE 0.9% 1000ML 1,000 ML IV STA (19:44)
[2022-09-15] MEDS ORDERED: ONDANSETRON 4 MG OD TAB PO STA (19:44)
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
[2022-09-15 20:29] LABS: Basophils # (auto) 0.03 K/uL (0-0.2); Basophils % (auto) 0.2 %; Eosinophils # (auto) 0.03 K/uL (0-0.50); Eosinophils % (auto) 0.2 %; Hematocrit (blood only) 29.2 % (40.1-51.0); Hemoglobin 10.4 g/dl (14.0-18.0); Immature Granulocytes # (auto) 0.17 K/uL (0.00-0.02); Immature Granulocytes % (auto) 0.9 %; Lymphocytes # (auto) 1.86 K/uL (1.2-3.4); Lymphocytes % (auto) 9.3 %; Mean Corpuscular Hemoglobin 30.5 pg (25.0-34.0); Mean Corpuscular Hgb Conc 35.6 g/dL (32.0-36.0); Mean Corpuscular Volume 85.6 fL (80.0-100.0); Monocytes # (auto) 1.14 K/uL (0.24-0.82); Monocytes % (auto) 5.7 %; Neutrophils # (auto) 16.73 K/uL (1.4-6.5); Neutrophils % (auto) 83.7 %; Platelet Count 266 K/uL (130-400); RDW Standard Deviation 40.2 fL (36.4-46.3); Red Blood Count 3.41 M/uL (4.63-6.08); White Blood Count 19.96 K/ul (4.8-10.8)
[2022-09-15 20:51] LABS: Anion Gap 6 (3-11); BUN Creatinine Ratio 20.2 (10-20); Blood Urea Nitrogen 18 mg/dl (6-23); Calcium 6.9 mg/dl (8.5-10.1); Carbon Dioxide 23 mmol/L (21-32); Chloride 98 mmol/L (98-107); Est GFR (African American) 126.6 ml/min; Est GFR (Non-African American) 109.2 ml/min; Glucose 108 mg/dl (70-99(Fasting)); Potassium 4.2 mmol/L (3.5-5.1); Sodium 127 mmol/L (136-145)
[2022-09-15 20:53] LABS: Alanine Aminotransferase 23 U/L (7-52); Albumin Level 2.8 gm/dl (3.4-5.0); Alkaline Phosphatase 222 U/L (34-104); Aspartate Aminotransferase 43 U/L (13-39); Bilirubin,Total 0.7 mg/dl (0.2-1.0); Globulin 2.9 gm/dl (2.5-4.0); Lipase < 3 U/L (11-82); Total Protein 5.7 gm/dl (6.0-8.3)
[2022-09-15] MEDS ORDERED: LORazepam 2 MG/1 ML VIAL IV STA (22:18)
[2022-09-15] MEDS ORDERED: LORazepam 0.5 MG TAB PO STA (22:48)
[2022-09-15] MEDS ORDERED: ACETAMINOPHEN 325 MG TAB PO PRN (23:24)
[2022-09-15] MEDS ORDERED: STAT IV STA (23:24)
[2022-09-15] MEDS ORDERED: CALCIUM GLUCONATE 10% 1,000 MG in DEXTROSE 5% 50 ML IV ONE (23:24)
[2022-09-15] MEDS ORDERED: SODIUM CHLORIDE 0.9% 1000ML 1,000 ML IV SCH (23:24)
[2022-09-15] MEDS ORDERED: PANCREAZE (LIPASE 16,800U) CAP PO PRN (23:24)
[2022-09-15] MEDS ORDERED: hydrOXYzine HCl 25 MG TAB PO PRN (23:24)
--- NOTE | 2022-09-15 23:32 | History and Physical Report ---
DATE OF ADMISSION: 09/15/2022. CHIEF COMPLAINT: Rectal pain, rectal prolapse. HISTORY OF PRESENT ILLNESS: This is a 37-year-old male with past medical history significant for cystic fibrosis, status post bilateral lung transplant in 2017, chronic immunosuppression therapy, nephrolithiasis, status post multiple ureteral stents for hydronephrosis, history of asthma, GERD, depression, exocrine pancreatic insufficiency, chronic kidney disease stage III, history of COVID, history of severe protein-calorie malnutrition, anxiety disorder. The patient was recently in the hospital for flu and also ESBL UTI, was treated with Invanz and Tamiflu. He was admitted on 09/02/2022 and discharged on 09/08/2022. Presents with rectal pain and rectal prolapse today. The patient seems to have chronic rectal prolapse. Generally he can reduce it; today after bowel movement was unable to reduce , so he came to the ER. It was very painful, in the ER it was reduced. KUB showed constipation and ER consulted surgery. Surgery saw the patient. They thought there was no need for urgent surgical intervention. They thought that he should follow with colorectal specialist as surgical correction of rectal prolapse has a fair recurrence rate and he may need additional studies prior to colonoscopy. The patient was admitted to be observed overnight in the hospital. The patient is currently saying the pain is improved with pain medications. Resting comfortably, hemodynamically stable. The patient states since last discharge, he is still weak, falling frequently. Appetite is okay. No difficulty swallowing. No chest pain, no shortness of breath. Yesterday, he had some runny nose. No fevers, no cough, no headache. He has blurred visions. He states he needs to change his glasses. Currently, no nausea, no abdominal pain. Resting comfortably and hemodynamically stable. ALLERGIES: CEPHALEXIN, TETRACYCLINE, NAPROXEN, MIDAZOLAM. PAST MEDICAL HISTORY: As mentioned above. PAST SURGICAL HISTORY: History of cholecystectomy, cystoscopy with multiple stents, EGD, history of gastrostomy tube placement, removed in October 2018, history of lobectomy of the lung in 1990, history of Sandoval fundoplication, history of procedure for peripheral vascular disease, history of left hip replacement, , history of lithotripsy, bilateral lung transplant in [address] [facility], status post ureteral stent placement. FAMILY HISTORY: Significant for mother has lung cancer and hypertension; sister has lung cancer. Family history is significant for diabetes; aunt has hypertension; maternal grandmother has hypertension. SOCIAL HISTORY: No smoking. He seems to use his medical marijuana. No alcohol use. HOME MEDICATIONS: The patient is on aripiprazole 2 mg p.o. at bedtime, Os-Min 500 plus D of 1250 mg p.o. b.i.d., vitamin D 125 mcg p.o. a.m., Lexapro 20 mg p.o. daily, ferrous sulfate 325 mg p.o. daily, hydroxyzine 25 mg p.o. q. 6 hours p.r.n., magnesium oxide 400 mg p.o. daily, montelukast 10 mg p.o. at bedtime, mycophenolate sodium 720 mg p.o. b.i.d., Protonix 40 mg p.o. a.m., prednisone 5 mg p.o. a.m., Prograf 10 mg p.o. b.i.d., Zenpep six capsules p.o. t.i.d. with meals., Zenpep three capsules p.o. prior to snacks. REVIEW OF SYSTEMS: As per HPI. Rest of review of systems is negative. PHYSICAL EXAMINATION: GENERAL: The patient is thin and frail, not in acute distress. VITAL SIGNS: Temperature 36.3, pulse 101, respiratory rate 18, blood pressure 112/76, oxygen 92% on room air. HEENT: Pupils equal, round, and reactive to light. Oral mucosa moist. NECK: No JVD, no neck masses. CARDIOVASCULAR: S1 and S2 heard. Regular rate and rhythm. No murmur, no gallop. RESPIRATORY SYSTEM: Normal AP diameter. No accessory muscle use. No wheezing or crackles. ABDOMEN: Soft, bowel sounds present, nontender, no distention. CENTRAL NERVOUS SYSTEM: Cranial nerves II through XII grossly intact, nonfocal. EXTREMITIES: No edema, no erythema. LABORATORY DATA: WBC 19.9, hemoglobin 10.4, hematocrit 29.2, platelets 266. Sodium 127, potassium 4.2, chloride 98, bicarbonate 23, BUN 18, creatinine 0.8, serum glucose 108, calcium 6.9, total bilirubin 0.7, AST 43, ALT 23, alkaline phosphatase 222, lipase less than 3. SARS-CoV-2 rapid test negative. IMAGING DATA: KUB x-ray, no evidence of bowel obstruction. Moderate fecal retention. ASSESSMENT AND PLAN: This is a 37-year-old male with history of cystic fibrosis, history of recurrent rectal prolapse. Presents with rectal prolapse after bowel movement, the patient was not able to reduce . It was reduced in the ER. KUB showed some constipation, evaluated by surgery. He is getting admitted to observe in the hospital. 1. Rectal prolapse and constipation. The patient can reduce at home, but could not reduce today. It was able to be reduced in the ER. Currently, pain is under control. Evaluated by Surgery. Recommends outpatient colorectal surgery followup. Surgery will follow while inpatient is in the hospital. Will place him on MiraLax 17 g p.o. b.i.d. Monitor in the hospital. 2. Hyponatremia: Getting fluids. Seen by Nephrology last admission. Will consult Nephrology in the a.m. and follow the repeat labs. 3. Hypocalcemia: Calcium of 6.9. The patient is on calcium supplements and vitamin D supplements. Will give one dose of calcium gluconate. Follow the repeat labs. Nephrology consulted. 4. Mild elevation of alkaline phosphatase. Follow the repeat labs. 5. Weakness, falling: PT/OT. 6. Diabetes:Seems not on meds , will follow the labs. 7. Gastroesophageal reflux disease: On Protonix. 8. History of cystic fibrosis: Status post bilateral lung transplant and tacrolimus and CellCept. Last admission, was discussed with the transplant team, and he was on mycophenolate 720 mg b.i.d., but was advised to cut back to half the dose to 360 mg b.i.d. for now since he was positive for influenza. The patient is supposed to follow with transplant in one week, but did not follow up. Will put him back on 720 mg p.o. b.i.d. for now and may be need to call transplant team in the a.m. for further recommendations. 9. Exocrine pancreatic insufficiency: Continue supplements. 10. Mood disorder and anxiety: On Lexapro. Follow up with Psychiatry. 11. Severe protein-calorie malnutrition: Counseled to increase protein-calorie intake. 12. Leukocytosis. UA ok. Will f/u CXR. Cultures ordered. CT abd/pelvis preliminary report showing proctitis. will start on invanz and consult GI. 13. Deep venous thrombosis prophylaxis. Placed him on heparin subcutaneous. DISPOSITION: Closely monitor in the med tele. PT/OT prior to discharge. Social service to help with discharge planning. Level 1 full code. Job ID: [id number] [facility]Hill
[2022-09-15] MEDS ORDERED: OPTIRAY 350 100ml IV ONE (23:49)
[2022-09-16] MEDS: MYCOPHENOLATE SODIUM 180 MG TAB PO SCH ×3 (01:09→19:31)
[2022-09-16] MEDS: POLYETHYLENE (MIRALAX) 17 GM PACK PO SCH ×3 (01:09→19:33)
[2022-09-16] MEDS: traMADol HCL 50 MG TABLET PO PRN ×3 (03:14→19:30)
[2022-09-16 03:31] LABS: Appearance Urine Clear (Clear); Bilirubin Urine Negative (Negative); Blood Urine Negative (Negative); Color Urine Yellow; Glucose Urine UA Negative (Negative); Ketones Urine Negative (Negative); Leukocyte Esterase Urine Negative (Negative); Nitrite Urine Negative (Negative); Protein Urine Negative (Negative); Specific Gravity Urine 1.021 (1.000-1.030); Urobilinogen Urine Negative (Negative); pH Urine 6.5 (4.5-7.5)
[2022-09-16] MEDS ORDERED: ERTAPENEM SODIUM 1,000 MG in SYRINGE 0 ML IV SCH (04:30)
[2022-09-16 05:07] LABS: Basophils # (auto) 0.03 K/uL (0-0.2); Basophils % (auto) 0.2 %; Eosinophils # (auto) 0.02 K/uL (0-0.50); Eosinophils % (auto) 0.1 %; Hematocrit (blood only) 27.5 % (40.1-51.0); Hemoglobin 9.5 g/dl (14.0-18.0); Immature Granulocytes # (auto) 0.08 K/uL (0.00-0.02); Immature Granulocytes % (auto) 0.6 %; Lymphocytes # (auto) 1.87 K/uL (1.2-3.4); Mean Corpuscular Hemoglobin 30.5 pg (25.0-34.0); Mean Corpuscular Hgb Conc 34.5 g/dL (32.0-36.0); Mean Corpuscular Volume 88.4 fL (80.0-100.0); Mean Platelet Volume 10.4 fL (9.4-12.4); Monocytes # (auto) 0.74 K/uL (0.24-0.82); Monocytes % (auto) 5.1 %; Neutrophils # (auto) 11.64 K/uL (1.4-6.5); Platelet Count 217 K/uL (130-400); RDW Coefficient of Variation 13.1 % (11.5-14.5); RDW Standard Deviation 41.7 fL (36.4-46.3); Red Blood Count 3.11 M/uL (4.63-6.08); White Blood Count 14.38 K/ul (4.8-10.8)
[2022-09-16 05:44] LABS: Albumin Level 2.3 gm/dl (3.4-5.0); BUN Creatinine Ratio 19.8 (10-20); Bilirubin Direct 0.3 mg/dl (0-0.2); Bilirubin,Total 0.7 mg/dl (0.2-1.0); Calcium 6.8 mg/dl (8.5-10.1); Creatinine Clr Calc Pharmacy 72.1 ml/min; Est GFR (African American) 131.6 ml/min; Est GFR (Non-African American) 113.5 ml/min; Potassium 4.2 mmol/L (3.5-5.1); Total Protein 4.8 gm/dl (6.0-8.3)
--- NOTE | 2022-09-16 07:17 | XRay Report ---
XR chest 1V portable CLINICAL HISTORY: leukocytosis. Pneumonia? TECHNIQUE: Single frontal radiograph of the chest was obtained. Comparison: Comparison is made to chest and abdomen radiographs 2 FINDINGS: A port catheter is seen. Numerous surgical clips and median sternotomy wires are seen. The cardiomedi astinal silhouette is stable. The lungs are clear. No evidence of pleural effusion or pneumothorax. IMPRESSION: No acute abnormalities and in particular no evidence of pneumonia. ACT 112: Negative or not required by law. Electronically signed by: Blayne Yanez M.D. 09/16/2022 7:16 AM
--- NOTE | 2022-09-16 08:24 | CT Scan Report ---
CT abd pelvis IV con only CLINICAL HISTORY: elevated leukocytosis, rectal prolapse TECHNIQUE: Helical axial images of the abdomen and pelvis were obtained and displayed. Automated dose lowering techniques and/or adjustment according to patient size were utilized for this exam. This e xam was performed with intravenous contrast. CT DOSE: 300.52 mGy.cm COMPARISON: Comparison is made to CT abdomen pelvis 12/27/2021 FINDINGS: Lower chest: No acute abnormality. Liver: Hepatic steatosis is noted. Gallbladder and biliary tree: Patient is status post cholecystectomy. No intra- or extrahepatic bilia ry ductal dilation. Pancreas: Fatty replacement of the pancreas is seen. Spleen: Unremarkable. Adrenals: Unremarkable. Kidneys and ureters: Subcentimeter hypodensities are too small to characterize. Bladder: Unremarkable. Reproductive organs: Unremarkable. Bowel: Diffuse bowel wall thickening in the sigmoid colon and rectum compatible with proctitis. Mild edema is seen throughout the bowel loops. A hiatal hernia is seen. Lymph nodes Retroperitoneal: Unremarkable. Pelvic: Unremarkable. Mesenteric: Unremarkable. Peritoneum: Mild ascites is seen. Paraesophageal fluid is noted. Vessels: Unremarkable. Abdominal wall: Anasarca is seen. Bones: Unremarkable. IMPRESSION: 1. Anasarca, ascites, and diffuse bowel wall thickening are seen suggestive of third spacing. 2. Prominent wall thickening of the distal sigmoid colon and rectum compatible with proctitis. 3. Hepatic steatosis. The pancreas is highly atrophic. ACT 112: Negative or not required by law. Electronically signed by: Blayne Yanez M.D. 09/16/2022 8:22 AM
[2022-09-16] MEDS: HEPARIN SOD 5,000 UNIT/0.5 ML VIAL SQ SCH ×2 (08:46→19:33)
[2022-09-16] MEDS: MAGNESIUM SULFATE / D5W 1 GM/100 ML BAG IV SCH ×3 (08:46→12:55)
[2022-09-16] MEDS: CHOLECALCIFEROL 5,000 UNITS 125 MCG TAB PO SCH (08:50)
[2022-09-16] MEDS: CALCIUM CARBONATE 1250MG TAB PO SCH ×2 (08:50→19:33)
[2022-09-16] MEDS: FERROUS SULFATE 325 MG TAB PO SCH (08:50)
[2022-09-16] MEDS: TACROLIMUS 1 MG CAP PO SCH ×2 (08:51→19:32)
[2022-09-16] MEDS: predniSONE 5 MG TAB PO SCH (08:51)
[2022-09-16] MEDS: PANTOprazole 40 MG TAB PO SCH (08:51)
[2022-09-16] MEDS: MAGNESIUM OXIDE 400 MG TAB PO SCH (08:51)
[2022-09-16] MEDS ORDERED: ESCITALOPRAM OXALATE 20 MG TAB PO SCH (09:00)
[2022-09-16] MEDS: PANCREAZE (LIPASE 16,800U) CAP PO SCH ×3 (09:23→16:22)
[2022-09-16] MEDS ORDERED: cefTRIAXone SODIUM 2,000 MG in DEXTROSE 5% 50 ML IV SCH (09:30)
[2022-09-16] MEDS ORDERED: DICYCLOMINE HCL 10 MG CAP PO PRN (09:31)
--- NOTE | 2022-09-16 09:41 | Surgery Progress Note ---
Date of Service September 16, 2022 Assessment & Plan (1) Complete rectal prolapse: Plan: successful reduction of prolapse in ER avoid constipation can start clear liquids no plans for surgical intervention here. needs connected with a colorectal surgeon for repair pt seen/examined with dr. ortiz Admission and Anticipated Discharge Date Admission Date: September 15, 2022 Supervising Physician Co-Signing Physician Notes As per Cheryl Doyle physician call center assistant No evidence of any prolapse this morning I strongly recommended the patient to make contact with her colorectal surgeon to electively consider surgically for the recurrent prolapse and he appears to be agreeable to this at this time Subjective Patient feeling better. Prolapse currently reduced. He reports longstanding issue with it and says he has been procrastinating getting it fixed. When has a BM it returns Physical Exam Physical Exam: awake/alert Gastrointestinal (Abdomen): no obvious rectal prolapse at this time Results & Data ([facility]) Vital Signs (Past 12 Hours) Vital Signs Pulse Resp BP Pulse Ox O2 Del Method 09/16/22 08:58 68 16 126/76 98 Room Air 09/15/22 23:45 81 18 100 Room Air 09/15/22 23:00 85 18 125/89 100 Room Air PG Care Time/CCT Total # of Minutes Spent Total Time Spent with Patient: Total time spent is greater than 50% in coordination of care (as documented) at patient's floor/unit and/or counseling patient: Coding Level of Care Code 90120 Subseq Hosp Care Lvl 1 Diagnoses Complete rectal prolapse K62.3
[2022-09-16] MEDS: LORazepam 0.5 MG TAB PO PRN (09:52)
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
[2022-09-16] MEDS ORDERED: MoRPHine SULFATE 2 MG/ML CARP IV PRN (14:31)
--- NOTE | 2022-09-16 14:38 | Hospitalist Progress Note ---
Date of Service September 16, 2022 Assessment & Plan (1) Proctitis: Plan: - noted on CT-AP - could be irritation/inflammation due to nonreducible rectal prolapse on admission - leukocytosis on presentation - started on ertapenem due to recent h/o ESBL E coli UTI overnight - will deescalate to Augmentin for proctitis as no evidence of recurrent UTI with negative UA and no urinary symptoms - GI consulted - pain control - likely can discharge in AM 09/17/2022 if pain controlled and patient does not have another rectal prolapse - continue to monitor (2) Rectal prolapse: Plan: - chronic problem but patient could not reduce at home so presented to ED - reduced in ED by surgery - has not had recurrent prolapse since admission with multiple BMs - pain control - surgery following (3) CKD (chronic kidney disease) stage 3, GFR 30-59 ml/min: Plan: - Cr near or below recent baseline - continue supportive care - renal consulted, recs appreciated - avoid nephrotoxic mediations (4) Cystic fibrosis: Plan: - s/p bilateral lung transplants in 2017 - lungs CTAB - tolerating RA well - continue immunosuppressive medications for transplant history (5) Exocrine pancreatic insufficiency: Plan: - continue pancreatic enzyme replacement (6) 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: Plan: - not on medications at home - monitor BG while inpatient (7) GERD (gastroesophageal reflux disease): Plan: - continue ppi (8) Hypomagnesemia: Plan: - replete prn - likely due to malabsorption - repeat labs tonight per renal (9) Hypocalcemia: Plan: - replete prn - renal following (10) Chronic hyponatremia: Plan: - chronic - improved with IVF - encourage po intake - renal following (11) Anxiety: Plan: - continue home medications - 0.5mg Ativan po bid prn for anxiety Plan DVT ppx: heparin SC Code Status: Full Code Dispo: telemetry Moshe Ratliff MD Hospital Medicine Admission and Anticipated Discharge Date Admission Date: September 15, 2022 Subjective Patient with cystic fibrosis s/p bilateral lung transplant 2017 on chronic immunosuppression, h/o nephrolithiasis s/p multiple ureteral stents, asthma, GERD, depression, exocrine pancreatic insufficiency, CKD, anxiety, h/o rectal prolapse who presented with nonreducible rectal prolapse. It was reduced by surgery. CT-AP showed proctitis and IV abx were started with ertapenem due to recent history of ESBL E coli UTIs. GI consulted and renal consulted for CKD. Patient feels well this morning. Reports had 2 BMs without rectal prolapse this morning. Reports some pain in his rectum area but improved from yesterday. Has some lower abdominal cramping as well. Denies chest pain, shortness of breath, n/v/d, cough, fever or chills, dysuria. Review of Systems Review of Systems: All systems reviewed & are unremarkable except as noted in Subjective Physical Exam Physical Exam: GENERAL: The patient is thin and frail, not in acute distress. HEENT: Pupils equal, round, and reactive to light. Oral mucosa moist. NECK: No JVD, no neck masses. CARDIOVASCULAR: S1 and S2 heard. Regular rate and rhythm. No murmur, no gallop. RESPIRATORY SYSTEM: Normal AP diameter. No accessory muscle use. No wheezing or crackles. ABDOMEN: Soft, bowel sounds present, mildly tender in lower quadrants, no distention. : deferred as prolapse was recently evaluated by general surgery and reduced CENTRAL NERVOUS SYSTEM: Cranial nerves II through XII grossly intact, nonfocal. EXTREMITIES: No edema, no erythema. Results & Data Results & Data ([facility]) Vital Signs (Past 12 Hours) Vital Signs Temp Pulse Resp BP Pulse Ox O2 Del Method 09/16/22 13:30 36.5 C 98 H 18 125/90 99 Room Air 09/16/22 11:34 79 18 103/76 100 Room Air 09/16/22 08:58 68 16 126/76 98 Room Air Diagnostic Findings Laboratory Results WBC 14.38 K/ul (4.8-10.8) H 09/16/22 04:35 RBC 3.11 M/uL (4.63-6.08) L 09/16/22 04:35 Hgb 9.5 g/dl (14.0-18.0) L 09/16/22 04:35 Hct 27.5 % (40.1-51.0) L 09/16/22 04:35 MCV 88.4 fL (80.0-100.0) 09/16/22 04:35 MCH 30.5 pg (25.0-34.0) 09/16/22 04:35 MCHC 34.5 g/dL (32.0-36.0) 09/16/22 04:35 RDW Std Deviation 41.7 fL (36.4-46.3) 09/16/22 04:35 RDW Coeff of Crissy 13.1 % (11.5-14.5) 09/16/22 04:35 Plt Count 217 K/uL (130-400) 09/16/22 04:35 MPV 10.4 fL (9.4-12.4) 09/16/22 04:35 Immature Gran % (Auto) 0.6 % 09/16/22 04:35 Neut % (Auto) 81.0 % 09/16/22 04:35 Lymph % (Auto) 13.0 % 09/16/22 04:35 [place] % (Auto) 5.1 % 09/16/22 04:35 Eos % (Auto) 0.1 % 09/16/22 04:35 Baso % (Auto) 0.2 % 09/16/22 04:35 Neut # (Auto) 11.64 K/uL (1.4-6.5) H 09/16/22 04:35 Lymph # (Auto) 1.87 K/uL (1.2-3.4) 09/16/22 04:35 [place] # (Auto) 0.74 K/uL (0.24-0.82) 09/16/22 04:35 Eos # (Auto) 0.02 K/uL (0-0.50) 09/16/22 04:35 Baso # (Auto) 0.03 K/uL (0-0.2) 09/16/22 04:35 Immature Gran # (Auto) 0.08 K/uL (0.00-0.02) H 09/16/22 04:35 Sodium 130 mmol/L (136-145) L 09/16/22 04:35 Potassium 4.2 mmol/L (3.5-5.1) 09/16/22 04:35 Chloride 103 mmol/L (98-107) 09/16/22 04:35 Carbon Dioxide 22 mmol/L (21-32) 09/16/22 04:35 Anion Gap 5 (3-11) 09/16/22 04:35 BUN 16 mg/dl (6-23) 09/16/22 04:35 Creatinine 0.81 mg/dl (0.6-1.4) 09/16/22 04:35 Est Cr Clr Drug Dosing 72.1 ml/min 09/16/22 04:35 Est GFR ( Amer) 131.6 ml/min 09/16/22 04:35 Est GFR (Non-Af Amer) 113.5 ml/min 09/16/22 04:35 BUN/Creatinine Ratio 19.8 (10-20) 09/16/22 04:35 Glucose 100 mg/dl (70-99(Fasting)) H 09/16/22 04:35 Calcium 6.8 mg/dl (8.5-10.1) L 09/16/22 04:35 Magnesium 1.0 mg/dl (1.7-2.4) L 09/16/22 04:35 Total Bilirubin 0.7 mg/dl (0.2-1.0) 09/16/22 04:35 Direct Bilirubin 0.3 mg/dl (0-0.2) H 09/16/22 04:35 AST 30 U/L (13-39) 09/16/22 04:35 ALT 17 U/L (7-52) 09/16/22 04:35 Alkaline Phosphatase 191 U/L (34-104) H 09/16/22 04:35 Total Protein 4.8 gm/dl (6.0-8.3) L 09/16/22 04:35 Albumin 2.3 gm/dl (3.4-5.0) L 09/16/22 04:35 Globulin 2.9 gm/dl (2.5-4.0) 09/15/22 20:18 Albumin/Globulin Ratio 1.0 (0.9-2) 09/15/22 20:18 Lipase < 3 U/L (11-82) L 09/15/22 20:18 Urine Color Yellow 09/16/22 03:15 Urine Appearance Clear (Clear) 09/16/22 03:15 Urine pH 6.5 (4.5-7.5) 09/16/22 03:15 Ur Specific [place] 1.021 (1.000-1.030) 09/16/22 03:15 Urine Protein Negative (Negative) 09/16/22 03:15 Urine Glucose (UA) Negative (Negative) 09/16/22 03:15 Urine Ketones Negative (Negative) 09/16/22 03:15 Urine Blood Negative (Negative) 09/16/22 03:15 Urine Nitrite Negative (Negative) 09/16/22 03:15 Urine Bilirubin Negative (Negative) 09/16/22 03:15 Urine Urobilinogen Negative (Negative) 09/16/22 03:15 Ur Leukocyte Esterase Negative (Negative) 09/16/22 03:15 SARS-CoV-2, RNA, NAAT NEGATIVE (NEGATIVE) 09/15/22 20:35 Impressions KUB X-Ray 09/15/22 18:00 KUB HISTORY: Generalized abdominal pain. COMPARISON: Chest and abdominal series 09/02/2022. FINDINGS: Moderate well-formed stool seen throughout the majority the colon. No dilated loops of bowel to suggest an obstruction. Prior cholecystectomy. No renal calculi. No ureteral calculi. No pneumoperitoneum or pneumatosis. IMPRESSION: 1. No evidence for a bowel obstruction. 2. Moderate fecal retention. ACT 112: Negative or not required by law. Electronically signed by: David Weber M.D. 09/15/2022 6:42 PM Abdomen/Pelvis CT 09/15/22 22:12 CT abd pelvis IV con only CLINICAL HISTORY: elevated leukocytosis, rectal prolapse TECHNIQUE: Helical axial images of the abdomen and pelvis were obtained and displayed. Automated dose lowering techniques and/or adjustment according to patient size were utilized for this exam. This exam was performed with intravenous contrast. CT DOSE: 300.52 mGy.cm COMPARISON: Comparison is made to CT abdomen pelvis 12/27/2021 FINDINGS: Lower chest: No acute abnormality. Liver: Hepatic steatosis is noted. Gallbladder and biliary tree: Patient is status post cholecystectomy. No intra- or extrahepatic biliary ductal dilation. Pancreas: Fatty replacement of the pancreas is seen. Spleen: Unremarkable. Adrenals: Unremarkable. Kidneys and ureters: Subcentimeter hypodensities are too small to characterize. Bladder: Unremarkable. Reproductive organs: Unremarkable. Bowel: Diffuse bowel wall thickening in the sigmoid colon and rectum compatible with proctitis. Mild edema is seen throughout the bowel loops. A hiatal hernia is seen. Lymph nodes Retroperitoneal: Unremarkable. Pelvic: Unremarkable. Mesenteric: Unremarkable. Peritoneum: Mild ascites is seen. Paraesophageal fluid is noted. Vessels: Unremarkable. Abdominal wall: Anasarca is seen. Bones: Unremarkable. IMPRESSION: 1. Anasarca, ascites, and diffuse bowel wall thickening are seen suggestive of third spacing. 2. Prominent wall thickening of the distal sigmoid colon and rectum compatible with proctitis. 3. Hepatic steatosis. The pancreas is highly atrophic. ACT 112: Negative or not required by law. Electronically signed by: Blayne Yanez M.D. 09/16/2022 8:22 AM Chest X-Ray 09/16/22 06:24 XR chest 1V portable CLINICAL HISTORY: leukocytosis. Pneumonia? TECHNIQUE: Single frontal radiograph of the chest was obtained. Comparison: Comparison is made to chest and abdomen radiographs 2 FINDINGS: A port catheter is seen. Numerous surgical clips and median sternotomy wires are seen. The cardiomediastinal silhouette is stable. The lungs are clear. No evidence of pleural effusion or pneumothorax. IMPRESSION: No acute abnormalities and in particular no evidence of pneumonia. ACT 112: Negative or not required by law. Electronically signed by: Blyane Yanez M.D. 09/16/2022 7:16 AM Medications Administered Current Inpatient Medications Acetaminophen (Acetaminophen 325 Mg Tab) 650 mg PO Q4H PRN PRN Reason: pain/fever Stop: 10/15/22 23:23 Lipase/Protease/Amylase (Pancreaze (Lipase 16,800u) Cap) 9 cap PO TIDM [place] Stop: 10/16/22 07:59 Last Admin: 09/16/22 13:43 Dose: Not Given Lipase/Protease/Amylase (Pancreaze (Lipase 16,800u) Cap) 4 cap PO DAILY PRN PRN Reason: prior to snacks Stop: 10/15/22 23:23 Aripiprazole (Aripiprazole 1 Mg/Ml Oral Soln 150 Ml Btl) 2 mg PO HS [place]CO Stop: 10/16/22 20:59 Calcium Carbonate (Calcium Carbonate 1250mg Tab) 1,250 mg PO BID [place] Stop: 10/16/22 08:59 Last Admin: 09/16/22 08:50 Dose: 1,250 mg Dicyclomine HCl (Dicyclomine Hcl 10 Mg Cap) 10 mg PO Q6H PRN PRN Reason: abdominal cramping Stop: 10/16/22 09:30 Ferrous Sulfate (Ferrous Sulfate 325 Mg Tab) 325 mg PO DAILY [place] Stop: 10/16/22 08:59 Last Admin: 09/16/22 08:50 Dose: 325 mg Heparin Sodium (Porcine) (Heparin Sod 5,000 Unit/0.5 Ml Vial) 5,000 units SQ Q12 [place] Stop: 10/16/22 08:59 Last Admin: 09/16/22 08:46 Dose: Not Given Hydroxyzine HCl (Hydroxyzine Hcl 25 Mg Tab) 25 mg PO Q6H PRN PRN Reason: Anxiety Stop: 10/15/22 23:23 Last Admin: 09/16/22 13:49 Dose: 25 mg Ertapenem 1,000 mg/ Syringe 10 mls @ 2 mls/min IV Q24H [place] Stop: 09/27/22 09:29 Influenza Virus Vaccine Quadrival (Fluarix Quadrivalent 0.5 Ml Syr) 0.5 ml IM .ONCE ONE Stop: 09/18/22 08:01 Lorazepam (Lorazepam 0.5 Mg Tab) 0.5 mg PO Q8H PRN PRN Reason: Anxiety Stop: 10/16/22 09:18 Last Admin: 09/16/22 09:52 Dose: 0.5 mg Magnesium Oxide (Magnesium Oxide 400 Mg Tab) 400 mg PO QAM [facility] Stop: 10/16/22 08:59 Last Admin: 09/16/22 08:51 Dose: 400 mg Montelukast Sodium (Montelukast Sodium 10 Mg Tablet) 10 mg PO HS [facility] Stop: 10/16/22 20:59 Morphine Sulfate (Morphine Sulfate 2 Mg/Ml Carp) 2 mg IV Q6H PRN PRN Reason: Severe Pain Stop: 09/30/22 14:30 Mycophenolate Sodium (Mycophenolate Sodium 180 Mg Tab) 720 mg PO BID [facility] Stop: 10/15/22 23:23 Last Admin: 09/16/22 08:51 Dose: 720 mg Pantoprazole Sodium (Pantoprazole 40 Mg Tab) 40 mg PO QAM [facility] Stop: 10/16/22 08:59 Last Admin: 09/16/22 08:51 Dose: 40 mg Polyethylene Glycol (Polyethylene (Miralax) 17 Gm Pack) 17 gm PO BID [facility] Stop: 10/15/22 23:23 Last Admin: 09/16/22 08:51 Dose: 17 gm Prednisone (Prednisone 5 Mg Tab) 5 mg PO QAM [facility] Stop: 10/16/22 08:59 Last Admin: 09/16/22 08:51 Dose: 5 mg Tacrolimus (Tacrolimus 1 Mg Cap) 10 mg PO BID [facility] Stop: 10/16/22 08:59 Last Admin: 09/16/22 08:51 Dose: 10 mg Tramadol HCl (Tramadol Hcl 50 Mg Tablet) 50 mg PO Q6H PRN PRN Reason: Moderate Pain Stop: 10/15/22 23:23 Last Admin: 09/16/22 11:54 Dose: 50 mg Vitamin D (Cholecalciferol 5,000 Units 125 Mcg Tab) 5,000 units PO [facility] Stop: 10/16/22 08:59 Last Admin: 09/16/22 08:50 Dose: 5,000 units
[2022-09-16] MEDS: AMOXICILLIN/CLAVULANATE 875 MG TAB PO SCH (16:23)
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
[2022-09-16 19:26] LABS: BUN Creatinine Ratio 14.7 (10-20); Calcium 7.5 mg/dl (8.5-10.1); Creatinine Clr Calc Pharmacy 57.2 ml/min; Est GFR (African American) 108.3 ml/min; Est GFR (Non-African American) 93.5 ml/min; Magnesium 2.1 mg/dl (1.7-2.4); Potassium 4.7 mmol/L (3.5-5.1)
[2022-09-16] MEDS ORDERED: ARIPIprazole 1 MG/ML ORAL SOLN 150 ML BTL PO SCH (21:00)
[2022-09-16] MEDS ORDERED: MONTELUKAST SODIUM 10 MG TABLET PO SCH (21:00)
[2022-09-17] MEDS ORDERED: HEPARIN 100 UNIT/ML 5ML FLUSH FLUSH PRN (02:51)
[2022-09-17] MEDS: LORazepam 0.5 MG TAB PO PRN (05:33)
[2022-09-17 05:52] LABS: Hemoglobin 9.6 g/dl (14.0-18.0); Mean Corpuscular Hemoglobin 30.4 pg (25.0-34.0); Mean Corpuscular Hgb Conc 34.3 g/dL (32.0-36.0); Mean Corpuscular Volume 88.6 fL (80.0-100.0); Mean Platelet Volume 10.2 fL (9.4-12.4); Platelet Count 245 K/uL (130-400); RDW Coefficient of Variation 13.2 % (11.5-14.5); RDW Standard Deviation 43.1 fL (36.4-46.3); Red Blood Count 3.16 M/uL (4.63-6.08); White Blood Count 12.76 K/ul (4.8-10.8)
[2022-09-17 06:16] LABS: Albumin Level 2.4 gm/dl (3.4-5.0); BUN Creatinine Ratio 15.2 (10-20); Bilirubin,Total 0.5 mg/dl (0.2-1.0); Calcium 7.2 mg/dl (8.5-10.1); Creatinine Clr Calc Pharmacy 55.6 ml/min; Est GFR (African American) 104.6 ml/min; Est GFR (Non-African American) 90.2 ml/min; Globulin 2.5 gm/dl (2.5-4.0); Phosphorus 3.2 mg/dl (2.5-4.9); Potassium 3.7 mmol/L (3.5-5.1); Total Protein 4.9 gm/dl (6.0-8.3)
[2022-09-17] MEDS: AMOXICILLIN/CLAVULANATE 875 MG TAB PO SCH (08:45)
[2022-09-17] MEDS: FERROUS SULFATE 325 MG TAB PO SCH (08:45)
[2022-09-17] MEDS: TACROLIMUS 1 MG CAP PO SCH (08:45)
[2022-09-17] MEDS: CALCIUM CARBONATE 1250MG TAB PO SCH (08:45)
[2022-09-17] MEDS: PANCREAZE (LIPASE 16,800U) CAP PO SCH ×2 (08:46→11:49)
[2022-09-17] MEDS: CHOLECALCIFEROL 5,000 UNITS 125 MCG TAB PO SCH (08:46)
[2022-09-17] MEDS: MYCOPHENOLATE SODIUM 180 MG TAB PO SCH (08:46)
[2022-09-17] MEDS: MAGNESIUM OXIDE 400 MG TAB PO SCH (08:47)
[2022-09-17] MEDS: PANTOprazole 40 MG TAB PO SCH (08:47)
[2022-09-17] MEDS: HEPARIN SOD 5,000 UNIT/0.5 ML VIAL SQ SCH (08:47)
[2022-09-17] MEDS: predniSONE 5 MG TAB PO SCH (08:47)
[2022-09-17] MEDS: POLYETHYLENE (MIRALAX) 17 GM PACK PO SCH (08:48)
[2022-09-17] MEDS: traMADol HCL 50 MG TABLET PO PRN (08:56)
--- NOTE | 2022-09-17 08:56 | Surgery Progress Note ---
Date of Service September 17, 2022 Assessment & Plan (1) Rectal prolapse: Plan Patient can be discharged at the discretion of the primary service Needs to to be established with a colorectal surgeon General surgery will sign off at this time Admission and Anticipated Discharge Date Admission Date: September 15, 2022 Review of Systems Review of Systems: Patient was asleep resting comfortably therefore I did not awaken him No documented evidence of recurrent prolapse Results & Data ([facility]) Vital Signs (Past 12 Hours) Vital Signs Temp Pulse Resp BP Pulse Ox O2 Del Method 09/17/22 08:00 36.2 C L 81 18 113/72 98 Room Air 09/17/22 03:00 36.4 C L 69 18 105/64 99 Room Air 09/16/22 22:00 36.3 C L 84 20 116/81 99 Room Air PG Care Time/CCT Total # of Minutes Spent Total Time Spent with Patient: Total time spent is greater than 50% in coordination of care (as documented) at patient's floor/unit and/or counseling patient: Coding Level of Care Code 43953 Subseq Hosp Care Lvl 3 Diagnoses Rectal prolapse K62.3
[2022-09-17] MEDS ORDERED: ERTAPENEM SODIUM 1,000 MG in SYRINGE 0 ML IV SCH (09:30)
--- NOTE | 2022-09-17 12:24 | Discharge Summary ---
Date of Service September 17, 2022 Admission HPI Per Admitting Provider This is a 37-year-old male with past medical history significant for cystic fibrosis, status post bilateral lung transplant in 2017, chronic immunosuppression therapy, nephrolithiasis, status post multiple ureteral stents for hydronephrosis, history of asthma, GERD, depression, exocrine pancreatic insufficiency, chronic kidney disease stage III, history of COVID, history of severe protein-calorie malnutrition, anxiety disorder. The patient was recently in the hospital for flu and also ESBL UTI, was treated with Invanz and Tamiflu. He was admitted on 09/02/2022 and discharged on 09/08/2022. Presents with rect al pain and rectal prolapse today. The patient seems to have chronic rectal prolapse. Generally he can reduce it; today after bowel movement was unable to reduce , so he came to the ER. It was very painful, in the ER it was reduced. KUB showed constipation and ER consulted surgery. Surgery saw the patient. They thought there was no need for urgent surgical intervention. They thought that he should follow with colorectal specialist as surgical correction of rectal prolapse has a fair recurrence rate and he may need additional studies prior to colonoscopy. The patient was admitted to be observed overnight in the hospital. The patient is currently saying the pain is improved with pain medications. Resting comfortably, hemodynamically stable. The patient states since last discharge, he is still weak, falling frequently. Appetite is okay. No difficulty swallowing. No chest pain, no shortness of breath. Yesterday, he had some runny nose. No fevers, no cough, no headache. He has blurred visions. He states he needs to change his glasses. Currently, no nausea, no abdominal pain. Resting comfortably and hemodynamically stable. Admission Exam Per Admitting Provider GENERAL: The patient is thin and frail, not in acute distress. VITAL SIGNS: Temperature 36.3, pulse 101, respiratory rate 18, blood pressure 112/76, oxygen 92% on room air. HEENT: Pupils equal, round, and reactive to light. Oral mucosa moist. NECK: No JVD, no neck masses. CARDIOVASCULAR: S1 and S2 heard. Regular rate and rhythm. No murmur, no gallop. RESPIRATORY SYSTEM: Normal AP diameter. No accessory muscle use. No wheezing or crackles. ABDOMEN: Soft, bowel sounds present, nontender, no distention. CENTRAL NERVOUS SYSTEM: Cranial nerves II through XII grossly intact, nonfocal. EXTREMITIES: No edema, no erythema. Principal Diagnosis proctitis Discharge Exam GENERAL: The patient is thin and frail, not in acute distress. HEENT: Pupils equal, round, and reactive to light. Oral mucosa moist. NECK: No JVD, no neck masses. CARDIOVASCULAR: S1 and S2 heard. Regular rate and rhythm. No murmur, no gallop. RESPIRATORY SYSTEM: Normal AP diameter. No accessory muscle use. No wheezing or crackles. ABDOMEN: Soft, bowel sounds present, mildly tender in lower quadrants, no distention. : deferred as prolapse was recently evaluated by general surgery and reduced CENTRAL NERVOUS SYSTEM: Cranial nerves II through XII grossly intact, nonfocal. EXTREMITIES: No edema, no erythema. Discharge Data Allergies Allergy/AdvReac Type Severity Reaction Status Date / Time cephalexin Allergy Severe Hives Verified 09/16/22 02:13 tetracycline AdvReac Severe vomiting Verified 09/16/22 02:13 naproxen AdvReac Mild Stomach Verified 09/16/22 02:13 bleeding midazolam [From Versed] AdvReac Unknown "SLOW TO Verified 09/16/22 02:13 WAKE UP" Consultations 09/15/22 19:52 Consult General Surgery Stat 09/16/22 08:00 Consult Gastroenterology Routine Consult Nephrology Routine Ordered Studies 09/15/22 22:12 CT Abd and Pelvis [CT abd pelvis IV con only] Urgent Hospital Course (1) Proctitis: - noted on CT-AP - could be irritation/inflammation due to nonreducible rectal prolapse on admission - leukocytosis on presentation - started on ertapenem due to recent h/o ESBL E coli UTI overnight - will deescalate to Augmentin for proctitis as no evidence of recurrent UTI with negative UA and no urinary symptoms - GI consulted - pain control - discharge home today with total 7 day course of abx - continue to monitor (2) Rectal prolapse: - chronic problem but patient could not reduce at home so presented to ED - reduced in ED by surgery - has not had recurrent prolapse since admission with multiple BMs - pain control - surgery following - keep high fiber diet, laxatives to keep stools soft - follow up with colorectal surgeon for surgical definitive treatment (3) CKD (chronic kidney disease) stage 3, GFR 30-59 ml/min: - Cr near or below recent baseline - continue supportive care - renal consulted, recs appreciated - avoid nephrotoxic mediations (4) Cystic fibrosis: - s/p bilateral lung transplants in 2017 - lungs CTAB - tolerating RA well - continue immunosuppressive medications for transplant history (5) Exocrine pancreatic insufficiency: - continue pancreatic enzyme replacement (6) 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: - not on medications at home - monitor BG while inpatient (7) GERD (gastroesophageal reflux disease): - continue ppi (8) Hypomagnesemia: - replete prn - likely due to malabsorption - repeat labs tonight per renal (9) Hypocalcemia: - replete prn - renal following (10) Chronic hyponatremia: - chronic - improved with IVF - encourage po intake - renal following (11) Anxiety: - continue home medications - 0.5mg Ativan po bid prn for anxiety Plan DVT ppx: heparin SC Code Status: Full Code Dispo: telemetry Moshe Ratliff MD [facility] Total Time Total Time Spent Total Time Spent (In Minutes): 25 Total Time Includes: Examination of the Patient, Discharge Planning and Medication Reconciliation Discharge Plan Discharge Items Patient Disposition: Home - Self-Care Reason For Visit: RECTAL PAIN Discharge Diagnosis: proctitis Activity: Resume your previous activity Non-emergency contact: Primary Care Provider, Surgeon and Insurance Sales Professional Call non-emergency contact if: you have any medication questions and your symptoms worsen Follow-up/Referrals: Amador Sandy MD [Primary Care Provider] - Diet: Regular Addtl Attending Provider Instructions: You were admitted due to inability to reduce rectal prolapse. You were seen by surgery who was able to reduce it. You had a CT scan showing evidence of rectal infection (proctitis) and started on antibiotics with improvement. You had BMs without prolapse and/or easily reducible. you should complete a 7 day course of antibiotics and should follow up with a colorectal surgeon for discussion on surgical intervention to prevent further prolapse. Keep a high fiber diet and try to have soft bowel movements to prevent further complications from prolapse. Pending Studies at Discharge: No Stand-Alone Forms: My Myxer, Smoking Cessation Medications and DC Order Prescriptions: New amoxicillin-pot clavulanate 875-125 mg Tablet 1 tab PO BIDM 5 Days Qty: 10 0RF dicyclomine 10 mg Capsule 10 mg PO Q6H PRN (Reason: abdominal cramps) Qty: 14 0RF Continued prednisone 5 mg Tablet 5 mg PO QAM pantoprazole [Protonix] 40 mg Tablet,Delayed Release (Dr/Ec) 40 mg PO QAM Zenpep 25,000-79,000- 105,000 unit capsule,delayed release(DR/EC) 6 cap PO TIDM Rx Instructions: Take 6 capsule 1/2 hour before meals Zenpep 25,000-79,000- 105,000 unit capsule,delayed release(DR/EC) 3 cap PO .PRIOR TO SNACKS Rx Instructions: Take 3 capsules 1/2 hour before snacks tacrolimus [Prograf] 5 mg capsule 5 mg PO BID Rx Instructions: take with 3 mg =8mg hydroxyzine HCl 25 mg Tablet 25 mg PO Q6H PRN (Reason: Anxiety) montelukast 10 mg Tablet 10 mg PO HS escitalopram oxalate 20 mg tablet 20 mg PO DAILY mycophenolate sodium [Myfortic] 360 mg Tablet,Delayed Release (Dr/Ec) 720 mg PO BID ferrous sulfate 325 mg (65 mg iron) Tablet 325 mg PO DAILY cholecalciferol (vitamin D3) [Vitamin D3] 125 mcg (5,000 unit) Tablet 125 mcg PO QAM aripiprazole 2 mg tablet 2 mg PO HS calcium carbonate-vitamin D3 [Os-Min 500 + D3] 500 mg-15 mcg (600 unit) Tablet 1,250 mg PO BID 30 Days Qty: 150 0RF magnesium oxide 400 mg (241.3 mg magnesium) Tablet 400 mg PO QAM 30 Days Qty: 30 0RF tacrolimus 1 mg capsule 3 mg PO BID Rx Instructions: take with 5 mg cap = 8 mg bid Discharge Orders: Discharge Order (Routine); Ordered 09/17/22 Ordered By: Moshe Ratliff Admission Data Admit Date/Time: 09/15/22 21:14 Attending Provider: Moshe Ratliff Admit Provider: Jose Martin Cespedes Primary Care Provider: Amador Sandy Other Providers: Raad Castellanos ; Lydia Yañez ; Kiarra Unger Other Interventions: Discharge Summary Assessment (RN) Last Done: 09/17/22 13:04
[2022-09-18] MEDS ORDERED: FLUARIX QUADRIVALENT 0.5 ML SYR IM ONE (08:00)
== END 2022-09-17 15:26 | disposition home or self-care (01) ==
LOC: EDINP 17:13 → ED 17:13 → 2N 09-16 13:23
DX: E84.9 Cystic fibrosis, unspecified; K62.3 Rectal prolapse; E83.42 Hypomagnesemia; Z83.3 Family history of diabetes mellitus; N18.30 Chronic kidney disease, stage 3 unspecified; E43 Unspecified severe protein-calorie malnutrition; Z88.6 Allergy status to analgesic agent; Z86.16 Personal history of COVID-19; E83.52 Hypercalcemia; K62.89 Other specified diseases of anus and rectum; K59.00 Constipation, unspecified; Z88.1 Allergy status to other antibiotic agents; E87.1 Hypo-osmolality and hyponatremia; Z82.49 Family history of ischemic heart disease and other diseases of the circulatory system; K86.81 Exocrine pancreatic insufficiency; D72.829 Elevated white blood cell count, unspecified; Z79.899 Other long term (current) drug therapy; Z80.1 Family history of malignant neoplasm of trachea, bronchus and lung

== ENCOUNTER 2022-10-19 20:14 | Inpatient (IN) ==
[2022-10-19 21:42] LABS: Albumin Level 2.4 gm/dl (3.4-5.0); Bilirubin,Total 0.6 mg/dl (0.2-1.0); Calcium 7.1 mg/dl (8.5-10.1); Potassium 3.7 mmol/L (3.5-5.1)
[2022-10-19] MEDS ORDERED: ONDANSETRON INJ 2 MG/ML 2 ML VIAL IV STA (21:47)
[2022-10-19] MEDS ORDERED: SODIUM CHLORIDE 0.9% 1000ML 1,000 ML IV ONE (21:47)
[2022-10-19] MEDS ORDERED: fentaNYL citrate 100 MCG/2 ML VIAL IV STA (21:47)
[2022-10-19 21:48] LABS: Albumin Globulin Ratio 0.9 (0.9-2); BUN Creatinine Ratio 13.7 (10-20); Creatinine Clr Calc Pharmacy 35.2 ml/min; Est GFR (African American) 59.3 ml/min; Est GFR (Non-African American) 51.1 ml/min; Globulin 2.8 gm/dl (2.5-4.0); Total Protein 5.2 gm/dl (6.0-8.3)
[2022-10-19] MEDS ORDERED: ERTAPENEM SODIUM 10 ML IV STA (21:50)
[2022-10-19] MEDS ORDERED: diphenhydrAMINE 50 MG/ML VIAL IV STA ×2 (21:50→23:29)
[2022-10-19 21:56] LABS: Magnesium 1.3 mg/dl (1.7-2.4)
[2022-10-19 21:59] LABS: Basophils # (auto) 0.03 K/uL (0-0.2); Basophils % (auto) 0.2 %; Eosinophils % (auto) 0.7 %; Hematocrit (blood only) 30.6 % (42.0-52.0); Immature Granulocytes % (auto) 0.7 %; Lymphocytes # (auto) 4.51 K/uL (1.2-3.4); Lymphocytes % (auto) 32.9 %; Mean Corpuscular Hemoglobin 30.5 pg (25.0-34.0); Mean Corpuscular Hgb Conc 35.9 g/dL (32.0-36.0); Mean Corpuscular Volume 84.8 fL (80.0-100.0); Mean Platelet Volume 10.2 fL (9.4-12.4); Monocytes # (auto) 0.98 K/uL (0.11-0.59); Monocytes % (auto) 7.1 %; Neutrophils % (auto) 58.4 %; Platelet Count 316 K/uL (130-400); RDW Coefficient of Variation 13.5 % (11.5-14.5); RDW Standard Deviation 42.5 fL (36.4-46.3); Red Blood Count 3.61 M/uL (4.70-6.10); White Blood Count 13.72 K/ul (4.8-10.8)
[2022-10-19 22:05] LABS: Troponin I High Sensitivity 5.7 pg/ml (0-20)
[2022-10-19] MEDS ORDERED: OPTIRAY 350 100ml IV ONE (22:25)
[2022-10-19 23:07] LABS: Influenza A virus by PCR Negative (Neg); Influenza B virus by PCR Negative (Neg); RSV by PCR Negative (Neg); SARS CoV2 RNA(COVID-19) Ceph NEGATIVE (Negative)
[2022-10-19] MEDS: MAGNESIUM SULFATE / D5W 1 GM/100 ML BAG IV SCH (23:34)
[2022-10-19 23:49] LABS: Appearance Urine Clear (Clear); Bilirubin Urine Negative (Negative); Blood Urine Negative (Negative); Color Urine Yellow; Glucose Urine UA Negative (Negative); Ketones Urine Negative (Negative); Leukocyte Esterase Urine Negative (Negative); Nitrite Urine Negative (Negative); Protein Urine Negative (Negative); Specific Gravity Urine 1.017 (1.000-1.030); Urobilinogen Urine Negative (Negative)
[2022-10-20] MEDS ORDERED: MAGNESIUM SULFATE / D5W 1 GM/100 ML BAG IV ONE (00:08)
[2022-10-20] MEDS: MAGNESIUM SULFATE / D5W 1 GM/100 ML BAG IV SCH (00:11)
[2022-10-20 00:13] LABS: Amphetamines+Metham, Urine Neg (Neg); Barbiturates, Urine Neg (Neg); Benzodiazepine, Urine Neg (Neg); Cocaine, Urine Neg (Neg); MDMA (Ecstacy), Urine Neg (Neg); Methadone, Urine Neg (Neg); Opiate, Urine Neg (Neg); Phencyclidine, Urine Neg (Neg)
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
[2022-10-20] MEDS ORDERED: HEPARIN 100 UNIT/ML 5ML FLUSH ONE (00:46)
--- NOTE | 2022-10-20 00:54 | Emergency Department Note ---
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 language assistant for clarification. Impression & Plan Sepsis, Acute hyponatremia, Hypomagnesemia, Abdominal pain in male, Chest pain Discharge Plan Visit Data Chief Complaint: Pain (Generalized) Stated Complaint: RECTAL PROLAPSE, RIB, ABD. PAIN, DIARRHEA ED Provider: Ivan Medellin ED Midlevel Provider: Mary Kidd Discharge Problem: Sepsis, Acute hyponatremia, Hypomagnesemia, Abdominal pain in male, Chest pain Patient Disposition: Admitted As Inpatient Condition: Fair Forms Stand Alone Forms: [facility] [employer] Prescriptions Prescriptions: No Action prednisone 5 mg Tablet 5 mg PO QAM pantoprazole [Protonix] 40 mg Tablet,Delayed Release (Dr/Ec) 40 mg PO QAM Zenpep 25,000-79,000- 105,000 unit capsule,delayed release(DR/EC) 6 cap PO TIDM Rx Instructions: Take 6 capsule 1/2 hour before meals Zenpep 25,000-79,000- 105,000 unit capsule,delayed release(DR/EC) 3 cap PO .PRIOR TO SNACKS Rx Instructions: Take 3 capsules 1/2 hour before snacks tacrolimus [Prograf] 5 mg capsule 10 mg PO BID hydroxyzine HCl 25 mg Tablet 25 mg PO Q6H PRN (Reason: Anxiety) montelukast 10 mg Tablet 10 mg PO HS mycophenolate sodium [Myfortic] 360 mg Tablet,Delayed Release (Dr/Ec) 720 mg PO BID cholecalciferol (vitamin D3) [Vitamin D3] 125 mcg (5,000 unit) Tablet 125 mcg PO QAM aripiprazole 2 mg tablet 2 mg PO HS dicyclomine 10 mg Capsule 10 mg PO Q6H PRN (Reason: abdominal cramps) Qty: 14 0RF calcium carbonate-vitamin D3 500 mg-15 mcg (600 unit) tablet 2.5 tab PO BID Referrals Referrals: Amador Sandy MD [Primary Care Provider] - : Sepsis Qualifiers: Sepsis type: sepsis due to unspecified organism Sepsis acute organ dysfunction status: unspecified Qualified Code(s): A41.9 - Sepsis, unspecified organism
[2022-10-20] MEDS ORDERED: oxyCODONE HCL IR 5 MG TAB (IMMEDIATE RELEASE) PO STA (01:14)
[2022-10-20] MEDS ORDERED: DAPTOmycin 250 MG in SYRINGE 0 ML IV ONE (01:30)
[2022-10-20] MEDS ORDERED: AZTREONAM 2,000 MG in DEXTROSE 5% 100 ML IV STA (01:41)
[2022-10-20] MEDS ORDERED: LIDOCAINE 5% 1 PATCH TD ONE (01:45)
[2022-10-20 01:56] LABS: Base Excess VBG -9.2 mEq/L; HCO3 VBG 15 mmol/L; Oxygen Saturation VBG 93.9 %; PCO2 VBG 29 mmHg (38-50); PO2 VBG 66 mmHg; pH VBG 7.33 (7.36-7.41)
[2022-10-20] MEDS ORDERED: PROMETHAZINE HCL 6.25 MG in SODIUM CHLORIDE 0.9% 50 ML IV PRN (01:59)
[2022-10-20] MEDS ORDERED: HYDROmorphone INJ 0.5 MG/0.5 ML SYR IV PRN (01:59)
[2022-10-20] MEDS ORDERED: ACETAMINOPHEN 325 MG TAB PO PRN ×2 (02:06→03:31)
[2022-10-20 02:18] LABS: Calcium 7.3 mg/dl (8.5-10.1); Potassium 3.5 mmol/L (3.5-5.1)
[2022-10-20 02:24] LABS: BUN Creatinine Ratio 14.1 (10-20); Creatinine Clr Calc Pharmacy 36.2 ml/min; Est GFR (African American) 61.5 ml/min
[2022-10-20] MEDS ORDERED: NSS + 20MEQ KCL 20 MEQ/1,000 ML BAG IV ONE (02:47)
[2022-10-20] MEDS ORDERED: CARBOHYDRATES FOR HYPOGLYCEMIA PO PRN (03:31)
[2022-10-20] MEDS ORDERED: DEXTROSE 50% 50 ML SYRINGE IV PRN (03:31)
[2022-10-20] MEDS ORDERED: GLUCOSE 40% GEL 15 GM TUBE PO PRN (03:31)
[2022-10-20] MEDS ORDERED: GLUCOSE 10 TAB/TUBE PO PRN (03:31)
[2022-10-20] MEDS ORDERED: GLUCAGON FOR INJ 1 MG VIAL SQ PRN (03:31)
[2022-10-20] MEDS: INSULIN ASPART PER UNIT SC SCH ×5 (03:41→20:36)
[2022-10-20] MEDS ORDERED: PANCREAZE (LIPASE 16,800U) CAP PO PRN (03:48)
[2022-10-20] MEDS: ARIPIprazole 1 MG/ML ORAL SOLN 150 ML BTL PO SCH ×2 (04:06→22:14)
--- NOTE | 2022-10-20 07:36 | Electrocardiogram Report ---
Test Reason : Blood Pressure : / mmHG Vent. Rate : 072 BPM Atrial Rate : 072 BPM P-R Int : 126 ms QRS Dur : 072 ms QT Int : 476 ms P-R-T Axes : 057 068 077 degrees QTc Int : 521 ms Normal sinus rhythm Nonspecific T wave abnormality Prolonged QT Abnormal ECG When compared with ECG of 02-SEP-2022 15:24, QT has lengthened Confirmed by Bijan Maguire ([id number]) on 10/20/2022 7:36:00 AM Referred By: REFERRED SELF Confirmed By:Rock Maguire
[2022-10-20 08:10] LABS: Basophils # (auto) 0.04 K/uL (0-0.2); Basophils % (auto) 0.2 %; Eosinophils # (auto) 0.02 K/uL (0-0.50); Eosinophils % (auto) 0.1 %; Hematocrit (blood only) 29.5 % (42.0-52.0); Hemoglobin 10.5 g/dl (14.0-18.0); Immature Granulocytes # (auto) 0.21 K/uL (0.01-0.20); Immature Granulocytes % (auto) 1.2 %; Lymphocytes # (auto) 2.49 K/uL (1.2-3.4); Lymphocytes % (auto) 14.4 %; Mean Corpuscular Hemoglobin 30.8 pg (25.0-34.0); Mean Corpuscular Hgb Conc 35.6 g/dL (32.0-36.0); Mean Corpuscular Volume 86.5 fL (80.0-100.0); Mean Platelet Volume 9.9 fL (9.4-12.4); Monocytes # (auto) 0.91 K/uL (0.11-0.59); Monocytes % (auto) 5.3 %; Neutrophils # (auto) 13.64 K/uL (1.40-6.50); Neutrophils % (auto) 78.8 %; Platelet Count 399 K/uL (130-400); RDW Coefficient of Variation 14.1 % (11.5-14.5); RDW Standard Deviation 44.3 fL (36.4-46.3); Red Blood Count 3.41 M/uL (4.70-6.10); White Blood Count 17.31 K/ul (4.8-10.8)
[2022-10-20] MEDS: oxyCODONE HCL IR 5 MG TAB (IMMEDIATE RELEASE) PO PRN ×2 (08:36→19:37)
[2022-10-20] MEDS: DICYCLOMINE HCL 10 MG CAP PO PRN (08:45)
--- NOTE | 2022-10-20 08:45 | CT Scan Report ---
ABDOMEN AND PELVIS CT WITH IV CONTRAST CT DOSE: 263.42 mGy.cm HISTORY: Severe abdominal pain. TECHNIQUE: Multiaxial CT images of the abdomen and pelvis were performed following the use of intrave nous contrast. A dose lowering technique was utilized adhering to the principles of ALARA. COMPARISON STUDY: Abdomen and pelvis CT 09/15/2022. FINDINGS: There is an old mild superior endplate compression deformity at L1. Bilateral L5 pars defec ts are noted. The lung bases are clear. No pneumoperitoneum. No pneumatosis. Postoperative changes co nsistent with prior double lung transplant. Moderate hiatus hernia containing fluid in the proximal s tomach. This remains unchanged. Mild body wall edema again noted. Diffuse fatty replacement of the pa ncreas consistent with cystic fibrosis. Diffusely heterogeneous liver is again noted and may correspo nd to the patient's cystic fibrosis. The spleen and adrenal glands are unremarkable. The main portal vein is patent. Prior cholecystectomy. No retroperitoneal lymphadenopathy. Normal caliber abdominal a ok. No hydronephrosis. Stable small bilateral renal hypodense lesions. A 9 mm focus of heterogeneou s enhancement within the right kidney remains stable. Therefore, this may represent an area of chroni c scarring. Small amount of ascites with diffuse mesenteric edema which is similar to the prior study . Diffuse thickening of the small and large bowel is again noted. This most pronounced within the rec any, terminal ileum, and cecum/ascending colon. This has progressed in the interval. Mild periportal lymphadenopathy, unchanged. IMPRESSION: 1. Diffuse thickening of the large and small bowel which has progressed in the interval. This is most pronounced within the rectum, terminal ileum, and cecum/ascending colon. This is likely due to the p atient's diffuse edematous state/portal colopathy versus a nonspecific enterocolitis. 2. Small amount of ascites again noted. 3. Postoperative changes as described above. ACT 112: Negative or not required by law. Electronically signed by: David Weber M.D. 10/20/2022 8:44 AM
[2022-10-20] MEDS ORDERED: HYDROmorphone INJ 0.5 MG/0.5 ML SYR IV ONE (09:09)
[2022-10-20] MEDS: PANCREAZE (LIPASE 16,800U) CAP PO SCH ×3 (09:12→18:15)
--- NOTE | 2022-10-20 09:25 | XRay Report ---
XR chest 1V portable HISTORY: Atypical chest pain. COMPARISON: Chest 09/16/2022. FINDINGS: Postoperative changes consistent with a prior double lung transplant. No focal lung consoli dations to suggest a pneumonia. No evidence for pulmonary edema. The heart is normal in size. A left Port-A-Cath terminates in the distal SVC. Moderate hiatus hernia, unchanged. IMPRESSION: No acute process. ACT 112: Negative or not required by law. Electronically signed by: David Weber M.D. 10/20/2022 9:23 AM
[2022-10-20] MEDS: AZTREONAM 2,000 MG in DEXTROSE 5% 100 ML IV SCH ×2 (11:06→18:17)
[2022-10-20] MEDS: PANTOprazole 40 MG TAB PO SCH (11:57)
[2022-10-20] MEDS: MYCOPHENOLATE SODIUM 180 MG TAB PO SCH ×2 (11:57→22:14)
[2022-10-20] MEDS: predniSONE 5 MG TAB PO SCH (11:57)
[2022-10-20] MEDS: TACROLIMUS 1 MG CAP PO SCH ×2 (11:58→22:14)
[2022-10-20] MEDS ORDERED: STAT IV STA (12:47)
[2022-10-20] MEDS ORDERED: SODIUM BICARBONATE 8.4% 75 MEQ in SODIUM CHLORIDE 0.45 % 1,000 ML IV SCH (13:00)
[2022-10-20] MEDS: HYDROmorphone INJ 0.5 MG/0.5 ML SYR IV PRN ×3 (13:14→22:11)
--- NOTE | 2022-10-20 13:16 | Hospitalist Progress Note ---
Date of Service October 20, 2022 Assessment & Plan (1) Lumbar radiculopathy: Plan: Lumbar radiculopathy R/O Infection in setting of immunocompromise state H/O Cystic fibrosis S/P lung transplant on chronic immunosuppression regimen (prednisone and Myfortic) Possible sepsis --MRI L spine pending -- Continue daptomycin, Azactam for now Will consider orthopedic evaluation based on MRI results Pain control Fall precautions PT OT when appropriate Abdominal Pain DD:Enterocolitis --CT ABD:Diffuse thickening of the large and small bowel which has progressed in the interval. This is most pronounced within the rectum, terminal ileum, and cecum/ascending colon. This is likely due to the patient's diffuse edematous state/portal colopathy versus a nonspecific enterocolitis. Small amount of ascites again noted. Postoperative changes as described above. --Blood Culture: Pending -- Stool Studies pending --Empirically on Dapto and Azactam -Continue IV fluids -Consider GI if no improvement Diarrhea Rule out recurrent C. difficile Stool Studies pending Acute on chronic hyponatremia Acute kidney injury on CKD III Metabolic acidosis Change IV fluids to 1/2 NSS With Bicarbonate Monitor sodium levels closely Avoid nephrotoxic agents as able Consider nephrology evaluation if no improvement Bronchial asthma H/O pulmonary MAC infection S/P Lung Transplant --CXR:No acute process. 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 coli UTI UA not suggestive of UTI Continue ISS for now Advance diet as tolerated Continue home meds Severe protein calorie malnutrition BMI 16 Extermination Supervisor consulted DVT Px: SCDs for now Code Status Full code Admission and Anticipated Discharge Date Admission Date: October 20, 2022 Subjective Patient is seen and examined at bedside States having Right sided abdominal pain associated with cramps Also states having back pain radiating down R leg and intermittent dizziness No diarrhea today, feels constipated Denies any chest pain, dyspnea, nausea No other complaints Review of Systems Review of Systems: All systems reviewed & are unremarkable except as noted in Subjective Physical Exam Physical Exam: Physical Exam: Vitals signs as noted above General Appearance:Thin, frail, chronic ill appearing, no apparent distress Head: normocephalic, Atraumatic Eyes: normal inspection, EOMI Neck: supple, Trachea midline Respiratory/Chest: Normal breath sounds, CTA, No accessory muscle use Cardiovascular: S1, S2, No murmur Abdomen/GI:Soft, R sided tender, Bowel sounds present Extremities/Musculoskeletal:normal inspection, no edema Neurologic/Psych:AAOX3, grossly no focal neurological deficits Skin: normal color, warm Results & Data Results & Data ([facility]) Vital Signs (Past 12 Hours) Vital Signs Temp Pulse Pulse Resp BP BP Pulse Ox 10/20/22 11:49 36.3 C L 80 18 137/88 100 10/20/22 08:19 36.3 C L 71 17 128/83 100 10/20/22 03:15 36.4 C L 67 17 135/87 98 10/20/22 03:29 10/20/22 02:00 76 23 124/90 97 O2 Del Method 10/20/22 11:49 Room Air 10/20/22 08:19 Room Air 10/20/22 03:15 Room Air 10/20/22 03:29 Room Air 10/20/22 02:00 Room Air Laboratory Results Short CBC 10/19/22 10/20/22 Range/Units 21:22 07:51 WBC 13.72 H 17.31 H (4.8-10.8) K/ul Hgb 11.0 L 10.5 L (14.0-18.0) g/dl Hct 30.6 L 29.5 L (42.0-52.0) % Plt Count 316 399 (130-400) K/uL BMP 10/19/22 10/20/22 10/20/22 20:40 01:42 07:51 Sodium 122 L 122 L 125 L Potassium 3.7 3.5 4.0 Chloride 96 L 98 99 Carbon Dioxide 17 L 15 L 15 L BUN 23 23 Creatinine 1.68 H 1.63 H Glucose 120 H 125 H Calcium 7.1 L 7.3 L 7.2 L Liver Function 10/19/22 Range/Units 20:40 Total Bilirubin 0.6 (0.2-1.0) mg/dl AST 32 (13-39) U/L ALT 20 (7-52) U/L Alkaline Phosphatase 319 H (34-104) U/L Albumin 2.4 L (3.4-5.0) gm/dl Urine 10/19/22 Range/Units 23:37 Urine Color Yellow Urine Appearance Clear (Clear) Urine pH 5.0 (4.5-7.5) Ur Specific [place] 1.017 (1.000-1.030) Urine Protein Negative (Negative) Urine Glucose (UA) Negative (Negative)
[2022-10-20] MEDS ORDERED: GADOBUTROL 65ML VIAL IV ONE (14:11)
[2022-10-20 14:47] LABS: Creatinine Clr Calc Pharmacy 36.8 ml/min; Est GFR (African American) 63.3 ml/min; Est GFR (Non-African American) 54.6 ml/min; Magnesium 2.3 mg/dl (1.7-2.4)
--- NOTE | 2022-10-20 14:52 | Magnetic Resonance Report ---
MRI OF THE LUMBAR SPINE WITH AND WITHOUT CONTRAST CLINICAL HISTORY: Persistent back and lower extremity pain. COMPARISON STUDY: Lumbar spine radiographs January 07, 2012. TECHNIQUE: Utilizing a 1.5 Katina magnet and dedicated coil, multiplanar, multiecho imaging of the yogi ar spine was performed before and after uneventful IV administration of 4 mL of Gadavist. FINDINGS: For purposes of numbering on this exam, the L5-S1 disc space is assigned to axial image 26 of 29. The re is mild levoscoliosis of the lumbar spine. Mild compression deformity of the superior endplate of L1 is unchanged from earlier exams. This represents old mild compression fracture. No additional frac tures are present. There is no intracanalicular mass, fluid collection or abnormal enhancement. The c onus terminates at the L1 level. Colonic wall thickening, a small amount of ascites and anasarca are better depicted on the CT of the abdomen and pelvis performed earlier today. L1-2: The central canal and neural foramen are patent. L2-3: The central canal and neural foramen are patent. L3-4: The central canal and neural foramen are patent. L4-5: The central canal and neural foramen are patent. L5-S1: The central canal and neural foramen are patent. IMPRESSION: 1. No significant degenerative changes within the lumbar spine. Patent central canal and neural omero en. 2. No acute process within the lumbar spine by MRI. 3. Old mild L1 compression fracture. No acute lumbar spine fractures. 4. Colonic wall thickening, ascites and anasarca better depicted on the CT of the abdomen and pelvis performed earlier today. ACT 112: Negative or not required by law. Electronically signed by: Vinod Winters M.D. 10/20/2022 2:50 PM
[2022-10-20 14:53] LABS: BUN Creatinine Ratio 15.1 (10-20)
[2022-10-20 20:36] LABS: Anion Gap 11 (3-11); BUN Creatinine Ratio 16.7 (10-20); Blood Urea Nitrogen 26 mg/dl (6-23); Calcium 7.1 mg/dl (8.5-10.1); Carbon Dioxide 15 mmol/L (21-32); Chloride 97 mmol/L (98-107); Creatinine Clr Calc Pharmacy 37.5 ml/min; Est GFR (African American) 64.8 ml/min; Est GFR (Non-African American) 55.9 ml/min; Glucose 178 mg/dl (70-99(Fasting)); Lipase < 3 U/L (11-82); Potassium 4.5 mmol/L (3.5-5.1); Sodium 123 mmol/L (136-145)
[2022-10-20] MEDS ORDERED: LACTATED RINGER'S 1,000 ML IV ONE (21:00)
[2022-10-20] MEDS: MONTELUKAST SODIUM 10 MG TABLET PO SCH (22:14)
[2022-10-21] MEDS ORDERED: LACTATED RINGER'S 1,000 ML IV ONE ×2 (02:00→07:00)
[2022-10-21] MEDS: DAPTOmycin 250 MG in SYRINGE 0 ML IV SCH (02:04)
[2022-10-21] MEDS: AZTREONAM 2,000 MG in DEXTROSE 5% 100 ML IV SCH (02:05)
[2022-10-21] MEDS: DOCUSATE SODIUM 100 MG CAP PO PRN ×3 (02:12→21:38)
[2022-10-21] MEDS: HYDROmorphone INJ 0.5 MG/0.5 ML SYR IV PRN ×2 (02:13→09:16)
[2022-10-21 02:38] LABS: Calcium 7.5 mg/dl (8.5-10.1); Potassium 4.7 mmol/L (3.5-5.1)
[2022-10-21 02:44] LABS: BUN Creatinine Ratio 16.8 (10-20); Est GFR (African American) 59.7 ml/min; Est GFR (Non-African American) 51.5 ml/min
[2022-10-21] MEDS: oxyCODONE HCL IR 5 MG TAB (IMMEDIATE RELEASE) PO PRN ×3 (06:01→19:26)
[2022-10-21 06:23] LABS: Base Excess VBG -11.6 mEq/L; HCO3 VBG 15 mmol/L; Oxygen Saturation VBG 73.4 %; PCO2 VBG 33 mmHg (38-50); PO2 VBG 43 mmHg; pH VBG 7.25 (7.36-7.41)
[2022-10-21 06:47] LABS: Calcium 7.9 mg/dl (8.5-10.1); Potassium 4.8 mmol/L (3.5-5.1)
[2022-10-21 06:52] LABS: Hematocrit (blood only) 22.9 % (42.0-52.0); Mean Corpuscular Hemoglobin 30.7 pg (25.0-34.0); Mean Corpuscular Hgb Conc 34.9 g/dL (32.0-36.0); Mean Corpuscular Volume 87.7 fL (80.0-100.0); Mean Platelet Volume 10.1 fL (9.4-12.4); Platelet Count 459 K/uL (130-400); RDW Coefficient of Variation 14.1 % (11.5-14.5); RDW Standard Deviation 45.2 fL (36.4-46.3); Red Blood Count 2.61 M/uL (4.70-6.10); White Blood Count 29.98 K/ul (4.8-10.8)
[2022-10-21 06:53] LABS: Creatinine Clr Calc Pharmacy 33.2 ml/min; Est GFR (Non-African American) 48.3 ml/min
[2022-10-21] MEDS: LACTATED RINGER'S 1,000 ML IV SCH ×2 (07:26→12:29)
[2022-10-21] MEDS: INSULIN ASPART PER UNIT SC SCH ×4 (09:04→21:52)
[2022-10-21] MEDS: ERTAPENEM SODIUM 1,000 MG in SYRINGE 0 ML IV SCH (09:05)
[2022-10-21] MEDS: PANCREAZE (LIPASE 16,800U) CAP PO SCH ×3 (09:06→16:50)
[2022-10-21] MEDS: LIDOCAINE 5% 1 PATCH TD SCH (09:06)
[2022-10-21] MEDS: MYCOPHENOLATE SODIUM 180 MG TAB PO SCH ×2 (09:07→21:39)
[2022-10-21] MEDS: predniSONE 5 MG TAB PO SCH (09:08)
[2022-10-21] MEDS: TACROLIMUS 1 MG CAP PO SCH ×2 (09:08→21:39)
[2022-10-21] MEDS: PANTOprazole 40 MG TAB PO SCH (09:08)
[2022-10-21 09:43] LABS: Albumin Level 2.6 gm/dl (3.4-5.0); Bilirubin Direct 0.2 mg/dl (0-0.2); Bilirubin,Total 0.5 mg/dl (0.2-1.0)
[2022-10-21 09:50] LABS: Alanine Aminotransferase 21 U/L (7-52); Alkaline Phosphatase 297 U/L (34-104); Aspartate Aminotransferase 23 U/L (13-39); Lipase < 3 U/L (11-82); Total Protein 5.4 gm/dl (6.0-8.3)
[2022-10-21] MEDS: POLYETHYLENE (MIRALAX) 17 GM PACK PO PRN (10:26)
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
[2022-10-21] MEDS: hydrOXYzine HCl 25 MG TAB PO PRN (13:18)
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
--- NOTE | 2022-10-21 16:51 | Hospitalist Progress Note ---
Date of Service October 21, 2022 Assessment & Plan (1) Lumbar radiculopathy: Plan: Lumbar radiculopathy MRI not suggestive of Infection/abscess H/O Cystic fibrosis 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 Patent central canal and neural foramen. No acute process within the lumbar spine by MRI. Old mild L1 compression fracture. No acute lumbar spine fractures. Colonic wall thickening, ascites and anasarca better depicted on the CT of the abdomen and pelvis performed earlier today. -- Continue daptomycin, Azactam>> transition to daptomycin, ertapenem as leukocytosis worsening Pain control Fall precautions PT OT when appropriate Abdominal Pain DD:Enterocolitis, Acute Gastroenteritis H/O Rectal Prolapse --CT ABD:Diffuse thickening of the large and small bowel which has progressed in the interval. This is most pronounced within the rectum, terminal ileum, and cecum/ascending colon. This is likely due to the patient's diffuse edematous state/portal colopathy versus a nonspecific enterocolitis. Small amount of ascites again noted. Postoperative changes as described above. --Blood Culture:No growth to date -- Stool Studies pending --Empirically on Dapto and Azactam>> transition to daptomycin, ertapenem -Continue IV fluids --Appreciate GI Input -- Needs outpatient endoscopy, colonoscopy, to consider for liver biopsy as outpatient per GI Will consider ID if leukocytosis continues to worsen Procalcitonin slightly improved Diarrhea Rule out recurrent C. difficile Stool Studies pending Acute on chronic hyponatremia Acute kidney injury on CKD III Metabolic acidosis Change IV fluids Monitor sodium levels closely Avoid nephrotoxic agents as able Consulted Nephrology Sodium 124, creatinine 1.7 620 Bicarbonate 16 today Bronchial asthma H/O pulmonary MAC infection S/P Lung Transplant --CXR:No acute process. 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 coli UTI UA not suggestive of UTI Continue ISS for now Advance diet as tolerated Continue home meds Severe protein calorie malnutrition BMI 16 Flatwork Supervisor consulted DVT Px: Heparin SQ Code Status Full code Admission and Anticipated Discharge Date Admission Date: October 20, 2022 Subjective Patient is seen and examined at bedside Reports persistent right-sided abdominal pain Also reports nausea No recurrence of diarrhea this morning Feels constipated Denies any chest pain, dyspnea Review of Systems Review of Systems: All systems reviewed & are unremarkable except as noted in Subjective Physical Exam Physical Exam: Physical Exam: Vitals signs as noted above General Appearance:Thin, frail, chronic ill appearing, no apparent distress Head: normocephalic, Atraumatic Eyes: normal inspection, EOMI Neck: supple, Trachea midline Respiratory/Chest: Normal breath sounds, CTA, No accessory muscle use Cardiovascular: S1, S2, No murmur Abdomen/GI:Soft, R sided tender, decreased Bowel sounds Extremities/Musculoskeletal:normal inspection, no edema Neurologic/Psych:AAOX3, grossly no focal neurological deficits Skin: normal color, warm Results & Data Results & Data ([facility]) Vital Signs (Past 12 Hours) Vital Signs Temp Pulse Resp BP Pulse Ox O2 Del Method 10/21/22 15:55 36.3 C L 102 H 15 144/91 H 100 Room Air 10/21/22 11:44 36.3 C L 99 H 17 145/91 H 100 Room Air 10/21/22 07:04 36.4 C L 102 H 17 124/87 99 Room Air Laboratory Results Short CBC 10/21/22 Range/Units 05:55 WBC 29.98 H D (4.8-10.8) K/ul Hgb 8.0 L (14.0-18.0) g/dl Hct 22.9 L (42.0-52.0) % Plt Count 459 H (130-400) K/uL BMP 10/20/22 10/21/22 10/21/22 19:42 02:01 05:55 Sodium 123 L 124 L 124 L Potassium 4.5 4.7 4.8 Chloride 97 L 97 L 97 L Carbon Dioxide 15 L 15 L 16 L BUN 26 H 28 H 30 H Creatinine 1.56 H 1.67 H 1.76 H Glucose 178 H 151 H 163 H Calcium 7.1 L 7.5 L 7.9 L Liver Function 10/21/22 Range/Units 05:55 Total Bilirubin 0.5 (0.2-1.0) mg/dl Direct Bilirubin 0.2 (0-0.2) mg/dl AST 23 (13-39) U/L ALT 21 (7-52) U/L Alkaline Phosphatase 297 H (34-104) U/L Albumin 2.6 L (3.4-5.0) gm/dl
[2022-10-21 17:46] LABS: BUN Creatinine Ratio 16.9 (10-20); Calcium 7.7 mg/dl (8.5-10.1); Est GFR (African American) 51.4 ml/min; Est GFR (Non-African American) 44.3 ml/min; Potassium 4.9 mmol/L (3.5-5.1)
[2022-10-21] MEDS ORDERED: HEPARIN SOD 5,000 UNIT/0.5 ML VIAL SQ SCH (21:00)
[2022-10-21] MEDS: MONTELUKAST SODIUM 10 MG TABLET PO SCH (21:38)
[2022-10-21] MEDS: ARIPIprazole 1 MG/ML ORAL SOLN 150 ML BTL PO SCH (21:40)
[2022-10-21] MEDS: SODIUM BICARBONATE 8.4% 75 MEQ in SODIUM CHLORIDE 0.45 % 1,000 ML IV SCH (22:59)
[2022-10-22] MEDS: hydrOXYzine HCl 25 MG TAB PO PRN ×2 (00:34→22:03)
[2022-10-22] MEDS: MELATONIN 3 MG TAB PO PRN (00:56)
[2022-10-22] MEDS: DAPTOmycin 250 MG in SYRINGE 0 ML IV SCH (01:31)
[2022-10-22] MEDS: oxyCODONE HCL IR 5 MG TAB (IMMEDIATE RELEASE) PO PRN ×4 (01:31→20:05)
[2022-10-22] MEDS: SODIUM BICARBONATE 8.4% 75 MEQ in SODIUM CHLORIDE 0.45 % 1,000 ML IV SCH ×3 (06:04→21:40)
[2022-10-22 06:50] LABS: Hematocrit (blood only) 17.4 % (42.0-52.0); Hemoglobin 6.1 g/dl (14.0-18.0); Mean Corpuscular Hgb Conc 35.1 g/dL (32.0-36.0); Mean Corpuscular Volume 85.7 fL (80.0-100.0); Mean Platelet Volume 9.9 fL (9.4-12.4); Platelet Count 272 K/uL (130-400); RDW Coefficient of Variation 14.8 % (11.5-14.5); RDW Standard Deviation 46.8 fL (36.4-46.3); Red Blood Count 2.03 M/uL (4.70-6.10); White Blood Count 18.44 K/ul (4.8-10.8)
[2022-10-22 07:00] LABS: BUN Creatinine Ratio 17.8 (10-20); Calcium 7.3 mg/dl (8.5-10.1); Creatinine Clr Calc Pharmacy 29.7 ml/min; Est GFR (African American) 47.4 ml/min; Est GFR (Non-African American) 40.9 ml/min; Potassium 4.4 mmol/L (3.5-5.1)
[2022-10-22 07:10] LABS: Basophils # (auto) 0.02 K/uL (0-0.2); Basophils % (auto) 0.1 %; Echinocytes 1+; Eosinophils # (auto) 0.01 K/uL (0-0.50); Eosinophils % (auto) 0.1 %; Immature Granulocytes # (auto) 0.25 K/uL (0.01-0.20); Immature Granulocytes % (auto) 1.4 %; Lymphocytes # (auto) 4.22 K/uL (1.2-3.4); Lymphocytes % (auto) 22.9 %; Monocytes # (auto) 1.59 K/uL (0.11-0.59); Monocytes % (auto) 8.6 %; Neutrophils # (auto) 12.35 K/uL (1.40-6.50); Neutrophils % (auto) 66.9 %
[2022-10-22] MEDS ORDERED: SODIUM CHLORIDE 0.9% 250 ML IV PRN ×2 (07:39→10:19)
[2022-10-22] MEDS: LIDOCAINE 5% 1 PATCH TD SCH (08:06)
[2022-10-22] MEDS: ERTAPENEM SODIUM 1,000 MG in SYRINGE 0 ML IV SCH (08:06)
[2022-10-22] MEDS: predniSONE 5 MG TAB PO SCH (08:07)
[2022-10-22] MEDS: MYCOPHENOLATE SODIUM 180 MG TAB PO SCH ×2 (08:07→22:05)
[2022-10-22] MEDS: PANTOprazole 40 MG TAB PO SCH (08:07)
[2022-10-22] MEDS: PANCREAZE (LIPASE 16,800U) CAP PO SCH ×3 (08:07→17:05)
[2022-10-22] MEDS: TACROLIMUS 1 MG CAP PO SCH ×2 (08:08→22:05)
[2022-10-22] MEDS: INSULIN ASPART PER UNIT SC SCH ×4 (08:08→21:40)
[2022-10-22] MEDS: POLYETHYLENE (MIRALAX) 17 GM PACK PO PRN (08:14)
[2022-10-22 09:19] LABS: Hematocrit (blood only) 18.9 % (42.0-52.0); Hemoglobin 6.6 g/dl (14.0-18.0)
--- NOTE | 2022-10-22 10:33 | Nephrology Progress Note ---
Date of Service October 22, 2022 Assessment & Plan (1) Chronic hyponatremia: Plan: continue 1/2 NS w/ 75 mEq/L sodium bicarb @150 mL /hr >recheck urine studies > orders in, minimal OP/ not collected >recheck BMP ordered for this evening 1700 (2) CKD (chronic kidney disease) stage 3, GFR 30-59 ml/min: Plan: marked lability in his renal function but believe he has baseline 1.6-1.7 creatinine as OP. creatinine worsened on 10/22 in relation to decreased UOP and abd pain despite aggressive hydration >> ? ischemic ATN w/ acute on chronic anemia -f/u repeat CT -avoid further IV contrast >> he had this on 10/19 -daily BMP (3) Acute on chronic anemia: Plan: ? dilutional f/u CT recheck ordered for 1700 hgb (4) Abdominal pain in male: Plan: repeat CT pending ? decreased UOP >> eval for obstruction GI following > suspect infectious/?viral enteritis; recommend OP EGD/colo has colorectal appt for prolapse (5) Lung transplant status, bilateral: Plan: -on mycophenolate and high dose tacrolimus; unable to follow levels here Admission and Anticipated Discharge Date Admission Date: October 20, 2022 Subjective hgb dropped 8 > 6.6 or 6.1. no clear cause/source. no sob or weakness. states he's not voiding but that RLQ abd pain improved. no n/v or edema or change in MS Review of Systems Review of Systems: All systems reviewed & are unremarkable except as noted in Subjective Physical Exam Constitutional: + thin and + frail appearing; not lethargic Eyes: EOM intact bilaterally ENMT: Ears: no external ear abnormality Nose: no external nose abnormality Mouth: + dry oral mucous membranes Neck: no nuchal rigidity Respiratory: normal respiratory effort Auscultation: + diminished lung sounds and + crackles (bibasilar) Cardiovascular: Rate/Rhythm: regular rate, regular rhythm and + tachycardic Gastrointestinal (Abdomen): Inspection/Auscultation: normal bowel sounds Percussion/Palpation: abdomen soft; abdomen nontender Musculoskeletal: Extremities: strength 5/5 throughout Skin: no rashes, warm and dry Results & Data ([facility]) Vital Signs (Past 12 Hours) Vital Signs Temp Pulse Pulse Resp BP Pulse Ox O2 Del Method 10/22/22 08:08 36.3 C L 97 H 16 137/79 99 Room Air 10/22/22 07:39 94 H Laboratory Results 10/22/22 08:33 10/22/22 05:[address] a/p pending
--- NOTE | 2022-10-22 11:14 | CT Scan Report ---
ABDOMEN AND PELVIS CT WITHOUT CONTRAST CT DOSE: 309.64 mGy.cm HISTORY: Acute onset abdominal pain with anemia Abdominal Pain, Anemia TECHNIQUE: Multiaxial CT images of the abdomen and pelvis were performed without contrast. A dose lo wering technique was utilized adhering to the principles of ALARA. COMPARISON STUDY: MRI lumbar spine 10/20/2022, CT abdomen pelvis 10/19/2022 FINDINGS: Postoperative changes of the lower chest include evidence of prior bilateral lung transplan tation. Prior median sternotomy. Small pleural effusions are new from the prior study. Mild intralobu lar septal thickening of the lung bases with bibasilar atelectasis. There is no pneumatosis or pneumo peritoneum identified. The unenhanced spleen and adrenal glands are unremarkable. Cholecystectomy. Severe fatty atrophy of t he pancreas. Severe hepatic steatosis with diffuse heterogeneity of the liver. Residual contrast is n oted within the bilateral kidneys and renal collecting systems. No hydronephrosis. Contrast noted wit hin the urinary bladder lumen. Mildly enlarged prostate. Unremarkable aorta. No lymphadenopathy. Moderate sized hiatal hernia with partially intrathoracic stomach. Pill fragment's are present within the intrathoracic portion of the stomach. Circumferential wall thickening of the rectum is similar t o the prior study. Additional predominantly large bowel wall thickening is most pronounced in the cec um and ascending colon. Mildly distended stool-filled terminal ileum. The visualized appendix appears noninflamed on image 319. Acute retroperitoneal hemorrhage is noted within the right paracolic gutte r measuring up to 10.8 x 6.5 x 17 cm causing mass effect upon the adjacent ascending colon. Moderate generalized body wall edema. No acute fracture. Postoperative changes of the anterior chest wall. Unc hanged L1 compression deformity. IMPRESSION: 1. Interval development of acute retroperitoneal hemorrhage within the right pericolic gutter measuri ng up to 17 cm in length causing mass effect upon the cecum and ascending colon. 2. Wall thickening of the small and large bowel is again noted which may be secondary to fluid overlo ad versus a nonspecific enterocolitis. 3. Small pleural effusions with questioned mild pulmonary edema, mesenteric edema with small volume a scites and anasarca. 4. Severe hepatic steatosis with diffuse heterogeneity of the liver. 5. Retained contrast in the kidneys and renal collecting systems suggestive of decreased renal functi on. 6. Additional findings as above. ACT 112: Negative or not required by law. The above report was generated using voice recognition software. It may contain grammatical, syntax o r spelling errors. Electronically signed by: Junior Franco M.D. 10/22/2022 11:13 AM
[2022-10-22 12:43] LABS: Appearance Urine Clear (Clear); Bilirubin Urine Negative (Negative); Blood Urine Negative (Negative); Color Urine Yellow; Epithelial Cell Urine Auto >30 /lpf (0-5); Glucose Urine UA Negative (Negative); Ketones Urine Trace (Negative); Leukocyte Esterase Urine Negative (Negative); Nitrite Urine Negative (Negative); Protein Urine Trace (Negative); RBC Urine Automated 0-4 /hpf (0-4); Specific Gravity Urine 1.034 (1.000-1.030); Urobilinogen Urine Negative (Negative)
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
[2022-10-22 12:53] LABS: Bacteria Urine Automated 1+ (Negative); Mucus Urine Present (None Prsent)
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
--- NOTE | 2022-10-22 14:46 | Hospitalist Progress Note ---
Date of Service October 22, 2022 Assessment & Plan (1) Lumbar radiculopathy: Plan: Abdominal Pain Likely due to retroperitoneal hemorrhage DD:Enterocolitis, Acute Gastroenteritis H/O Rectal Prolapse --CT ABD:Diffuse thickening of the large and small bowel which has progressed in the interval. This is most pronounced within the rectum, terminal ileum, and cecum/ascending colon. This is likely due to the patient's diffuse edematous state/portal colopathy versus a nonspecific enterocolitis. Small amount of ascites again noted. Postoperative changes as described above. --Blood Culture:No growth to date -- Stool Studies pending --Empirically on Dapto and Azactam>> transition to daptomycin, ertapenem -Continue IV fluids --Appreciate GI Input -- Needs outpatient endoscopy, colonoscopy, to consider for liver biopsy as outpatient per GI Will consider ID if leukocytosis continues to worsen Procalcitonin, leukocytosis better Retroperitoneal hemorrhage --CT ABD:Interval development of acute retroperitoneal hemorrhage within the right pericolic gutter measuring up to 17 cm in length causing mass effect upon the cecum and ascending colon. Wall thickening of the small and large bowel is again noted which may be secondary to fluid overload versus a nonspecific enterocolitis. Small pleural effusions with questioned mild pulmonary edema, mesenteric edema with small volume ascites and anasarca. Severe hepatic steat osis with diffuse heterogeneity of the liver. Retained contrast in the kidneys and renal collecting systems suggestive of decreased renal function. -- Avoid anticoagulation, NSAIDs -- Monitor H&H and transfuse as needed N.p.o. for now Continue IV fluids Appreciate surgery input Discussed with Luz Elena Cedillo IR: Imaging studies sent for review. Recommends conservative management: Monitor H&H, transfuse as needed If hemodynamically deteriorates or continues to require blood transfusions, recommend a CTA in 3 phases (non contrast, arterial, and delayed) to keep site of bleeding. If if contrast to be avoided, NM bleeding scan is an alternative although may not be adequate. -S/P 1 unit PRBCs Diarrhea Currently constipated Rule out recurrent C. difficile if re-occurs Obtain Stool Studies if has recurrence Acute on chronic hyponatremia Acute kidney injury on CKD III Metabolic acidosis Change IV fluids as per Nephrology Monitor sodium levels closely Avoid nephrotoxic agents as able Appreciate Nephrology Input Sodium 126, creatinine 2/02 Bicarbonate 19 today Urinary retention Bladder scan as needed Appreciate urology input Lumbar radiculopathy MRI not suggestive of Infection/abscess H/O Cystic fibrosis 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 Patent central canal and neural foramen. No acute process within the lumbar spine by MRI. Old mild L1 compression fracture. No acute lumbar spine fractures. Colonic wall thickening, ascites and anasarca better depicted on the CT of the abdomen and pelvis performed earlier today. Pain control Fall precautions PT OT when appropriate Bronchial asthma H/O pulmonary MAC infection S/P Lung Transplant --CXR:No acute process. 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 coli UTI UA not suggestive of UTI Continue ISS for now Advance diet as tolerated Continue home meds Severe protein calorie malnutrition BMI 16 Hydraulic Spinner consulted DVT Px: SCDs Re: Retroperitoneal bleed Code Status Full code Admission and Anticipated Discharge Date Admission Date: October 20, 2022 Subjective Patient is seen and examined at bedside Abdominal pain better per patient Renal function continues to worsen Noted to have urinary retention today Denies any chest pain, dyspnea, dizziness, nausea Review of Systems Review of Systems: All systems reviewed & are unremarkable except as noted in Subjective Physical Exam Physical Exam: Physical Exam: Vitals signs as noted above General Appearance:Thin, frail, chronic ill appearing, no apparent distress Head: normocephalic, Atraumatic Eyes: normal inspection, EOMI Neck: supple, Trachea midline Respiratory/Chest: Normal breath sounds, CTA, No accessory muscle use Cardiovascular: S1, S2, No murmur Abdomen/GI:Soft, R sided tender, decreased Bowel sounds Extremities/Musculoskeletal:normal inspection, no edema Neurologic/Psych:AAOX3, grossly no focal neurological deficits Skin: normal color, warm Results & Data Results & Data ([facility]) Vital Signs (Past 12 Hours) Vital Signs Temp Pulse Pulse Resp BP BP Pulse Ox 10/22/22 13:29 88 16 130/88 100 10/22/22 12:50 93 H 18 127/87 100 10/22/22 11:50 93 H 16 123/78 100 10/22/22 11:20 36.2 C L 91 H 18 121/84 99 10/22/22 11:05 36.3 C L 91 H 18 125/83 96 10/22/22 10:57 10/22/22 10:45 36.3 C L 94 H 18 132/78 99 10/22/22 08:08 36.3 C L 97 H 16 137/79 99 10/22/22 07:39 94 H O2 Del Method 10/22/22 13:29 10/22/22 12:50 10/22/22 11:50 10/22/22 11:20 10/22/22 11:05 10/22/22 10:57 Room Air 10/22/22 10:45 10/22/22 08:08 Room Air 10/22/22 07:39 Laboratory Results Short CBC 10/22/22 10/22/22 Range/Units 05:58 08:33 WBC 18.44 H (4.8-10.8) K/ul Hgb 6.1 L* 6.6 L* (14.0-18.0) g/dl Hct 17.4 L* 18.9 L* (42.0-52.0) % Plt Count 272 (130-400) K/uL BMP 10/21/22 10/22/22 16:05 05:58 Sodium 125 L 126 L Potassium 4.9 4.4 Chloride 97 L 97 L Carbon Dioxide 17 L 19 L BUN 32 H 36 H Creatinine 1.89 H 2.02 H Glucose 157 H 100 H Calcium 7.7 L 7.3 L Urine 10/21/22 Range/Units Unknown Urine Color Yellow Urine Appearance Clear (Clear) Urine pH 5.0 (4.5-7.5) Ur Specific [place] 1.034 H (1.000-1.030) Urine Protein Trace H (Negative) Urine Glucose (UA) Negative (Negative)
[2022-10-22 15:44] LABS: Hematocrit (blood only) 23.6 % (42.0-52.0); Hemoglobin 8.5 g/dl (14.0-18.0)
[2022-10-22 16:46] LABS: Hematocrit (blood only) 23.6 % (42.0-52.0); Hemoglobin 8.3 g/dl (14.0-18.0)
[2022-10-22 17:02] LABS: BUN Creatinine Ratio 17.8 (10-20); Calcium 7.6 mg/dl (8.5-10.1); Creatinine Clr Calc Pharmacy 28.1 ml/min; Est GFR (African American) 44.5 ml/min; Est GFR (Non-African American) 38.4 ml/min; Potassium 4.3 mmol/L (3.5-5.1)
[2022-10-22] MEDS: ARIPIprazole 1 MG/ML ORAL SOLN 150 ML BTL PO SCH (22:04)
[2022-10-22] MEDS: MONTELUKAST SODIUM 10 MG TABLET PO SCH (22:05)
[2022-10-22 23:03] LABS: Hemoglobin 8.3 g/dl (14.0-18.0)
[2022-10-23] MEDS: SODIUM BICARBONATE 8.4% 75 MEQ in SODIUM CHLORIDE 0.45 % 1,000 ML IV SCH ×4 (00:11→23:43)
[2022-10-23] MEDS ORDERED: HEPARIN 100 UNIT/ML 5ML FLUSH FLUSH PRN (00:13)
[2022-10-23] MEDS: MELATONIN 3 MG TAB PO PRN (02:15)
[2022-10-23] MEDS: oxyCODONE HCL IR 5 MG TAB (IMMEDIATE RELEASE) PO PRN ×4 (02:15→20:18)
[2022-10-23] MEDS: DAPTOmycin 250 MG in SYRINGE 0 ML IV SCH (02:15)
[2022-10-23 06:19] LABS: BUN Creatinine Ratio 17.6 (10-20); Calcium 7.2 mg/dl (8.5-10.1); Est GFR (African American) 46.6 ml/min; Est GFR (Non-African American) 40.2 ml/min; Magnesium 1.7 mg/dl (1.7-2.4); Potassium 4.3 mmol/L (3.5-5.1)
[2022-10-23 06:37] LABS: Basophils # (auto) 0.01 K/uL (0-0.2); Basophils % (auto) 0.1 %; Eosinophils # (auto) 0.02 K/uL (0-0.50); Eosinophils % (auto) 0.1 %; Hematocrit (blood only) 22.3 % (42.0-52.0); Hemoglobin 8.1 g/dl (14.0-18.0); Immature Granulocytes # (auto) 0.18 K/uL (0.01-0.20); Immature Granulocytes % (auto) 1.1 %; Lymphocytes # (auto) 3.43 K/uL (1.2-3.4); Lymphocytes % (auto) 21.5 %; Mean Corpuscular Hemoglobin 30.9 pg (25.0-34.0); Mean Corpuscular Hgb Conc 36.3 g/dL (32.0-36.0); Mean Corpuscular Volume 85.1 fL (80.0-100.0); Mean Platelet Volume 9.6 fL (9.4-12.4); Monocytes # (auto) 1.02 K/uL (0.11-0.59); Monocytes % (auto) 6.4 %; Neutrophils % (auto) 70.8 %; Platelet Count 247 K/uL (130-400); RDW Coefficient of Variation 15.1 % (11.5-14.5); RDW Standard Deviation 46.6 fL (36.4-46.3); Red Blood Count 2.62 M/uL (4.70-6.10); White Blood Count 15.96 K/ul (4.8-10.8)
[2022-10-23] MEDS: INSULIN ASPART PER UNIT SC SCH ×4 (06:41→23:43)
[2022-10-23] MEDS ORDERED: Nursing to Pharmacy Communication SCH (06:45)
[2022-10-23] MEDS: PANCREAZE (LIPASE 16,800U) CAP PO SCH ×3 (08:55→16:22)
[2022-10-23] MEDS: MYCOPHENOLATE SODIUM 180 MG TAB PO SCH ×2 (08:59→21:10)
[2022-10-23] MEDS: TACROLIMUS 1 MG CAP PO SCH ×2 (09:00→21:09)
[2022-10-23] MEDS: predniSONE 5 MG TAB PO SCH (09:01)
[2022-10-23] MEDS: PANTOprazole 40 MG TAB PO SCH (09:01)
[2022-10-23] MEDS: ERTAPENEM SODIUM 1,000 MG in SYRINGE 0 ML IV SCH (09:07)
[2022-10-23] MEDS: DOCUSATE SODIUM 100 MG CAP PO PRN (09:11)
--- NOTE | 2022-10-23 09:24 | Urology Progress Note ---
Date of Service October 23, 2022 Assessment & Plan (1) HEIDY (acute kidney injury): Plan: Complex medical history, Acute renal failure Labs reviewed - creatinine 2.05, WBC 15.96, Hgb 8.1 today Attempted catheterization by nursing yesterday was unsuccessful Patient was able to void and had a low post void residual He has not voided yet today, bladder scan 485 mL per nursing He will ambulate and then try voiding - continue to monitor closely Patient did not wish to have a urethral dilation at the bedside as previously discussed yesterday We will continue to follow him conservatively but if he is unable to urinate we can certainly place the catheter Admission and Anticipated Discharge Date Admission Date: October 20, 2022 Subjective Patient seen and examined at bedside this morning. He is awake and sitting up in bedside chair. He reports he just woke up and has not voided yet today. Bladder scan 485 mL per nursing. Abdominal pain improving. No flank pain. No nausea or vomiting. No fever or chills. Review of Systems Constitutional: as per Subjective / HPI Gastrointestinal: as per Subjective / HPI Genitourinary: + as per Subjective / HPI Physical Exam Constitutional: + thin; no acute distress Respiratory: no respiratory distress and no labored breathing Neurologic: moves all extremities and awake Psychiatric: Orientation: alert and oriented x 3 Results & Data ([facility]) Vital Signs (Past 12 Hours) Vital Signs Temp Pulse Pulse Resp BP BP Pulse Ox 10/23/22 08:00 36.7 C 88 16 118/78 98 10/23/22 03:23 36.3 C L 93 H 16 123/83 99 10/23/22 02:24 89 10/22/22 22:59 36.4 C L 95 H 18 131/86 100 O2 Del Method 10/23/22 08:00 Room Air 10/23/22 03:23 Room Air 10/23/22 02:24 10/22/22 22:59 Room Air PG Care Time/CCT Total # of Minutes Spent Total Time Spent with Patient: Total time spent is greater than 50% in coordination of care (as documented) at patient's floor/unit and/or counseling patient: Coding Level of Care Code 18363 SUB INP/OBS CARE 25MIN Diagnoses HEIDY (acute kidney injury) N17.9
--- NOTE | 2022-10-23 09:57 | Surgery Progress Note ---
Date of Service October 23, 2022 Assessment & Plan (1) Retroperitoneal bleed: Plan: Etiology unknown, ? spontaneous from anticoagulation H&H stable at 8, responded to 1 unit of PRBC (6.3--> 8.3) Hemodynamically stable Plan: No surgical intervention recommended serial H&H Monitor vital signs Avoid anticoagulation Abdomen is distended with belching, needs to get up and ambulate to increase GI motility. Would recommend slow advancement of diet IV fluids per nephrology given HEIDY Encouraged ambulation with patient to help with GI motility and urinary voiding. Bladder scan as needed. Urology following. Dr. Vines was present during my examination and agrees with above. Admission and Anticipated Discharge Date Admission Date: October 20, 2022 Subjective feeling okay this morning was able to sleep though the night abdominal pain in right lower abdomen, stable, not worse compared to yesterday Belching but no nausea no passing gas today has not voided on his own since last evening, has some pain in penis Per nurse he is sometimes refusing bladder scan, will plan to scan him this morning. Physical Exam Constitutional: WD/WN, vitals as above cooperative and comfortable; no acute distress, not ill appearing and not frail appearing Respiratory: normal respiratory effort; no respiratory distress and no labored breathing Gastrointestinal (Abdomen): Inspection/Auscultation: + abdomen distended and + abdominal surgical scar (LUQ, prior PEG tube site); + abnormal bowel sounds Percussion/Palpation: + abdomen tender (Right mid and lower abdomen) and abdomen soft; no guarding and abdomen not rigid Skin: no rashes, warm and dry Psychiatric: Orientation: alert and oriented x 3 Results & Data ([facility]) Vital Signs (Past 12 Hours) Vital Signs Temp Pulse Pulse Resp BP BP Pulse Ox 10/23/22 08:00 36.7 C 88 16 118/78 98 10/23/22 03:23 36.3 C L 93 H 16 123/83 99 10/23/22 02:24 89 10/22/22 22:59 36.4 C L 95 H 18 131/86 100 O2 Del Method 10/23/22 08:00 Room Air 10/23/22 03:23 Room Air 10/23/22 02:24 10/22/22 22:59 Room Air Laboratory Results 10/23/22 10/23/22 10/23/22 Range/Units 07:18 06:29 05:40 WBC 15.96 H (4.8-10.8) K/ul RBC 2.62 L (4.70-6.10) M/uL Hgb 8.1 L (14.0-18.0) g/dl Hct 22.3 L (42.0-52.0) % MCV 85.1 (80.0-100.0) fL MCH 30.9 (25.0-34.0) pg MCHC 36.3 H (32.0-36.0) g/dL RDW Std Deviation 46.6 H (36.4-46.3) fL RDW Coeff of Crissy 15.1 H (11.5-14.5) % Plt Count 247 (130-400) K/uL MPV 9.6 (9.4-12.4) fL Immature Gran % (Auto) 1.1 % Neut % (Auto) 70.8 % Lymph % (Auto) 21.5 % [place] % (Auto) 6.4 % Eos % (Auto) 0.1 % Baso % (Auto) 0.1 % Neut # (Auto) 11.30 H (1.40-6.50) K/uL Lymph # (Auto) 3.43 H (1.2-3.4) K/uL [place] # (Auto) 1.02 H (0.11-0.59) K/uL Eos # (Auto) 0.02 (0-0.50) K/uL Baso # (Auto) 0.01 (0-0.2) K/uL Immature Gran # (Auto) 0.18 (0.01-0.20) K/uL Sodium (136-145) mmol/L Potassium (3.5-5.1) mmol/L Chloride (98-107) mmol/L Carbon Dioxide (21-32) mmol/L Anion Gap (3-11) BUN (6-23) mg/dl Creatinine (0.6-1.4) mg/dl Est Cr Clr Drug Dosing ml/min Est GFR ( Amer) ml/min Est GFR (Non-Af Amer) ml/min BUN/Creatinine Ratio (10-20) Glucose (70-99(Fasting)) mg/dl POC Glucose 103 H 97 (70-99) mg/dl Calcium (8.5-10.1) mg/dl Magnesium (1.7-2.4) mg/dl Urine Color Urine Appearance (Clear) Urine pH (4.5-7.5) Ur Specific [place] (1.000-1.030) Urine Protein (Negative) Urine Glucose (UA) (Negative) Urine Ketones (Negative) Urine Blood (Negative) Urine Nitrite (Negative) Urine Bilirubin (Negative) Urine Urobilinogen (Negative) Ur Leukocyte Esterase (Negative) Urine WBC (Auto) (0-5) /hpf Urine RBC (Auto) (0-4) /hpf U Hyaline Cast (Auto) (0-5) /lpf U Epithel Cells (Auto) (0-5) /lpf Urine Bacteria (Auto) (Negative) Urine Mucus (None Prsent) Blood Type Antibody Screen Crossmatch 10/23/22 10/22/22 10/22/22 Range/Units 05:40 22:34 20:50 WBC (4.8-10.8) K/ul RBC (4.70-6.10) M/uL Hgb 8.3 L (14.0-18.0) g/dl Hct 23.0 L (42.0-52.0) % MCV (80.0-100.0) fL MCH (25.0-34.0) pg MCHC (32.0-36.0) g/dL RDW Std Deviation (36.4-46.3) fL RDW Coeff of Crissy (11.5-14.5) % Plt Count (130-400) K/uL MPV (9.4-12.4) fL Immature Gran % (Auto) % Neut % (Auto) % Lymph % (Auto) % [place] % (Auto) % Eos % (Auto) % Baso % (Auto) % Neut # (Auto) (1.40-6.50) K/uL Lymph # (Auto) (1.2-3.4) K/uL [place] # (Auto) (0.11-0.59) K/uL Eos # (Auto) (0-0.50) K/uL Baso # (Auto) (0-0.2) K/uL Immature Gran # (Auto) (0.01-0.20) K/uL Sodium 128 L (136-145) mmol/L Potassium 4.3 (3.5-5.1) mmol/L Chloride 95 L (98-107) mmol/L Carbon Dioxide 21 (21-32) mmol/L Anion Gap 12 H (3-11) BUN 36 H (6-23) mg/dl Creatinine 2.05 H (0.6-1.4) mg/dl Est Cr Clr Drug Dosing 35.0 ml/min Est GFR ( Amer) 46.6 ml/min Est GFR (Non-Af Amer) 40.2 ml/min BUN/Creatinine Ratio 17.6 (10-20) Glucose 91 (70-99(Fasting)) mg/dl POC Glucose 94 (70-99) mg/dl Calcium 7.2 L (8.5-10.1) mg/dl Magnesium 1.7 (1.7-2.4) mg/dl Urine Color Urine Appearance (Clear) Urine pH (4.5-7.5) Ur Specific [place] (1.000-1.030) Urine Protein (Negative) Urine Glucose (UA) (Negative) Urine Ketones (Negative) Urine Blood (Negative) Urine Nitrite (Negative) Urine Bilirubin (Negative) Urine Urobilinogen (Negative) Ur Leukocyte Esterase (Negative) Urine WBC (Auto) (0-5) /hpf Urine RBC (Auto) (0-4) /hpf U Hyaline Cast (Auto) (0-5) /lpf U Epithel Cells (Auto) (0-5) /lpf Urine Bacteria (Auto) (Negative) Urine Mucus (None Prsent) Blood Type Antibody Screen Crossmatch 10/22/22 10/22/22 10/22/22 Range/Units 16:31 16:10 16:10 WBC (4.8-10.8) K/ul RBC (4.70-6.10) M/uL Hgb 8.3 L (14.0-18.0) g/dl Hct 23.6 L (42.0-52.0) % MCV (80.0-100.0) fL MCH (25.0-34.0) pg MCHC (32.0-36.0) g/dL RDW Std Deviation (36.4-46.3) fL RDW Coeff of Crissy (11.5-14.5) % Plt Count (130-400) K/uL MPV (9.4-12.4) fL Immature Gran % (Auto) % Neut % (Auto) % Lymph % (Auto) % [place] % (Auto) % Eos % (Auto) % Baso % (Auto) % Neut # (Auto) (1.40-6.50) K/uL Lymph # (Auto) (1.2-3.4) K/uL [place] # (Auto) (0.11-0.59) K/uL Eos # (Auto) (0-0.50) K/uL Baso # (Auto) (0-0.2) K/uL Immature Gran # (Auto) (0.01-0.20) K/uL Sodium 126 L (136-145) mmol/L Potassium 4.3 (3.5-5.1) mmol/L Chloride 96 L (98-107) mmol/L Carbon Dioxide 21 (21-32) mmol/L Anion Gap 9 (3-11) BUN 38 H (6-23) mg/dl Creatinine 2.13 H (0.6-1.4) mg/dl Est Cr Clr Drug Dosing 28.1 ml/min Est GFR ( Amer) 44.5 ml/min Est GFR (Non-Af Amer) 38.4 ml/min BUN/Creatinine Ratio 17.8 (10-20) Glucose 102 H (70-99(Fasting)) mg/dl POC Glucose 112 H (70-99) mg/dl Calcium 7.6 L (8.5-10.1) mg/dl Magnesium (1.7-2.4) mg/dl Urine Color Urine Appearance (Clear) Urine pH (4.5-7.5) Ur Specific [place] (1.000-1.030) Urine Protein (Negative) Urine Glucose (UA) (Negative) Urine Ketones (Negative) Urine Blood (Negative) Urine Nitrite (Negative) Urine Bilirubin (Negative) Urine Urobilinogen (Negative) Ur Leukocyte Esterase (Negative) Urine WBC (Auto) (0-5) /hpf Urine RBC (Auto) (0-4) /hpf U Hyaline Cast (Auto) (0-5) /lpf U Epithel Cells (Auto) (0-5) /lpf Urine Bacteria (Auto) (Negative) Urine Mucus (None Prsent) Blood Type Antibody Screen Crossmatch 10/22/22 10/22/22 10/22/22 Range/Units 15:31 11:26 08:33 WBC (4.8-10.8) K/ul RBC (4.70-6.10) M/uL Hgb 8.5 L (14.0-18.0) g/dl Hct 23.6 L (42.0-52.0) % MCV (80.0-100.0) fL MCH (25.0-34.0) pg MCHC (32.0-36.0) g/dL RDW Std Deviation (36.4-46.3) fL RDW Coeff of Crissy (11.5-14.5) % Plt Count (130-400) K/uL MPV (9.4-12.4) fL Immature Gran % (Auto) % Neut % (Auto) % Lymph % (Auto) % [place] % (Auto) % Eos % (Auto) % Baso % (Auto) % Neut # (Auto) (1.40-6.50) K/uL Lymph # (Auto) (1.2-3.4) K/uL [place] # (Auto) (0.11-0.59) K/uL Eos # (Auto) (0-0.50) K/uL Baso # (Auto) (0-0.2) K/uL Immature Gran # (Auto) (0.01-0.20) K/uL Sodium (136-145) mmol/L Potassium (3.5-5.1) mmol/L Chloride (98-107) mmol/L Carbon Dioxide (21-32) mmol/L Anion Gap (3-11) BUN (6-23) mg/dl Creatinine (0.6-1.4) mg/dl Est Cr Clr Drug Dosing ml/min Est GFR ( Amer) ml/min Est GFR (Non-Af Amer) ml/min BUN/Creatinine Ratio (10-20) Glucose (70-99(Fasting)) mg/dl POC Glucose 134 H (70-99) mg/dl Calcium (8.5-10.1) mg/dl Magnesium (1.7-2.4) mg/dl Urine Color Urine Appearance (Clear) Urine pH (4.5-7.5) Ur Specific [place] (1.000-1.030) Urine Protein (Negative) Urine Glucose (UA) (Negative) Urine Ketones (Negative) Urine Blood (Negative) Urine Nitrite (Negative) Urine Bilirubin (Negative) Urine Urobilinogen (Negative) Ur Leukocyte Esterase (Negative) Urine WBC (Auto) (0-5) /hpf Urine RBC (Auto) (0-4) /hpf U Hyaline Cast (Auto) (0-5) /lpf U Epithel Cells (Auto) (0-5) /lpf Urine Bacteria (Auto) (Negative) Urine Mucus (None Prsent) Blood Type A Negative Antibody Screen NEGATIVE Crossmatch See Detail 10/21/22 Range/Units Unknown WBC (4.8-10.8) K/ul RBC (4.70-6.10) M/uL Hgb (14.0-18.0) g/dl Hct (42.0-52.0) % MCV (80.0-100.0) fL MCH (25.0-34.0) pg MCHC (32.0-36.0) g/dL RDW Std Deviation (36.4-46.3) fL RDW Coeff of Crissy (11.5-14.5) % Plt Count (130-400) K/uL MPV (9.4-12.4) fL Immature Gran % (Auto) % Neut % (Auto) % Lymph % (Auto) % [place] % (Auto) % Eos % (Auto) % Baso % (Auto) % Neut # (Auto) (1.40-6.50) K/uL Lymph # (Auto) (1.2-3.4) K/uL [place] # (Auto) (0.11-0.59) K/uL Eos # (Auto) (0-0.50) K/uL Baso # (Auto) (0-0.2) K/uL Immature Gran # (Auto) (0.01-0.20) K/uL Sodium (136-145) mmol/L Potassium (3.5-5.1) mmol/L Chloride (98-107) mmol/L Carbon Dioxide (21-32) mmol/L Anion Gap (3-11) BUN (6-23) mg/dl Creatinine (0.6-1.4) mg/dl Est Cr Clr Drug Dosing ml/min Est GFR ( Amer) ml/min Est GFR (Non-Af Amer) ml/min BUN/Creatinine Ratio (10-20) Glucose (70-99(Fasting)) mg/dl POC Glucose (70-99) mg/dl Calcium (8.5-10.1) mg/dl Magnesium (1.7-2.4) mg/dl Urine Color Yellow Urine Appearance Clear (Clear) Urine pH 5.0 (4.5-7.5) Ur Specific [place] 1.034 H (1.000-1.030) Urine Protein Trace H (Negative) Urine Glucose (UA) Negative (Negative) Urine Ketones Trace H (Negative) Urine Blood Negative (Negative) Urine Nitrite Negative (Negative) Urine Bilirubin Negative (Negative) Urine Urobilinogen Negative (Negative) Ur Leukocyte Esterase Negative (Negative) Urine WBC (Auto) 1-5 (0-5) /hpf Urine RBC (Auto) 0-4 (0-4) /hpf U Hyaline Cast (Auto) 5-10 H (0-5) /lpf U Epithel Cells (Auto) >30 H (0-5) /lpf Urine Bacteria (Auto) 1+ H (Negative) Urine Mucus Present A (None Prsent) Blood Type Antibody Screen Crossmatch
[2022-10-23 10:08] LABS: Marijuana Quant, GCMS Urine 60 ng/mL (<5)
[2022-10-23] MEDS ORDERED: LIDOCAINE 2% JELLY 5 ML TUBE EXT ONE (12:26)
--- NOTE | 2022-10-23 12:40 | Nephrology Progress Note ---
Date of Service October 23, 2022 Assessment & Plan (1) Chronic hyponatremia: Plan: changed /2 NS w/ 75 mEq/L sodium bicarb @150 mL /hr to NS same rate >recheck urine studies > orders in, minimal OP/ not collected >>>>needs rodriguez for accurate I/O (2) CKD (chronic kidney disease) stage 3, GFR 30-59 ml/min: Plan: marked lability in his renal function but believe he has baseline 1.6-1.7 creatinine as OP. creatinine worsened on 10/22 in relation to decreased UOP and abd pain despite aggressive hydration >>>> ? ischemic ATN w/ acute on chronic anemia AND urinary retention -avoid further IV contrast unless life/limb saving >> he had this on 10/19 -daily BMP ->>needs rodriguez (3) Acute on chronic anemia: Plan: monitor d/t RP hem (4) Abdominal pain in male: Plan: due potentially in part to outlet obstruction; also component of RP hemm ? decreased UOP > eval for obstruction GI following > suspect infectious/?viral enteritis; recommend OP EGD/colo has colorectal appt for prolapse (5) Lung transplant status, bilateral: Plan: -on mycophenolate and high dose tacrolimus; unable to follow levels here Admission and Anticipated Discharge Date Admission Date: October 20, 2022 Subjective having significant urinary retention >> no uop x 12 hrs and had 230 mL retained on MN bladder scan, 387 on 0800 one; refusing rodriguez; urology aware; still some abd pain but better Review of Systems Review of Systems: All systems reviewed & are unremarkable except as noted in Subjective Physical Exam Constitutional: + thin and + frail appearing; not lethargic Eyes: EOM intact bilaterally ENMT: Ears: no external ear abnormality Nose: no external nose abnormality Mouth: + dry oral mucous membranes Neck: no nuchal rigidity Respiratory: normal respiratory effort Auscultation: + diminished lung sounds and + crackles (bibasilar) Cardiovascular: Rate/Rhythm: regular rate and regular rhythm Gastrointestinal (Abdomen): Inspection/Auscultation: + abdomen distended and + hypoactive bowel sounds Percussion/Palpation: abdomen soft; abdomen nontender Musculoskeletal: Extremities: strength 5/5 throughout Skin: no rashes, warm and dry Neurologic: wilson, fluent speech, no tremor Results & Data ([facility]) Vital Signs (Past 12 Hours) Vital Signs Temp Pulse Pulse Resp BP BP Pulse Ox 10/23/22 11:17 36.3 C L 90 16 120/80 98 10/23/22 08:00 89 10/23/22 08:00 36.7 C 88 16 118/78 98 10/23/22 03:23 36.3 C L 93 H 16 123/83 99 10/23/22 02:24 89 O2 Del Method 10/23/22 11:17 Room Air 10/23/22 08:00 10/23/22 08:00 Room Air 10/23/22 03:23 Room Air 10/23/22 02:24 Laboratory Results 10/23/22 05:40 10/23/22 05:40
--- NOTE | 2022-10-23 13:02 | XRay Report ---
KUB CLINICAL HISTORY: Abdominal pain. Constipation. COMPARISON STUDY: CT of the abdomen and pelvis October 22, 2022. FINDINGS: There is contrast within bladder from recent contrast-enhanced CT. The gallbladder is surgi peggy absent. Minimal stool is noted. There is no evidence for a bowel obstruction. No evidence for f ree air on this supine exam. IMPRESSION: 1. No evidence for a bowel obstruction. 2. Minimal stool within the colon and rectum. ACT 112: Negative or not required by law. Electronically signed by: Vinod Winters M.D. 10/23/2022 1:01 PM
[2022-10-23] MEDS: POLYETHYLENE (MIRALAX) 17 GM PACK PO PRN (13:36)
[2022-10-23 15:07] LABS: Hematocrit (blood only) 22.6 % (42.0-52.0)
[2022-10-23] MEDS: LIDOCAINE 5% 1 PATCH TD SCH (16:22)
--- NOTE | 2022-10-23 16:25 | Hospitalist Progress Note ---
Date of Service October 23, 2022 Assessment & Plan (1) Lumbar radiculopathy: Plan: Abdominal Pain Likely due to retroperitoneal hemorrhage DD:Enterocolitis, Acute Gastroenteritis H/O Rectal Prolapse --CT ABD:Diffuse thickening of the large and small bowel which has progressed in the interval. This is most pronounced within the rectum, terminal ileum, and cecum/ascending colon. This is likely due to the patient's diffuse edematous state/portal colopathy versus a nonspecific enterocolitis. Small amount of ascites again noted. Postoperative changes as described above. --Blood Culture:No growth to date -- Stool Studies pending --Empirically on Dapto and Azactam>> transition to daptomycin, ertapenem -Continue IV fluids --Appreciate GI Input -- Needs outpatient endoscopy, colonoscopy, to consider for liver biopsy as outpatient per GI Will consider ID if leukocytosis continues to worsen Procalcitonin, leukocytosis trending down KUB today shows no signs of obstruction We will keep him n.p.o. until abdominal distention improves, has bowel movement and flatus Increase to ambulate Retroperitoneal hemorrhage --CT ABD:Interval development of acute retroperitoneal hemorrhage within the right pericolic gutter measuring up to 17 cm in length causing mass effect upon the cecum and ascending colon. Wall thickening of the small and large bowel is again noted which may be secondary to fluid overload versus a nonspecific enterocolitis. Small pleural effusions with questioned mild pulmonary edema, mesenteric edema with small volume ascites and anasarca. Severe hepatic steatosis with diffuse heterogeneity of the liver. Retained contrast in the kidneys and renal collecting systems suggestive of decreased renal function. -- Avoid anticoagulation, NSAIDs -- Monitor H&H and transfuse as needed Continue IV fluids Appreciate surgery input Discussed with Luz Elena Cedillo IR: Imaging studies sent for review. Recommends conservative management: Monitor H&H, transfuse as needed If hemodynamically deteriorates or continues to require blood transfusions, recommend a CTA in 3 phases (non contrast, arterial, and delayed) to keep site of bleeding. If if contrast to be avoided, NM bleeding scan is an alternative although may not be adequate. -S/P 1 unit PRBCs Hb stable today N.p.o. for now, advance diet slowly as able Diarrhea Currently constipated Rule out recurrent C. 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 Patent central canal and neural foramen. No acute process within the lumbar spine by MRI. Old mild L1 compression fracture. No acute lumbar spine fractures. Colonic wall thickening, ascites and anasarca better depicted on the CT of the abdomen and pelvis performed earlier today. Pain control Fall precautions PT OT when appropriate Bronchial asthma H/O pulmonary MAC infection S/P Lung Transplant --CXR:No acute process. 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 DVT Px: SCDs Re: Retroperitoneal bleed Code Status Full code Admission and Anticipated Discharge Date Admission Date: October 20, 2022 Review of Systems Review of Systems: All systems reviewed & are unremarkable except as noted in Subjective Physical Exam Physical Exam: Physical Exam: Vitals signs as noted above General Appearance:Thin, frail, chronic ill appearing, no apparent distress Head: normocephalic, Atraumatic Eyes: normal inspection, EOMI Neck: supple, Trachea midline Respiratory/Chest: Normal breath sounds, CTA, No accessory muscle use Cardiovascular: S1, S2, No murmur Abdomen/GI:Soft, mild tender, mildly distended, decreased Bowel sounds Extremities/Musculoskeletal:normal inspection, no edema Neurologic/Psych:AAOX3, grossly no focal neurological deficits Skin: normal color, warm Results & Data Results & Data ([facility]) Vital Signs (Past 12 Hours) Vital Signs Temp Pulse Pulse Resp BP Pulse Ox O2 Del Method 10/23/22 16:00 36.5 C 86 18 124/59 L 99 Room Air 10/23/22 11:17 36.3 C L 90 16 120/80 98 Room Air 10/23/22 08:00 89 10/23/22 08:00 36.7 C 88 16 118/78 98 Room Air Laboratory Results Short CBC 10/22/22 10/22/22 10/23/22 Range/Units 16:10 22:34 05:40 WBC 15.96 H (4.8-10.8) K/ul Hgb 8.3 L 8.3 L 8.1 L (14.0-18.0) g/dl Hct 23.6 L 23.0 L 22.3 L (42.0-52.0) % Plt Count 247 (130-400) K/uL 10/23/22 Range/Units 14:34 WBC (4.8-10.8) K/ul Hgb 8.0 L (14.0-18.0) g/dl Hct 22.6 L (42.0-52.0) % Plt Count (130-400) K/uL BMP 10/22/22 10/23/22 16:10 05:40 Sodium 126 L 128 L Potassium 4.3 4.3 Chloride 96 L 95 L Carbon Dioxide 21 21 BUN 38 H 36 H Creatinine 2.13 H 2.05 H Glucose 102 H 91 Calcium 7.6 L 7.2 L Medications Administered Patient is seen and examined at bedside Reports no flatus or BM today Abd pain is better but has some belching Hb stable KUB showed no signs of obstruction Discussed with Surgery today Has urinary retention Denies any chest pain, dyspnea, dizziness, nausea
[2022-10-23] MEDS: ARIPIprazole 1 MG/ML ORAL SOLN 150 ML BTL PO SCH (21:08)
[2022-10-23] MEDS: MONTELUKAST SODIUM 10 MG TABLET PO SCH (21:09)
[2022-10-23 22:12] LABS: Hematocrit (blood only) 21.8 % (42.0-52.0); Hemoglobin 7.8 g/dl (14.0-18.0)
[2022-10-24] MEDS: DAPTOmycin 250 MG in SYRINGE 0 ML IV SCH (01:28)
[2022-10-24] MEDS: MELATONIN 3 MG TAB PO PRN ×2 (01:29→21:19)
[2022-10-24] MEDS: oxyCODONE HCL IR 5 MG TAB (IMMEDIATE RELEASE) PO PRN ×4 (01:29→21:19)
[2022-10-24] MEDS ORDERED: BACLOFEN 10 MG TAB PO STA (02:09)
[2022-10-24 06:11] LABS: BUN Creatinine Ratio 21.4 (10-20); Calcium 7.3 mg/dl (8.5-10.1); Est GFR (African American) 50.4 ml/min; Est GFR (Non-African American) 43.5 ml/min; Magnesium 1.7 mg/dl (1.7-2.4); Potassium 4.2 mmol/L (3.5-5.1)
[2022-10-24] MEDS: INSULIN ASPART PER UNIT SC SCH ×3 (06:26→19:16)
[2022-10-24 06:32] LABS: Hematocrit (blood only) 20.2 % (42.0-52.0); Hemoglobin 7.2 g/dl (14.0-18.0); Mean Corpuscular Hemoglobin 30.8 pg (25.0-34.0); Mean Corpuscular Hgb Conc 35.6 g/dL (32.0-36.0); Mean Corpuscular Volume 86.3 fL (80.0-100.0); Mean Platelet Volume 9.6 fL (9.4-12.4); Platelet Count 318 K/uL (130-400); RDW Coefficient of Variation 15.2 % (11.5-14.5); RDW Standard Deviation 46.5 fL (36.4-46.3); Red Blood Count 2.34 M/uL (4.70-6.10); White Blood Count 18.71 K/ul (4.8-10.8)
[2022-10-24 06:34] LABS: Basophils # (auto) 0.02 K/uL (0-0.2); Basophils % (auto) 0.1 %; Echinocytes 2+; Eosinophils # (auto) 0.01 K/uL (0-0.50); Eosinophils % (auto) 0.1 %; Immature Granulocytes # (auto) 0.17 K/uL (0.01-0.20); Immature Granulocytes % (auto) 0.9 %; Lymphocytes % (auto) 17.6 %; Monocytes # (auto) 1.27 K/uL (0.11-0.59); Monocytes % (auto) 6.8 %; Neutrophils # (auto) 13.94 K/uL (1.40-6.50); Neutrophils % (auto) 74.5 %
[2022-10-24] MEDS: SODIUM BICARBONATE 8.4% 75 MEQ in SODIUM CHLORIDE 0.45 % 1,000 ML IV SCH ×3 (06:56→23:00)
[2022-10-24] MEDS ORDERED: SODIUM CHLORIDE 0.9% 250 ML IV PRN (07:35)
[2022-10-24] MEDS: PANCREAZE (LIPASE 16,800U) CAP PO SCH ×3 (07:53→15:37)
[2022-10-24] MEDS: ERTAPENEM SODIUM 1,000 MG in SYRINGE 0 ML IV SCH (07:53)
[2022-10-24] MEDS: TACROLIMUS 1 MG CAP PO SCH ×2 (07:54→21:21)
[2022-10-24] MEDS: MYCOPHENOLATE SODIUM 180 MG TAB PO SCH ×2 (07:55→21:20)
[2022-10-24] MEDS: PANTOprazole 40 MG TAB PO SCH (07:55)
[2022-10-24] MEDS: LIDOCAINE 5% 1 PATCH TD SCH (07:57)
[2022-10-24] MEDS: predniSONE 5 MG TAB PO SCH (07:57)
[2022-10-24] MEDS: DOCUSATE SODIUM 100 MG CAP PO PRN (08:02)
[2022-10-24] MEDS: POLYETHYLENE (MIRALAX) 17 GM PACK PO PRN (08:02)
--- NOTE | 2022-10-24 08:42 | Urology Progress Note ---
Date of Service October 24, 2022 Assessment & Plan (1) Urinary retention: Plan: Complex medical history, Acute renal failure Patient unable to void yesterday, elevated bladder scan Linda successfully placed by nursing yesterday Labs reviewed - creatinine improved to 1.92, WBC 18.71, Hgb 7.2 today Recommend maintain catheter at this time for management of urinary retention Normalize bowels Can perform voiding trial prior to discharge or can arrange f/u with our service for voiding trial will sign off Admission and Anticipated Discharge Date Admission Date: October 20, 2022 Subjective Patient seen and examined at bedside this morning. Patient unable to void yesterday, elevated bladder scan. Nursing successfully placed a 14F catheter. He reports feeling better after catheter placement. Linda patent and draining clear yellow urine. Continues to have some abdominal discomfort. No fever or chills. No nausea or vomiting. Review of Systems Constitutional: as per Subjective / HPI Gastrointestinal: as per Subjective / HPI Genitourinary: + as per Subjective / HPI Physical Exam Constitutional: + thin; no acute distress Respiratory: no respiratory distress and no labored breathing Gastrointestinal (Abdomen): Percussion/Palpation: + abdomen tender (mild tenderness on right side) and abdomen soft Neurologic: moves all extremities and awake Psychiatric: Orientation: alert and oriented x 3 Genitourinary: Linda patent and draining clear yellow urine Results & Data ([facility]) Vital Signs (Past 12 Hours) Vital Signs Temp Pulse Pulse Resp BP BP Pulse Ox 10/24/22 08:27 36.4 C L 93 H 16 102/71 99 10/24/22 08:06 36.3 C L 98 H 16 104/71 100 10/24/22 08:12 36.4 C L 95 H 16 108/74 100 10/24/22 03:19 36.5 C 96 H 18 110/69 99 10/24/22 00:13 36.4 C L 98 H 18 122/77 98 10/23/22 22:00 97 H O2 Del Method 10/24/22 08:27 10/24/22 08:06 Room Air 10/24/22 08:12 10/24/22 03:19 Room Air 10/24/22 00:13 Room Air 10/23/22 22:00 PG Care Time/CCT Total # of Minutes Spent Total Time Spent with Patient: Total time spent is greater than 50% in coordination of care (as documented) at patient's floor/unit and/or counseling patient: Coding Level of Care Code 61229 SUB INP/OBS CARE 10/16MIN Diagnoses Urinary retention R33.9
--- NOTE | 2022-10-24 11:30 | Surgery Progress Note ---
Date of Service October 24, 2022 Assessment & Plan (1) Retroperitoneal bleed: Plan: Etiology unknown, ? spontaneous from anticoagulation H&H stable at 8, responded to 1 unit of PRBC (6.3--> 8.3) Hemodynamically stable Plan: No surgical intervention recommended serial H&H Monitor vital signs Avoid anticoagulation Abdomen is distended with belching, needs to get up and ambulate to increase GI motility. Would recommend slow advancement of diet IV fluids per nephrology given HEIDY Encouraged ambulation with patient to help with GI motility and urinary voiding. Bladder scan as needed. Urology following. Dr. Vines was present during my examination and agrees with above. 10/24/2022 11:27 AM, Dr. Vines base on pt is still need transfusion keep the H/H, recommend to transfer to higher level care, D/W benefits, risks and alternatives of the transfer, pt agreed with the transfer, I answered all questions, D/W Dr. Mercer, Admission and Anticipated Discharge Date Admission Date: October 20, 2022 Supervising Physician Co-Signing Physician Notes I performed a history and physical examination of the patient today, including specifically on physical exam - soft abdomen. I have discussed the patient's management with the advanced practitioner. Please refer to the nurse practitioner's note for the documented findings and plan of care. Diarrhea resolved. CT scan suggestive of acute gastroenteritis. Supportive care for now. OP E/C Consider Liver Bx as OP. Recall GI if needed. Subjective having significant urinary retention >> no uop x 12 hrs and had 230 mL retained on MN bladder scan, 387 on 0800 one; refusing rodriguez; urology aware; still some abd pain but better 10/24/2022 11:24 AM, Dr. Vines F/U retroperitoneal hemorrhage, pt is stable, mild pain on right side abdomen, pt denies fever, but H?H down to 7.2, WBC 18,000 Review of Systems Constitutional: as per Subjective / HPI VSS, no distress Eyes: as per Subjective / HPI Respiratory: as per Subjective / HPI and + problem reported (cystic fibrosis, lung transplant) Cardiovascular: as per Subjective / HPI Gastrointestinal: as per Subjective / HPI Neurologic: as per Subjective / HPI Psychiatric: as per Subjective / HPI Endocrine: as per Subjective / HPI Hematologic / Lymphatic: as per Subjective / HPI Physical Exam Constitutional: WD/WN, vitals as above Eyes: PERRL, conjunctivae normal, anicteric sclerae Neck: trachea midline, no thyromegaly Respiratory: normal respiratory effort, lungs clear to auscultation Cardiovascular: RRR, no murmur, no edema Gastrointestinal (Abdomen): soft, mild tenderness at right side abdomen, no rebound pain, no distend, no redness, BS +, Neurologic: patellar DTR's 2+ bilat, sensation intact Psychiatric: A+Ox3, euthymic affect Results & Data ([facility]) Vital Signs (Past 12 Hours) Vital Signs Temp Pulse Pulse Resp BP BP Pulse Ox 10/24/22 08:00 93 H 10/24/22 10:51 36.6 C 96 H 16 111/76 100 10/24/22 10:12 36.5 C 96 H 18 108/74 100 10/24/22 09:12 36.5 C 91 H 16 103/69 99 10/24/22 08:42 36.4 C L 92 H 16 100/67 99 10/24/22 08:27 36.4 C L 93 H 16 102/71 99 10/24/22 08:06 36.3 C L 98 H 16 104/71 100 10/24/22 08:12 36.4 C L 95 H 16 108/74 100 10/24/22 03:19 36.5 C 96 H 18 110/69 99 10/24/22 00:13 36.4 C L 98 H 18 122/77 98 O2 Del Method 10/24/22 08:00 10/24/22 10:51 10/24/22 10:12 10/24/22 09:12 10/24/22 08:42 10/24/22 08:27 10/24/22 08:06 Room Air 10/24/22 08:12 10/24/22 03:19 Room Air 10/24/22 00:13 Room Air Laboratory Results Abnormal lab results 10/22/22 10/23/22 10/23/22 Range/Units 08:33 11:49 14:34 WBC (4.8-10.8) K/ul RBC (4.70-6.10) M/uL Hgb 8.0 L (14.0-18.0) g/dl Hct 22.6 L (42.0-52.0) % RDW Std Deviation (36.4-46.3) fL RDW Coeff of Crissy (11.5-14.5) % Neut # (Auto) (1.40-6.50) K/uL Haywood # (Auto) (0.11-0.59) K/uL Sodium (136-145) mmol/L Chloride (98-107) mmol/L Carbon Dioxide (21-32) mmol/L Anion Gap (3-11) BUN (6-23) mg/dl Creatinine (0.6-1.4) mg/dl BUN/Creatinine Ratio (10-20) POC Glucose 100 H (70-99) mg/dl Calcium (8.5-10.1) mg/dl Crossmatch See Detail 10/23/22 10/23/22 10/23/22 Range/Units 16:43 18:01 21:06 WBC (4.8-10.8) K/ul RBC (4.70-6.10) M/uL Hgb 7.8 L (14.0-18.0) g/dl Hct 21.8 L (42.0-52.0) % RDW Std Deviation (36.4-46.3) fL RDW Coeff of Crissy (11.5-14.5) % Neut # (Auto) (1.40-6.50) K/uL Haywood # (Auto) (0.11-0.59) K/uL Sodium (136-145) mmol/L Chloride (98-107) mmol/L Carbon Dioxide (21-32) mmol/L Anion Gap (3-11) BUN (6-23) mg/dl Creatinine (0.6-1.4) mg/dl BUN/Creatinine Ratio (10-20) POC Glucose 111 H 100 H (70-99) mg/dl Calcium (8.5-10.1) mg/dl Crossmatch 10/24/22 10/24/22 Range/Units 05:27 05:27 WBC 18.71 H (4.8-10.8) K/ul RBC 2.34 L (4.70-6.10) M/uL Hgb 7.2 L (14.0-18.0) g/dl Hct 20.2 L* (42.0-52.0) % RDW Std Deviation 46.5 H (36.4-46.3) fL RDW Coeff of Crissy 15.2 H (11.5-14.5) % Neut # (Auto) 13.94 H (1.40-6.50) K/uL Haywood # (Auto) 1.27 H (0.11-0.59) K/uL Sodium 128 L (136-145) mmol/L Chloride 92 L (98-107) mmol/L Carbon Dioxide 20 L (21-32) mmol/L Anion Gap 16 H (3-11) BUN 41 H (6-23) mg/dl Creatinine 1.92 H (0.6-1.4) mg/dl BUN/Creatinine Ratio 21.4 H (10-20) POC Glucose (70-99) mg/dl Calcium 7.3 L (8.5-10.1) mg/dl Crossmatch
--- NOTE | 2022-10-24 14:11 | Electrocardiogram Report ---
Test Reason : Blood Pressure : / mmHG Vent. Rate : 095 BPM Atrial Rate : 095 BPM P-R Int : 118 ms QRS Dur : 080 ms QT Int : 418 ms P-R-T Axes : 054 040 048 degrees QTc Int : 525 ms Normal sinus rhythm Low voltage QRS Nonspecific ST abnormality Prolonged QT Abnormal ECG When compared with ECG of 19-OCT-2022 22:04, T wave inversion no longer evident in Anterior leads Confirmed by Dominic Clay ([id number]) on 10/24/2022 2:11:20 PM Referred By: REFERRED SELF Confirmed By:Dominic Clay
[2022-10-24 14:31] LABS: Hematocrit (blood only) 25.4 % (42.0-52.0); Hemoglobin 8.9 g/dl (14.0-18.0)
--- NOTE | 2022-10-24 16:25 | Hospitalist Progress Note ---
Date of Service October 24, 2022 Assessment & Plan (1) Lumbar radiculopathy: Plan: Abdominal Pain Likely due to retroperitoneal hemorrhage DD:Enterocolitis, Acute Gastroenteritis H/O Rectal Prolapse --CT ABD:Diffuse thickening of the large and small bowel which has progressed in the interval. This is most pronounced within the rectum, terminal ileum, and cecum/ascending colon. This is likely due to the patient's diffuse edematous state/portal colopathy versus a nonspecific enterocolitis. Small amount of ascites again noted. Postoperative changes as described above. --Blood Culture:No growth to date -- Stool Studies pending as currently constipated --Empirically on Dapto and Azactam>> transition to daptomycin, ertapenem -Continue IV fluids --Appreciate GI Input -- Needs outpatient endoscopy, colonoscopy, to consider for liver biopsy as outpatient per GI Will consider ID if leukocytosis continues to worsen Procalcitonin, leukocytosis trending down KUB on 10/23/22 shows no signs of obstruction Will continue NPO until abdominal distention improves, has bowel movement and flatus Encourage to ambulate Continue bowel regimen, PRN enema Retroperitoneal hemorrhage --CT ABD:Interval development of acute retroperitoneal hemorrhage within the right pericolic gutter measuring up to 17 cm in length causing mass effect upon the cecum and ascending colon. Wall thickening of the small and large bowel is again noted which may be secondary to fluid overload versus a nonspecific enterocolitis. Small pleural effusions with questioned mild pulmonary edema, mesenteric edema with small volume ascites and anasarca. Severe hepatic steatosis with diffuse heterogeneity of the liver. Retained contrast in the kidneys and renal collecting systems suggestive of decreased renal function. -- Avoid anticoagulation, NSAIDs -- Monitor H&H and transfuse as needed Continue IV fluids Appreciate surgery input 10/22/22 Discussed with Octoshape Nguyen IR and Triage Officer : Imaging studies sent for review. Recommends conservative management: Monitor H&H, transfuse as needed If hemodynamically deteriorates or continues to require blood transfusions, recommend a CTA in 3 phases (non contrast, arterial, and delayed) to keep site of bleeding. If if contrast to be avoided, NM bleeding scan is an alternative although may not be adequate. -S/P 2 units PRBCs N.p.o. for now, advance diet slowly as able 10/24/22: Discussed with [facility] triage officer Dr.Mark Beckett for possible transfer as recommended by . Patient was recommended to have bleeding scan to locate source of bleeding before accepting for any IR intervention. If bleeding scan noncontributory, will consider CTA in 3 phases as above after discussing with patient regarding possible renal failure from contrast. (Also discussed with nephrology: Recommends continued IV fluids for at least 8 hours prior to and after imaging) --Bleeding scan currently pending Transfused 1 unit PRBC today Hemoglobin 8.9 post transfusion Diarrhea Currently constipated Rule out recurrent C. difficile if re-occurs Obtain Stool Studies if has recurrence Acute on chronic hyponatremia Acute kidney injury on CKD III Metabolic acidosis Change IV fluids as per Nephrology Monitor sodium levels closely Avoid nephrotoxic agents as able Appreciate Nephrology Input Sodium 128, cr 1.92 Bicarbonate normalized Urinary retention Bladder scan as needed Appreciate urology input Continue Linda catheter will consider voiding trial prior to discharge Vs outpatient Needs follow-up with urology upon discharge Lumbar radiculopathy MRI not suggestive of Infection/abscess H/O Cystic fibrosis 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 Patent central canal and neural foramen. No acute process within the lumbar spine by MRI. Old mild L1 compression fracture. No acute lumbar spine fractures. Colonic wall thickening, ascites and anasarca better depicted on the CT of the abdomen and pelvis performed earlier today. Pain control Fall precautions PT OT when appropriate Bronchial asthma H/O pulmonary MAC infection S/P Lung Transplant --CXR:No acute process. 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 DVT Px: SCDs Re: Retroperitoneal bleed Code Status Full code Admission and Anticipated Discharge Date Admission Date: October 20, 2022 Subjective Patient is seen and examined at bedside Reports persistent right-sided abdominal pain Also states having hiccups Hemoglobin noted to drop today Discussed with [facility], Nephrology and surgery today Still has constipation Denies any chest pain, dyspnea, dizziness, nausea Review of Systems Review of Systems: All systems reviewed & are unremarkable except as noted in Subjective Physical Exam Physical Exam: Physical Exam: Vitals signs as noted above General Appearance:Thin, frail, chronic ill appearing, no apparent distress Head: normocephalic, Atraumatic Eyes: normal inspection, EOMI Neck: supple, Trachea midline Respiratory/Chest: Normal breath sounds, CTA, No accessory muscle use Cardiovascular: S1, S2, No murmur Abdomen/GI:Soft, mild R tender, mildly distended, decreased Bowel sounds Extremities/Musculoskeletal:normal inspection, no edema Neurologic/Psych:AAOX3, grossly no focal neurological deficits Skin: normal color, warm Results & Data Results & Data ([facility]) Vital Signs (Past 12 Hours) Vital Signs Temp Pulse Pulse Resp BP BP Pulse Ox 10/24/22 11:56 36.3 C L 96 H 16 110/74 100 10/24/22 08:00 93 H 10/24/22 10:51 36.6 C 96 H 16 111/76 100 10/24/22 10:12 36.5 C 96 H 18 108/74 100 10/24/22 09:12 36.5 C 91 H 16 103/69 99 10/24/22 08:42 36.4 C L 92 H 16 100/67 99 10/24/22 08:27 36.4 C L 93 H 16 102/71 99 10/24/22 08:06 36.3 C L 98 H 16 104/71 100 10/24/22 08:12 36.4 C L 95 H 16 108/74 100 O2 Del Method 10/24/22 11:56 Room Air 10/24/22 08:00 10/24/22 10:51 10/24/22 10:12 10/24/22 09:12 10/24/22 08:42 10/24/22 08:27 10/24/22 08:06 Room Air 10/24/22 08:12 Laboratory Results Short CBC 10/23/22 10/24/22 10/24/22 Range/Units 21:06 05:27 14:20 WBC 18.71 H (4.8-10.8) K/ul Hgb 7.8 L 7.2 L 8.9 L (14.0-18.0) g/dl Hct 21.8 L 20.2 L* 25.4 L (42.0-52.0) % Plt Count 318 (130-400) K/uL BMP 10/24/22 05:27 Sodium 128 L Potassium 4.2 Chloride 92 L Carbon Dioxide 20 L BUN 41 H Creatinine 1.92 H Glucose 84 Calcium 7.3 L
--- NOTE | 2022-10-24 20:24 | Nuclear Medicine Report ---
NM CLINICAL HISTORY: 37 years-old Male with Retroperitoneal bleed. Acute GI bleed TECHNIQUE: Following the intravenous administration of red cells labeled with 22 mCi of technetium-9 9m Ultratag, sequential abdominal images were obtained for 60 minutes. COMPARISON: CT abdomen pelvis 10/22/2022. FINDINGS: There is no abnormal focus of labeled red cell accumulation or extravasation. There is expected acti vity in the blood pool. IMPRESSION: No scintigraphic evidence for active gastro intestinal bleeding. ACT 112: Negative or not required by law. The above report was generated using voice recognition software. It may contain grammatical, syntax o r spelling errors. Electronically signed by: Junior Franco M.D. 10/24/2022 8:23 PM
[2022-10-24] MEDS: hydrOXYzine HCl 25 MG TAB PO PRN (21:20)
--- NOTE | 2022-10-24 21:20 | Nephrology Progress Note ---
Date of Service October 24, 2022 Assessment & Plan (1) Chronic hyponatremia: Plan: stable/ ongoing still on 09/23 NS w/ 75 mEq/L sodium bicarb @150 mL whcih should continue > behaving as though he's hypovolemic >strict I/O >>>>needs rodriguez for accurate I/O (2) CKD (chronic kidney disease) stage 3, GFR 30-59 ml/min: Plan: marked lability in his renal function but believe he has baseline 1.6-1.7 crea tinine as OP. creatinine worsened on 10/22 in relation to decreased UOP and abd pain despite aggressive hydration >>>> ? ischemic ATN w/ acute on chronic anemia AND urinary retention; despie aggressive hydration urine on 10/21 very concentrated (unexpected) -avoid further IV contrast unless life/limb saving >> he had this on 10/19; may need to do so w/ RP hemorrhage however -daily BMP ->>needs to keep rodriguez (3) Acute on chronic anemia: Plan: monitor d/t RP hem (4) Abdominal pain in male: Plan: due potentially in part to outlet obstruction; also component of RP hemm; plus or minus rectal prolapse issue GI following > suspect infectious/?viral enteritis; recommend OP EGD/colo has colorectal appt for prolapse; may need more urgent intervention given recurrence (5) Lung transplant status, bilateral: Plan: -on mycophenolate and high dose tacrolimus; unable to follow levels here Admission and Anticipated Discharge Date Admission Date: October 20, 2022 Subjective seen on evening rounds. s/p tagged RBC scan > no acitve bleed on this. unfortunately rectal prolapse has occurred, very painful to pt. no sob, no n/v; got rodriguez this am Review of Systems Review of Systems: All systems reviewed & are unremarkable except as noted in Subjective Physical Exam Constitutional: well developed (lying very still on L side), + thin and + frail appearing; not lethargic Eyes: EOM intact bilaterally ENMT: Ears: no external ear abnormality Nose: no external nose abnormality Mouth: + dry oral mucous membranes Neck: no nuchal rigidity Respiratory: normal respiratory effort Auscultation: + diminished lung sounds; no crackles Cardiovascular: Rate/Rhythm: regular rate, regular rhythm and + tachycardic Gastrointestinal (Abdomen): Inspection/Auscultation: + abdomen distended, normal bowel sounds and + hypoactive bowel sounds Percussion/Palpation: abdomen soft; abdomen nontender Musculoskeletal: Extremities: strength 5/5 throughout Skin: no rashes, warm and dry Neurologic: wilson, fluent speech, no tremor Results & Data ([facility]) Vital Signs (Past 12 Hours) Vital Signs Temp Pulse Pulse Resp BP BP Pulse Ox 10/24/22 17:08 36.6 C 99 H 16 98/66 L 99 10/24/22 16:00 98 H 10/24/22 11:56 36.3 C L 96 H 16 110/74 100 10/24/22 10:51 36.6 C 96 H 16 111/76 100 10/24/22 10:12 36.5 C 96 H 18 108/74 100 O2 Del Method 10/24/22 17:08 Room Air 10/24/22 16:00 10/24/22 11:56 Room Air 10/24/22 10:51 10/24/22 10:12 Laboratory Results 10/24/22 14:20 10/24/22 05:27
[2022-10-24] MEDS: MONTELUKAST SODIUM 10 MG TABLET PO SCH (21:21)
[2022-10-24 21:30] LABS: Hematocrit (blood only) 24.7 % (42.0-52.0); Hemoglobin 8.7 g/dl (14.0-18.0)
[2022-10-24] MEDS: ARIPIprazole 1 MG/ML ORAL SOLN 150 ML BTL PO SCH (21:42)
--- NOTE | 2022-10-24 23:18 | Surgery Progress Note ---
Date of Service October 24, 2022 Assessment & Plan (1) Retroperitoneal bleed: Plan: Etiology unknown, ? spontaneous from anticoagulation H&H stable at 8, responded to 1 unit of PRBC (6.3--> 8.3) Hemodynamically stable Plan: No surgical intervention recommended serial H&H Monitor vital signs Avoid anticoagulation Abdomen is distended with belching, needs to get up and ambulate to increase GI motility. Would recommend slow advancement of diet IV fluids per nephrology given HEIDY Encouraged ambulation with patient to help with GI motility and urinary voiding. Bladder scan as needed. Urology following. Dr. Vines was present during my examination and agrees with above. 10/24/2022 11:27 AM, Dr. Vines base on pt is still need transfusion keep the H/H, recommend to transfer to higher level care, D/W benefits, risks and alternatives of the transfer, pt agreed with the transfer, I answered all questions, D/W Dr. Mercer, 10/24/2022 11: [address] Vines, rectal prolapse I completely reduced the rectal prolapse by my hand. pt feels better, Admission and Anticipated Discharge Date Admission Date: October 20, 2022 Supervising Physician Co-Signing Physician Notes I performed a history and physical examination of the patient today, including specifically on physical exam - soft abdomen. I have discussed the patient's management with the advanced practitioner. Please refer to the nurse practitioner's note for the documented findings and plan of care. Diarrhea resolved. CT scan suggestive of acute gastroenteritis. Supportive care for now. OP E/C Consider Liver Bx as OP. Recall GI if needed. Subjective seen on evening rounds. s/p tagged RBC scan > no acitve bleed on this. unfortunately rectal prolapse has occurred, very painful to pt. no sob, no n/v; got rodriguez this am 10/24/2022 11:[address] Vines pt developed rectal prolapse, pt denies abdominal pain, no fever, Review of Systems Constitutional: as per Subjective / HPI VSS, no distress Eyes: as per Subjective / HPI Respiratory: as per Subjective / HPI and + problem reported (cystic fibrosis, lung transplant) Cardiovascular: as per Subjective / HPI Gastrointestinal: as per Subjective / HPI Neurologic: as per Subjective / HPI Psychiatric: as per Subjective / HPI Endocrine: as per Subjective / HPI Hematologic / Lymphatic: as per Subjective / HPI Physical Exam Constitutional: WD/WN, vitals as above Eyes: PERRL, conjunctivae normal, anicteric sclerae Neck: trachea midline, no thyromegaly Respiratory: normal respiratory effort, lungs clear to auscultation Cardiovascular: RRR, no murmur, no edema Gastrointestinal (Abdomen): soft, NT, ND, rectal exam- rectal prolapse with edema, I completely reduced the rectal prolapse by my hand. Neurologic: patellar DTR's 2+ bilat, sensation intact Psychiatric: A+Ox3, euthymic affect Results & Data ([facility]) Vital Signs (Past 12 Hours) Vital Signs Temp Pulse Pulse Resp BP Pulse Ox O2 Del Method 10/24/22 21:29 35.6 C L 105 H 14 95/66 L 96 Room Air 10/24/22 17:08 36.6 C 99 H 16 98/66 L 99 Room Air 10/24/22 16:00 98 H 10/24/22 11:56 36.3 C L 96 H 16 110/74 100 Room Air
[2022-10-25] MEDS: INSULIN ASPART PER UNIT SC SCH ×4 (00:36→17:50)
[2022-10-25] MEDS: DAPTOmycin 250 MG in SYRINGE 0 ML IV SCH (03:00)
[2022-10-25] MEDS: DICYCLOMINE HCL 10 MG CAP PO PRN ×2 (03:47→09:19)
[2022-10-25] MEDS: SODIUM BICARBONATE 8.4% 75 MEQ in SODIUM CHLORIDE 0.45 % 1,000 ML IV SCH ×2 (05:43→17:50)
[2022-10-25 06:40] LABS: Hematocrit (blood only) 20.3 % (42.0-52.0); Hemoglobin 7.2 g/dl (14.0-18.0); Mean Corpuscular Hgb Conc 35.5 g/dL (32.0-36.0); Mean Corpuscular Volume 84.6 fL (80.0-100.0); Mean Platelet Volume 9.8 fL (9.4-12.4); Platelet Count 239 K/uL (130-400); RDW Coefficient of Variation 15.3 % (11.5-14.5); RDW Standard Deviation 46.3 fL (36.4-46.3); White Blood Count 14.48 K/ul (4.8-10.8)
[2022-10-25 06:54] LABS: BUN Creatinine Ratio 20.2 (10-20); Est GFR (African American) 42.1 ml/min; Est GFR (Non-African American) 36.3 ml/min
[2022-10-25 06:57] LABS: Basophils # (auto) 0.01 K/uL (0-0.2); Basophils % (auto) 0.1 %; Eosinophils # (auto) 0.03 K/uL (0-0.50); Eosinophils % (auto) 0.2 %; Immature Granulocytes # (auto) 0.11 K/uL (0.01-0.20); Immature Granulocytes % (auto) 0.8 %; Lymphocytes # (auto) 3.65 K/uL (1.2-3.4); Lymphocytes % (auto) 25.2 %; Monocytes % (auto) 6.9 %; Neutrophils # (auto) 9.68 K/uL (1.40-6.50); Neutrophils % (auto) 66.8 %; Polychromasia 1+; Target Cells 1+
[2022-10-25 07:58] LABS: Hematocrit (blood only) 20.6 % (42.0-52.0); Hemoglobin 7.1 g/dl (14.0-18.0)
--- NOTE | 2022-10-25 08:29 | Communication Note ---
Date of Service: October 25, 2022 Patient was having large rectal prolapse last night. Called general surgery and was recommended to transfer to tertiary care for colorectal surgery. Called [place] and colorectal surgery wanted to talk to acute care surgery. Talked with acute care surgery and was advised to talk to hospitalist as patient had multiple medical problems. Discussed with hospitalist and was patient was accepted in transfer.As no bed available patient will be transported on morning of 10/25/2022. Later General surgery came and reduced the rectal prolapse. But again morning labs hb 7.2. Notified am providers.
[2022-10-25] MEDS: TACROLIMUS 1 MG CAP PO SCH (09:19)
[2022-10-25] MEDS: PANTOprazole 40 MG TAB PO SCH (09:20)
[2022-10-25] MEDS: predniSONE 5 MG TAB PO SCH (09:21)
[2022-10-25] MEDS: MYCOPHENOLATE SODIUM 180 MG TAB PO SCH (09:21)
[2022-10-25] MEDS ORDERED: SODIUM CHLORIDE 0.9% 250 ML IV PRN (09:31)
[2022-10-25] MEDS: oxyCODONE HCL IR 5 MG TAB (IMMEDIATE RELEASE) PO PRN ×2 (09:34→14:50)
[2022-10-25] MEDS: ERTAPENEM SODIUM 1,000 MG in SYRINGE 0 ML IV SCH (09:35)
[2022-10-25] MEDS: PANCREAZE (LIPASE 16,800U) CAP PO SCH ×3 (09:36→17:50)
[2022-10-25] MEDS: LIDOCAINE 5% 1 PATCH TD SCH (09:39)
--- NOTE | 2022-10-25 09:45 | Surgery Progress Note ---
Date of Service October 25, 2022 Assessment & Plan (1) Retroperitoneal bleed: (2) Acute renal failure: (3) Rectal prolapse: Plan Etiology of retroperitoneal bleed unknown, ? spontaneous from anticoagulation (no history of trauma) H&H 7.1 this am, s/p 2 units of PRBC ( 1 unit on 10/24/22 and 1 unit on 10/22/22) Hypotensive with SBP now in 90's was running in low 100's and 110 NM scan without sign of activity bleeding Creatinine up to 2.23 today Plan: Accepted for transfer, waiting for bed Discussed with patient the possibility of needing IR intervention given hemoglobin continues to drop and bp slightly dropping. Difficulty situation as his creatinine continues to increase and want to avoid giving IV contrast if possible. NM scan showing no active bleeding but can be less sensitive than a CTA with contrast. Would recommend transfer for possible IR intervention (which would require contrast to complete the procedure ) Avoid anticoagulation Keep npo IV fluids and rate per nephrology given HEIDY continue medical management Discussed with Dr. dillon who agrees with above. Admission and Anticipated Discharge Date Admission Date: October 20, 2022 Subjective feeling okay abdominal pain a little better since able to have bowel movement this am around 2 am, liquid bowel movement. did not noticed blood in stool has rodriguez catheter no increase in abdominal pain Physical Exam Constitutional: cooperative and comfortable; no acute distress and not ill appearing Neck: normal visual inspection and trachea midline Respiratory: normal respiratory effort; no respiratory distress, no labored breathing and no retractions Gastrointestinal (Abdomen): Inspection/Auscultation: + abdomen distended; + abnormal bowel sounds Percussion/Palpation: + abdomen tender (RLQ on mild palpation ), + guarding (RLQ, voluntary on palpation) and abdomen soft; abdomen not rigid and abdomen not firm Skin: no rashes, warm and dry Psychiatric: Orientation: alert and oriented x 3 Results & Data ([facility]) Vital Signs (Past 12 Hours) Vital Signs Temp Pulse Pulse Resp BP BP Pulse Ox 10/25/22 07:51 36.3 C L 91 H 17 94/61 L 97 10/25/22 03:21 99 H 16 103/65 100 10/25/22 02:22 98 H 10/24/22 23:00 36.4 C L 98 H 16 95/65 L 100 O2 Del Method 10/25/22 07:51 Room Air 10/25/22 03:21 Room Air 10/25/22 02:22 10/24/22 23:00 Room Air Laboratory Results 10/25/22 10/25/22 10/25/22 Range/Units 07:34 07:22 06:42 WBC (4.8-10.8) K/ul RBC (4.70-6.10) M/uL Hgb 7.1 L (14.0-18.0) g/dl Hct 20.6 L* (42.0-52.0) % MCV (80.0-100.0) fL MCH (25.0-34.0) pg MCHC (32.0-36.0) g/dL RDW Std Deviation (36.4-46.3) fL RDW Coeff of Crissy (11.5-14.5) % Plt Count (130-400) K/uL MPV (9.4-12.4) fL Immature Gran % (Auto) % Neut % (Auto) % Lymph % (Auto) % Schley % (Auto) % Eos % (Auto) % Baso % (Auto) % Neut # (Auto) (1.40-6.50) K/uL Lymph # (Auto) (1.2-3.4) K/uL Schley # (Auto) (0.11-0.59) K/uL Eos # (Auto) (0-0.50) K/uL Baso # (Auto) (0-0.2) K/uL Immature Gran # (Auto) (0.01-0.20) K/uL Polychromasia Target Cells Sodium (136-145) mmol/L Potassium (3.5-5.1) mmol/L Chloride (98-107) mmol/L Carbon Dioxide (21-32) mmol/L Anion Gap (3-11) BUN (6-23) mg/dl Creatinine (0.6-1.4) mg/dl Est Cr Clr Drug Dosing ml/min Est GFR ( Amer) ml/min Est GFR (Non-Af Amer) ml/min BUN/Creatinine Ratio (10-20) Glucose (70-99(Fasting)) mg/dl POC Glucose 96 (70-99) mg/dl Calcium (8.5-10.1) mg/dl Blood Type A Negative Antibody Screen NEGATIVE Crossmatch See Detail 10/25/22 10/25/22 10/25/22 Range/Units 05:37 05:37 00:18 WBC 14.48 H (4.8-10.8) K/ul RBC 2.40 L (4.70-6.10) M/uL Hgb 7.2 L (14.0-18.0) g/dl Hct 20.3 L* (42.0-52.0) % MCV 84.6 (80.0-100.0) fL MCH 30.0 (25.0-34.0) pg MCHC 35.5 (32.0-36.0) g/dL RDW Std Deviation 46.3 (36.4-46.3) fL RDW Coeff of Crissy 15.3 H (11.5-14.5) % Plt Count 239 (130-400) K/uL MPV 9.8 (9.4-12.4) fL Immature Gran % (Auto) 0.8 % Neut % (Auto) 66.8 % Lymph % (Auto) 25.2 % Schley % (Auto) 6.9 % Eos % (Auto) 0.2 % Baso % (Auto) 0.1 % Neut # (Auto) 9.68 H (1.40-6.50) K/uL Lymph # (Auto) 3.65 H (1.2-3.4) K/uL Schley # (Auto) 1.00 H (0.11-0.59) K/uL Eos # (Auto) 0.03 (0-0.50) K/uL Baso # (Auto) 0.01 (0-0.2) K/uL Immature Gran # (Auto) 0.11 (0.01-0.20) K/uL Polychromasia 1+ Target Cells 1+ Sodium 130 L (136-145) mmol/L Potassium 4.0 (3.5-5.1) mmol/L Chloride 91 L (98-107) mmol/L Carbon Dioxide 22 (21-32) mmol/L Anion Gap 17 H (3-11) BUN 45 H (6-23) mg/dl Creatinine 2.23 H D (0.6-1.4) mg/dl Est Cr Clr Drug Dosing 35.0 ml/min Est GFR ( Amer) 42.1 ml/min Est GFR (Non-Af Amer) 36.3 ml/min BUN/Creatinine Ratio 20.2 H (10-20) Glucose 83 (70-99(Fasting)) mg/dl POC Glucose 110 H (70-99) mg/dl Calcium 7.0 L (8.5-10.1) mg/dl Blood Type Antibody Screen Crossmatch 10/24/22 10/24/22 10/24/22 Range/Units 21:39 21:13 14:20 WBC (4.8-10.8) K/ul RBC (4.70-6.10) M/uL Hgb 8.7 L 8.9 L (14.0-18.0) g/dl Hct 24.7 L 25.4 L (42.0-52.0) % MCV (80.0-100.0) fL MCH (25.0-34.0) pg MCHC (32.0-36.0) g/dL RDW Std Deviation (36.4-46.3) fL RDW Coeff of Crissy (11.5-14.5) % Plt Count (130-400) K/uL MPV (9.4-12.4) fL Immature Gran % (Auto) % Neut % (Auto) % Lymph % (Auto) % Schley % (Auto) % Eos % (Auto) % Baso % (Auto) % Neut # (Auto) (1.40-6.50) K/uL Lymph # (Auto) (1.2-3.4) K/uL Schley # (Auto) (0.11-0.59) K/uL Eos # (Auto) (0-0.50) K/uL Baso # (Auto) (0-0.2) K/uL Immature Gran # (Auto) (0.01-0.20) K/uL Polychromasia Target Cells Sodium (136-145) mmol/L Potassium (3.5-5.1) mmol/L Chloride (98-107) mmol/L Carbon Dioxide (21-32) mmol/L Anion Gap (3-11) BUN (6-23) mg/dl Creatinine (0.6-1.4) mg/dl Est Cr Clr Drug Dosing ml/min Est GFR ( Amer) ml/min Est GFR (Non-Af Amer) ml/min BUN/Creatinine Ratio (10-20) Glucose (70-99(Fasting)) mg/dl POC Glucose 94 (70-99) mg/dl Calcium (8.5-10.1) mg/dl Blood Type Antibody Screen Crossmatch 10/24/22 Range/Units 11:50 WBC (4.8-10.8) K/ul RBC (4.70-6.10) M/uL Hgb (14.0-18.0) g/dl Hct (42.0-52.0) % MCV (80.0-100.0) fL MCH (25.0-34.0) pg MCHC (32.0-36.0) g/dL RDW Std Deviation (36.4-46.3) fL RDW Coeff of Crissy (11.5-14.5) % Plt Count (130-400) K/uL MPV (9.4-12.4) fL Immature Gran % (Auto) % Neut % (Auto) % Lymph % (Auto) % Schley % (Auto) % Eos % (Auto) % Baso % (Auto) % Neut # (Auto) (1.40-6.50) K/uL Lymph # (Auto) (1.2-3.4) K/uL Schley # (Auto) (0.11-0.59) K/uL Eos # (Auto) (0-0.50) K/uL Baso # (Auto) (0-0.2) K/uL Immature Gran # (Auto) (0.01-0.20) K/uL Polychromasia Target Cells Sodium (136-145) mmol/L Potassium (3.5-5.1) mmol/L Chloride (98-107) mmol/L Carbon Dioxide (21-32) mmol/L Anion Gap (3-11) BUN (6-23) mg/dl Creatinine (0.6-1.4) mg/dl Est Cr Clr Drug Dosing ml/min Est GFR ( Amer) ml/min Est GFR (Non-Af Amer) ml/min BUN/Creatinine Ratio (10-20) Glucose (70-99(Fasting)) mg/dl POC Glucose 109 H (70-99) mg/dl Calcium (8.5-10.1) mg/dl Blood Type Antibody Screen Crossmatch
--- NOTE | 2022-10-25 10:49 | Nephrology Progress Note ---
Date of Service October 25, 2022 Assessment & Plan (1) Acute renal failure: Plan: peak creat this admission 2.2 today ; not oliguric; stage 1 HEIDY likely d/t ischemic ATN in setting of multiple medical issues including urinary retention (now w/ rodriguez) and rectal prolapse; makes importance of monitoring tacro levels higher (cannot be done at [facility] meaningfully); note he his also more hypotensive >trial of lower rate of IVF (same composition) at 75 ml/hr as he will be getting pRBC (2) Chronic hyponatremia: Plan: stable/ ongoing; ? etiology still on 09/23 NS w/ 75 mEq/L sodium bicarb @150 mL to be lowered to 75 ml/hr > behaving as though he's hypovolemic >strict I/O >>>>cont rodriguez (3) CKD (chronic kidney disease) stage 3, GFR 30-59 ml/min: Plan: marked lability in his renal function but believe he has baseline 1.6-1.7 creatinine as OP. creatinine worsened on 10/22 in relation to decreased UOP and abd pain despite aggressive hydration >>>> ? ischemic ATN w/ acute on chronic anemia AND urinary retention; despie aggressive hydration urine on 10/21 very concentrated (unexpected) -avoid further IV contrast unless life/limb saving >> he had this on 10/19; may need to do so w/ RP hemorrhage however -daily BMP ->>needs to keep rodriguez (4) Acute on chronic anemia: Plan: monitor d/t RP hem > dropping today and for pRBC (5) Abdominal pain in male: Plan: due potentially in part to outlet obstruction; also component of RP hemm; plus or minus rectal prolapse issue >> for tertiary transfer when feasible GI following > suspect infectious/?viral enteritis; recommend OP EGD/[facility] has colorectal appt for prolapse; may need more urgent intervention given recurrence (6) Lung transplant status, bilateral: Plan: -on mycophenolate and high dose tacrolimus; unable to follow levels here Admission and Anticipated Discharge Date Admission Date: October 20, 2022 Subjective accepted for transfer d/t rectal prolapse, RP hemm; no beds for now. thinks he's getting "puffy" from IVF; no n/v; no concerns w/ breathing status Review of Systems Review of Systems: All systems reviewed & are unremarkable except as noted in Subjective Physical Exam Constitutional: well developed, + thin and + frail appearing; not lethargic Eyes: EOM intact bilaterally ENMT: Ears: no external ear abnormality Nose: no external nose abnormality Mouth: + dry oral mucous membranes Neck: no nuchal rigidity Respiratory: normal respiratory effort Auscultation: + diminished lung sounds; no crackles Cardiovascular: Rate/Rhythm: regular rate, regular rhythm and + tachycardic Gastrointestinal (Abdomen): Inspection/Auscultation: + abdomen distended, normal bowel sounds and + hypoactive bowel sounds Percussion/Palpation: a bdomen soft; abdomen nontender Musculoskeletal: Extremities: strength 5/5 throughout Skin: no rashes, warm and dry Results & Data ([facility]) Vital Signs (Past 12 Hours) Vital Signs Temp Pulse Pulse Resp BP BP Pulse Ox 10/25/22 08:00 91 H 10/25/22 07:51 36.3 C L 91 H 17 94/61 L 97 10/25/22 03:21 99 H 16 103/65 100 10/25/22 02:22 98 H 10/24/22 23:00 36.4 C L 98 H 16 95/65 L 100 O2 Del Method 10/25/22 08:00 10/25/22 07:51 Room Air 10/25/22 03:21 Room Air 10/25/22 02:22 10/24/22 23:00 Room Air Laboratory Results 10/25/22 07:34 10/25/22 05:37
--- NOTE | 2022-10-25 13:40 | Urology Progress Note ---
Date of Service October 25, 2022 Assessment & Plan (1) Acute renal failure: (2) Urinary retention: Plan: Urology asked to revisit patient regarding Linda catheter. Linda catheter was repositioned/advanced slightly. Appears to be well positioned. Personally bladder scanned patient for 470 mL. I irrigated the bladder with 60 mL of sterile solution which was able to be withdrawn. Linda appeared to be draining. Ordered a IVELISSE to confirm positioning of Linda cath eter. Admission and Anticipated Discharge Date Admission Date: October 20, 2022 Supervising Physician Co-Signing Physician Notes Patient seen and evaluated along with Alyson Mercado. Catheter irrigated with full return of all instilled saline, no leakage around the catheter I deflated the balloon and advanced the catheter maximally. It advanced without significant difficulty but still there was no significant return of urine upon simple insertion. I did perform a bladder scan at the bedside which does seem to show 400 cc fluid-filled structure, this led me to question the positioning of the catheter and I withdrew the initial catheter entirely. I then utilized a 6 Albanian open-ended catheter and advanced it through the tip of the penis and along the urethra into the bladder. There was return of urine through the catheter. A Super Stiff wire was guided through this catheter and into the bladder. I then performed a dilation utilizing S-curve Barbara style dilators. I dilated to 18 Albanian and had return of urine with dilator passage. I placed a 16 Albanian reno-sparks tip catheter over the existing safety wire. There was return of urine as the catheter was placed as well, however this was not a 400 cc return. Urine was clear throughout the whole process. I irrigated his catheter with a 60 cc syringe and irrigated freely and without difficulty. After these manipulations, my suspicion is that her bladder scan is identifying an adjacent structure not the bladder itself. Bowel is possible? No further catheter manipulations now He does have a formal ultrasound ordered for later this afternoon Subjective Contacted by nursing this afternoon to revisit patient due to concern with Linda catheter. Per nursing, he had low urinary output overnight and today (100mL), bladder scan 540 mL. Patient has been accepted for transfer to [place] due to rectal prolapse and retroperitoneal bleed. Patient seen and examined at bedside this afternoon. He is resting in bed, no a cute distress. No acute complaints. He denies bladder or abdominal pain at present. Creatinine 2.23 today (previously 1.92), WBC 14.48, hemoglobin 7.1. Review of Systems Constitutional: as per Subjective / HPI Gastrointestinal: as per Subjective / HPI Genitourinary: + as per Subjective / HPI Physical Exam Constitutional: + ill appearing and comfortable; no acute distress Respiratory: normal respiratory effort; no respiratory distress and no labored breathing Gastrointestinal (Abdomen): Percussion/Palpation: abdomen soft; abdomen nontender and no guarding Genitourinary: Linda intact, small amount of yellow urine noted in tubing. Balloon deflated and catheter was repositioned and advanced slightly, appears to be well positioned. Bladder scanned for 470 mL. I was about to irrigate the catheter with 60 mL of sterile solution. Results & Data ([facility]) Vital Signs (Past 12 Hours) Vital Signs Temp Pulse Pulse Resp BP BP Pulse Ox 10/25/22 11:34 36.3 C L 92 H 15 93/62 L 92 10/25/22 08:00 91 H 10/25/22 07:51 36.3 C L 91 H 17 94/61 L 97 10/25/22 03:21 99 H 16 103/65 100 10/25/22 02:22 98 H O2 Del Method 10/25/22 11:34 Room Air 10/25/22 08:00 10/25/22 07:51 Room Air 10/25/22 03:21 Room Air 10/25/22 02:22 PG Care Time/CCT Total # of Minutes Spent Total Time Spent with Patient: Total time spent is greater than 50% in coordination of care (as documented) at patient's floor/unit and/or counseling patient: Coding Level of Care Code 18387 SUB INP/OBS CARE 3/50MIN Diagnoses Acute renal failure N17.9 Urinary retention R33.9
--- NOTE | 2022-10-25 15:58 | Hospitalist Progress Note ---
Date of Service October 25, 2022 Assessment & Plan (1) Lumbar radiculopathy: Plan: Abdominal Pain Likely due to retroperitoneal hemorrhage DD:Enterocolitis, Acute Gastroenteritis H/O Rectal Prolapse --CT ABD:Diffuse thickening of the large and small bowel which has progressed in the interval. This is most pronounced within the rectum, terminal ileum, and cecum/ascending colon. This is likely due to the patient's diffuse edematous state/portal colopathy versus a nonspecific enterocolitis. Small amount of ascites again noted. Postoperative changes as described above. --Blood Culture:No growth to date -- Stool Studies pending as currently constipated --Empirically on Dapto and Azactam>> transition to daptomycin, ertapenem -Continue IV fluids --Appreciate GI Input -- Needs outpatient endoscopy, colonoscopy, to consider for liver biopsy as outpatient per GI Will consider ID if leukocytosis continues to worsen Procalcitonin, leukocytosis trending down KUB on 10/23/22 shows no signs of obstruction Will continue NPO until abdominal distention improves, has bowel movement and flatus Encourage to ambulate Continue bowel regimen, PRN enema Retroperitoneal hemorrhage --CT ABD:Interval development of acute retroperitoneal hemorrhage within the right pericolic gutter measuring up to 17 cm in length causing mass effect upon the cecum and ascending colon. Wall thickening of the small and large bowel is again noted which may be secondary to fluid overload versus a nonspecific enterocolitis. Small pleural effusions with questioned mild pulmonary edema, mesenteric edema with small volume ascites and anasarca. Severe hepatic steatosis with diffuse heterogeneity of the liver. Retained contrast in the kidneys and renal collecting systems suggestive of decreased renal function. -- Avoid anticoagulation, NSAIDs -- Monitor H&H and transfuse as needed Continue IV fluids Appreciate surgery input 10/22/22 Discussed with WISETIVI Nguyen IR and Triage Officer : Imaging studies sent for review. Recommends conservative management: Monitor H&H, transfuse as needed If hemodynamically deteriorates or continues to require blood transfusions, recommend a CTA in 3 phases (non contrast, arterial, and delayed) to keep site of bleeding. If if contrast to be avoided, NM bleeding scan is an alternative although may not be adequate. -S/P 2 units PRBCs N.p.o. for now, advance diet slowly as able 10/24/22: Discussed with [employer] triage officer Dr.Mark Beckett for possible transfer as recommended by . Patient was recommended to have bleeding scan to locate source of bleeding before accepting for any IR intervention. If bleeding scan noncontributory, will consider CTA in 3 phases as above after discussing with patient regarding possible renal failure from contrast. (Also discussed with nephrology: Recommends continued IV fluids for at least 8 hours prior to and after imaging) --Bleeding scan: No scintigraphic evidence for active gastro intestinal bleeding. Will transfuse 1 unit PRBC today Hb 7.1 today Cannot obtain CTA due to worsening renal function Given recurrent rectal prolapse, retroperitoneal hemorrhage, worsening anemia despite blood transfusions and intermittent urinary retention patient would benefit from being evaluated at [facility] by colorectal surgery, IR for possible IR intervention. discussed with acute care surgery at [facility] and hospitalist who accepted the patient for transfer to [facility] for further management. Diarrhea Currently constipated Rule out recurrent C. difficile if re-occurs Obtain Stool Studies if has recurrence Acute on chronic hyponatremia Acute kidney injury on CKD III Metabolic acidosis Change IV fluids as per Nephrology Monitor sodium levels closely Avoid nephrotoxic agents as able Appreciate Nephrology Input Sodium 130, Cr 2.23 Bicarbonate normalized Urinary retention Bladder scan as needed Appreciate urology input Continue Linda catheter will consider voiding trial prior to discharge Vs outpatient Needs follow-up with urology upon discharge Lumbar radiculopathy--likely due to retroperitoneal hemorrhage MRI not suggestive of Infection/abscess H/O Cystic fibrosis 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 Patent central canal and neural foramen. No acute process within the lumbar spine by MRI. Old mild L1 compression fracture. No acute lumbar spine fractures. Colonic wall thickening, ascites and anasarca better depicted on the CT of the abdomen and pelvis performed earlier today. Pain control Fall precautions PT OT when appropriate Bronchial asthma H/O pulmonary MAC infection S/P Lung Transplant --CXR:No acute process. 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 coli UTI UA not suggestive of UTI Continue ISS for now Advance diet as tolerated Continue home meds Severe protein calorie malnutrition BMI 16 [facility] Faller consulted DVT Px: SCDs Re: Retroperitoneal bleed Code Status Full code Disposition [facility] when bed available Admission and Anticipated Discharge Date Admission Date: October 20, 2022 Subjective Patient is seen and examined at bedside Right sided abdominal pain is better Still has intermittent hiccups Hb 7.1 today Waiting to be transferred to [facility]-awaiting for bed Denies any chest pain, dyspnea, dizziness, nausea Patient had rectal prolapse overnight Review of Systems Review of Systems: All systems reviewed & are unremarkable except as noted in Subjective Physical Exam Physical Exam: Physical Exam: Vitals signs as noted above General Appearance:Thin, frail, chronic ill appearing, no apparent distress Head: normocephalic, Atraumatic Eyes: normal inspection, EOMI Neck: supple, Trachea midline Respiratory/Chest: Normal breath sounds, CTA, No accessory muscle use Cardiovascular: S1, S2, No murmur Abdomen/GI:Soft, mild R tender, mildly distended, decreased Bowel sounds Extremities/Musculoskeletal:normal inspection, no edema Neurologic/Psych:AAOX3, grossly no focal neurological deficits Skin: normal color, warm Results & Data Results & Data ([facility]) Vital Signs (Past 12 Hours) Vital Signs Temp Pulse Pulse Resp BP BP Pulse Ox 10/25/22 15:41 90 16 89/60 L 97 10/25/22 11:34 36.3 C L 92 H 15 93/62 L 92 10/25/22 08:00 91 H 10/25/22 07:51 36.3 C L 91 H 17 94/61 L 97 O2 Del Method 10/25/22 15:41 10/25/22 11:34 Room Air 10/25/22 08:00 10/25/22 07:51 Room Air Laboratory Results Short CBC 10/24/22 10/25/22 10/25/22 Range/Units 21:13 05:37 07:34 WBC 14.48 H (4.8-10.8) K/ul Hgb 8.7 L 7.2 L 7.1 L (14.0-18.0) g/dl Hct 24.7 L 20.3 L* 20.6 L* (42.0-52.0) % Plt Count 239 (130-400) K/uL BMP 10/25/22 05:37 Sodium 130 L Potassium 4.0 Chloride 91 L Carbon Dioxide 22 BUN 45 H Creatinine 2.23 H D Glucose 83 Calcium 7.0 L
--- NOTE | 2022-10-25 16:30 | Discharge Summary ---
Date of Service October 25, 2022 Admission HPI Per Admitting Provider History obtained from patient and records. Medical history significant for situational hypertension, cystic fibrosis status post lung transplant on chronic immunosuppression regimen (prednisone and Myfortic), bronchial asthma, history pulmonary MAC infection, chronic hyponatremia, chronic anemia (baseline hemoglobin 9-10), steroid-induced DM, GERD, history of intestinal malabsorption, past history C. difficile, history ESBL E. coli UTI. Last confinement August 2022 for proctitis status post antibiotic Rx. Outpatient follow-up with colorectal surgeon recommended. Few days history of achy abdominal pain with watery diarrhea symptoms. Denies UTI symptoms. Patient later noted low back pain with radiation to the legs more on the right, worse with ambulation. Fever chills at home. Poor appetite. Patient denies chest pain, SOB. Patient consulted ER. Received ertapenem at the ER. 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 Admission Exam Per Admitting Provider Physical Exam Physical Exam: GENERAL: uncomfortable, underweight, chronically ill, no respiratory distress SKIN: Pallor, warm HEENT: Pale palpebral conjunctivae, no ptosis, dry buccal mucosa NECK : Supple, no tenderness CHEST : CTA, no tenderness HEART : RRR, no obvious murmurs ABDOMEN: Some distention, no overt tenderness BACK: Low back tenderness, positive straight leg raise test EXTREMITIES : No LE swelling/tenderness, no other conspicuous deformities noted NEUROLOGIC : Coherent, no facial asymmetry, no other gross focality Principal Diagnosis Acute blood loss anemia Retroperitoneal bleed Large rectal prolapse Acute kidney injury Metabolic acidosis Hyponatremia urinary retention Possible enterocolitis Immunocompromise state Discharge Data Allergies Allergy/AdvReac Type Severity Reaction Status Date / Time cephalexin Allergy Severe Hives Verified 10/20/22 00:01 escitalopram [From Lexapro] AdvReac Severe made pt Verified 10/20/22 00:02 suicidal tetracycline AdvReac Severe vomiting Verified 10/20/22 00:01 naproxen AdvReac Mild Stomach Verified 10/20/22 00:01 bleeding midazolam [From Versed] AdvReac Unknown "SLOW TO Verified 10/20/22 00:01 WAKE UP" Consultations 10/20/22 00:15 ED Decision to Admit Stat 10/21/22 07:37 Consult Nephrology Routine 10/21/22 07:38 Consult Gastroenterology Routine 10/22/22 11:27 Consult Urology Routine 10/22/22 12:26 Consult General Surgery Routine Procedures Performed Laboratory Results WBC 14.48 K/ul (4.8-10.8) H 10/25/22 05:37 RBC 2.40 M/uL (4.70-6.10) L 10/25/22 05:37 Hgb 7.1 g/dl (14.0-18.0) L 10/25/22 07:34 Hct 20.6 % (42.0-52.0) L* 10/25/22 07:34 MCV 84.6 fL (80.0-100.0) 10/25/22 05:37 MCH 30.0 pg (25.0-34.0) 10/25/22 05:37 MCHC 35.5 g/dL (32.0-36.0) 10/25/22 05:37 RDW Std Deviation 46.3 fL (36.4-46.3) 10/25/22 05:37 RDW Coeff of Crissy 15.3 % (11.5-14.5) H 10/25/22 05:37 Plt Count 239 K/uL (130-400) 10/25/22 05:37 MPV 9.8 fL (9.4-12.4) 10/25/22 05:37 Immature Gran % (Auto) 0.8 % 10/25/22 05:37 Neut % (Auto) 66.8 % 10/25/22 05:37 Lymph % (Auto) 25.2 % 10/25/22 05:37 [place] % (Auto) 6.9 % 10/25/22 05:37 Eos % (Auto) 0.2 % 10/25/22 05:37 Baso % (Auto) 0.1 % 10/25/22 05:37 Neut # (Auto) 9.68 K/uL (1.40-6.50) H 10/25/22 05:37 Lymph # (Auto) 3.65 K/uL (1.2-3.4) H 10/25/22 05:37 [place] # (Auto) 1.00 K/uL (0.11-0.59) H 10/25/22 05:37 Eos # (Auto) 0.03 K/uL (0-0.50) 10/25/22 05:37 Baso # (Auto) 0.01 K/uL (0-0.2) 10/25/22 05:37 Immature Gran # (Auto) 0.11 K/uL (0.01-0.20) 10/25/22 05:37 Polychromasia 1+ 10/25/22 05:37 Target Cells 1+ 10/25/22 05:37 Echinocytes 2+ 10/24/22 05:27 VBG pH 7.25 (7.36-7.41) L 10/21/22 05:55 VBG pCO2 33 mmHg (38-50) L 10/21/22 05:55 VBG pO2 43 mmHg 10/21/22 05:55 VBG HCO3 15 mmol/L 10/21/22 05:55 VBG O2 Saturation 73.4 % 10/21/22 05:55 VBG Base Excess -11.6 mEq/L 10/21/22 05:55 Sodium 130 mmol/L (136-145) L 10/25/22 05:37 Potassium 4.0 mmol/L (3.5-5.1) 10/25/22 05:37 Chloride 91 mmol/L (98-107) L 10/25/22 05:37 Carbon Dioxide 22 mmol/L (21-32) 10/25/22 05:37 Anion Gap 17 (3-11) H 10/25/22 05:37 BUN 45 mg/dl (6-23) H 10/25/22 05:37 Creatinine 2.23 mg/dl (0.6-1.4) H D 10/25/22 05:37 Est Cr Clr Drug Dosing 35.0 ml/min 10/25/22 05:37 Est GFR ( Amer) 42.1 ml/min 10/25/22 05:37 Est GFR (Non-Af Amer) 36.3 ml/min 10/25/22 05:37 BUN/Creatinine Ratio 20.2 (10-20) H 10/25/22 05:37 Glucose 83 mg/dl (70-99(Fasting)) 10/25/22 05:37 POC Glucose 82 mg/dl (70-99) 10/25/22 11:54 Osmolality 263 mOsm/kg (280-300) L 10/19/22 21:35 Lactate 0.7 mmol/L (0.4-2.0) 10/19/22 22:59 Calcium 7.0 mg/dl (8.5-10.1) L 10/25/22 05:37 Ionized Calcium 1.15 mmol/L (1.12-1.32) 10/21/22 05:55 Phosphorus 6.0 mg/dl (2.5-4.9) H 10/21/22 05:55 Magnesium 1.7 mg/dl (1.7-2.4) 10/24/22 05:27 Total Bilirubin 0.5 mg/dl (0.2-1.0) 10/21/22 05:55 Direct Bilirubin 0.2 mg/dl (0-0.2) 10/21/22 05:55 AST 23 U/L (13-39) 10/21/22 05:55 ALT 21 U/L (7-52) 10/21/22 05:55 Alkaline Phosphatase 297 U/L (34-104) H 10/21/22 05:55 Troponin I High Sens 5.7 pg/ml (0-20) 10/19/22 20:40 Total Protein 5.4 gm/dl (6.0-8.3) L 10/21/22 05:55 Albumin 2.6 gm/dl (3.4-5.0) L 10/21/22 05:55 Globulin 2.8 gm/dl (2.5-4.0) 10/19/22 20:40 Albumin/Globulin Ratio 0.9 (0.9-2) 10/19/22 20:40 Lipase < 3 U/L (11-82) L 10/21/22 05:55 Procalcitonin 1.14 ng/ml (0-0.5) H 10/21/22 05:55 TSH 1.173 uIu/ml (0.300-4.500) 10/20/22 00:20 Urine Color Yellow 10/21/22 Unknown Urine Appearance Clear (Clear) 10/21/22 Unknown Urine pH 5.0 (4.5-7.5) 10/21/22 Unknown Ur Specific [place] 1.034 (1.000-1.030) H 10/21/22 Unknown Urine Protein Trace (Negative) H 10/21/22 Unknown Urine Glucose (UA) Negative (Negative) 10/21/22 Unknown Urine Ketones Trace (Negative) H 10/21/22 Unknown Urine Blood Negative (Negative) 10/21/22 Unknown Urine Nitrite Negative (Negative) 10/21/22 Unknown Urine Bilirubin Negative (Negative) 10/21/22 Unknown Urine Urobilinogen Negative (Negative) 10/21/22 Unknown Ur Leukocyte Esterase Negative (Negative) 10/21/22 Unknown Urine WBC (Auto) 1-5 /hpf (0-5) 10/21/22 Unknown Urine RBC (Auto) 0-4 /hpf (0-4) 10/21/22 Unknown U Hyaline Cast (Auto) 5-10 /lpf (0-5) H 10/21/22 Unknown U Epithel Cells (Auto) >30 /lpf (0-5) H 10/21/22 Unknown Urine Bacteria (Auto) 1+ (Negative) H 10/21/22 Unknown Urine Mucus Present (None Prsent) A 10/21/22 Unknown Urine Osmolality 194 mOsm/kg (500-800) L 10/19/22 23:37 Ur Random Sodium 17 mmol/L 10/20/22 00:00 Urine Opiates Screen Neg (Neg) 10/19/22 23:37 Ur Methadone, Qual Neg (Neg) 10/19/22 23:37 Urine Barbiturates Neg (Neg) 10/19/22 23:37 Ur Phencyclidine (PCP) Neg (Neg) 10/19/22 23:37 U Amphetamin/Meth Scrn Neg (Neg) 10/19/22 23:37 MDMA (Ecstasy) Screen Neg (Neg) 10/19/22 23:37 U Benzodiazepines Scrn Neg (Neg) 10/19/22 23:37 Ur Cocaine Metabolite Neg (Neg) 10/19/22 23:37 U Marijuana (THC) Screen Pos (Neg) H 10/19/22 23:37 U Marijuana THC Carboxy 60 ng/mL (<5) H 10/19/22 23:37 Drug Screen Comment SEE NOTE 10/19/22 23:37 SARS-CoV-2 (PCR) NEGATIVE (Negative) 10/19/22 22:10 Influenza Type A (PCR) Negative (Neg) 10/19/22 22:10 Influenza Type B (PCR) Negative (Neg) 10/19/22 22:10 RSV (RT-PCR) Negative (Neg) 10/19/22 22:10 Blood Type A Negative 10/25/22 07:22 Blood Type Recheck A Negative 10/22/22 05:58 Antibody Screen NEGATIVE 10/25/22 07:22 Crossmatch See Detail 10/25/22 07:22 Impressions Chest X-Ray 10/19/22 21:31 XR chest 1V portable HISTORY: Atypical chest pain. COMPARISON: Chest 09/16/2022. FINDINGS: Postoperative changes consistent with a prior double lung transplant. No focal lung consolidations to suggest a pneumonia. No evidence for pulmonary edema. The heart is normal in size. A left Port-A-Cath terminates in the distal SVC. Moderate hiatus hernia, unchanged. IMPRESSION: No acute process. ACT 112: Negative or not required by law. Electronically signed by: David Weber M.D. 10/20/2022 9:23 AM Lumbar Spine MRI 10/20/22 02:47 MRI OF THE LUMBAR SPINE WITH AND WITHOUT CONTRAST CLINICAL HISTORY: Persistent back and lower extremity pain. COMPARISON STUDY: Lumbar spine radiographs January 07, 2012. TECHNIQUE: Utilizing a 1.5 Katina magnet and dedicated coil, multiplanar, multiecho imaging of the lumbar spine was performed before and after uneventful IV administration of 4 mL of Gadavist. FINDINGS: For purposes of numbering on this exam, the L5-S1 disc space is assigned to axial image 26 of 29. There is mild levoscoliosis of the lumbar spine. Mild compression deformity of the superior endplate of L1 is unchanged from earlier exams. This represents old mild compression fracture. No additional fractures are present. There is no intracanalicular mass, fluid collection or abnormal enhancement. The conus terminates at the L1 level. Colonic wall thickening, a small amount of ascites and anasarca are better depicted on the CT of the abdomen and pelvis performed earlier today. L1-2: The central canal and neural foramen are patent. L2-3: The central canal and neural foramen are patent. L3-4: The central canal and neural foramen are patent. L4-5: The central canal and neural foramen are patent. L5-S1: The central canal and neural foramen are patent. IMPRESSION: 1. No significant degenerative changes within the lumbar spine. Patent central canal and neural foramen. 2. No acute process within the lumbar spine by MRI. 3. Old mild L1 compression fracture. No acute lumbar spine fractures. 4. Colonic wall thickening, ascites and anasarca better depicted on the CT of the abdomen and pelvis performed earlier today. ACT 112: Negative or not required by law. Electronically signed by: Vinod Winters M.D. 10/20/2022 2:50 PM Abdomen/Pelvis CT 10/22/22 07:[address] WITHOUT CONTRAST CT DOSE: 309.64 mGy.cm HISTORY: Acute onset abdominal pain with anemia Abdominal Pain, Anemia TECHNIQUE: Multiaxial CT images of the abdomen and pelvis were performed without contrast. A dose lowering technique was utilized adhering to the principles of ALARA. COMPARISON STUDY: MRI lumbar spine 10/20/2022, CT abdomen pelvis 10/19/2022 FINDINGS: Postoperative changes of the lower chest include evidence of prior bilateral lung transplantation. Prior median sternotomy. Small pleural effusions are new from the prior study. Mild intralobular septal thickening of the lung bases with bibasilar atelectasis. There is no pneumatosis or pneumoperitoneum identified. The unenhanced spleen and adrenal glands are unremarkable. Cholecystectomy. Severe fatty atrophy of the pancreas. Severe hepatic steatosis with diffuse heterogeneity of the liver. Residual contrast is noted within the bilateral kidneys and renal collecting systems. No hydronephrosis. Contrast noted within the urinary bladder lumen. Mildly enlarged prostate. Unremarkable aorta. No lymphadenopathy. Moderate sized hiatal hernia with partially intrathoracic stomach. Pill fragment's are present within the intrathoracic portion of the stomach. Circumferential wall thickening of the rectum is similar to the prior study. Additional predominantly large bowel wall thickening is most pronounced in the cecum and ascending colon. Mildly distended stool-filled terminal ileum. The visualized appendix appears noninflamed on image 319. Acute retroperitoneal hemorrhage is noted within the right paracolic gutter measuring up to 10.8 x 6.5 x 17 cm causing mass effect upon the adjacent ascending colon. Moderate generalized body wall edema. No acute fracture. Postoperative changes of the anterior chest wall. Unchanged L1 compression deformity. IMPRESSION: 1. Interval development of acute retroperitoneal hemorrhage within the right pericolic gutter measuring up to 17 cm in length causing mass effect upon the cecum and ascending colon. 2. Wall thickening of the small and large bowel is again noted which may be secondary to fluid overload versus a nonspecific enterocolitis. 3. Small pleural effusions with questioned mild pulmonary edema, mesenteric edema with small volume ascites and anasarca. 4. Severe hepatic steatosis with diffuse heterogeneity of the liver. 5. Retained contrast in the kidneys and renal collecting systems suggestive of decreased renal function. 6. Additional findings as above. ACT 112: Negative or not required by law. The above report was generated using voice recognition software. It may contain grammatical, syntax or spelling errors. Electronically signed by: Junior Franco M.D. 10/22/2022 11:13 AM KUB X-Ray 10/23/22 10:47 KUB CLINICAL HISTORY: Abdominal pain. Constipation. COMPARISON STUDY: CT of the abdomen and pelvis October 22, 2022. FINDINGS: There is contrast within bladder from recent contrast-enhanced CT. The gallbladder is surgically absent. Minimal stool is noted. There is no evidence for a bowel obstruction. No evidence for free air on this supine exam. IMPRESSION: 1. No evidence for a bowel obstruction. 2. Minimal stool within the colon and rectum. ACT 112: Negative or not required by law. Electronically signed by: Vinod Winters M.D. 10/23/2022 1:01 PM GI Bleed Scan Nuclear Medicine 10/24/22 13:51 NM CLINICAL HISTORY: 37 years-old Male with Retroperitoneal bleed. Acute GI bleed TECHNIQUE: Following the intravenous administration of red cells labeled with 22 mCi of technetium-99m Ultratag, sequential abdominal images were obtained for 60 minutes. COMPARISON: CT abdomen pelvis 10/22/2022. FINDINGS: There is no abnormal focus of labeled red cell accumulation or extravasation. There is expected activity in the blood pool. IMPRESSION: No scintigraphic evidence for active gastro intestinal bleeding. ACT 112: Negative or not required by law. The above report was generated using voice recognition software. It may contain grammatical, syntax or spelling errors. Electronically signed by: Junior Franco M.D. 10/24/2022 8:23 PM Ordered Studies 10/19/22 21:47 CT Abd and Pelvis [CT abd pelvis IV con only] Stat 10/20/22 02:47 MRI Lumbar Spine [MR lumbar spine wo/w con] Urgent 10/22/22 07:50 CT abd pelvis wo con Urgent 10/25/22 13:37 US Renal Bladder [US renal/blad retro comp] Urgent Hospital Course (1) Lumbar radiculopathy: Abdominal Pain Likely due to retroperitoneal hemorrhage DD:Enterocolitis, Acute Gastroenteritis H/O Rectal Prolapse --CT ABD:Diffuse thickening of the large and small bowel which has progressed in the interval. This is most pronounced within the rectum, terminal ileum, and cecum/ascending colon. This is likely due to the patient's diffuse edematous state/portal colopathy versus a nonspecific enterocolitis. Small amount of ascites again noted. Postoperative changes as described above. --Blood Culture:No growth to date -- Stool Studies pending as currently constipated --Empirically on Dapto and Azactam>> transition to daptomycin, ertapenem -Continue IV fluids --Appreciate GI Input -- Needs outpatient endoscopy, colonoscopy, to consider for liver biopsy as outpatient per GI Will consider ID if leukocytosis continues to worsen Procalcitonin, leukocytosis trending down KUB on 10/23/22 shows no signs of obstruction Will continue NPO until abdominal distention improves, has bowel movement and flatus Encourage to ambulate Continue bowel regimen, PRN enema Retroperitoneal hemorrhage --CT ABD:Interval development of acute retroperitoneal hemorrhage within the right pericolic gutter measuring up to 17 cm in length causing mass effect upon the cecum and ascending colon. Wall thickening of the small and large bowel is again noted which may be secondary to fluid overload versus a nonspecific enterocolitis. Small pleural effusions with questioned mild pulmonary edema, mesenteric edema with small volume ascites and anasarca. Severe hepatic steatosis with diffuse heterogeneity of the liver. Retained contrast in the kidneys and renal collecting systems suggestive of decreased renal function. -- Avoid anticoagulation, NSAIDs -- Monitor H&H and transfuse as needed Continue IV fluids Appreciate surgery input 10/22/22 Discussed with [facility] Ced[facility] IR and Triage Officer : Imaging studies sent for review. Recommends conservative management: Monitor H&H, transfuse as needed If hemodynamically deteriorates or continues to require blood transfusions, recommend a CTA in 3 phases (non contrast, arterial, and delayed) to keep site of bleeding. If if contrast to be avoided, NM bleeding scan is an alternative although may not be adequate. -S/P 2 units PRBCs N.p.o. for now, advance diet slowly as able 2/2/23: Discussed with [facility] triage officer Dr.Mark Beckett for possible transfer as recommended by . Patient was recommended to have bleeding scan to locate source of bleeding before accepting for any IR intervention. If bleeding scan noncontributory, will consider CTA in 3 phases as above after discussing with patient regarding possible renal failure from contrast. (Also discussed with nephrology: Recommends continued IV fluids for at least 8 hours prior to and after imaging) --Bleeding scan: No scintigraphic evidence for active gastro intestinal b leeding. Will transfuse 1 unit PRBC today Hb 7.1 today Cannot obtain CTA due to worsening renal function Given recurrent rectal prolapse, retroperitoneal hemorrhage, worsening anemia despite blood transfusions and intermittent urinary retention patient would benefit from being evaluated at [facility] by colorectal surgery, IR for possible IR intervention. discussed with acute care surgery at [facility] and hospitalist who accepted the patient for transfer to [facility] for further management. Diarrhea Currently constipated Rule out recurrent C. difficile if re-occurs Obtain Stool Studies if has recurrence Acute on chronic hyponatremia Acute kidney injury on CKD III Metabolic acidosis Change IV fluids as per Nephrology Monitor sodium levels closely Avoid nephrotoxic agents as able Appreciate Nephrology Input Sodium 130, Cr 2.23 Bicarbonate normalized Urinary retention Bladder scan as needed Appreciate urology input Continue Linda catheter will consider voiding trial prior to discharge Vs outpatient Needs follow-up with urology upon discharge Lumbar radiculopathy--likely due to retroperitoneal hemorrhage MRI not suggestive of Infection/abscess H/O Cystic fibrosis 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 Patent central canal and neural foramen. No acute process within the lumbar spine by MRI. Old mild L1 compression fracture. No acute lumbar spine fractures. Colonic wall thickening, ascites and anasarca better depicted on the CT of the abdomen and pelvis performed earlier today. Pain control Fall precautions PT OT when appropriate Bronchial asthma H/O pulmonary MAC infection S/P Lung Transplant --CXR:No acute process. 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 DVT Px: SCDs Re: Retroperitoneal bleed Code Status Full code Disposition Luz Elena Cedillo when bed available Total Time Total Time Spent Total Time Spent (In Minutes): 55 minutes Discharge Plan Discharge Items Patient Disposition: Transfer Acute Care Hospital Reason For Visit: HYPONATREMIA, POSS SEPSIS Discharge Diagnosis: Acute blood loss anemia Retroperitoneal bleed Large rectal prolapse Acute kidney injury Metabolic acidosis Hyponatremia urinary retention Possible enterocolitis Immunocompromise state Condition on Discharge: Fair Activity: As commented below Activity Comment: As per Nguyen Non-emergency contact: Primary Care Provider Call non-emergency contact if: your symptoms worsen Follow-up/Referrals: Amador Sandy MD [Primary Care Provider] - Diet: Nothing by Mouth Addtl Attending Provider Instructions: iv invanz iv daptomycin iv dilaudid 0.25mg q 3hrs prn iv fluids with bicarb for hyponatremia and metabolic acidosis 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 Instructions: Current Inpatient Medications Acetaminophen (Acetaminophen 325 Mg Tab) 325 mg PO Q6H PRN PRN Reason: Mild Pain Stop: 11/19/22 03:30 Lipase/Protease/Amylase (Pancreaze (Lipase 16,800u) Cap) 4 cap PO .PRIOR TO SNACKS PRN PRN Reason: prior to snack Stop: 11/19/22 03:47 Lipase/Protease/Amylase (Pancreaze (Lipase 16,800u) Cap) 9 cap PO TIDM FRANCISCO Stop: 11/19/22 07:59 Last Admin: 10/24/22 15:37 Dose: Not Given Aripiprazole (Aripiprazole 1 Mg/Ml Oral Soln 150 Ml Btl) 2 mg PO HS FRANCISCO Stop: 11/19/22 03:30 Last Admin: 10/24/22 21:42 Dose: 2 mg Dextrose (Dextrose 50% 50 Ml Syringe) 25 - 50 ml IV UD PRN; Protocol PRN Reason: Hypoglycemia Protocol Stop: 11/19/22 03:30 Dicyclomine HCl (Dicyclomine Hcl 10 Mg Cap) 10 mg PO Q6H PRN PRN Reason: abdominal cramps Stop: 11/19/22 07:53 Last Admin: 10/25/22 03:47 Dose: 10 mg Docusate Sodium (Docusate Sodium 100 Mg Cap) 100 mg PO BID PRN PRN Reason: Constipation Stop: 11/19/22 08:59 Last Admin: 10/24/22 08:02 Dose: 100 mg Glucagon (Glucagon For Inj 1 Mg Vial) 1 mg SQ UD PRN; Protocol PRN Reason: Hypoglycemia Protocol Stop: 11/19/22 03:30 Glucose (Glucose 40% Gel 15 Gm Tube) 15 - 30 gm PO UD PRN; Protocol PRN Reason: Hypoglycemia Protocol Stop: 11/19/22 03:30 Glucose (Glucose 10 Tab/Tube) 4 - 8 tab PO UD PRN; Protocol PRN Reason: Hypoglycemia Treatment Stop: 11/19/22 03:30 Heparin Sodium (Porcine) (Heparin 100 Unit/Ml 5ml Flush) 5 ml FLUSH PRN PRN PRN Reason: Flush Stop: 11/22/22 00:12 Hydromorphone HCl (Hydromorphone Inj 0.5 Mg/0.5 Ml Syr) 0.25 mg IV Q4H PRN PRN Reason: Pain Stop: 11/03/22 01:58 Last Admin: 10/21/22 09:16 Dose: 0.25 mg Hydroxyzine HCl (Hydroxyzine Hcl 25 Mg Tab) 25 mg PO Q6H PRN PRN Reason: Anxiety Stop: 11/19/22 03:30 Last Admin: 10/24/22 21:20 Dose: 25 mg Promethazine HCl 6.25 mg/ (Sodium Chloride) 50.25 mls @ 201 mls/hr IV Q6H PRN PRN Reason: Nausea And Vomiting Stop: 11/19/22 01:58 Daptomycin 250 mg/ Syringe 5 mls @ 2.5 mls/min IV Q24H FRANCISCO; Protocol Stop: 12/02/22 01:59 Last Admin: 10/25/22 03:00 Dose: 2.5 mls/min Ertapenem 1,000 mg/ Syringe 10 mls @ 2 mls/min IV Q24H FRANCISCO Stop: 10/31/22 07:59 Last Admin: 10/24/22 07:53 Dose: 2 mls/min Sodium Bicarbonate 75 meq/ (Sodium Chloride) 1,075 mls @ 150 mls/hr IV .Q7H10M FRANCISCO Stop: 11/20/22 22:29 Last Admin: 10/25/22 05:43 Dose: 150 mls/hr Insulin Aspart (Insulin Aspart Per Unit) 0 units SC Q6 [facility] Stop: 11/19/22 03:30 Last Admin: 10/25/22 06:47 Dose: Not Given Lidocaine (Lidocaine 5% 1 Patch) 1 patch TD QAM [facility] Stop: 11/20/22 08:59 Last Admin: 10/24/22 07:57 Dose: 1 patch Melatonin (Melatonin 3 Mg Tab) 3 mg PO HS PRN PRN Reason: Sleep Stop: 11/21/22 00:40 Last Admin: 10/24/22 21:19 Dose: 3 mg Miscellaneous (Remove Lidoderm Patch) 1 each N/A DAILY@2100 [facility] Stop: 11/19/22 13:59 Last Admin: 10/24/22 20:36 Dose: Not Given Miscellaneous (Carbohydrates For Hypoglycemia ) 15 - 30 gm PO UD PRN PRN Reason: Hypoglycemia Protocol Stop: 11/19/22 03:30 Montelukast Sodium (Montelukast Sodium 10 Mg Tablet) 10 mg PO HS [facility] Stop: 11/19/22 20:59 Last Admin: 10/24/22 21:21 Dose: 10 mg Mycophenolate Sodium (Mycophenolate Sodium 180 Mg Tab) 720 mg PO BID [facility] Stop: 11/19/22 08:59 Last Admin: 10/24/22 21:20 Dose: 720 mg Oxycodone HCl (Oxycodone Hcl Ir 5 Mg Tab (Immediate Release)) 5 - 10 mg PO QID PRN PRN Reason: Pain Stop: 11/03/22 01:58 Last Admin: 10/24/22 21:19 Dose: 10 mg Pantoprazole Sodium (Pantoprazole 40 Mg Tab) 40 mg PO QAM [facility] Stop: 11/19/22 08:59 Last Admin: 10/24/22 07:55 Dose: 40 mg Polyethylene Glycol (Polyethylene (Miralax) 17 Gm Pack) 17 gm PO DAILY PRN PRN Reason: Constipation Stop: 11/19/22 07:54 Last Admin: 10/24/22 08:02 Dose: 17 gm Prednisone (Prednisone 5 Mg Tab) 5 mg PO QAM [facility] Stop: 11/19/22 08:59 Last Admin: 10/24/22 07:57 Dose: 5 mg Tacrolimus (Tacrolimus 1 Mg Cap) 10 mg PO BID [facility] Stop: 11/19/22 08:59 Last Admin: 10/24/22 21:21 Dose: 10 mg Pending Studies at Discharge: No Stand-Alone Forms: My [facility] Skilled Items Patient informed of condition?: Yes DNR: No Discharge Level of Care: Other Communicable Disease: No Discharge Prognosis: Other Lines: Peripheral IV Urinary Catheter: Yes Medications and DC Order Prescriptions: Continued prednisone 5 mg Tablet 5 mg PO QAM pantoprazole [Protonix] 40 mg Tablet,Delayed Release (Dr/Ec) 40 mg PO QAM Zenpep 25,000-79,000- 105,000 unit capsule,delayed release(DR/EC) 6 cap PO TIDM Rx Instructions: Take 6 capsule 1/2 hour before meals Zenpep 25,000-79,000- 105,000 unit capsule,delayed release(DR/EC) 3 cap PO .PRIOR TO SNACKS Rx Instructions: Take 3 capsules 1/2 hour before snacks tacrolimus [Prograf] 5 mg capsule 10 mg PO BID hydroxyzine HCl 25 mg Tablet 25 mg PO Q6H PRN (Reason: Anxiety) montelukast 10 mg Tablet 10 mg PO HS mycophenolate sodium [Myfortic] 360 mg Tablet,Delayed Release (Dr/Ec) 720 mg PO BID cholecalciferol (vitamin D3) [Vitamin D3] 125 mcg (5,000 unit) Tablet 125 mcg PO QAM aripiprazole 2 mg tablet 2 mg PO HS dicyclomine 10 mg Capsule 10 mg PO Q6H PRN (Reason: abdominal cramps) Qty: 14 0RF calcium carbonate-vitamin D3 500 mg-15 mcg (600 unit) tablet 2.5 tab PO BID Discharge Orders: Discharge Order (Routine); Ordered 10/25/22 Ordered By: Jose Martin Cespedes Admission Data Admit Date/Time: 10/20/22 01:54 Attending Provider: Emigdio Mercer Admit Provider: Jonas Norman Primary Care Provider: Amador Sandy Other Providers: Jonas Norman ; Kiarra Unger ; Blaise Steiner ; Elías Benitez ; Tabby Kwon ; Trudy Marina ; Lety Godwin ; Stephy Shelton ; Mathew Samuel ; Manoj Bautista ; Eloise Andersen ; Lydia Yañez. ; Stanley Eric ; Zainab Means ; Kitty Turner ; Lima Galvin ; Mirlande Dumont ; Ladan Lomas ; Nate Biggs ; Demetri Ortiz ; Brii Starks ; Yanick Cleary Jr ; Juan Mas ; Mayito Haile ; Bijan Kurtz ; Kori Pemberton ; Joel Her ; Alyson Mercado ; Tia Gusman ; Hudson Coley ; Kerrie White ; Any Durno ; Jatin Chairez ; Osbaldo Stanley ; Joel Mitchell ; Carson Ly ; Shayy Ramon ; Kely Andersen ; Yazan Lyon ; Rupert Horta ; Adrianna Pike ; Trudy Berry ; Darrell Farfan Jr ; Víctor Vines ; Carlos Vázquez ; Mirlande Ellis
--- NOTE | 2022-10-25 17:44 | Ultrasound Report ---
ULTRASOUND KIDNEYS AND BLADDER CLINICAL HISTORY: Bladder distention. Linda catheter. COMPARISON STUDY: Abdominal CT dated 10/22/2022 TECHNIQUE: Real-time, grayscale, and color flow sonography of the kidneys and bladder is performed. I mages are reviewed in the transverse and longitudinal planes. FINDINGS: Kidneys: The kidneys demonstrate mild cortical atrophy. Echotexture is normal. The right kidney measu res 9.3 cm in length and the left kidney measures 8.9 cm in length. There is no hydronephrosis. No s hadowing renal calculi are identified. There is no sonographic evidence of contour deforming renal ma ss lesion. No perinephric fluid is identified. Bladder: The bladder is decompressed and a Linda catheter and could not be assessed. Upper abdomen: The liver is enlarged, heterogeneous, and shows evidence of steatosis. There is upper abdominal ascites, the most complex free fluid in the pelvis. A complex nonvascular fluid collection in the right flank likely represents a hematoma. This measures up to 16.6 cm in length. IMPRESSION: 1. The kidneys demonstrate cortical atrophy and are without hydronephrosis. 2. The bladder is decompressed around a Linda catheter and could not be assessed. 3. A large hematoma is again seen in the right flank. 4. Upper abdominal ascites and minimally complex free fluid in the pelvis. 5. The liver is enlarged, markedly heterogeneous, and shows evidence of severe steatosis. ACT 112: Negative or not required by law. Electronically signed by: Walter Ga M.D. 10/25/2022 5:42 PM
[2022-10-25] MEDS: HYDROmorphone INJ 0.5 MG/0.5 ML SYR IV PRN (18:07)
== END 2022-10-25 18:24 | disposition short-term general hospital (02) | DRG 871 ==
LOC: ED 20:14 → 2S 10-20 01:54

== ENCOUNTER 2024-02-10 09:10 | Inpatient (IN) ==
[2024-02-10 10:35] LABS: Basophils # (auto) 0.03 K/uL (0.00-0.20); Basophils % (auto) 0.3 %; Eosinophils # (auto) 0.13 K/uL (0.00-0.50); Eosinophils % (auto) 1.3 %; Hemoglobin 10.7 g/dl (14.0-18.0); Immature Granulocytes # (auto) 0.08 K/uL (0.01-0.20); Immature Granulocytes % (auto) 0.8 %; Lymphocytes # (auto) 1.06 K/uL (1.20-3.40); Lymphocytes % (auto) 10.5 %; Mean Corpuscular Hemoglobin 28.8 pg (25.0-34.0); Mean Corpuscular Hgb Conc 32.4 g/dL (32.0-36.0); Mean Corpuscular Volume 88.7 fL (80.0-100.0); Mean Platelet Volume 10.5 fL (9.4-12.4); Monocytes # (auto) 0.62 K/uL (0.11-0.59); Monocytes % (auto) 6.1 %; Neutrophils # (auto) 8.18 K/uL (1.40-6.50); Platelet Count 185 K/uL (130-400); RDW Coefficient of Variation 15.2 % (11.5-14.5); RDW Standard Deviation 49.8 fL (36.4-46.3); Red Blood Count 3.72 M/uL (4.70-6.10)
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
--- NOTE | 2024-02-10 10:52 | XRay Report ---
XR chest 1V portable HISTORY: Chest pain, nonspecific COMPARISON: Chest 10/19/2022. FINDINGS: No pneumothorax. No pleural effusions. No new focal lung consolidations to suggest a pneumo frank. The heart is normal in size. There is a left Port-A-Cath which terminates in the distal SVC. Pos toperative changes consistent with prior double lung transplant. There is a moderate hiatus hernia, u nchanged. IMPRESSION: No significant change compared to the prior study. No acute process. ACT 112: Negative or not required by law. Electronically signed by: David Weber M.D. 02/10/2024 10:51 AM
[2024-02-10 10:56] LABS: Albumin Globulin Ratio 1.3 (0.9-2); Albumin Level 3.5 gm/dl (3.4-5.0); BUN Creatinine Ratio 12.9 (10-20); Bilirubin,Total 0.4 mg/dl (0.2-1.0); Calcium 8.4 mg/dl (8.6-10.3); Creatinine Clr Calc Pharmacy 43.8 ml/min; Est GFR (African American) 73.4 ml/min; Est GFR (Non-African American) 63.3 ml/min; Globulin 2.6 gm/dl (2.5-4.0); Potassium 4.1 mmol/L (3.5-5.1); Total Protein 6.1 gm/dl (6.0-8.3)
[2024-02-10 10:59] LABS: INR 1.4 (0.9-1.1); Partial Thromboplastin Time 26 Seconds (21-31); Prothrombin Time 14.7 Seconds (9.0-12.0)
[2024-02-10 11:02] LABS: Troponin I High Sensitivity 2.6 pg/ml (0-20)
--- NOTE | 2024-02-10 11:43 | CT Scan Report ---
CT cervical spine wo con CLINICAL HISTORY: syncope, pain TECHNIQUE: Multidetector row helical CT of the cervical spine was performed without administration of intravenous contrast. Coronal and sagittal reformations were obtained. Automated dose lowering techn iques and/or adjustment according to patient size were utilized for this exam. Comparison: None available at the time of this dictation. FINDINGS: No acute fractures or subluxations are identified. Mild degenerative changes are seen The alignment i s normal. Soft tissues are unremarkable. IMPRESSION: No evidence of acute bony injury. ACT 112: Negative or not required by law. Electronically signed by: Blayne Yanez M.D. 02/10/2024 11:42 AM
[2024-02-10] MEDS: ACETAMINOPHEN 1,000 MG/100 ML VIAL IV STA (11:48)
[2024-02-10] MEDS: SODIUM CHLORIDE 0.9% 1,000 ML IV SCH (11:48)
--- NOTE | 2024-02-10 11:51 | CT Scan Report ---
HEAD CT NONCONTRAST CT DOSE: HISTORY: syncope, pain TECHNIQUE: Multiaxial CT images of the head were performed without the use of intravenous contrast. A utomated exposure control was utilized for this study. A dose lowering technique was utilized adheri ng to the principles of ALARA. Comparison: None. Findings: Hypoplastic and opacified left frontal sinus and left sphenoid sinus. This is likely chroni c. The mastoid air cells are clear. The calvarium and skull base are intact. The ventricles are alvaro l in size. There is no mass, hematoma, midline shift, or acute infarct. Small cleft within the right frontal parietal region which is lined by echavarria matter. Therefore, this favors a closed lip schizencep haly. The septum pellucidum is not identified and may be congenitally absent. Mild frontal scalp swel ling is noted. Impression: 1. No acute infarct or intracranial hemorrhage. 2. Mild frontal scalp swelling. 3. 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 4. Small cleft within the right frontal parietal region which is lined by echavarria matter. 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 ACT 112: Negative or not required by law. Electronically signed by: David Weber M.D. 02/10/2024 11:49 AM
--- NOTE | 2024-02-10 12:20 | Emergency Department Note ---
ED Visit Note Patient was seen and evaluated by Dr. Ha. I was present for repair of the patient's vertically oriented forehead laceration. This is approximate 2 cm in length. To the right of this laceration there is also an approximate 1 cm superficial laceration but that smaller one will not require repair. Risks and benefits of performing primary wound closure versus no repair were discussed with the patient who verbalizes understanding. Verbal consent was obtained prior to performing the procedure. Let gel was used to anesthetize the forehead lac eration. The wound was cleansed and prepped in the typical sterile fashion utilizing normal saline and Betadine. The wound was sterilely draped. Once proper anesthetization was established, the wound was further examined and demonstrated no evidence of deep structure injury or retained foreign body. The wound was copiously irrigated with normal saline and Betadine. The wound was closed using 4 simple, 6-0 nylon sutures with the wound edges being well approximated. Patient tolerated the procedure well. No complications were met. The wound was cleansed and dressed with a a layer of bacitracin. Please refer to further documentation regarding his stay. .
[2024-02-10] MEDS: LIDOCAINE/EPINEPH/TETRACAINE 1 EA SYR EXT STA ×2 (12:29)
[2024-02-10] MEDS: KETOROLAC TROMETHAMINE 15 MG/ML VIAL IV STA (13:14)
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
[2024-02-10] MEDS: oxyCODONE HCL IR 5 MG TAB (IMMEDIATE RELEASE) PO STA (13:41)
[2024-02-10 14:17] LABS: Adenovirus PCR Not Detected (NotDetected); Bordetella parapertussis PCR Not Detected (NotDetected); Bordetella pertussis PCR Not Detected (NotDetected); Chlamydia pneumoniae PCR Not Detected (NotDetected); Coronavirus 229E PCR Not Detected (NotDetected); Coronavirus CoV-2 (COVID19)PCR Not Detected (NotDetected); Coronavirus HKU1 PCR Not Detected (NotDetected); Coronavirus NL63 PCR Not Detected (NotDetected); Coronavirus OC43PCR Not Detected (NotDetected); Human Metapneumovirus PCR Not Detected (NotDetected); Influenza A PCR Not Detected (NotDetected); Influenza B PCR Not Detected (NotDetected); Mycoplasma pneumoniae PCR Not Detected (NotDetected); Parainfluenza Virus 1 PCR Not Detected (NotDetected); Parainfluenza Virus 2 PCR Not Detected (NotDetected); Parainfluenza Virus 3 PCR Not Detected (NotDetected); Parainfluenza Virus 4 PCR Not Detected (NotDetected); Respiratory Syncytial VirusPCR Not Detected (NotDetected); Rhinovirus/Enterovirus PCR Not Detected (NotDetected)
[2024-02-10 15:16] LABS: Estimated Average Glucose 108 mg/dl; Hemoglobin A1C 5.4 % (4.5-5.6)
[2024-02-10] MEDS ORDERED: PANCREAZE (LIPASE 16,800U) CAP PO PRN (15:30)
--- NOTE | 2024-02-10 16:09 | Electrocardiogram Report ---
Test Reason : Blood Pressure : / mmHG Vent. Rate : 073 BPM Atrial Rate : 073 BPM P-R Int : 150 ms QRS Dur : 088 ms QT Int : 398 ms P-R-T Axes : 064 065 080 degrees QTc Int : 438 ms Sinus rhythm with Premature atrial complexes Otherwise normal ECG When compared with ECG of 24-OCT-2022 01:51, Premature atrial complexes are now Present ST no longer depressed in Anterior leads QT has shortened Confirmed by Dominic Clay ([id number]) on 02/10/2024 4:09:13 PM Referred By: REFERRED SELF Confirmed By:Dominic Clay
[2024-02-10] MEDS ORDERED: ACETAMINOPHEN 325 MG TAB PO PRN (16:12)
[2024-02-10] MEDS: oxyCODONE/ACETAMINOPHEN 5mg/325mg TAB PO PRN (17:19)
[2024-02-10] MEDS: PANCREAZE (LIPASE 16,800U) CAP PO SCH (18:26)
[2024-02-10] MEDS: ONDANSETRON INJ 2 MG/ML 2 ML VIAL IV PRN (18:26)
[2024-02-10] MEDS: VANCOMYCIN HCL 125 MG/2.5ML SOLN PO SCH (19:06)
[2024-02-10] MEDS: CHERRY SYRUP 5 ML UDP PO SCH (19:06)
[2024-02-10] MEDS: ACYCLOVIR 200 MG CAP PO SCH (20:56)
[2024-02-10] MEDS: MYCOPHENOLATE SODIUM 180 MG TAB PO SCH (20:56)
[2024-02-10] MEDS: MONTELUKAST SODIUM 10 MG TABLET PO SCH (20:56)
[2024-02-10] MEDS: ARIPIprazole 1 MG/ML ORAL SOLN 150 ML BTL PO SCH (20:57)
[2024-02-10] MEDS: TACROLIMUS 1 MG CAP PO SCH ×2 (21:01→22:05)
[2024-02-10] MEDS: CALCIUM CARBONATE 1250MG TAB PO SCH (21:01)
[2024-02-10] MEDS: traZODone HCL 50 MG TAB PO SCH (22:06)
[2024-02-10] MEDS: LACTATED RINGER'S 1,000 ML IV ONE (22:12)
[2024-02-11] MEDS: MECLIZINE 12.5 MG TAB PO STA (01:46)
[2024-02-11] MEDS: PROMETHAZINE HCL 6.25 MG in SODIUM CHLORIDE 0.9% 50 ML IV STA (04:31)
[2024-02-11 06:44] LABS: Hematocrit (blood only) 28.4 % (42.0-52.0); Hemoglobin 9.3 g/dl (14.0-18.0); Mean Corpuscular Hemoglobin 28.9 pg (25.0-34.0); Mean Corpuscular Hgb Conc 32.7 g/dL (32.0-36.0); Mean Corpuscular Volume 88.2 fL (80.0-100.0); Mean Platelet Volume 10.3 fL (9.4-12.4); Platelet Count 160 K/uL (130-400); RDW Standard Deviation 48.6 fL (36.4-46.3); Red Blood Count 3.22 M/uL (4.70-6.10); White Blood Count 6.72 K/ul (4.8-10.8)
[2024-02-11 07:08] LABS: BUN Creatinine Ratio 10.7 (10-20); Calcium 7.7 mg/dl (8.6-10.3); Creatinine Clr Calc Pharmacy 50.3 ml/min; Est GFR (African American) 86.6 ml/min; Est GFR (Non-African American) 74.7 ml/min
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
[2024-02-11] MEDS ORDERED: TACROLIMUS 1 MG CAP PO SCH (09:00)
[2024-02-11] MEDS: PANTOprazole 40 MG TAB PO SCH (09:01)
[2024-02-11] MEDS: CHOLECALCIFEROL 125 MCG (5,000 UNITS) TAB PO SCH (09:01)
[2024-02-11] MEDS: AZITHROMYCIN 250 MG TAB PO SCH (09:01)
[2024-02-11] MEDS: SERTRALINE HCL 50 MG TABLET PO SCH (09:01)
[2024-02-11] MEDS: ERTAPENEM SODIUM 1,000 MG in SYRINGE 0 ML IV SCH (09:02)
[2024-02-11] MEDS: predniSONE 5 MG TAB PO SCH (09:02)
[2024-02-11] MEDS: LACTATED RINGER'S 1,000 ML IV SCH (12:00)
[2024-02-11] MEDS: PROMETHAZINE HCL 6.25 MG in SODIUM CHLORIDE 0.9% 50 ML IV PRN (13:07)
--- NOTE | 2024-02-11 13:32 | Hospitalist Progress Note ---
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 Syncopal episode lasting few minutes - CT of head was done due to hitting head and is negative for acute findings Respiratory viral panel negative Echocardiogram shows normal EF; no significant vascular abnormality Improvement in diarrhea noted Continue IV fluids Obtain orthostatic vitals every 8 hours PT evaluation for BPPV Telemonitoring Possible UTI Urine culture growing ESBL E. coli; patient has history of such Started on meropenem; continue for now Monitor for fever/chills. 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 Jonas Pal with pulmonology at [facility] - Admitting team discussed care with their team - can reach him on his cell at [phone] for updates/questions/plan of care -Patient is maintained on Prograf, Myfortic --- will HOLD myfortic per Dr. Pal's recs as this might be contributing to diarrhea -Previous goal tacrolimus 10-12, checked monthly - repeat level pending -Myfortic 540 mg twice daily on HOLD -Prednisone 5 mg daily -Azithromycin 250 MWF -Is no longer on infectious prophylaxis with Bactrim for PJP. Valcyte over for CMV mismatch, has been off for some time now with negative CMV PCR. 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 DO NOT resume on discharge - monitor BPs History of C. difficile colitis -Clinically resolving on long course of oral vancomycin, recommended that he is on prophylactic Vanco with any broad-spectrum antibiotics History of large hiatal hernia -History of PEG, hx of fundoplication in 2006 Hx of rectal prolapse, hx of constipation in past - Hx of such, was previously on miralax, was seen previously by colorectal surgery for repair and not required CKD stage III -at baseline, monitor for now. RIVERA/cirrhosis with ascites - Clinically improved with paracentesis/drain, and diuretics DVT ppx: teds, scds, ambulate with assistance Diet: Regular PIV: 2 IV CODE: FULL Dispo: From home, Continues to be hospitalized for evaluation of syncopal episodes, IV hydration Time spent evaluating patient, direct bedside care, chart review, placing orders, interpretation of diagnostic studies, discussion with consultants, patient, and family members, as well as other required patient management activities is 50 minutes Please note the above document was generated using voice recognition software. It may contain grammatical, syntax or spelling errors. Any formal questions or concerns about the content, text or information contained within the body of this dictation should be directly addressed to the provider for clarification Admission and Anticipated Discharge Date Admission Date: February 10, 2024 Subjective Patient seen and examined at bedside. He reports that diarrhea has improved. He continues to report feeling of dizziness and presyncopal symptoms while lying in bed as well. Telemetry did not show any significant events. Sinus bradycardia; no pauses. Review of Systems Review of Systems: All systems reviewed & are unremarkable except as noted in Subjective Physical Exam Physical Exam: General: awake, alert, no apparent distress, Head: Normocephalic, + laceration to forehead x 2, one has been sutured ENT: PERRL, EOMI, no pharyngeal exudate, mucous membranes moist Chest: Clear to auscultation, on room air, no adventitious breath sounds Cardiac: Regular rate and rhythm, no murmur, no JVD, normal peripheral pulses, good capillary refill Abdominal: NABS x 4 quadrants, soft, nondistended, nontender to palpation, no rebound or guarding Extremities: Normal inspection, no peripheral edema or erythema, calfs nontender to palpation Psych: Normal mood and affect Neuro: AAO x 3, strength intact bilaterally and rated 5/5, no motor deficit Results & Data Results & Data Vital Signs (Past 12 Hours) Vital Signs Temp Pulse Pulse Resp BP Pulse Ox O2 Del Method 02/11/24 11:57 36.4 C L 66 17 136/85 97 Room Air 02/11/24 08:44 36.4 C L 65 17 106/75 98 Room Air 02/11/24 07:23 50 L 02/11/24 02:36 36.3 C L 60 16 127/74 98 Room Air (5) CKD (chronic kidney disease) stage 3, GFR 30-59 ml/min Chronic kidney disease stage 3 subtype: unspecified whether 3a or 3b Qualified Code(s): N18.30 - Chronic kidney disease, stage 3 unspecified
[2024-02-12 07:13] LABS: Basophils # (auto) 0.01 K/uL (0.00-0.20); Basophils % (auto) 0.1 %; Eosinophils # (auto) 0.06 K/uL (0.00-0.50); Eosinophils % (auto) 0.6 %; Hematocrit (blood only) 31.6 % (42.0-52.0); Hemoglobin 10.5 g/dl (14.0-18.0); Immature Granulocytes # (auto) 0.09 K/uL (0.01-0.20); Immature Granulocytes % (auto) 0.9 %; Mean Corpuscular Hemoglobin 29.5 pg (25.0-34.0); Mean Corpuscular Hgb Conc 33.2 g/dL (32.0-36.0); Mean Corpuscular Volume 88.8 fL (80.0-100.0); Mean Platelet Volume 10.5 fL (9.4-12.4); Monocytes # (auto) 0.54 K/uL (0.11-0.59); Monocytes % (auto) 5.1 %; Neutrophils # (auto) 7.97 K/uL (1.40-6.50); Neutrophils % (auto) 75.3 %; Platelet Count 198 K/uL (130-400); RDW Coefficient of Variation 15.7 % (11.5-14.5); RDW Standard Deviation 51.3 fL (36.4-46.3); Red Blood Count 3.56 M/uL (4.70-6.10); White Blood Count 10.57 K/ul (4.8-10.8)
[2024-02-12 07:24] LABS: BUN Creatinine Ratio 9.6 (10-20); Creatinine Clr Calc Pharmacy 39.1 ml/min; Est GFR (African American) 63.9 ml/min; Est GFR (Non-African American) 55.1 ml/min; Potassium 4.3 mmol/L (3.5-5.1)
[2024-02-12] MEDS: MEROPENEM 500 MG in SYRINGE 0 ML IV SCH (08:45)
[2024-02-12] MEDS: HEPARIN 100 UNIT/ML 5ML FLUSH FLUSH PRN (12:30)
--- NOTE | 2024-02-12 12:56 | Discharge Summary ---
Date of Service February 12, 2024 Admission HPI Per Admitting Provider This is a 38 yo M with PMHx of situational hypertension, cystic fibrosis status post lung transplant on chronic immunosuppression regimen (prednisone and Myfortic), bronchial asthma, history pulmonary MAC infection, chronic hyponatremia, chronic anemia (baseline hemoglobin 9-10), steroid-induced DM, GERD, history of intestinal malabsorption, past history C. difficile, history ESBL E. coli UTI. Pt presents today with his mother, Sheron, at bedside who supports the history. This morning he felt onset of diarrhea coming on, and got up very quickly and ran to the bathroom. He didn't realize what happened but woke up on the floor and had hit his head. Pt states he currently has a severe headache. He sustained two lacerations to the front of his forehead. EMS was called and pt was brought here by ambulance. Pt states that he has been dehydrated and having issues with keeping his weight up for some time now. Pt felt well this morning and had pancakes and milk and then had abd cramping onset. Specifically he has had diarrhea for the past month, states stool is nonbloody, but appears like grease all the time. He is tolerating high protein supplements daily as recommended by nutrition. Pt has previously had a pegtube but hasn't had this for many years. Pt notes that he feels thirsty all the time and can not seem to overcome his thirst. Denies alcohol use. Pt denies any acute issues with his lung, no respiratory complaints. He has not been around any sick contacts. He is currently hemodynamically stable. Pt did not get any of his morning medications due to the events this morning, otherwise though has been taking anti-rejection medications without any missed doses. He is on prograf, Myfortic, prednisone, azithromycin for immunosuppression routinely. Pt has used Percocet in the past for pain which he tolerates. Admission Exam Per Admitting Provider General: awake, alert, no apparent distress, + underweight, BMI of 16.9 Head: Normocephalic, + laceration to forehead x 2, one has been sutured, the other is glued shut. ENT: PERRL, EOMI, no pharyngeal exudate, mucous membranes moist Chest: Clear to auscultation, on room air, no adventitious breath sounds Cardiac: Regular rate and rhythm, no murmur, no JVD, normal peripheral pulses, good capillary refill Abdominal: NABS x 4 quadrants, soft, nondistended, nontender to palpation, no rebound or guarding Extremities: Normal inspection, no peripheral edema or erythema, calfs nontender to palpation Psych: Normal mood and affect Neuro: AAO x 3, strength intact bilaterally and rated 5/5, no motor deficits, speech is clear, no peripheral sensory deficits, gait is assessed as he walks to the bathroom, no lightheadedness or dizziness with ambulation Principal Diagnosis Acute gastroenteritis Syncope Discharge Exam General: awake, alert, no apparent distress, Head: Normocephalic, + laceration to forehead x 2, one has been sutured ENT: PERRL, EOMI, no pharyngeal exudate, mucous membranes moist Chest: Clear to auscultation, on room air, no adventitious breath sounds Cardiac: Regular rate and rhythm, no murmur, no JVD, normal peripheral pulses, good capillary refill Abdominal: NABS x 4 quadrants, soft, nondistended, nontender to palpation, no re bound or guarding Extremities: Normal inspection, no peripheral edema or erythema, calfs nontender to palpation Psych: Normal mood and affect Neuro: AAO x 3, strength intact bilaterally and rated 5/5, no motor deficit Discharge Data Allergies Allergy/AdvReac Type Severity Reaction Status Date / Time cephalexin Allergy Severe Hives Verified 02/10/24 15:27 escitalopram [From Lexapro] AdvReac Severe made pt Verified 02/10/24 15:27 suicidal tetracycline AdvReac Severe vomiting Verified 02/10/24 15:27 midazolam [From Versed] AdvReac Intermediate "SLOW TO Verified 02/10/24 15:27 WAKE UP" naproxen AdvReac Intermediate Stomach Verified 02/10/24 15:27 bleeding Consultations 02/10/24 12:50 ED Decision to Admit Stat 02/11/24 07:49 Consult Cardiology Routine Ordered Studies 02/10/24 10:46 CT cervical spine wo con Stat CT head/brain wo con Stat Hospital Course (1) Cystic fibrosis: (2) Lung transplant status, bilateral: (3) Exocrine pancreatic insufficiency: (4) 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: (5) CKD (chronic kidney disease) stage 3, GFR 30-59 ml/min: Acute nausea/diarrhea Syncopal Episode Likely orthostatic hypotension/vasovagal BPPV, ruled out Patient presented with multiple days of nausea/vomiting and diarrhea. Patient had a syncopal episode when walking to the bathroom leading to laceration of the scalp. CT head without contrast did not show any acute finding During the hospitalization, patient was admitted to medical floor and was st arted on IV fluids. Orthostatic vitals were taken which were within normal limits. Cardiology was also consulted; no additional cardiac testing or intervention recommended. Physical therapy was consulted for evaluation of BPPV which was negative. Patient was able to ambulate to 250 feet without any difficulties and was at baseline status. Patient denied any fever, chills, suprapubic pain, dysuria or urgency. Patient was given antibiotic during the hospitalization and were discontinued at discharge. No medication changes were done at the time of the discharge Please note the above document was generated using voice recognition software. It may contain grammatical, syntax or spelling errors. Any formal questions or concerns about the content, text or information contained within the body of this dictation should be directly addressed to the provider for clarification Total Time Total Time Spent Total Time Spent (In Minutes): 45 Total Time Includes: Examination of the Patient, Discharge Planning, Medication Reconciliation, Communication With Other Providers and Other Discharge Plan Discharge Items Patient Disposition: Home - Self-Care Reason For Visit: DIARRHEA Discharge Diagnosis: Orthostatic hypotension Dehydration Activity: Resume your previous activity Non-emergency contact: Primary Care Provider Call non-emergency contact if: you have any medication questions and your symptoms worsen Follow-up/Referrals: Amador Sandy MD [Primary Care Provider] - (Date & Time 02/18/2024 10:40 AM Provider Amador Sandy MD Department Family [facility] ) Diet: Regular Addtl Attending Provider Instructions: You were admitted to the hospital due to dehydration likely due to diarrhea. You are treated with IV hydration during the hospitalization. The likely cause for the syncopal episode was dehydration. Please keep yourself hydrated with Pedialyte. Please drink 1 cup of Pedialyte every time you have a loose bowel movement. Follow-up with your primary care doctor. An appointment will be set up for you Pending Studies at Discharge: No Stand-Alone Forms: My [employer], Work/School Release, Smoking Cessation Medications and DC Order Prescriptions: Continued prednisone 5 mg Tablet 5 mg PO QAM pantoprazole [Protonix] 40 mg Tablet,Delayed Release (Dr/Ec) 40 mg PO QAM Zenpep 25,000-79,000- 105,000 unit capsule,delayed release(DR/EC) 6 cap PO TIDM Rx Instructions: Take 6 capsule 1/2 hour before meals Zenpep 25,000-79,000- 105,000 unit capsule,delayed release(DR/EC) 3 cap PO .PRIOR TO SNACKS Rx Instructions: Take 3 capsules 1/2 hour before snacks tacrolimus [Prograf] 5 mg capsule 5 mg PO BID Rx Instructions: current dose as per px montelukast 10 mg Tablet 10 mg PO HS cholecalciferol (vitamin D3) [Vitamin D3] 125 mcg (5,000 unit) Tablet 125 mcg PO QAM aripiprazole 2 mg tablet 2 mg PO HS sertraline 50 mg tablet 50 mg PO QAM acyclovir 200 mg capsule 200 mg PO BID azithromycin 250 mg Tablet 250 mg PO 3XWK Rx Instructions: [facility] for immunosuppression mycophenolate sodium 180 mg tablet,delayed release (DR/EC) 540 mg PO BID trazodone 50 mg 75 mg HS Discharge Orders: Discharge Order (Routine); Ordered 02/12/24 Ordered By: Dioni Tavera Admission Data Admit Date/Time: 02/10/24 14:38 Attending Provider: Dioni Tavera Admit Provider: Eliezer Farris Primary Care Provider: Amador Sandy Other Providers: Eliezer Farris; Brii Silvestre; Al Yusuf; Valdemar Cole; Jatin Pretty; Rupert Aguilar; Carson Monteiro; Elisha Nicholson; Natalia Venegas; Reena Scales; Brii Moe; Lele Marvin; Freddy Zamora; Cheryl Streeter; Neelima Marina; Aydee Meraz; Saniya Ga; Moshe Garcia; Aurelia Welch Other Interventions: Discharge Summary Assessment (RN) Last Done: 02/12/24 12:16
== END 2024-02-12 13:31 | disposition home or self-care (01) | DRG 391 ==
LOC: ED 09:10 → SUATTDRO 14:38 → 2N 14:38
DX: E87.20 Acidosis, unspecified; Y92.89 Other specified places as the place of occurrence of the external cause; Z86.16 Personal history of COVID-19; N18.30 Chronic kidney disease, stage 3 unspecified; Z94.2 Lung transplant status; K21.9 Gastro-esophageal reflux disease without esophagitis; K52.9 Noninfective gastroenteritis and colitis, unspecified; E86.0 Dehydration; Z68.1 Body mass index [BMI] 19.9 or less, adult; Z79.69 Long term (current) use of other immunomodulators and immunosuppressants; E13.9 Other specified diabetes mellitus without complications; N18.9 Chronic kidney disease, unspecified; N39.0 Urinary tract infection, site not specified; W18.39XA Other fall on same level, initial encounter; I95.1 Orthostatic hypotension; Z88.6 Allergy status to analgesic agent; E84.9 Cystic fibrosis, unspecified; R55 Syncope and collapse; I12.9 Hypertensive chronic kidney disease with stage 1 through stage 4 chronic kidney disease, or unspecified chronic kidney disease; E43 Unspecified severe protein-calorie malnutrition; K86.81 Exocrine pancreatic insufficiency; S01.81XA Laceration without foreign body of other part of head, initial encounter

== ENCOUNTER 2024-06-28 18:25 | Inpatient (IN) ==
[2024-06-28 19:18] LABS: Basophils # (auto) 0.09 K/uL (0.00-0.20); Basophils % (auto) 0.6 %; Eosinophils # (auto) 2.15 K/uL (0.00-0.50); Eosinophils % (auto) 15.1 %; Hematocrit (blood only) 34.5 % (42.0-52.0); Hemoglobin 11.2 g/dl (14.0-18.0); Immature Granulocytes # (auto) 0.11 K/uL (0.01-0.20); Immature Granulocytes % (auto) 0.8 %; Lymphocytes # (auto) 2.15 K/uL (1.20-3.40); Lymphocytes % (auto) 15.1 %; Mean Corpuscular Hemoglobin 28.4 pg (25.0-34.0); Mean Corpuscular Hgb Conc 32.5 g/dL (32.0-36.0); Mean Corpuscular Volume 87.3 fL (80.0-100.0); Mean Platelet Volume 10.6 fL (9.4-12.4); Monocytes # (auto) 0.95 K/uL (0.11-0.59); Monocytes % (auto) 6.7 %; Neutrophils # (auto) 8.82 K/uL (1.40-6.50); Neutrophils % (auto) 61.7 %; Platelet Count 252 K/uL (130-400); RDW Coefficient of Variation 14.6 % (11.5-14.5); RDW Standard Deviation 47.2 fL (36.4-46.3); Red Blood Count 3.95 M/uL (4.70-6.10); White Blood Count 14.27 K/ul (4.8-10.8)
[2024-06-28 19:26] LABS: Appearance Urine Turbid (Clear); Bacteria Urine Automated 2+ (None Seen); Bilirubin Urine Negative (Negative); Blood Urine 2+ (Negative); Color Urine Yellow; Epithelial Cell Urine Auto 0-2 /hpf (0-2); Glucose Urine UA Negative (Negative); Ketones Urine Negative (Negative); Leukocyte Esterase Urine 3+ (Negative); Nitrite Urine Negative (Negative); Protein Urine 1+ (Negative); RBC Urine Automated >20 /hpf (0-2); Specific Gravity Urine 1.018 (1.000-1.030); Urobilinogen Urine Negative (Negative); WBC Urine Automated >50 /hpf (0-5); pH Urine 5.5 (4.5-7.5)
[2024-06-28 19:34] LABS: Albumin Globulin Ratio 1.1 (0.9-2); Albumin Level 3.9 gm/dl (3.4-5.0); BUN Creatinine Ratio 13.8 (10-20); Bilirubin,Total 0.4 mg/dl (0.2-1.0); Calcium 8.4 mg/dl (8.6-10.3); Creatinine Clr Calc Pharmacy 38.8 ml/min; Globulin 3.4 gm/dl (2.5-4.0); Potassium 4.5 mmol/L (3.5-5.1); Total Protein 7.3 gm/dl (6.0-8.3)
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
[2024-06-28] MEDS: MoRPHine SULFATE 4 MG/ML 1 ML CARP\\VIAL IV STA (20:24)
[2024-06-28] MEDS: ERTAPENEM 1000MG 1,000 MG/10 ML SYR IV STA (20:24)
[2024-06-28] MEDS: SODIUM CHLORIDE 0.9% 1,000 ML IV ONE ×2 (20:30→21:59)
[2024-06-28 21:05] LABS: Magnesium 1.7 mg/dl (1.7-2.4)
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
[2024-06-28] MEDS: ALBUT/IPRATROP 3MG/0.5MG NEB 3 ML VIAL NEB STA (22:52)
[2024-06-28] MEDS ORDERED: ACETAMINOPHEN 325 MG TAB PO PRN (22:53)
[2024-06-28] MEDS: AZITHROMYCIN 500 MG in DEXTROSE 5% 250 ML IV STA (23:27)
--- NOTE | 2024-06-29 00:02 | CT Scan Report ---
Exam(s): CT ABDOMEN + PELVIS Without Contrast EXAM: CT Abdomen and Pelvis Without Intravenous Contrast CLINICAL HISTORY: Reason for exam: back pain, hematuria. TECHNIQUE: Axial computed tomography images of the abdomen and pelvis without intravenous contrast. CTDI is 6.3 mGy and DLP is 293.09 mGy-cm. Automated exposure control was utilized for the study. A dose lowering technique was utilized adhering to the principles of ALARA. COMPARISON: No relevant prior studies available. FINDINGS: Lung bases: Unremarkable. No mass. No consolidation. Mediastinum: Large hiatal hernia with surgical clips in the epigastric region, correlate with surgical history. ABDOMEN: Liver: Unremarkable. Gallbladder and bile ducts: Cholecystectomy. No ductal dilation. Pancreas: Unremarkable. No ductal dilation. Spleen: Unremarkable. No splenomegaly. Adrenals: Unremarkable. No mass. Kidneys and ureters: Unremarkable. No hydronephrosis, nephrolithiasis, or obstructive uropathy. Stomach and bowel: Wall thickening of the rectum which measures up to 2.0 cm in thickness, concerning for proctitis versus underlying rectal mass. Gastroenterology or surgical evaluation recommended. Mild fecal retention, correlate for constipation. No obstruction. PELVIS: Appendix: No findings to suggest acute appendicitis. Bladder: Wall thickening of the urinary bladder, correlate for UTI. No stones. Reproductive: Unremarkable as visualized. ABDOMEN and PELVIS: Intraperitoneal space: Unremarkable. No free air. No significant fluid collection. Bones/joints: No acute fracture. No dislocation. Soft tissues: Unremarkable. Vasculature: Unremarkable. No abdominal aortic aneurysm. Lymph nodes: Unremarkable. No enlarged lymph nodes. IMPRESSION: 1. No hydronephrosis, nephrolithiasis, or obstructive uropathy. 2. Wall thickening of the urinary bladder, correlate for UTI. 3. Wall thickening of the rectum which measures up to 2.0 cm in thickness, concerning for proctitis versus underlying rectal mass. Gastroenterology or surgical evaluation recommended. 4. Cholecystectomy. 5. Mild fecal retention, correlate for constipation. 6. Large hiatal hernia with surgical clips in the epigastric region, correlate with surgical history. Electronically signed by: Demetris Quezada MD 06/29/24 00:01 AM
[2024-06-29 00:04] LABS: Adenovirus PCR Not Detected (NotDetected); Bordetella parapertussis PCR Not Detected (NotDetected); Bordetella pertussis PCR Not Detected (NotDetected); Chlamydia pneumoniae PCR Not Detected (NotDetected); Coronavirus 229E PCR Not Detected (NotDetected); Coronavirus CoV-2 (COVID19)PCR Not Detected (NotDetected); Coronavirus HKU1 PCR Not Detected (NotDetected); Coronavirus NL63 PCR Not Detected (NotDetected); Coronavirus OC43PCR Not Detected (NotDetected); Human Metapneumovirus PCR Not Detected (NotDetected); Influenza A PCR Not Detected (NotDetected); Influenza B PCR Not Detected (NotDetected); Mycoplasma pneumoniae PCR Not Detected (NotDetected); Parainfluenza Virus 1 PCR Not Detected (NotDetected); Parainfluenza Virus 2 PCR Not Detected (NotDetected); Parainfluenza Virus 3 PCR Not Detected (NotDetected); Parainfluenza Virus 4 PCR Not Detected (NotDetected); Respiratory Syncytial VirusPCR Not Detected (NotDetected); Rhinovirus/Enterovirus PCR Not Detected (NotDetected)
[2024-06-29] MEDS: traZODone HCL 50 MG TAB PO SCH (01:09)
[2024-06-29] MEDS: MONTELUKAST SODIUM 10 MG TABLET PO SCH (01:09)
[2024-06-29] MEDS: ARIPIprazole 1 MG/ML ORAL SOLN 150 ML BTL PO SCH (01:10)
[2024-06-29] MEDS: TACROLIMUS 1 MG CAP PO SCH (01:52)
[2024-06-29] MEDS: MYCOPHENOLATE SODIUM 180 MG TAB PO SCH (01:52)
[2024-06-29] MEDS: PROMETHAZINE 6.25 MG/50.25 ML BAG IV PRN (03:13)
[2024-06-29] MEDS ORDERED: DEXTROSE 50% 50 ML SYRINGE IV PRN (04:50)
[2024-06-29] MEDS ORDERED: GLUCOSE 40% GEL 15 GM TUBE PO PRN (04:50)
[2024-06-29] MEDS ORDERED: CARBOHYDRATES FOR HYPOGLYCEMIA PO PRN (04:50)
[2024-06-29] MEDS ORDERED: GLUCOSE 10 TAB/TUBE PO PRN (04:50)
[2024-06-29] MEDS ORDERED: GLUCAGON FOR INJ 1 MG VIAL SQ PRN (04:50)
[2024-06-29] MEDS ORDERED: ACETAMINOPHEN 500 MG TAB PO PRN (04:51)
[2024-06-29] MEDS: PROMETHAZINE 6.25 MG/50.25 ML BAG IV STA ×2 (05:51→22:06)
[2024-06-29 06:24] LABS: Basophils # (auto) 0.05 K/uL (0.00-0.20); Basophils % (auto) 0.4 %; Eosinophils % (auto) 10.8 %; Hematocrit (blood only) 30.9 % (42.0-52.0); Hemoglobin 10.2 g/dl (14.0-18.0); Immature Granulocytes # (auto) 0.07 K/uL (0.01-0.20); Immature Granulocytes % (auto) 0.5 %; Lymphocytes % (auto) 13.9 %; Mean Corpuscular Hemoglobin 28.3 pg (25.0-34.0); Mean Corpuscular Volume 85.8 fL (80.0-100.0); Mean Platelet Volume 10.9 fL (9.4-12.4); Monocytes # (auto) 0.72 K/uL (0.11-0.59); Monocytes % (auto) 5.6 %; Neutrophils % (auto) 68.8 %; Platelet Count 195 K/uL (130-400); RDW Coefficient of Variation 14.6 % (11.5-14.5); RDW Standard Deviation 46.2 fL (36.4-46.3); White Blood Count 12.94 K/ul (4.8-10.8)
[2024-06-29 06:36] LABS: BUN Creatinine Ratio 15.4 (10-20); Calcium 8.1 mg/dl (8.6-10.3); Creatinine Clr Calc Pharmacy 45.5 ml/min; Potassium 3.7 mmol/L (3.5-5.1)
[2024-06-29] MEDS: INSULIN ASPART PER UNIT CHARGE SC SCH (08:46)
[2024-06-29] MEDS: PANCREAZE (LIPASE 16,800U) CAP PO SCH (08:49)
[2024-06-29] MEDS ORDERED: PANCREAZE (LIPASE 16,800U) CAP PO PRN (09:00)
[2024-06-29] MEDS: CHOLECALCIFEROL 125 MCG (5,000 UNITS) TAB PO SCH (09:27)
[2024-06-29] MEDS: PANTOprazole 40 MG TAB PO SCH (09:27)
[2024-06-29] MEDS: predniSONE 5 MG TAB PO SCH (09:27)
[2024-06-29] MEDS: ACYCLOVIR 200 MG CAP PO SCH (09:27)
[2024-06-29] MEDS: SERTRALINE HCL 50 MG TABLET PO SCH (09:28)
--- NOTE | 2024-06-29 09:35 | CT Scan Report ---
CT chest diagnostic wo con CT DOSE: 211.71 mGy.cm CLINICAL HISTORY: 39 years-old Male with new cough. Acute cough TECHNIQUE: Multiaxial CT images of the chest were performed without contrast. A dose lowering techni que was utilized adhering to the principles of ALARA. COMPARISON: Chest radiograph of same day, CT chest 06/03/2021 FINDINGS: There is an old mild superior endplate compression deformity at L1, unchanged. Normal calib er thoracic aorta with no evidence for dissection. The heart is normal in size. No pleural or pericar dial effusions. There is a moderate hiatus hernia, unchanged. Calcified left hilar lymph nodes. Posto perative changes of prior double lung transplant. Primary prior median sternotomy. Multiple surgical clips seen within the mediastinum. Old, healed bilateral rib fractures. Left jugular Port-A-Cath term inates in the distal SVC. Limited views of the upper abdomen demonstrate a normal liver, spleen, and adrenal glands. Prior chol ecystectomy. There is near complete fatty atrophy of the pancreas. No mediastinal or hilar lymphadeno gurwinder. The lungs are hyperexpanded. No pneumothorax. The central airways are patent. Calcified granul jeremy within the left upper lobe. Stable likely benign 4 mm nodule within the left lower lobe on image 133. No focal lung consolidations to suggest pneumonia. Mild intralobular septal thickening. IMPRESSION: 1. Intralobular septal thickening may represent developing pulmonary edema. 2. No pleural effusion or airspace consolidation typical for pneumonia. 3. Postoperative changes of prior double lung transplant. 4. Stable likely benign 4 mm solid nodule left lower lobe. 5. Prior granulomatous disease. ACT 112: Negative or not required by law. Electronically signed by: Junior Franco M.D. 06/29/2024 9:33 AM
--- NOTE | 2024-06-29 09:35 | XRay Report ---
XR chest 1V portable HISTORY: 39 years-old Male renal failure acute renal failure COMPARISON: 02/10/2024 TECHNIQUE: AP view of the chest FINDINGS: Cardiac silhouette is unchanged. Vascular congestion. Numerous surgical clips project over the chest compatible with prior double lung transplant. Left pectoral Fjcost-d-Gqrh catheter is stable. No pneu mothorax or large pleural effusion. Bones appear grossly intact. IMPRESSION: 1. Pulmonary vascular congestion. 2. Postoperative changes of the chest. ACT 112: Negative or not required by law. The above report was generated using voice recognition software. It may contain grammatical, syntax o r spelling errors. Electronically signed by: Junior Franco M.D. 06/29/2024 9:34 AM
--- NOTE | 2024-06-29 09:39 | Hospitalist Progress Note ---
Date of Service June 29, 2024 Assessment & Plan (1) Sepsis due to gram-negative UTI: (2) HEIDY (acute kidney injury): (3) Exocrine pancreatic insufficiency: (4) Protein-calorie malnutrition, moderate: (5) Lung transplant status, bilateral: (6) Cystic fibrosis: Plan Patient chronically immunocompromised due to lung transplant for cystic fibrosis presents with sepsis from gram-negative urinary tract infection as evidenced by leukocytosis and acute kidney injury. Renal function significantly improved Reviewed previous urine cultures most recently has had E. coli that was sensitive to multiple antibiotics several UTIs ago it was E. coli ESBL. Will continue ertapenem at this time and await sensitivities Dietary consult for patient's malnutrition and need for improved caloric intake Encourage oral fluid intake Continue outpatient medications as ordered Bladder scan for postvoid residual Admission and Anticipated Discharge Date Admission Date: June 28, 2024 Subjective Patient states he is feeling little bit nauseated, Zofran has worked well in the past. Tolerating liquids without difficulty. Patient states when he is in the hospital he just does not eat. At home he states he mainly only eats Pasta does not eat any meats. States he is somewhat vegetarian Physical Exam Physical Exam: Constitutional: Alert, underweight, somewhat cachectic HEENT: Mucous membranes moist. Lungs: Clear to auscultation, decreased, no wheezes rales or rhonchi CV: S1-S2, regular Abdomen: Soft, nontender, nondistended Extremities: No significant edema Neuro: No focal deficits Psych: Cooperative, normal mood Results & Data Results & Data Vital Signs (Past 12 Hours) Vital Signs Temp Pulse Pulse Resp BP BP Pulse Ox 06/29/24 07:50 36.6 C 85 16 139/82 97 06/29/24 00:23 36.8 C 85 16 121/71 99 06/29/24 00:23 36.8 C 85 16 121/71 99 06/28/24 23:06 84 06/28/24 22:22 54 L 16 139/62 94 O2 Del Method 06/29/24 07:50 Room Air 06/29/24 00:23 Room Air 06/29/24 00:23 Room Air 06/28/24 23:06 06/28/24 22:22 Room Air Diagnostic Findings Reviewed imaging, laboratory and diagnostic studies. Pertinent findings as below. WBCs 12.9 Hemoglobin 10.2, baseline Urine culture growing gram-negative bacilli
[2024-06-29] MEDS: HEPARIN 100 UNIT/ML 5ML FLUSH FLUSH PRN (09:52)
[2024-06-29] MEDS: ONDANSETRON INJ 2 MG/ML 2 ML VIAL IV PRN (11:57)
[2024-06-29] MEDS ORDERED: ZENPEP PO PRN (12:22)
[2024-06-29] MEDS ORDERED: ZENPEP PO SCH ×2 (12:30)
[2024-06-29] MEDS: ZENPEP PO SCH (12:32)
[2024-06-29] MEDS: LACTATED RINGER'S 1,000 ML IV SCH (17:14)
[2024-06-29] MEDS: ERTAPENEM 1000MG 1,000 MG/10 ML SYR IV SCH (20:58)
[2024-06-29] MEDS: oxyCODONE HCL IR 5 MG TAB (IMMEDIATE RELEASE) PO PRN (21:01)
[2024-06-30 06:10] LABS: Hematocrit (blood only) 31.9 % (42.0-52.0); Hemoglobin 10.4 g/dl (14.0-18.0); Mean Corpuscular Hgb Conc 32.6 g/dL (32.0-36.0); Mean Platelet Volume 11.7 fL (9.4-12.4); Platelet Count 230 K/uL (130-400); RDW Coefficient of Variation 14.6 % (11.5-14.5); RDW Standard Deviation 46.1 fL (36.4-46.3); Red Blood Count 3.71 M/uL (4.70-6.10); White Blood Count 14.06 K/ul (4.8-10.8)
[2024-06-30 06:26] LABS: Calcium 8.2 mg/dl (8.6-10.3); Creatinine Clr Calc Pharmacy 44.8 ml/min; Potassium 4.2 mmol/L (3.5-5.1)
[2024-06-30] MEDS: AZITHROMYCIN 250 MG TAB PO SCH (08:15)
--- NOTE | 2024-06-30 14:52 | Hospitalist Progress Note ---
Date of Service June 30, 2024 Assessment & Plan (1) Sepsis due to gram-negative UTI: Plan: Presented with dysuria and some hematuria on the day of admission associated nausea and lower abdominal discomfort No fever and no chills Complicated UTI without any sepsis Has been on intravenous Ertapenem Urine is growing E. coli ESBL and blood culture has been negative Reviewed previous urine cultures most recently has had E. coli that was sensitive to multiple antibiotics several UTIs ago it was E. coli ESBL. Will continue ertapenem at this time and await sensitivities He has been feeling much better since admission ID has been consulted (2) HEIDY (acute kidney injury): Plan: Noted to have HEIDY on admission Received cautious amount of intravenous fluid and the kidney function has been normalized (3) Exocrine pancreatic insufficiency: (4) Protein-calorie malnutrition, moderate: (5) Lung transplant status, bilateral: (6) Cystic fibrosis: Plan: Patient chronically immunocompromised due to lung transplant for cystic fibrosis presents with sepsis from gram-negative urinary tract infection as evidenced by leukocytosis and acute kidney injury. He has been getting acyclovir, azithromycin, mycophenolate sodium, tacrolimus and prednisone with lung transplant status Admission and Anticipated Discharge Date Admission Date: June 28, 2024 Subjective 06/30/2024 The patient was seen and examined in medical floor He has been feeling much better and denies any fever and or chills and does not have any dysuria He denies any respiratory symptoms Review of Systems Review of Systems: All systems reviewed and are unremarkable except as noted below Physical Exam Physical Exam: Lying in bed without any acute distress Constitutional: + ill appearing and + thin Eyes: PERRL, conjunctivae normal, anicteric sclerae ENMT: external ear and nose normal, oropharynx normal Neck: trachea midline, no thyromegaly Respiratory: no respiratory distress Auscultation: lungs clear to auscultation bilaterally Cardiovascular: Rate/Rhythm: regular rate and regular rhythm; not tachycardic Heart Sounds: normal S1 and normal S2; no murmur Extremities: no edema Gastrointestinal (Abdomen): Inspection/Auscultation: normal bowel sounds; abdomen not distended Percussion/Palpation: abdomen soft; abdomen nontender Musculoskeletal: no acute arthritis involving any of the joint Neurologic: normal touch/pain/proprioception and moves all extremities; no focal motor deficits Psychiatric: A+Ox3, euthymic affect Lymphatic: no cervical or axillary lymphadenopathy Results & Data Results & Data Vital Signs (Past 12 Hours) Vital Signs Temp Pulse Resp BP Pulse Ox O2 Del Method 06/30/24 07:34 36.7 C 81 18 131/75 95 Room Air Laboratory Results Short CBC 06/30/24 Range/Units 05:47 WBC 14.06 H (4.8-10.8) K/ul Hgb 10.4 L (14.0-18.0) g/dl Hct 31.9 L (42.0-52.0) % Plt Count 230 (130-400) K/uL BMP 06/30/24 05:47 Sodium 136 Potassium 4.2 Chloride 112 H Carbon Dioxide 16 L BUN 18 Creatinine 1.38 Glucose 114 H Calcium 8.2 L Medications Administered Current Inpatient Medications Acetaminophen (Acetaminophen 500 Mg Tab) 500 mg PO Q6H PRN PRN Reason: fever/pain Stop: 07/29/24 04:50 Acyclovir (Acyclovir 200 Mg Cap) 200 mg PO BID [facility] Stop: 07/29/24 08:59 Last Admin: 06/30/24 08:15 Dose: 200 mg Aripiprazole (Aripiprazole 1 Mg/Ml Oral Soln 150 Ml Btl) 2 mg PO HS [facility] Stop: 07/29/24 00:22 Last Admin: 06/29/24 21:33 Dose: 2 mg Azithromycin (Azithromycin 250 Mg Tab) 250 mg PO MoWeFr@0900 [facility] Stop: 07/30/24 08:59 Last Admin: 06/30/24 08:15 Dose: 250 mg Heparin Sodium (Porcine) (Heparin 100 Unit/Ml 5ml Flush) 5 ml FLUSH PRN PRN PRN Reason: Flush Stop: 07/29/24 04:06 Last Admin: 06/29/24 09:52 Dose: 5 ml Ertapenem (Invanz 1000mg) 1,000 mg in 10 mls @ 2 mls/min IV Q24H [facility] Stop: 07/09/24 19:59 Last Admin: 06/29/24 20:58 Dose: 2 mls/min Lactated Ringer's (Lr) 1,000 mls @ 100 mls/hr IV .Q10H [facility] Stop: 07/29/24 16:44 Last Admin: 06/30/24 12:43 Dose: 100 mls/hr Promethazine HCl (Phenergan) 6.25 mg in 50.25 mls @ 201 mls/hr IV Q6H PRN PRN Reason: Nausea And Vomiting Stop: 07/30/24 03:59 Montelukast Sodium (Montelukast Sodium 10 Mg Tablet) 10 mg PO HS [facility] Stop: 07/29/24 00:22 Last Admin: 06/29/24 21:34 Dose: 10 mg Mycophenolate Sodium (Mycophenolate Sodium 180 Mg Tab) 540 mg PO BID [facility] Stop: 07/29/24 00:22 Last Admin: 06/30/24 08:14 Dose: 540 mg Non-Formulary Patient's Own Med-- Zenpep 2 each PO UD PRN PRN Reason: SNACKS Stop: 07/29/24 12:20 Non-Formulary Patient's Own Med-- Zenpep 4 each PO AC [facility] Stop: 07/29/24 12:29 Last Admin: 06/30/24 11:57 Dose: 4 cap Ondansetron HCl (Ondansetron Inj 2 Mg/Ml 2 Ml Vial) 4 mg IV Q4H PRN PRN Reason: Nausea Stop: 07/29/24 09:34 Last Admin: 06/30/24 11:58 Dose: 4 mg Oxycodone HCl (Oxycodone Hcl Ir 5 Mg Tab (Immediate Release)) 5 mg PO Q4H PRN PRN Reason: Pain Stop: 07/12/24 22:52 Last Admin: 06/30/24 06:03 Dose: 5 mg Pantoprazole Sodium (Pantoprazole 40 Mg Tab) [facility] Stop: 07/29/24 08:59 Last Admin: 06/30/24 08:14 Dose: 40 mg Prednisone (Prednisone 5 Mg Tab) 5 mg PO QAM [facility] Stop: 07/29/24 08:59 Last Admin: 06/30/24 08:14 Dose: 5 mg Sertraline HCl (Sertraline Hcl 50 Mg Tablet) [facility] Stop: 07/29/24 08:59 Last Admin: 06/30/24 08:14 Dose: 50 mg Tacrolimus (Tacrolimus 1 Mg Cap) 6 mg PO BID [facility] Stop: 07/29/24 00:22 Last Admin: 06/30/24 08:13 Dose: 6 mg Trazodone HCl (Trazodone Hcl 50 Mg Tab) [address] [facility] Stop: 07/29/24 00:22 Last Admin: 06/29/24 21:32 Dose: 75 mg Vitamin D (Cholecalciferol 125 Mcg (5,000 Units) Tab) 125 mcg PO [facility] Stop: 07/29/24 08:59 Last Admin: 06/30/24 08:15 Dose: 125 mcg
[2024-06-30] MEDS: PROMETHAZINE 6.25 MG/50.25 ML BAG IV PRN (16:10)
[2024-07-01 06:39] LABS: Basophils # (auto) 0.03 K/uL (0.00-0.20); Basophils % (auto) 0.3 %; Eosinophils # (auto) 0.35 K/uL (0.00-0.50); Hematocrit (blood only) 28.8 % (42.0-52.0); Hemoglobin 9.6 g/dl (14.0-18.0); Immature Granulocytes # (auto) 0.07 K/uL (0.01-0.20); Immature Granulocytes % (auto) 0.8 %; Lymphocytes # (auto) 2.52 K/uL (1.20-3.40); Lymphocytes % (auto) 28.9 %; Mean Corpuscular Hemoglobin 28.7 pg (25.0-34.0); Mean Corpuscular Hgb Conc 33.3 g/dL (32.0-36.0); Monocytes # (auto) 0.71 K/uL (0.11-0.59); Monocytes % (auto) 8.1 %; Neutrophils # (auto) 5.05 K/uL (1.40-6.50); Neutrophils % (auto) 57.9 %; Platelet Count 185 K/uL (130-400); RDW Coefficient of Variation 14.4 % (11.5-14.5); RDW Standard Deviation 45.5 fL (36.4-46.3); Red Blood Count 3.35 M/uL (4.70-6.10); White Blood Count 8.73 K/ul (4.8-10.8)
[2024-07-01 06:51] LABS: BUN Creatinine Ratio 11.3 (10-20); Calcium 7.4 mg/dl (8.6-10.3); Magnesium 1.4 mg/dl (1.7-2.4); Phosphorus 2.9 mg/dl (2.5-4.9)
[2024-07-01] MEDS: MAGNESIUM SULFATE / D5W 1 GM/100 ML BAG IV SCH (08:24)
--- NOTE | 2024-07-01 13:52 | Hospitalist Progress Note ---
Date of Service July 01, 2024 Assessment & Plan (1) Sepsis due to gram-negative UTI: Plan: Presented with dysuria and some hematuria on the day of admission associated nausea and lower abdominal discomfort No fever and no chills Complicated UTI without any sepsis Has been on intravenous Ertapenem Urine is growing E. coli ESBL and blood culture has been negative Reviewed previous urine cultures most recently has had E. coli that was sensitive to multiple antibiotics several UTIs ago it was E. coli ESBL. Will continue ertapenem at this time and await sensitivities He has been feeling much better since admission ID has been consulted-Appreciate input and recommendation Advised to have oral antibiotic on discharge He will be discharged home this afternoon (2) HEIDY (acute kidney injury): Plan: Noted to have HEIDY on admission Received cautious amount of intravenous fluid and the kidney function has been normalized (3) Exocrine pancreatic insufficiency: (4) Protein-calorie malnutrition, moderate: (5) Lung transplant status, bilateral: (6) Cystic fibrosis: Plan: Patient chronically immunocompromised due to lung transplant for cystic fibrosis presents with sepsis from gram-negative urinary tract infection as evidenced by leukocytosis and acute kidney injury. He has been getting acyclovir, azithromycin, mycophenolate sodium, tacrolimus and prednisone with lung transplant status Admission and Anticipated Discharge Date Admission Date: June 28, 2024 Subjective 06/30/2024 The patient was seen and examined in medical floor He has been feeling much better and denies any fever and or chills and does not have any dysuria He denies any respiratory symptoms 07/01/2024 The patient was seen and examined in medical floor He has been feeling much better and denies any urinary symptoms No fever and no chills and does not have any respiratory symptoms Review of Systems Review of Systems: All systems reviewed and are unremarkable except as noted below Physical Exam Physical Exam: Lying in bed without any acute distress Constitutional: + ill appearing and + thin Eyes: PERRL, conjunctivae normal, anicteric sclerae ENMT: external ear and nose normal, oropharynx normal Neck: trachea midline, no thyromegaly Respiratory: no respiratory distress Auscultation: lungs clear to auscultation bilaterally Cardiovascular: Rate/Rhythm: regular rate and regular rhythm; not tachycardic Heart Sounds: normal S1 and normal S2; no murmur Extremities: no edema Gastrointestinal (Abdomen): Inspection/Auscultation: normal bowel sounds; abdomen not distended Percussion/Palpation: abdomen soft; abdomen nontender Neurologic: normal touch/pain/proprioception and moves all extremities; no focal motor deficits Psychiatric: A+Ox3, euthymic affect Lymphatic: no cervical or axillary lymphadenopathy Results & Data Results & Data Vital Signs (Past 12 Hours) Vital Signs Temp Pulse Resp BP Pulse Ox O2 Del Method 07/01/24 07:55 Room Air 07/01/24 07:33 36.6 C 70 18 136/80 98 Room Air Laboratory Results Short CBC 07/01/24 Range/Units 06:16 WBC 8.73 (4.8-10.8) K/ul Hgb 9.6 L (14.0-18.0) g/dl Hct 28.8 L (42.0-52.0) % Plt Count 185 (130-400) K/uL BMP 07/01/24 06:16 Sodium 135 L Potassium 4.0 Chloride 110 H Carbon Dioxide 20 L BUN 17 Creatinine 1.51 H Glucose 133 H Calcium 7.4 L Medications Administered Current Inpatient Medications Acetaminophen (Acetaminophen 500 Mg Tab) 500 mg PO Q6H PRN PRN Reason: fever/pain Stop: 07/29/24 04:50 Acyclovir (Acyclovir 200 Mg Cap) 200 mg PO BID [facility] Stop: 07/29/24 08:59 Last Admin: 07/01/24 08:04 Dose: 200 mg Aripiprazole (Aripiprazole 1 Mg/Ml Oral Soln 150 Ml Btl) 2 mg PO HS [facility] Stop: 07/29/24 00:22 Last Admin: 06/30/24 21:01 Dose: 2 mg Azithromycin (Azithromycin 250 Mg Tab) 250 mg PO MoWeFr@0900 [facility] Stop: 07/30/24 08:59 Last Admin: 06/30/24 08:15 Dose: 250 mg Heparin Sodium (Porcine) (Heparin 100 Unit/Ml 5ml Flush) 5 ml FLUSH PRN PRN PRN Reason: Flush Stop: 07/29/24 04:06 Last Admin: 06/29/24 09:52 Dose: 5 ml Ertapenem (Invanz 1000mg) 1,000 mg in 10 mls @ 2 mls/min IV Q24H [facility] Stop: 07/09/24 19:59 Last Admin: 06/30/24 21:00 Dose: 2 mls/min Lactated Ringer's (Lr) 1,000 mls @ 100 mls/hr IV .Q10H [facility] Stop: 07/29/24 16:44 Last Admin: 07/01/24 08:27 Dose: 100 mls/hr Promethazine HCl (Phenergan) 6.25 mg in 50.25 mls @ 201 mls/hr IV Q6H PRN PRN Reason: Nausea And Vomiting Stop: 07/30/24 03:59 Last Infusion: 06/30/24 16:31 Dose: Infused Montelukast Sodium (Montelukast Sodium 10 Mg Tablet) 10 mg PO HS [facility] Stop: 07/29/24 00:22 Last Admin: 06/30/24 21:01 Dose: 10 mg Mycophenolate Sodium (Mycophenolate Sodium 180 Mg Tab) 540 mg PO BID [facility] Stop: 07/29/24 00:22 Last Admin: 07/01/24 08:05 Dose: 540 mg Non-Formulary Patient's Own Med-- Zenpep 2 each PO UD PRN PRN Reason: SNACKS Stop: 07/29/24 12:20 Non-Formulary Patient's Own Med-- Zenpep 4 each PO AC [facility] Stop: 07/29/24 12:29 Last Admin: 07/01/24 11:54 Dose: Not Given Ondansetron HCl (Ondansetron Inj 2 Mg/Ml 2 Ml Vial) 4 mg IV Q4H PRN PRN Reason: Nausea Stop: 07/29/24 09:34 Last Admin: 07/01/24 10:08 Dose: 4 mg Oxycodone HCl (Oxycodone Hcl Ir 5 Mg Tab (Immediate Release)) 5 mg PO Q4H PRN PRN Reason: Pain Stop: 07/12/24 22:52 Last Admin: 07/01/24 08:31 Dose: 5 mg Pantoprazole Sodium (Pantoprazole 40 Mg Tab) 40 mg PO QAM [facility] Stop: 07/29/24 08:59 Last Admin: 07/01/24 08:05 Dose: 40 mg Prednisone (Prednisone 5 Mg Tab) 5 mg PO QAM [facility] Stop: 07/29/24 08:59 Last Admin: 07/01/24 08:05 Dose: 5 mg Sertraline HCl (Sertraline Hcl 50 Mg Tablet) 50 mg PO QAM [facility] Stop: 07/29/24 08:59 Last Admin: 07/01/24 08:05 Dose: 50 mg Tacrolimus (Tacrolimus 1 Mg Cap) 6 mg PO BID [facility] Stop: 07/29/24 00:22 Last Admin: 07/01/24 08:06 Dose: 6 mg Trazodone HCl (Trazodone Hcl 50 Mg Tab) 75 mg PO HS [facility] Stop: 07/29/24 00:22 Last Admin: 06/30/24 21:03 Dose: 75 mg Vitamin D (Cholecalciferol 125 Mcg (5,000 Units) Tab) 125 mcg PO QAM [facility] Stop: 07/29/24 08:59 Last Admin: 07/01/24 08:05 Dose: 125 mcg
[2024-07-01 14:12] VITALS: BP 148/82; PULSE 72; RESP 16; TEMP 98.1; O2SAT 100
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
[2024-07-01] MEDS: AMOXICILLIN/CLAVULANATE 875 MG TAB PO ONE (16:27)
== END 2024-07-01 16:47 | disposition home or self-care (01) | DRG 872 ==
LOC: ED 18:25 → SUATTDRO 22:53 → 3E 22:53

== ENCOUNTER 2025-08-15 14:24 | Observation (INO) ==
[2025-08-15] MEDS: ONDANSETRON INJ 2 MG/ML 2 ML VIAL IV STA (15:44)
[2025-08-15] MEDS: ACETAMINOPHEN 1,000 MG/100 ML VIAL IV STA (15:52)
[2025-08-15] MEDS: PLASMA-LYTE A 1,000 ML IV ONE (16:09)
[2025-08-15 16:18] LABS: Hematocrit (blood only) 31.4 % (42.0-52.0); Hemoglobin 10.7 g/dL (14.0-18.0); Immature Granulocytes # (auto) 0.03 K/uL (0.01-0.20); Immature Granulocytes % (auto) 0.4 %; Mean Corpuscular Hemoglobin 29.3 pg (25.0-34.0); Mean Corpuscular Volume 86.0 fL (80.0-100.0); Platelet Count 201 K/uL (130-400); RDW Standard Deviation 45.1 fL (36.4-46.3); Red Blood Count 3.65 M/uL (4.70-6.10); White Blood Count 7.54 K/ul (4.8-10.8)
[2025-08-15 16:39] LABS: Alanine Aminotransferase 24.0 U/L (7-52); Albumin Globulin Ratio 1.3 (0.9-2); Albumin Level 3.7 gm/dl (3.4-5.0); Alkaline Phosphatase 252.0 U/L (34-104); Anion Gap 7.0 (3-11); Bilirubin,Total 0.4 mg/dl (0.2-1.0); Blood Urea Nitrogen 23.0 mg/dl (6-23); Calcium 8.0 mg/dl (8.6-10.3); Carbon Dioxide 19.0 mmol/L (21-32); Chloride 107.0 mmol/L (98-107); Creatinine Clr Calc Pharmacy 41.4 ml/min; Globulin 2.8 gm/dl (2.5-4.0); Glucose 106.0 mg/dl (70-99(Fasting)); Magnesium 1.5 mg/dl (1.7-2.4); Potassium 3.9 mmol/L (3.5-5.1); Sodium 133.0 mmol/L (136-145); Total Protein 6.5 gm/dl (6.0-8.3)
[2025-08-15] MEDS: MAGNESIUM SULFATE / D5W 1 GM/100 ML BAG IV STA ×2 (17:20→20:30)
--- NOTE | 2025-08-15 17:37 | XRay Report ---
Clinical History: Transplant Technique: A frontal view of the chest was obtained Comparison is made to the prior examination dated 06/28/2024 Findings: There are no definite pulmonary infiltrates. The heart size is within normal limits. No pleural effusion or pneumothorax is seen. There is no definite pulmonary nodule. No fracture is noted. Multiple scattered surgical clips are again seen. Sternal wires are present. There is a left chest wall port with its tip in the SVC Impression: No active disease Electronically signed by Koko Chakraborty 08-15-2025 5:36 PM
[2025-08-15 17:39] LABS: Appearance Urine Clear (Clear); Bacteria Urine Automated 4+ (None Seen); Cast Urine Automated 0-2 /lpf (0-2); Epithelial Cell Urine Auto 0-2 /hpf (0-2); Glucose Urine UA Negative (Negative); RBC Urine Automated 0-2 /hpf (0-2); WBC Urine Automated 21-50 /hpf (0-5)
--- NOTE | 2025-08-15 17:41 | Ultrasound Report ---
Clinical history: Unable to void Technique: Renal sonography was performed Findings: The right kidney measures 7.7 cm in length and the left kidney measures 8.1 cm in length. There is no hydronephrosis or visualized hydroureter. There is an apparent 5 mm left renal calculus. There is a 1.7 cm right renal cyst as well as a 7 mm right renal cyst There is apparent debris within the urinary bladder. Bilateral ureteral jets were seen. The prostate is of normal size and measuring 3.8 x 3.8 x 2.8 cm Impression: 1. Small right renal cysts 2. Nonobstructing renal calculus 3. Debris within the urinary bladder. Possible etiologies include infectious cystitis and hemorrhage ACT 112: Positive. There are findings on this exam that require communication between the performing entity and the patient following Patient Test Result Information Act ([place] ACT 112) guidelines. Electronically signed by Koko Chakraborty 08-15-2025 5:41 PM
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
[2025-08-15] MEDS: CEFEPIME 2000MG 2,000 MG/20 ML SYR IV STA (18:44)
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
[2025-08-15] MEDS: FOSFOMYCIN TROMETHAMINE 3 GM PACKET PO STA (20:28)
[2025-08-15] MEDS ORDERED: POLYETHYLENE (MIRALAX) 17 GM PACK PO PRN (21:41)
[2025-08-15] MEDS ORDERED: ALUMINUM/MAGNESIUM SUSP 30 ML UDC PO PRN (21:41)
[2025-08-15] MEDS ORDERED: TACROLIMUS 1 MG CAP PO SCH (21:41)
[2025-08-15] MEDS: ONDANSETRON INJ 2 MG/ML 2 ML VIAL IV PRN (21:49)
[2025-08-15] MEDS ORDERED: PANCREAZE (LIPASE 16,800U) CAP PO PRN (21:59)
[2025-08-15] MEDS: SODIUM CHLORIDE 0.9% 1,000 ML IV SCH (22:20)
[2025-08-15] MEDS: HEPARIN SOD 5,000 UNIT/0.5 ML VIAL SQ SCH (22:20)
[2025-08-15] MEDS: MYCOPHENOLATE SODIUM 180 MG TAB PO SCH (22:21)
[2025-08-15] MEDS: TACROLIMUS 1 MG CAP PO SCH (22:22)
[2025-08-15] MEDS: cefTRIAXone SODIUM 2,000 MG/50 ML BAG IV SCH (22:22)
[2025-08-16 07:29] LABS: Hematocrit (blood only) 32.7 % (42.0-52.0); Hemoglobin 11.0 g/dL (14.0-18.0); Immature Granulocytes # (auto) 0.02 K/uL (0.01-0.20); Immature Granulocytes % (auto) 0.3 %; Mean Corpuscular Hemoglobin 29.1 pg (25.0-34.0); Mean Corpuscular Volume 86.5 fL (80.0-100.0); Platelet Count 209 K/uL (130-400); RDW Standard Deviation 46.2 fL (36.4-46.3); Red Blood Count 3.78 M/uL (4.70-6.10); White Blood Count 7.08 K/ul (4.8-10.8)
[2025-08-16 07:53] LABS: Anion Gap 7.0 (3-11); Blood Urea Nitrogen 17.0 mg/dl (6-23); Calcium 7.6 mg/dl (8.6-10.3); Carbon Dioxide 18.0 mmol/L (21-32); Chloride 110.0 mmol/L (98-107); Creatinine Clr Calc Pharmacy 41.5 ml/min; Glucose 113.0 mg/dl (70-99(Fasting)); Magnesium 2.0 mg/dl (1.7-2.4); Potassium 3.7 mmol/L (3.5-5.1); Sodium 135.0 mmol/L (136-145)
[2025-08-16] MEDS: SERTRALINE HCL 100 MG TABLET PO SCH (08:42)
[2025-08-16] MEDS: PANCREAZE (LIPASE 16,800U) CAP PO SCH (08:43)
--- NOTE | 2025-08-16 11:16 | Hospitalist Progress Note ---
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 #Complicated urinary tract infection UA suggestive of UTI Urine culture in lab ED provider discussed with transplant team who recommended one time dose of fosfomycin and continue with IV antimicrobials Continue IV ceftriaxone and follow up infectious workup #Hx of double lung transplant due to cystic fibrosis Continue immunosuppressive regimen of tacrolimus, pred and mycophenolate #CKD-3 Chronic, stable Baseline cr 1.3 Cr is 1.41 today. Monitor #Hypomagnesemia #Hyponatremia On admission, Na was 133 and Mag was 1.5 Mag repleted and improved to 2 today Na is 135 today #Chronic Anemia Hb stable. 11 today #Protein calorie malnutrition BMI 16.4 Consult dietitian DVT ppx: SQ Heparin FULL CODE I spent a total of 50 minutes coordinating, documenting and providing care for this patient excluding time spent in performance of separately billed services Admission and Anticipated Discharge Date Admission Date: August 15, 2025 Subjective Patient seen and examined Reports flank pain is improving Reports some pressure with urination Denied other complaints in ROS Physical Exam Constitutional: + thin; no acute distress Eyes: PERRL, conjunctivae normal, anicteric sclerae ENMT: external ear and nose normal, oropharynx normal Respiratory: normal respiratory effort, lungs clear to auscultation Cardiovascular: Rate/Rhythm: regular rate and regular rhythm Gastrointestinal (Abdomen): normal bowel sounds, soft, nontender, no hepa tosplenomegaly Musculoskeletal: No pedal edema Neurologic: PERRL, EOMI, accommodation nl, no face palsy, no dysarthria Psychiatric: A+Ox3, euthymic affect Results & Data Results & Data Vital Signs (Past 12 Hours) Vital Signs Temp Pulse Resp BP Pulse Ox O2 Del Method 08/16/25 08:00 Room Air 08/16/25 07:48 36.8 C 79 16 127/74 97 Room Air Laboratory Results Abnormal lab results 08/15/25 08/15/25 08/16/25 Range/Units 15:38 Unknown 07:04 RBC 3.65 L 3.78 L (4.70-6.10) M/uL Hgb 10.7 L 11.0 L (14.0-18.0) g/dL Hct 31.4 L 32.7 L (42.0-52.0) % RDW Coeff of Crissy 14.6 H (11.5-14.5) % Sodium 133 L 135 L (136-145) mmol/L Chloride 110 H (98-107) mmol/L Carbon Dioxide 19 L 18 L (21-32) mmol/L Creatinine 1.48 H 1.41 H (0.6-1.4) mg/dl Glucose 106 H 113 H (70-99(Fasting)) mg/dl Calcium 8.0 L 7.6 L (8.6-10.3) mg/dl Ionized Calcium 1.09 L (1.12-1.32) mmol/L Magnesium 1.5 L (1.7-2.4) mg/dl Alkaline Phosphatase 252 H (34-104) U/L 25-OH Vitamin D Total 8.3 L (30-100) ng/ml Urine Protein Trace H (Negative) Urine Nitrite Positive A (Negative) Ur Leukocyte Esterase 1+ H (Negative) Urine WBC (Auto) 21-50 H (0-5) /hpf Urine Bacteria (Auto) 4+ H (None Seen)
[2025-08-16] MEDS: PROCHLORPERAZINE 5 MG in SYRINGE 4 ML IV ONE (17:42)
[2025-08-16] MEDS: ACETAMINOPHEN 325 MG TAB PO PRN (17:45)
[2025-08-16] MEDS: HEPARIN 100 UNIT/ML 5ML FLUSH FLUSH PRN (22:22)
[2025-08-16 23:33] VITALS: RESP 16
[2025-08-17 07:28] VITALS: BP 130/80; PULSE 78; TEMP 98.2; O2SAT 97
[2025-08-17 08:05] LABS: Hematocrit (blood only) 33.4 % (42.0-52.0); Hemoglobin 11.0 g/dL (14.0-18.0); Mean Corpuscular Hemoglobin 28.7 pg (25.0-34.0); Mean Corpuscular Volume 87.2 fL (80.0-100.0); Platelet Count 198 K/uL (130-400); RDW Standard Deviation 45.7 fL (36.4-46.3); Red Blood Count 3.83 M/uL (4.70-6.10); White Blood Count 7.86 K/ul (4.8-10.8)
[2025-08-17 08:28] LABS: Anion Gap 7.0 (3-11); Blood Urea Nitrogen 16.0 mg/dl (6-23); Calcium 7.9 mg/dl (8.6-10.3); Carbon Dioxide 19.0 mmol/L (21-32); Chloride 110.0 mmol/L (98-107); Creatinine Clr Calc Pharmacy 33.0 ml/min; Glucose 155.0 mg/dl (70-99(Fasting)); Magnesium 1.8 mg/dl (1.7-2.4); Potassium 3.7 mmol/L (3.5-5.1); Sodium 136.0 mmol/L (136-145)
--- NOTE | 2025-08-17 11:28 | Discharge Summary ---
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 He was diagnosed with UTI. Urine cx grew Klebsiella. He was on empiric ceftriaxone but this will be deescalated to bactri through 08/21. He feels very well today and wishes to be discharged. Patient denies F/C, CP, palpitations, SOB, dyspnea, abd pain, N/V/D dysuria polyuria. Vitals stable. Labs are stable. His Cr is elevated at 1.7 but still within his baseline for CKD3. He will f/u with his transplant team upon discharge. 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 He reports feeling similarly with other urinary tract infections. He reports decreased appetite for the last week and over the last 3 to 4 days experiencing nausea and vomiting. He also had 3 episodes of loose stool today. He has overall had poor intake. He complains of bilateral intermittent flank pain. Pain is currently a 7 out of 10. Typically with urinary tract infections he does not experience any dysuria, increased urgency, frequency or hematuria. He denies any fever, chills, sweats, lightheadedness, dizziness, chest pain, shortness breath, cough or hematemesis. He did not try anything [id number] for his symptoms. He has been compliant with his medications. In ED patient remained hemodynamically stable. He is not septic. Initial urinalysis concerning for infection. He received IV cefepime in ED. ED provider contacted patient's transplant team who recommended a one-time dose of 3 g fosfomycin as well as admission for IV antibiotics. He reports being under a lot of stress due to illnesses in his family. Discharge Exam Vitals and labs reviewed General: Well appearing, NAD HEENT: EOMI, PERRLA Neck: Supple Cardiac: RRR no rubs gallops or murmurs Lungs: CTA no rhonchi wheezing or rales Abd: S NT ND BS positive : Deffered MSK: Full ROM. No obvious deformities Ext: No Edema cyanosis Skin: Warm, Dry Neuro: AOx3 No focal deficits. Psych: Normal Mood Updated Medication List Medication Instructions Recorded Confirmed Type prednisone 5 mg tablet 5 mg PO QAM 06/11/20 08/15/25 History edtmbo-rpasvtad-xpezxrv(pork) 2 - 4 cap PO TIDM 02/08/25 08/15/25 History 40,000-126,000-168k unit capsule,del rel (Zenpep) mycophenolate sodium 180 mg 720 mg PO BID 02/08/25 08/15/25 History tablet,delayed release ondansetron 4 mg disintegrating 4 mg PO Q8H PRN Nausea 02/08/25 08/15/25 History tablet sertraline 100 mg tablet 100 mg PO DAILY 02/08/25 08/15/25 History tacrolimus 1 mg capsule, 3 mg PO BID 02/08/25 08/15/25 History immediate-release trazodone 50 mg tablet 100 mg PO HS 02/08/25 08/15/25 History tacrolimus 5 mg capsule, 5 mg PO BID 08/15/25 08/15/25 History immediate-release sulfamethoxazole 800 1 tab PO BID 5 days #10 tabs 08/17/25 Rx mg-trimethoprim 160 mg tablet (Bactrim DS) Hospital Stay Data Consultations 08/15/25 19:03 ED Decision to Admit Stat Diagnostic Imagining Performed 08/15/25 15:06 US renal/blad retro comp Stat Pending Results Patient Have Any Pending Studies at Discharge: No Discharge Instructions Given to Patient (Per Discharging Provider) Please take the antibiotic as prescribed. Please f/u with your transplant team after discharge. Return if you develop fevers, burning when you urinate, urina ting more frequently. Total Time Total Time Spent Total Time Spent (In Minutes): 41
--- NOTE | 2025-08-19 07:50 | Coding Query ---
MALNUTRITION To promote full compliance with coding requirements relating to patient care, physician participation is requested in all cases of diffuser operator uncertainty. Please assist us with the question(s) below: Please place an X within the parenthesis (x). If other, please document. H/P documented protein calorie malnutrition, BMI 17.2 . Dietitian consulted. Thanks for your help! FELICIANO Guajardo CCS "Malnutrition" is documented in this record. If possible, please check the box that provides a more specific diagnosis: ( ) Mild malnutrition ( ) Moderate malnutrition ( ) Severe malnutrition ( ) Protein malnutrition (kwashiorkor) ( ) Severe protein calorie malnutrition ( ) Protein calorie malnutrition, unspecified (x ) Other (please specify): Was this diagnosis present on admission? Please place an X within the parenthesis (x). (x ) Present on admission ( ) Not present on admission ( ) Unable to be clinically determined MTDD
== END 2025-08-17 12:29 | disposition home or self-care (01) | DRG 690 ==
LOC: ED 14:24 → INTOOBSV 19:08 → SUATTDRO 19:08 → EDINP 19:08 → 3N 21:18